=== PATIENT | female | born 1955 | race Caucasian/White ===

== ENCOUNTER 2021-01-20 15:56 | Inpatient (IN) | payer MEDICARE, MEDICAID, SELFPAY ==
[2021-01-20] VITALS (10 sets, daily range): BP systolic 123–148; BP diastolic 49–77; PULSE 78–88; RESP 12–20; TEMP 36.6–37.2; O2SAT 95–100; BMI 54.6
--- NOTE | ~2021-01-20 | US_ITS ---
EXAMINATION: US venous doppler [facility] DATE: 01/21/2021 14:15 INDICATION: Lower limb pain TECHNIQUE: Aguero scale images without and with compression and Doppler images of the bilateral lower e xtremity veins were obtained. COMPARISON: None FINDINGS: There is limited evaluation of the bilateral calf veins. The right common femoral vein, profunda femoral vein, femoral vein, popliteal vein, peroneal trunk, p osterior tibial veins, and greater saphenous vein are patent. The left common femoral vein, profunda femoral vein, femoral vein, popliteal vein, peroneal trunk, po sterior tibial veins, and greater saphenous vein are patent. IMPRESSION: 1. Patent bilateral lower extremity veins. No evidence of deep venous thrombosis. Reviewed, dictated and finalized at location A. 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 Patent bilateral lower extremity veins. No evidence of deep venous thrombosi s.
--- NOTE | ~2021-01-20 | XR_ITS ---
XR chest 1V portable 01/20/2021 16:13 Indication: Substernal chest pain. History of COPD. Procedure: AP portable chest Comparison: No prior studies for comparison. Findings: Borderline heart size. Mild pulmonary vascular congestion. No focal air space disease, pulm onary edema, pleural effusion or suspected pneumothorax. Impression: 1: No acute cardiopulmonary disease. Reviewed, dictated and finalized at location A. UTER ARCHITECT Impression: 1: No acute cardiopulmonary disease.
--- NOTE | 2021-01-20 16:02 | ECG_ITS ---
Measurements Intervals [place] Rate: 84 P: 51 DC: 185 QRS: -43 QRSD: 110 T: 71 QT: 374 QTc: 443 Interpretive Statements SINUS RHYTHM LEFT AXIS DEVIATION INCOMPLETE LEFT BUNDLE BRANCH BLOCK POOR R WAVE PROGRESSION, ANTERIOR LEADS BASELINE ARTIFACT- I, II, AVR, AVL, V6 ABNORMAL ECG Electronically Signed On 01-21-2021 7:17:54 [employer]MENT WORK[employer] by Abhay Lew D.O.
--- NOTE | 2021-01-20 16:05 | ED.CHESTPAIN ---
HPI - Chest Pain General Chief Complaint: Chest Pain Stated Complaint: CP Source: RN notes reviewed History of Present Illness HPI narrative: Patient presents emergency department from [facility] via EMS for chest pain. Patient states pain began shortly after eating the pain is located in the midsternal chest in the epigastric region described as a pressure. States is associate with shortness of breath. Patient states the pain is still present she is given 3 nitros by ECF staff with minimal relief she denies any fevers or chills nausea vomiting diarrhea or any other symptoms Related Data Allergies Allergy/AdvReac Type Severity Reaction Status Date / Time amoxicillin Allergy Unknown Verified 01/20/21 16:15 aspirin Allergy Unknown Verified 01/20/21 16:15 bee venom protein (honey bee) Allergy Unknown Verified 01/20/21 16:15 [bees] chlorpheniramine Allergy Unknown Verified 01/20/21 16:15 erythromycin base Allergy Unknown Verified 01/20/21 16:15 fenofibrate Allergy Unknown Verified 01/20/21 16:15 fluoxetine Allergy Unknown Verified 01/20/21 16:15 hydrocodone Allergy Unknown Verified 01/20/21 16:15 hydroxyzine Allergy Unknown Verified 01/20/21 16:15 iodine Allergy Unknown Verified 01/20/21 16:15 metaproterenol Allergy Unknown Verified 01/20/21 16:15 methocarbamol Allergy Unknown Verified 01/20/21 16:15 oxytetracycline Allergy Unknown Verified 01/20/21 16:15 Penicillins Allergy Unknown Verified 01/20/21 16:15 pentazocine Allergy Unknown Verified 01/20/21 16:15 procaine Allergy Unknown Verified 01/20/21 16:15 propoxyphene Allergy Unknown Verified 01/20/21 16:15 sertraline Allergy Unknown Verified 01/20/21 16:15 Sulfa (Sulfonamide Allergy Unknown Verified 01/20/21 16:15 Antibiotics) terbutaline Allergy Unknown Verified 01/20/21 16:15 yellow dye Allergy Unknown Verified 01/20/21 16:15 hmg-coa-R Inhibitors Allergy Unknown Uncoded 01/20/21 16:15 Review of Systems Review of Systems: Gen.: Denies fevers or chills ENT: Denies congestion Respiratory: Reports shortness of breath CV: See HPI GI: Denies abdominal pain nausea, emesis or diarrhea Musculoskeletal: Denies back pain or muscle pain Neuro: Denies numbness, tingling, weakness or focal weakness Skin: Denies rash Except as documented, all other systems reviewed and negative [facility] Past Medical History Medical History (Updated 01/20/21 @ 18:21 by Hernan Viramontes DO) COPD (chronic obstructive pulmonary disease) Social History Social History (Updated 01/20/21 @ 16:09 by Hernan Viramontes DO) Smoking status: Never smoker Exam Narrative: APPEARANCE: No acute distress, nontoxic, resting in bed EYES: EOMI HEENT: Normocephalic, atraumatic, OMM RESPIRATORY: No respiratory distress Clear to auscultation bilaterally with no rhonchi wheezing or rales. CARDIOVASCULAR: Regular rate and rhythm without murmurs rubs or gallops. ABDOMINAL: Obese soft tender palpation epigastric left upper quadrant no tenderness right upper quadrant, right lower quadrant left lower quadrant no rebound or guarding MUSCULOSKELETAl: Moves all extremities. No clubbing, cyanosis or edema. NEURO: Awake and alert. Following commands, speech normal, no focal deficits SKIN:: Warm, dry. No rashes lesions or abrasions PSYCHIATRIC: Normal affect/mood, Course Course Emergency Course: Patient states pain is improved with Maalox states she is unable to take aspirin as she is allergic to aspirin Patient given morphine with resolution of pain Discussed with Dr. Brasher presentation work-up agrees with consult at this time Discussed with GENE Krishnan for Dr. Santos presentation work-up agrees with admission Discussed with patient and family results of workup and diagnosis. Discussed need for admission. Patient and family understand and agree to current treatment plan Vital Signs Vital signs: Vital Signs Temperature 99.0 F 01/20/21 15:53 Pulse Rate 88 01/20/21 15:53 Respiratory Rate 14 1
[2021-01-20 16:48] LABS: Basophils Absolute Auto 0.1 K/mm3 (0.0-0.1); Basophils Percent Auto 1.1 % (0.2-1.2); Eosinophils Absolute Auto 0.2 K/mm3 (0-0.3); Eosinophils Percent Auto 2.7 % (0-4.4); Hematocrit 36.9 % (37.0-47.0); Hemoglobin 12.4 g/dL (12.0-15.0); Immature Granulocyte Absolute 0.07 K/mm3 (0.00-0.031); Immature Granulocyte Percent A 1.1 % (0-0.5); Lymphocytes Absolute Auto 2.01 K/mm3 (0.9-3.2); Lymphocytes Percent Auto 30.5 % (18.3-44.2); Mean Corpuscular HGB Conc 33.6 g/dl (32-36); Mean Corpuscular Hemoglobin 32.7 pg (26-34); Mean Corpuscular Volume 97.4 fl (80-100); Monocytes Absolute Auto 0.7 K/mm3 (0.1-0.6); Monocytes Percent Auto 10.3 % (2.6-8.5); Neutrophils Absolute Auto 3.6 K/mm3 (1.3-6.7); Neutrophils Percent Auto 54.3 % (45.5-73.1); Platelet Count Result 194 k/mm3 (150-375); Red Blood Count 3.79 M/mm3 (4.2-5.4); Red Cell Distribution Width 14.8 % (11.5-14.5); White Blood Count 6.6 K/mm3 (4.5-10.0)
[2021-01-20 16:57] LABS: INR 0.9
[2021-01-20 16:58] LABS: Alanine Aminotransferase 23 U/L (4-35); Albumin Level 3.8 g/dL (3.5-5.1); Alkaline Phosphatase 90 U/L (38-126); Anion Gap 6 mmol/L (8-16); Aspartate Amino Transferase 32 U/L (14-36); Bilirubin,Total 0.2 mg/dL (0.2-1.3); Blood Urea Nitrogen 22 mg/dL (7-17); Calcium 9.3 mg/dL (8.4-10.2); Carbon Dioxide 32 mmol/L (22-30); Chloride 94 mmol/L (98-107); Estimated CRCL calculation 64 ml/min; Estimated Glomerular Filt Rate 56; Glucose 180 mg/dL (65-110); Lipase 80 U/L (23-300); Partial Thromboplastin Time 28.1 SECONDS (22.3-36.8); Potassium 3.9 mmol/L (3.4-5.0); Sodium 132 mmol/L (137-145)
[2021-01-20] MEDS: MORPHINE SULFATE (*CRX) 2 MG/ML INJ IV PUSH (17:50)
--- NOTE | 2021-01-20 19:30 | PC.NURSE ---
Assumed care of pt at this time, report received from Katt HAJI. Pt alert, resting on stretcher. Pt updated on POC.
--- NOTE | 2021-01-20 20:00 | PM.IMHP ---
H&P: HPI History of Present Illness Date/Time: 01/20/21 20:00 Chief Complaint: Chest pain. Narrative: This is a very pleasant 65-year-old female with diabetes, hypertension, dyslipidemia, paroxysmal atrial fibrillation, congestive heart failure, untreated sleep apnea, and history of DVT and pulmonary embolism who presented to the emergency department earlier today via EMS from [facility] for evaluation of chest pain. She was in her usual state of health when she awoke this morning. Not long after eating lunch she developed pretty sudden onset of midsternal chest pain which she describes as a pressure or tight like discomfort. She felt a bit short of breath at that time with some nausea. She was given nitroglycerin x3, aspirin, and an antacid without benefit and thus she was brought in for evaluation. Her baseline troponin was mildly elevated at 0.040 and she is being admitted in this setting to rule out acute coronary syndrome. With further questioning she does mention intermittent issues with swallowing in the past though she has not really had any issues recently up until yesterday when eating turkey, she felt like she had to swallow several times in drink water in order to get the turkey down. She did not have any difficulties eating her meal today. She denies exertional chest pain, shortness of breath, cough, vomiting, sweats, orthopnea, and paroxysmal nocturnal dyspnea. No concerns for aspiration. She denies that her symptoms are similar to though she experiences with GERD. Review of Systems Review of Systems: Twelve systems were reviewed. No fever, chills, or sweats. No recent cold or flu symptoms though she has had mild rhinorrhea. She denies cough. Treated recently for urinary tract infection and she continues to have mild dysuria. She has frequent loose stools which is unchanged. She denies significant GERD symptoms. No belching or bloating. No melena or hematochezia. Except as documented, all other systems were reviewed and are negative. [facility] Past Medical History Medical History (Updated 01/20/21 @ 21:22 by Ariella Dos Santos PA-C) Anxiety Asthma Congestive heart failure Deep venous thrombosis Depression Diabetic peripheral neuropathy Frequent urinary tract infections Gastroesophageal reflux disease Hyperlipidemia Hypertension Mixed stress and urge incontinence Obstructive sleep apnea Intolerant to CPAP. Paroxysmal atrial fibrillation Pulmonary embolism Type 2 diabetes mellitus Surgical History Surgical History (Updated 01/20/21 @ 21:14 by Ariella Dos Santos PA-C) History of cardiac catheterization No coronary artery disease per patient report. History of cholecystectomy History of colonoscopy History of cystoscopy History of tonsillectomy and adenoidectomy Family History Family History (Updated 01/20/21 @ 21:15 by Ariella Dos Santos PA-C) Mother Colon cancer Father GI bleed Social History Social History (Updated 01/20/21 @ 21:15 by Ariella Dos Santos PA-C) Social History: Surrogate decision maker: Moi Medellin, brother. Code status: Full code. Smoking status: Never smoker Alcohol intake: never Substance use: never Additional living arrangements comments: Patient is a resident at [facility]. She has no children. 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 Meds Home Medications and Allergies Home Medications Medication Instructions Recorded Confirmed Type oxycodone 5 mg tablet 5 mg PO Q6H PRN #120 tablet 12/12/20 Rx Allergies Allergy/AdvReac Type Severity Reaction Status Date / Time amoxicillin Allergy Unknown Verified 01/20/21 16:15 aspirin Allergy Unknown Verified 01/20/21 16:15 bee venom protein (honey bee) Allergy Unknown Verified 01/20/21 16:15 [bees] chlorpheniramine Allergy Unknown Verified 01/20/21 16:15 erythromycin base Allergy Unknown Verified 01/20/21 16:15 fenofibrate
[2021-01-20 21:18] LABS: Troponin I 0.043 ng/mL (0.000-0.034)
--- NOTE | 2021-01-20 22:00 | PC.NURSE ---
This patient, Nazanin Medellin, was admitted to IMU Room 206-02 on 01/20/21 at 2130. Patient/family oriented to hospital policies and general routines including ID bracelet, bed and alarms, visiting hours, pain management, procedures, bathroom and other care routines, personal items, smoking policy, room service/diet, and visiting hours. Information on how to activate the Rapid Response Team has been discussed. Patient/Family are encouraged to report perceived risks to care and to ask questions if they do not understand what they are told or what they should do.
[2021-01-20 22:39] LABS: Hemoglobin A1C 6.8 % (<5.7)
[2021-01-20 22:52] LABS: Troponin I 0.045 ng/mL (0.000-0.034)
[2021-01-21] VITALS (16 sets, daily range): BP systolic 132–147; BP diastolic 62–74; PULSE 72–93; RESP 16–22; TEMP 36.1–36.9; O2SAT 96–100
[2021-01-21 04:40] LABS: Basophils Absolute Auto 0.1 K/mm3 (0.0-0.1); Basophils Percent Auto 1.1 % (0.2-1.2); Eosinophils Absolute Auto 0.2 K/mm3 (0-0.3); Eosinophils Percent Auto 3.1 % (0-4.4); Hematocrit 36.4 % (37.0-47.0); Hemoglobin 12.2 g/dL (12.0-15.0); Immature Granulocyte Absolute 0.05 K/mm3 (0.00-0.031); Immature Granulocyte Percent A 0.8 % (0-0.5); Lymphocytes Absolute Auto 2.35 K/mm3 (0.9-3.2); Lymphocytes Percent Auto 38.3 % (18.3-44.2); Mean Corpuscular HGB Conc 33.5 g/dl (32-36); Mean Corpuscular Hemoglobin 32.3 pg (26-34); Mean Corpuscular Volume 96.3 fl (80-100); Mean Platelet Volume 10.9 fl (7.4-10.4); Monocytes Absolute Auto 0.7 K/mm3 (0.1-0.6); Monocytes Percent Auto 11.9 % (2.6-8.5); Neutrophils Absolute Auto 2.7 K/mm3 (1.3-6.7); Neutrophils Percent Auto 44.8 % (45.5-73.1); Platelet Count Result 169 k/mm3 (150-375); Red Blood Count 3.78 M/mm3 (4.2-5.4); Red Cell Distribution Width 14.6 % (11.5-14.5); White Blood Count 6.1 K/mm3 (4.5-10.0)
[2021-01-21 05:02] LABS: Alanine Aminotransferase 21 U/L (4-35); Albumin Level 3.4 g/dL (3.5-5.1); Alkaline Phosphatase 86 U/L (38-126); Anion Gap 5 mmol/L (8-16); Aspartate Amino Transferase 26 U/L (14-36); Bilirubin,Total 0.3 mg/dL (0.2-1.3); Blood Urea Nitrogen 20 mg/dL (7-17); Calcium 9.1 mg/dL (8.4-10.2); Carbon Dioxide 36 mmol/L (22-30); Chloride 96 mmol/L (98-107); Estimated CRCL calculation 58 ml/min; Estimated Glomerular Filt Rate 50; Glucose 150 mg/dL (65-110); Magnesium 1.6 mg/dL (1.6-2.3); Potassium 3.6 mmol/L (3.4-5.0); Sodium 137 mmol/L (137-145)
--- NOTE | 2021-01-21 06:36 | PCNSR ---
Addendum entered by Damaris Baxter RD, LDN 01/21/21 06:43: Pt originally documented on was moved to a different room. Original Note: On 01/21/21, the student, Lucila Hull, provided care and completed [facility] documentation on this patient. I have reviewed the student's documentation and agree with the findings.
[2021-01-21 09:38] LABS: Glucose Point of Care 150 mg/dl (65-105)
[2021-01-21] MEDS: allopurinoL 300 MG TABLET PO (10:00)
[2021-01-21] MEDS: INSULIN ASPART (*BKC) 100 UNITS/ML 6 UNITS SUB-Q ×3 (10:00→18:12)
[2021-01-21] MEDS: ASCORBIC ACID 500 MG TABLET PO (10:01)
[2021-01-21] MEDS: CHOLECALCIFEROL 1,000 UNITS TABLET 1000 UNITS PO (10:01)
[2021-01-21] MEDS: VENLAFAXINE HCL XR 75 MG CAP.ER.24H 225 MG PO (10:01)
[2021-01-21] MEDS: CYANOCOBALAMIN 1,000 MCG TABLET 1000 MCG PO (10:02)
[2021-01-21] MEDS: CLOPIDOGREL BISULFATE 75 MG TABLET PO (10:02)
[2021-01-21] MEDS: FUROSEMIDE 80 MG TABLET PO (10:03)
[2021-01-21] MEDS: OLANZapine 5 MG TABLET PO (10:03)
[2021-01-21] MEDS: MULTIVITAMINS /C LUTEIN (CENTRUM SILVER) TABLET *BKC 1 TAB PO (10:03)
[2021-01-21] MEDS: FAMOTIDINE 20 MG TABLET PO ×2 (10:03→18:11)
[2021-01-21] MEDS: LORATADINE 10 MG TABLET PO (10:03)
[2021-01-21] MEDS: PANTOPRAZOLE SODIUM IV 40 MG VIAL IV PUSH ×2 (10:52→20:17)
[2021-01-21] MEDS: MAGNESIUM SULFATE 3GM/D5W100ML 3 GM/100 ML BAG IVPB (10:53)
[2021-01-21] MEDS: DIVALPROEX SODIUM ER 500 MG TAB.24H PO ×2 (11:24→18:12)
--- NOTE | 2021-01-21 13:14 | PM.CNCAR ---
Assessment and Plan Additional Plan NSTEMI, HTN, DM, morbid obesity, plan LHC on saturday, TTE, ASA and plavix, statin, heparin for 48 hours, get medical records of prior cath History of Present Illness History of Present Illness Consult date/time: 01/21/21 13:14 Consult reason: chest pain Reason For Visit: chest pain, elevated troponin Narrative: Patient presented with acute onset of retrosternal chest discomfort, 8/10, non radiating, happened at rest, lsted for hours, not relieved with NTG. [facility]. . Review of Systems Review of Systems: All systems reviewed & are unremarkable except as noted in HPI and below PMFSH Past Medical History Medical History (Updated 01/20/21 @ 21:22 by Ariella Dos Santos PA-C) Anxiety Asthma Congestive heart failure Deep venous thrombosis Depression Diabetic peripheral neuropathy Frequent urinary tract infections Gastroesophageal reflux disease Hyperlipidemia Hypertension Mixed stress and urge incontinence Obstructive sleep apnea Intolerant to CPAP. Paroxysmal atrial fibrillation Pulmonary embolism Type 2 diabetes mellitus Surgical History Surgical History (Updated 01/20/21 @ 21:14 by Ariella Dos Santos PA-C) History of cardiac catheterization No coronary artery disease per patient report. History of cholecystectomy History of colonoscopy History of cystoscopy History of tonsillectomy and adenoidectomy Family History Family History Mother No problems noted. Father No problems noted. Other Adopted Social History Social History (Updated 01/20/21 @ 21:15 by Ariella Dos Santos PA-C) Social History: Surrogate decision maker: Moi Medellin, brother. Code status: Full code. Smoking status: Never smoker Second hand tobacco smoke exposure: No Alcohol intake: never Substance use: never Substance use type: does not use Additional living arrangements comments: Patient is a resident at [facility]. She has no children. 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 Spiritual care concerns: No Meds Home Medications and Allergies Home Medications Medication Instructions Recorded Confirmed Type acetaminophen 650 mg PO Q6H PRN 01/20/21 01/20/21 History albuterol sulfate 2 puff INHALATION HS 01/20/21 01/20/21 History albuterol sulfate 2 puff INHALATION Q4H PRN 01/20/21 01/20/21 History allopurinol 300 mg PO DAILY 01/20/21 01/20/21 History ascorbic acid (vitamin C) 500 mg PO DAILY 01/20/21 01/20/21 History bisacodyl 10 mg RECTAL DAILY PRN 01/20/21 01/20/21 History calcium carbonate [Antacid Calcium] 200 mg PO BID PRN 01/20/21 01/20/21 History cholecalciferol (vitamin D3) 25 mcg PO DAILY 01/20/21 01/20/21 History [Vitamin D3] clopidogrel 75 mg PO DAILY 01/20/21 01/20/21 History cyanocobalamin (vitamin B-12) 1,000 mcg PO DAILY 01/20/21 01/20/21 History [Vitamin B-12] divalproex 500 mg PO BID 01/20/21 01/20/21 History famotidine 20 mg PO BID 01/20/21 01/20/21 History furosemide 80 mg PO DAILY 01/20/21 01/20/21 History insulin aspart U-100 [Novolog 6 unit SUBCUT TID 01/20/21 01/20/21 History Flexpen U-100 Insulin] insulin aspart U-100 [Novolog See Rx Instructions .ROUTE .COMPLEX 01/20/21 01/20/21 History Flexpen U-100 Insulin] insulin glargine [Lantus Solostar 50 unit SUBCUT HS 01/20/21 01/20/21 History U-100 Insulin] loperamide 2 mg PO Q6H PRN 01/20/21 01/20/21 History loratadine 10 mg PO DAILY 01/20/21 01/20/21 History magnesium citrate 300 ml PO DAILY PRN 01/20/21 01/20/21 History magnesium hydroxide [Milk of 30 ml PO HS PRN 01/20/21 01/20/21 History Magnesia] melatonin 5 mg PO HS 01/20/21 01/20/21 History metformin 500 mg PO BID 01/20/21 01/20/21 History ixrwhvzkpocq-wuv-csup-FA-vit K 1 tablet PO DAILY 01/20/21 01/20/21 History [Adults Multivitamin] ny
--- NOTE | 2021-01-21 13:28 | PM.IMPN ---
Progress Note: A&P Assessment and Plan (1) NSTEMI (non-ST elevated myocardial infarction): Code(s): I21.4 - Non-ST elevation (NSTEMI) myocardial infarction Status: Acute Assessment and Plan: The patient presented to the hospital for evaluation of chest pain that happened not long after eating lunch. She was admitted overnight to rule out acute coronary syndrome. Cannot rule out a GI component given reports of dysphagia yesterday while eating meat though she reports no issues with swallowing today and she denies overt GERD symptoms at this time. She has no known history of coronary artery disease and reports a cardiac catheterization years ago at [facility] which was normal Echocardiogram ordered and pending Cardiology evaluated the patient and due to elevated troponins and atypical chest pain he is going to order for a cardiac catheterization to be done on Saturday for further ACS rule out Recommends placing the patient on full-dose Lovenox at this time, holding dose prior to cardiac catheterization Saturday morning Patient understands and agrees the plan all questions answered. Continue monitoring. (2) Chest pain: Code(s): R07.9 - Chest pain, unspecified Status: Acute Assessment and Plan: See above. Resolved now (3) Elevated troponin: Code(s): R77.8 - Other specified abnormalities of plasma proteins Status: Acute Assessment and Plan: See above (4) Hyponatremia: Code(s): E87.1 - Hypo-osmolality and hyponatremia Status: Acute Assessment and Plan: Na normal at 137. Stable. (5) Type 2 diabetes mellitus: Code(s): E11.9 - Type 2 diabetes mellitus without complications Status: Acute Assessment and Plan: Will decrease Home Insulin because of hospitalization to prevent hypoglycemia Initiate sliding scale insulin, Accu-Cheks, and hypoglycemic protocol. (6) Hypertension: Code(s): I10 - Essential (primary) hypertension Status: Acute Assessment and Plan: Her blood pressures were reviewed and they have been stable. BP stable 140/68 Continue monitoring. (7) Gastroesophageal reflux disease: Code(s): K21.9 - Gastro-esophageal reflux disease without esophagitis Status: Acute Assessment and Plan: PPI IV Q12hrs Not having anymore dysphagia symptoms Time Spent With Patient Time with patient: 25 - 35 minutes Subjective Date/time seen: 01/21/21 13:28 Interval history: Date of Service 01/21/21: The patient is feeling well today. No more chest pain, denies worsening SOB from her baseline, denies cough, fever, chills, nausea, vomiting, abdominal pain, difficulty swallowing/choaking on food today, or any other symptoms at this time. Review of Systems Review of Systems: All systems reviewed & are unremarkable except as noted in HPI and below Exam Narrative: General: 65-year-old woman laying flat in bed watching TV. Resting comfortably on 1L via NC. Appears comfortable. In no acute distress. Skin: No jaundice or cyanosis. Good skin turgor. Neck: Full range of motion. Supple. Respiratory: Lungs are clear to auscultation bilaterally. No wheezing, rales or rhonchi. No bony chest wall tenderness. Cardiovascular: The heart has a regular rate and rhythm without murmur. Lower extremities: No lower extremity edema. Distal pulses are easily palpated. No calf tenderness to palpation. Gastrointestinal: The abdomen is soft, nontender and nondistended with active bowel sounds. Psychiatric: Lucid and oriented. Memory intact. Neurologic: No focal deficits. Speech is clear. No facial drooping. Objective Data Vital Signs Vital Signs: Vital Signs - 24 hr 01/20/21 15:53 01/20/21 16:02 01/20/21 17:51 Temperature 99.0 F Pulse Rate 88 87 87 Respiratory Rate 14 20 Blood Pressure 131/77 128/68 Pulse Oximetry 97 97 01/20/21 19:30 01/20/21 20:39 01/20/21 21:1
--- NOTE | 2021-01-21 14:25 | PCPTNOTE ---
in testing-try in am.
[2021-01-21] MEDS: ENOXAPARIN 30 MG/0.3 ML SYRINGE SUB-Q (15:55)
[2021-01-21] MEDS: ENOXAPARIN 100 MG/ML SYRINGE SUB-Q (15:55)
[2021-01-21 18:59] LABS: Glucose Point of Care 189 mg/dl (65-105)
[2021-01-21] MEDS: MELATONIN 5 MG TABLET PO (20:17)
[2021-01-21 20:34] LABS: Glucose Point of Care 199 mg/dl (65-105)
--- NOTE | 2021-01-21 21:23 | ECHO_ITS ---
Patient Info Name: Nazanin Medellin Age: 65 years : 1955 Gender: Female Ht: 61 in Wt: 285 lbs BSA: 2.45 m2 HR: 88 bpm BP: 133 / 74 mmHg Technical Quality: Poor Exam Date: 01/21/2021 11:59 AM Exam Location: [facility] Patient Status: Inpatient Admit Date: 01/20/2021 Staff Ordering Physician: Ariella Dos Santos PA-C Assembler Clip On Sunglasses: Nadiya Montero RDCS Attending Provider: Torrie Mauro PA-C Referring Physician: Raya CHRIS; Exam Type: CA echo dop color flow w con Study Info Indications - chest pain Complete two-dimensional, color flow and Doppler transthoracic echocardiogram is performed with contrast to opacify the left ventricle and to improve the deliniation of the left ventricle endocardial borders. Contrast/Agitated Saline Contrast/Ag. Saline: Definity Amount: 4.00 ml Reason for Poor Study: patient body habitus Summary 1. Left ventricular systolic function is normal, estimated at 60-65%. 2. There is mildly increased left ventricular wall thickness. 3. The left ventricular diastolic function is grade I diastolic dysfunction. 4. Right ventricular chamber dimension is normal. 5. Right ventricular systolic function is normal. 6. There is no mitral valve stenosis. 7. There is no mitral valve regurgitation. 8. Mild generalized mitral annular calcification. 9. Aortic valve is not well visualized. 10. There is no aortic valve stenosis. 11. There is no aortic valve regurgitation. Left Ventricle Left ventricular chamber dimension is normal. Left ventricular systolic function is normal, estimated at 60-65%. There is mildly increased left ventricular wall thickness. Left ventricular septal wall motion is normal. The left ventricular diastolic function is grade I diastolic dysfunction. Right Ventricle Right ventricular chamber dimension is normal. Right ventricular systolic function is normal. Left Atria Left atrial chamber dimension is normal. Right Atria Right atrial chamber dimension is normal. Aortic Valve Aortic valve is not well visualized. There is moderate aortic valve sclerosis. There is no aortic valve stenosis. There is no aortic valve regurgitation. Pulmonic Valve Pulmonary valve is not well visualized. Mitral Valve Mitral valve is not well visualized. There is no mitral valve stenosis. There is no mitral valve regurgitation. Mild generalized mitral annular calcification. Tricuspid Valve The tricuspid valve leaflets are normal. There is no significant tricuspid valve stenosis. There is no tricuspid valve regurgitation. Pericardium/Pleural The pericardium appears normal. There is no pericardial effusion. Inferior Vena Cava Normal inferior vena cava with >50% collapse upon inspiration consistent with Empty right atrial pressure, Empty. Aorta The aortic root size at the sinus of Valsalva is normal. The prox ascending aorta size is normal. Left Ventricular Outflow Tract Name Value Normal LVOT 2D LVOT Diameter 2.03 cm LVOT Doppler LVOT Peak Gradient 7 mmHg
[2021-01-21] MEDS: INSULIN GLARGINE (*BKC) 100 UNITS/ML 35 UNITS SUB-Q (22:17)
[2021-01-21] MEDS: oxyCODONE HCL (*CRX) 5 MG TAB IR PO (22:18)
[2021-01-22] VITALS (16 sets, daily range): BP systolic 120–149; BP diastolic 58–72; PULSE 67–98; RESP 12–24; TEMP 36.5–37.4; O2SAT 93–99
[2021-01-22] MEDS: ENOXAPARIN 30 MG/0.3 ML SYRINGE SUB-Q ×2 (02:14→13:42)
[2021-01-22] MEDS: ENOXAPARIN 100 MG/ML SYRINGE SUB-Q ×2 (02:14→13:42)
[2021-01-22] MEDS: ALBUTEROL SULFATE (*SP) AEROSOL 1 PUFF 2 PUFF INHALATION ×3 (02:41→20:45)
[2021-01-22 04:50] LABS: Hematocrit 35.9 % (37.0-47.0); Mean Corpuscular HGB Conc 33.4 g/dl (32-36); Mean Corpuscular Hemoglobin 32.9 pg (26-34); Mean Corpuscular Volume 98.4 fl (80-100); Mean Platelet Volume 11.4 fl (7.4-10.4); Platelet Count Result 180 k/mm3 (150-375); Red Blood Count 3.65 M/mm3 (4.2-5.4); Red Cell Distribution Width 14.9 % (11.5-14.5); White Blood Count 5.9 K/mm3 (4.5-10.0)
[2021-01-22 05:15] LABS: Anion Gap 8 mmol/L (8-16); Blood Urea Nitrogen 22 mg/dL (7-17); Calcium 8.8 mg/dL (8.4-10.2); Carbon Dioxide 33 mmol/L (22-30); Chloride 96 mmol/L (98-107); Estimated CRCL calculation 54 ml/min; Estimated Glomerular Filt Rate 45; Glucose 168 mg/dL (65-110); Magnesium 1.9 mg/dL (1.6-2.3); Potassium 3.2 mmol/L (3.4-5.0); Sodium 137 mmol/L (137-145)
[2021-01-22 08:27] LABS: Glucose Point of Care 172 mg/dl (65-105)
--- NOTE | 2021-01-22 08:37 | PM.IMPN ---
Progress Note: A&P Assessment and Plan (1) NSTEMI (non-ST elevated myocardial infarction): Code(s): I21.4 - Non-ST elevation (NSTEMI) myocardial infarction Status: Acute Assessment and Plan: The patient presented to the hospital for evaluation of chest pain that happened not long after eating lunch. She was admitted overnight to rule out acute coronary syndrome. Cannot rule out a GI component given reports of dysphagia yesterday while eating meat though she reports no issues with swallowing today and she denies overt GERD symptoms at this time. She has no known history of coronary artery disease and reports a cardiac catheterization years ago at [facility] which was normal Echocardiogram showed EF normal at 60 to 65%, diastolic grade 1 dysfunction, mild LVH Cardiology evaluated the patient and due to elevated troponins and atypical chest pain he is going to order for a cardiac catheterization to be done on Saturday for further ACS rule out Recommends placing the patient on full-dose Lovenox at this time, holding dose prior to cardiac catheterization Saturday morning Patient understands and agrees the plan all questions answered. Continue monitoring. (2) Chest pain: Code(s): R07.9 - Chest pain, unspecified Status: Acute Assessment and Plan: See above. Resolved now (3) Elevated troponin: Code(s): R77.8 - Other specified abnormalities of plasma proteins Status: Acute Assessment and Plan: See above (4) Hyponatremia: Code(s): E87.1 - Hypo-osmolality and hyponatremia Status: Acute Assessment and Plan: Na normal at 137. Stable. (5) Type 2 diabetes mellitus: Code(s): E11.9 - Type 2 diabetes mellitus without complications Status: Acute Assessment and Plan: Will decrease Home Insulin because of hospitalization to prevent hypoglycemia Initiate sliding scale insulin, Accu-Cheks, and hypoglycemic protocol. (6) Hypertension: Code(s): I10 - Essential (primary) hypertension Status: Acute Assessment and Plan: Her blood pressures were reviewed and they have been stable. BP stable 123/66 Continue monitoring. (7) Gastroesophageal reflux disease: Code(s): K21.9 - Gastro-esophageal reflux disease without esophagitis Status: Acute Assessment and Plan: PPI IV Q12hrs (8) Dysphagia: Code(s): R13.10 - Dysphagia, unspecified Status: Acute Assessment and Plan: Patient reports dysphagia with most of her meals. Denies any more choking episodes. Will order a bedside evaluation from the speech therapist and see what their recommendations would be for further testing (9) Hypokalemia: Code(s): E87.6 - Hypokalemia Status: Acute Assessment and Plan: Potassium slightly low at 3.2 today. Magnesium 1.9. Will replace potassium 40 mEq p.o. Recheck in the morning. Additional Plan Time Spent With Patient Time with patient: 25 - 35 minutes Subjective Date/time seen: 01/22/21 08:37 Interval history: Date of Service 01/22/21: The patient is feeling well today. She states she has issues with swallowing with most meals. No more episodes of choking. No more chest pain, denies worsening SOB from her baseline, denies cough, fever, chills, nausea, vomiting, abdominal pain, or any other symptoms at this time. Review of Systems Review of Systems: All systems reviewed & are unremarkable except as noted in HPI and below Exam Narrative: General: 65-year-old woman laying flat in bed watching TV. Resting comfortably on room air. Appears comfortable. In no acute distress. Skin: No jaundice or cyanosis. Good skin turgor. Neck: Full range of motion. Supple. Respiratory: Lungs are clear to auscultation bilaterally. No wheezing, rales or rhonchi. No bony chest wall tenderness. Cardiovascular: The heart has a regular rate and rhythm without mu
[2021-01-22] MEDS: POTASSIUM CHLORIDE 20 MEQ TABLET 40 MEQ PO (09:29)
[2021-01-22] MEDS: allopurinoL 300 MG TABLET PO (09:30)
[2021-01-22] MEDS: INSULIN ASPART (*BKC) 100 UNITS/ML 6 UNITS SUB-Q ×3 (09:30→17:17)
[2021-01-22] MEDS: VENLAFAXINE HCL XR 75 MG CAP.ER.24H 225 MG PO (09:31)
[2021-01-22] MEDS: CHOLECALCIFEROL 1,000 UNITS TABLET 1000 UNITS PO (09:34)
[2021-01-22] MEDS: CLOPIDOGREL BISULFATE 75 MG TABLET PO (09:34)
[2021-01-22] MEDS: ASCORBIC ACID 500 MG TABLET PO (09:34)
[2021-01-22] MEDS: DIVALPROEX SODIUM ER 500 MG TAB.24H PO ×2 (09:35→16:39)
[2021-01-22] MEDS: FAMOTIDINE 20 MG TABLET PO ×2 (09:36→16:39)
[2021-01-22] MEDS: MULTIVITAMINS /C LUTEIN (CENTRUM SILVER) TABLET *BKC 1 TAB PO (09:36)
[2021-01-22] MEDS: FUROSEMIDE 80 MG TABLET PO (09:36)
[2021-01-22] MEDS: MAGNESIUM OXIDE 400 MG TABLET PO (09:36)
[2021-01-22] MEDS: CYANOCOBALAMIN 1,000 MCG TABLET 1000 MCG PO (09:36)
[2021-01-22] MEDS: LORATADINE 10 MG TABLET PO (09:36)
[2021-01-22] MEDS: OLANZapine 5 MG TABLET PO (09:37)
[2021-01-22] MEDS: PANTOPRAZOLE SODIUM IV 40 MG VIAL IV PUSH ×2 (09:37→21:13)
--- NOTE | 2021-01-22 11:43 | PM.PNCARD ---
Progress Note: A&P Additional Plan NSTEMI, HTN, DM, morbid obesity, plan LHC on saturday, TTE, ASA and plavix, statin, heparin for 48 hours, get medical records of prior cath, NPO for possible LHC Subjective Date/time seen: 01/22/21 11:43 Interval history: no acuet events Tele: 70s Review of Systems Review of Systems: All systems reviewed & are unremarkable except as noted in HPI and below Exam Const: General: comfortable and no acute distress Other: Able to lie flat HENMT: General nose exam: Normal nares present and no epistaxis Mouth: Yes moist mucous membranes Eyes: Sclera: sclerae normal Pupils: Equal, round and reactive pupils present Neck: Neck: supple and no JVD Carotids: no bruits Resp: Auscultation: clear to auscultation bilaterally and lung sounds not diminished Other: No chest wall tenderness Cardio: Rate: regular rate Rhythm: regular rhythm Heart sounds: no gallops, no murmurs and no rubs GI: Auscultation: normal bowel sounds Skin: General skin exam: normal color, rashes and/or lesions noted and no erythema Other: Warm Neuro: Cranial nerves: Yes Equal, round and reactive pupils present Speech: normal speech Other: No obvious focal deficit or facial asymmetry Extrem: General: no edema Other: Normal capillary refills Intact distal pulses. Objective Data Vital Signs Vital Signs: Vital Signs - 24 hr 01/21/21 11:54 01/21/21 12:00 01/21/21 14:00 Temperature 36.9 C Pulse Rate 93 89 88 Respiratory Rate 16 Blood Pressure 140/68 Pulse Oximetry 97 97 01/21/21 15:51 01/21/21 16:00 01/21/21 18:00 Temperature 36.9 C Pulse Rate 84 84 87 Respiratory Rate 16 Blood Pressure 140/62 Pulse Oximetry 97 97 01/21/21 20:00 01/21/21 22:00 01/21/21 22:50 Temperature 36.6 C Pulse Rate 84 80 82 Respiratory Rate 20 22 H Blood Pressure 147/62 H Pulse Oximetry 96 97 01/22/21 00:00 01/22/21 02:00 01/22/21 02:44 Temperature 37.2 C Pulse Rate 67 69 77 Respiratory Rate 22 H 12 Blood Pressure 125/58 L Pulse Oximetry 97 97 01/22/21 04:00 01/22/21 05:55 01/22/21 08:00 Temperature 36.9 C 37.4 C Pulse Rate 73 80 80 Respiratory Rate 20 18 Blood Pressure 123/66 149/69 H Pulse Oximetry 93 96 01/22/21 10:00 Temperature Pulse Rate 75 Respiratory Rate Blood Pressure Pulse Oximetry Intake/Output Intake/Output: Intake & Output 01/19/21 01/20/21 01/21/21 01/22/21 23:59 23:59 23:59 23:59 Intake Total 702 500 Balance 702 500 Meds/Results Medications: Active Medications Generic Name Dose Route Start Last Admin Trade Name Freq PRN Reason Stop Dose Admin Acetaminophen 650 mg 01/21/21 00:23 Acetaminophen 325 Mg Tablet PO Q6H PRN Pain (Scale Score 1-3) Albuterol 2 puff 01/21/21 21:00 01/22/21 02:41 Albuterol Sulfate (*Sp) Aerosol 1 Puff INHALATION 2 puff HS ASAD Administration Albuterol 2 puff 01/21/21 00:23 Albuterol Sulfate (*Sp) Aerosol 1 Puff INHALATION Q4H PRN Shortness Of Breath Or Wheezing Allopurinol 300 mg 01/21/21 08:00 01/22/21 09:30 Allopurinol 300 Mg Tablet PO 300 mg DAILY@0800 ASAD Administration Ascorbic Acid 500 mg 01/21/21 09:00 01/22/21 09:34 Ascorbic Acid 500 Mg Tablet PO 500 mg DAILY ASAD Administration Bisacodyl 10 mg 01/21/21 00:23 Bisacodyl 10 Mg Suppository RECTAL DAILY PRN Constipation Calcium Carbonate 200 mg 01/21/21 00:23 Calcium Carbonate (Tums) 500 Mg (200 Mg Elemental) PO BID PRN Indigestion Clopidogrel Bisulfate 75 mg 01/21/21 09:00 01/22/21 09:34 Clopidogrel Bisulfate 75 Mg Tablet PO 75 mg DAILY ASAD Administration Cyanocobalamin 1,000 mcg 01/21/21 09:00 01/22/21 09:36 Cyanocobalamin 1,000 Mcg Tablet PO 1,000 mcg DAILY ASAD Administration Dextrose 12.5 gm 01/20/21 21:23 Dextrose 50% 25 Gm/50 Ml Syringe IV PUSH PRN PRN Hypoglycemia Protocol Divalproex Sodiu
[2021-01-22 12:39] LABS: Glucose Point of Care 228 mg/dl (65-105)
[2021-01-22] MEDS: INSULIN ASPART (*BKC) 100 UNITS/ML SUB-Q (12:57)
--- NOTE | 2021-01-22 15:41 | ECG_ITS ---
Measurements Intervals Arabi Rate: 92 P: 30 SC: 171 QRS: -31 QRSD: 111 T: 62 QT: 371 QTc: 461 Interpretive Statements SINUS RHYTHM INCOMPLETE LEFT BUNDLE BRANCH BLOCK POOR R WAVE PROGRESSION, ANTERIOR LEADS INFERIOR INFARCT, AGE INDETERMINATE BASELINE ARTIFACT- II, III, AVF ABNORMAL ECG Electronically Signed On 01-22-2021 17:40:28 TERMINAL CARMAN by Abhay Lew D.O.
[2021-01-22] MEDS: NITROGLYCERIN OINTMENT 1 INCH DOSE TRANSDERM (16:39)
[2021-01-22 17:06] LABS: Glucose Point of Care 155 mg/dl (65-105)
[2021-01-22] MEDS: MELATONIN 5 MG TABLET PO (21:13)
[2021-01-22] MEDS: INSULIN GLARGINE (*BKC) 100 UNITS/ML 35 UNITS SUB-Q (21:13)
[2021-01-22 21:36] LABS: Glucose Point of Care 206 mg/dl (65-105)
[2021-01-22 22:40] LABS: Add Urine Microscopic? YES; Appearance Urine Clear (Clear); Bacteria Urine Trace /hpf; Bilirubin Urine Negative (Negative); Blood Urine Negative (Negative); Color Urine Yellow (Yellow); Glucose Urine UA Negative (Negative); Ketones Urine Negative (Negative); Leukocyte Esterase Ur Negative LEU/UL (Negative); Nitrate Urine Negative (Negative); Protein Urine Negative (Negative); Specific Grav Ur 1.015 (1.001-1.035); Squamous Epithelial Cell Urine Few /hpf (Few); Urobilinogen Urine Negative mg/dL (<2.0); WBC Urine 0-3 /hpf
[2021-01-23] VITALS (17 sets, daily range): BP systolic 127–166; BP diastolic 59–81; PULSE 74–98; RESP 14–22; TEMP 36.3–36.6; O2SAT 95–99; BMI 51.7
[2021-01-23 05:06] LABS: Anion Gap 9 mmol/L (8-16); Blood Urea Nitrogen 22 mg/dL (7-17); Calcium 8.8 mg/dL (8.4-10.2); Carbon Dioxide 28 mmol/L (22-30); Chloride 96 mmol/L (98-107); Estimated CRCL calculation 56 ml/min; Estimated Glomerular Filt Rate 50; Glucose 156 mg/dL (65-110); Potassium 3.9 mmol/L (3.4-5.0); Sodium 133 mmol/L (137-145)
--- NOTE | 2021-01-23 06:52 | PM.IMPN ---
Progress Note: A&P Assessment and Plan (1) NSTEMI (non-ST elevated myocardial infarction): Code(s): I21.4 - Non-ST elevation (NSTEMI) myocardial infarction Status: Acute Assessment and Plan: The patient presented to the hospital for evaluation of chest pain that happened not long after eating lunch. She was admitted overnight to rule out acute coronary syndrome. Cannot rule out a GI component given reports of dysphagia yesterday while eating meat though she reports no issues with swallowing today and she denies overt GERD symptoms at this time. She has no known history of coronary artery disease and reports a cardiac catheterization years ago at [facility] which we are trying to obtain records Echocardiogram showed EF normal at 60 to 65%, diastolic grade 1 dysfunction, mild LVH Cardiology evaluated the patient and due to elevated troponins and atypical chest pain he is going to order for a cardiac catheterization to be done on Saturday for further ACS rule out Holding lovenox this morning due to cardiac catheterization today Patient understands and agrees the plan all questions answered. No more chest pain issues reported since admission Continue monitoring. (2) Chest pain: Code(s): R07.9 - Chest pain, unspecified Status: Acute Assessment and Plan: See above. Resolved now (3) Elevated troponin: Code(s): R77.8 - Other specified abnormalities of plasma proteins Status: Acute Assessment and Plan: See above (4) Hyponatremia: Code(s): E87.1 - Hypo-osmolality and hyponatremia Status: Acute Assessment and Plan: Na slightly low at 133. Stable. (5) Type 2 diabetes mellitus: Code(s): E11.9 - Type 2 diabetes mellitus without complications Status: Acute Assessment and Plan: Will decrease Home Insulin because of hospitalization to prevent hypoglycemia Initiate sliding scale insulin, Accu-Cheks, and hypoglycemic protocol. (6) Hypertension: Code(s): I10 - Essential (primary) hypertension Status: Acute Assessment and Plan: Her blood pressures were reviewed and they have been stable. BP slightly elevated at 152/68 Continue monitoring. (7) Gastroesophageal reflux disease: Code(s): K21.9 - Gastro-esophageal reflux disease without esophagitis Status: Acute Assessment and Plan: PPI IV Q12hrs (8) Dysphagia: Code(s): R13.10 - Dysphagia, unspecified Status: Acute Assessment and Plan: Patient reports dysphagia with most of her meals. Denies any more choking episodes today. Bedside evaluation from the speech therapist was normal and the patient did not have any complaints during the test. Will continue to monitor and if she has anymore issues while here will considered Modified Barium Swallow otherwise I would recommend following up with GI specialist for further evaluation and work up as to the cause. (9) Hypokalemia: Code(s): E87.6 - Hypokalemia Status: Acute Assessment and Plan: Potassium normal 3.9. Magnesium 2.0 Recheck in the morning. Replenish PRN Additional Plan Subjective Date/time seen: 01/23/21 06:52 Interval history: Date of Service 01/23/21: Patient states she had episode of chest pain yesterday afternoon which was substernal in nature, sharp, stabbing and radiated into her left jaw. Denies any associated nausea, shortness of breath at the time. She was given a nitro patch and she denies any improvement of her chest pain. Is slowly improved within about a 1/2 hour after the nitro patch was placed. Denies any more issues with swallowing and understands the recommendations given by the speech therapist. Denies worsening SOB from her baseline, cough, fever, chills, nausea, vomiting, abdominal pain, or any other symptoms at this time. Review of Systems Review of Systems: All systems reviewed & are un
[2021-01-23] MEDS: OLANZapine 5 MG TABLET PO (08:41)
[2021-01-23] MEDS: VENLAFAXINE HCL XR 75 MG CAP.ER.24H 225 MG PO (08:42)
[2021-01-23] MEDS: MAGNESIUM OXIDE 400 MG TABLET PO (08:44)
[2021-01-23] MEDS: LORATADINE 10 MG TABLET PO (08:44)
[2021-01-23] MEDS: MULTIVITAMINS /C LUTEIN (CENTRUM SILVER) TABLET *BKC 1 TAB PO (08:45)
[2021-01-23] MEDS: allopurinoL 300 MG TABLET PO (08:46)
[2021-01-23] MEDS: CYANOCOBALAMIN 1,000 MCG TABLET 1000 MCG PO (08:46)
[2021-01-23] MEDS: ASCORBIC ACID 500 MG TABLET PO (08:46)
[2021-01-23] MEDS: CHOLECALCIFEROL 1,000 UNITS TABLET 1000 UNITS PO (08:47)
[2021-01-23] MEDS: DIVALPROEX SODIUM ER 500 MG TAB.24H PO ×2 (08:47→18:17)
[2021-01-23] MEDS: FAMOTIDINE 20 MG TABLET PO ×2 (08:47→18:16)
[2021-01-23 08:48] LABS: Glucose Point of Care 194 mg/dl (65-105)
[2021-01-23] MEDS: PANTOPRAZOLE SODIUM IV 40 MG VIAL IV PUSH ×2 (08:48→21:14)
[2021-01-23 09:26] LABS: Glucose Point of Care 189 mg/dl (65-105)
--- NOTE | 2021-01-23 09:31 | PM.PNCARD ---
Progress Note: A&P Additional Plan This is a morbidly obese white female who had some mid chest pain symptoms on Saturday and again on Saturday. The quality of the pain as raise concern regarding myocardial ischemia. Troponin levels were minimally elevated on presentation as detailed in the notes over the weekend. Unfortunately she cannot safely undergo angiography today as she is describing a significant contrast allergy and she has not been pretreated with anything. I will order steroid pretreatment for this evening and tomorrow morning and anticipate angiography to happen tomorrow. I did present with her the option of discharging and having this done as an outpatient. It is understandably her preference to have this done prior to discharge since there was enough concern to recommended as an inpatient. Jonathan Nevarez MD [facility] Subjective Date/time seen: Date of service: 01/23/21 09:31 Interval history: No cardiovascular complaints today. Patient has not had any chest pain since Saturday. Physician covering for the weekend has recommended bringing the patient to the tree tapping laborer this morning for angiography. Came in to see the patient to discuss the procedure and the details. She understands this well as she stated she had a previous angiogram done at [facility] something like 5 or 6 years ago. She does not remember the findings. She also indicates that at the time of that procedure and a previous IV P she had a significant contrast reaction with urticaria and some respiratory difficulty. She did not mention this to anyone here at [facility] and contrast has not been listed as 1 of her allergies according to the chart. As such she has not been pretreated with anything prior to this morning. Exam Const: General: comfortable and no acute distress Other: Able to lie flat HENMT: General nose exam: Normal nares present and no epistaxis Mouth: Yes moist mucous membranes Eyes: Sclera: sclerae normal Pupils: Equal, round and reactive pupils present Neck: Neck: supple and no JVD Carotids: no bruits Resp: Auscultation: clear to auscultation bilaterally and lung sounds not diminished Other: No chest wall tenderness Cardio: Rate: regular rate Rhythm: regular rhythm Heart sounds: no gallops, no murmurs and no rubs GI: Auscultation: normal bowel sounds Skin: General skin exam: normal color, rashes and/or lesions noted and no erythema Other: Warm Neuro: Cranial nerves: Yes Equal, round and reactive pupils present Speech: normal speech Other: No obvious focal deficit or facial asymmetry Extrem: General: no edema Other: Normal capillary refills Intact distal pulses. Objective Data Vital Signs Vital Signs: Vital Signs - 24 hr 01/22/21 10:00 01/22/21 12:00 01/22/21 14:00 Temperature 36.7 C Pulse Rate 75 85 92 Respiratory Rate 16 Blood Pressure 145/65 H Pulse Oximetry 96 01/22/21 16:00 01/22/21 18:00 01/22/21 20:00 Temperature 37.2 C 36.7 C Pulse Rate 89 85 86 Respiratory Rate 16 24 H Blood Pressure 130/62 120/66 Pulse Oximetry 95 96 01/22/21 20:46 01/22/21 22:00 01/22/21 22:45 Temperature Pulse Rate 82 80 Respiratory Rate 20 Blood Pressure Pulse Oximetry 96 97 01/22/21 23:39 01/23/21 00:00 01/23/21 02:00 Temperature 36.5 C Pulse Rate 98 98 88 Respiratory Rate 20 20 Blood Pressure 133/72 Pulse Oximetry 98 98 01/23/21 02:38 01/23/21 03:50 01/23/21 04:00 Temperature 36.5 C Pulse Rate 82 77 74 Respiratory Rate 14 20 20 Blood Pressure 152/68 H Pulse Oximetry 97 95 95 01/23/21 06:00 Temperature Pulse Rate 74 Respiratory Rate Blood Pressure Pulse Oximetry Intake/Output Intake/Output: Intake & Output 01/20/21 01/21/21 01/22/21 01/23/21 23:59 23:59 23:59 23:59 Intake Total 702 1100 Output Total 350 Balance 702 1100 -350 Meds/Results Medications: Active Medications Generic Name Dose Route Start Last Admin Tr
[2021-01-23 12:21] LABS: Glucose Point of Care 193 mg/dl (65-105)
[2021-01-23] MEDS: INSULIN ASPART (*BKC) 100 UNITS/ML 6 UNITS SUB-Q ×2 (12:37→18:15)
[2021-01-23] MEDS: oxyCODONE HCL (*CRX) 5 MG TAB IR PO ×2 (12:38→18:17)
--- NOTE | 2021-01-23 15:33 | PC.NURSE ---
[facility] flyer was given to patient.
[2021-01-23 17:26] LABS: Glucose Point of Care 243 mg/dl (65-105)
[2021-01-23] MEDS: INSULIN ASPART (*BKC) 100 UNITS/ML SUB-Q (18:15)
[2021-01-23 20:06] LABS: Glucose Point of Care 254 mg/dl (65-105)
[2021-01-23] MEDS: INSULIN GLARGINE (*BKC) 100 UNITS/ML 35 UNITS SUB-Q (21:14)
[2021-01-23] MEDS: methylPREDNISolone SOD SUCC 125 MG VIAL IV PUSH (21:14)
[2021-01-23] MEDS: MELATONIN 5 MG TABLET PO (21:14)
[2021-01-23] MEDS: ALBUTEROL SULFATE (*SP) AEROSOL 1 PUFF 2 PUFF INHALATION (21:57)
[2021-01-24] VITALS (22 sets, daily range): BP systolic 127–151; BP diastolic 55–89; PULSE 63–99; RESP 16–22; TEMP 36.4–36.8; O2SAT 93–100
[2021-01-24 04:53] LABS: Hematocrit 41.1 % (37.0-47.0); Hemoglobin 13.6 g/dL (12.0-15.0); Mean Corpuscular HGB Conc 33.1 g/dl (32-36); Mean Corpuscular Hemoglobin 31.7 pg (26-34); Mean Corpuscular Volume 95.8 fl (80-100); Mean Platelet Volume 11.3 fl (7.4-10.4); Platelet Count Result 188 k/mm3 (150-375); Red Blood Count 4.29 M/mm3 (4.2-5.4); Red Cell Distribution Width 14.6 % (11.5-14.5); White Blood Count 4.5 K/mm3 (4.5-10.0)
[2021-01-24 05:05] LABS: Anion Gap 16 mmol/L (8-16); Blood Urea Nitrogen 21 mg/dL (7-17); Calcium 9.7 mg/dL (8.4-10.2); Carbon Dioxide 20 mmol/L (22-30); Chloride 99 mmol/L (98-107); Estimated CRCL calculation 56 ml/min; Estimated Glomerular Filt Rate 50; Glucose 364 mg/dL (65-110); Sodium 135 mmol/L (137-145)
[2021-01-24] MEDS: methylPREDNISolone SOD SUCC 125 MG VIAL IV PUSH (05:28)
[2021-01-24 08:35] LABS: Glucose Point of Care 319 mg/dl (65-105)
[2021-01-24] MEDS: VENLAFAXINE HCL XR 75 MG CAP.ER.24H 225 MG PO (08:47)
[2021-01-24] MEDS: DIVALPROEX SODIUM ER 500 MG TAB.24H PO ×2 (08:47→16:59)
[2021-01-24] MEDS: OLANZapine 5 MG TABLET PO (08:47)
[2021-01-24] MEDS: MAGNESIUM OXIDE 400 MG TABLET PO (08:47)
[2021-01-24] MEDS: PANTOPRAZOLE SODIUM IV 40 MG VIAL IV PUSH (08:47)
[2021-01-24] MEDS: MULTIVITAMINS /C LUTEIN (CENTRUM SILVER) TABLET *BKC 1 TAB PO (08:47)
[2021-01-24] MEDS: allopurinoL 300 MG TABLET PO (08:47)
[2021-01-24] MEDS: CHOLECALCIFEROL 1,000 UNITS TABLET 1000 UNITS PO (08:47)
--- NOTE | 2021-01-24 08:47 | WPDMODSED ---
Moderate Sedation Note-Pt Data Patient Data Allergies Allergy/AdvReac Type Severity Reaction Status Date / Time amoxicillin Allergy Severe Anaphylaxis Verified 01/20/21 22:21 bee venom protein (honey bee) Allergy Severe Anaphylaxis Verified 01/20/21 22:26 [bees] Penicillins Allergy Severe Anaphylaxis Verified 01/20/21 22:21 Sulfa (Sulfonamide Allergy Severe Anaphylaxis Verified 01/20/21 22:21 Antibiotics) iodine Allergy Rash Verified 01/20/21 22:26 metaproterenol Allergy Unknown Verified 01/20/21 22:26 methocarbamol Allergy Unknown Verified 01/20/21 22:26 oxytetracycline Allergy Unknown Verified 01/20/21 22:26 pentazocine Allergy Unknown Verified 01/20/21 22:26 procaine Allergy Unknown Verified 01/20/21 22:26 aspirin AdvReac Mild Nausea and Verified 01/20/21 22:26 Vomiting fluoxetine AdvReac Mild Nausea and Verified 01/20/21 22:26 Vomiting chlorpheniramine AdvReac Nausea and Verified 01/20/21 22:26 Vomiting erythromycin base AdvReac Nausea and Verified 01/20/21 22:26 Vomiting fenofibrate AdvReac Nausea and Verified 01/20/21 22:26 Vomiting hydrocodone AdvReac Nausea and Verified 01/20/21 22:26 Vomiting hydroxyzine AdvReac Nausea and Verified 01/20/21 22:26 Vomiting propoxyphene AdvReac Nausea and Verified 01/20/21 22:26 Vomiting sertraline AdvReac Nausea and Verified 01/20/21 22:26 Vomiting terbutaline AdvReac Nausea and Verified 01/20/21 22:26 Vomiting yellow dye AdvReac Nausea and Verified 01/20/21 22:26 Vomiting hmg-coa-R Inhibitors Allergy Unknown Uncoded 01/20/21 22:26 Home Medications Medication Instructions Recorded Confirmed Type acetaminophen 650 mg PO Q6H PRN 01/20/21 01/20/21 History albuterol sulfate 2 puff INHALATION HS 01/20/21 01/20/21 History albuterol sulfate 2 puff INHALATION Q4H PRN 01/20/21 01/20/21 History allopurinol 300 mg PO DAILY 01/20/21 01/20/21 History ascorbic acid (vitamin C) 500 mg PO DAILY 01/20/21 01/20/21 History bisacodyl 10 mg RECTAL DAILY PRN 01/20/21 01/20/21 History calcium carbonate [Antacid Calcium] 200 mg PO BID PRN 01/20/21 01/20/21 History cholecalciferol (vitamin D3) 25 mcg PO DAILY 01/20/21 01/20/21 History [Vitamin D3] clopidogrel 75 mg PO DAILY 01/20/21 01/20/21 History cyanocobalamin (vitamin B-12) 1,000 mcg PO DAILY 01/20/21 01/20/21 History [Vitamin B-12] divalproex 500 mg PO BID 01/20/21 01/20/21 History famotidine 20 mg PO BID 01/20/21 01/20/21 History furosemide 80 mg PO DAILY 01/20/21 01/20/21 History insulin aspart U-100 [Novolog 6 unit SUBCUT TID 01/20/21 01/20/21 History Flexpen U-100 Insulin] insulin aspart U-100 [Novolog See Rx Instructions .ROUTE .COMPLEX 01/20/21 01/20/21 History Flexpen U-100 Insulin] insulin glargine [Lantus Solostar 50 unit SUBCUT HS 01/20/21 01/20/21 History U-100 Insulin] loperamide 2 mg PO Q6H PRN 01/20/21 01/20/21 History loratadine 10 mg PO DAILY 01/20/21 01/20/21 History magnesium citrate 300 ml PO DAILY PRN 01/20/21 01/20/21 History magnesium hydroxide [Milk of 30 ml PO HS PRN 01/20/21 01/20/21 History Magnesia] melatonin 5 mg PO HS 01/20/21 01/20/21 History metformin 500 mg PO BID 01/20/21 01/20/21 History ynrngnbqtlfu-zzi-gdja-FA-vit K 1 tablet PO DAILY 01/20/21 01/20/21 History [Adults Multivitamin] nystatin [Nyamyc] 1 applic TOPICAL Q6H PRN 01/20/21 01/20/21 History olanzapine 5 mg PO DAILY 01/20/21 01/20/21 History oxycodone 5 mg PO Q6H PRN 01/20/21 01/20/21 History sodium phosphates [Fleet Enema] 118 ml RECTAL ONCE PRN 01/20/21 01/20/21 History triamcinolone acetonide 1 applic TOPICAL BID PRN 01/20/21 01/20/21 History venlafaxine 225 mg PO DAILY 01/20/21 01/20/21 History Current Medications: Active Medications Acetaminophen (Acetaminophen 325 Mg Tablet) 650 mg PO Q6H PRN PRN Reason: Pain (Scale Score 1-3) Albuterol (Albuterol Sulfate (*Sp) Aerosol 1 Puff) 2 puff INHALATION [facility] Last Admin: 01/23/21 21:57 Dose: 2 puff Do
[2021-01-24] MEDS: FAMOTIDINE 20 MG TABLET PO ×2 (08:48→16:58)
[2021-01-24] MEDS: ASCORBIC ACID 500 MG TABLET PO (08:48)
[2021-01-24] MEDS: LORATADINE 10 MG TABLET PO (08:48)
[2021-01-24] MEDS: CLOPIDOGREL BISULFATE 75 MG TABLET PO (08:48)
[2021-01-24] MEDS: CYANOCOBALAMIN 1,000 MCG TABLET 1000 MCG PO (08:48)
--- NOTE | 2021-01-24 10:59 | WPDHPUPDATE1 ---
History and Physical Update Update Date/Time: 01/24/21 10:59 History and Physical has been reviewed, including an updated exam of the patient. There are NO changes in the patient's condition. Risks, benefits, and alternatives have been discussed and questions answered. Patient agrees to proceed with procedure.
--- NOTE | 2021-01-24 10:59 | WPDCARDPROC ---
Cardiac Cath Procedure Note Date of procedure:: 01/24/21 Performing physician:: Antwan Mills MD Procedure Procedure note:: CARDIAC CATHETERIZATION AND PERCUTANEOUS CORONARY INTERVENTION REPORT DATE OF PROCEDURE: 01/24/2021 INDICATION FOR PROCEDURE: Non ST-elevation myocardial infarction BRIEF CLINICAL HISTORY: 65-year-old female with diabetes mellitus on insulin and oral hypoglycemics, anxiety, morbid obesity. Patient is a [facility] resident. She was admitted to [facility] on 01/20/2021 with complaints of chest pain. Her EKG showed sinus rhythm, incomplete right bundle block block, poor R-wave progression. Troponins were minimally elevated with peak troponin level of 0.045. Patient gives history of allergy to IV contrast. She was pretreated with steroids and diphenhydramine. Patient was referred for cardiac catheterization in the setting of non ST-elevation LA. Benefits and risks of the procedure were discussed with the patient in depth, and informed consent was obtained prior to the procedure. Risks of the procedure include but are not limited to vascular complications including groin hematoma, retroperitoneal bleed, vessel perforation; periprocedural LA, cardiac arrhythmias, stroke, contrast induced nephropathy, and . After discussing all the benefits, risks and alternatives, patient was willing to proceed with the procedure. PROCEDURES PERFORMED: 1. Left heart catheterization- Selective left and right coronary angiogram; left ventriculogram and hemodynamic assessment 2. Percutaneous coronary intervention- balloon angioplasty and stenting of proximal left circumflex artery using a 3.0 x 12 mm Medtronic resolute becca zotarolimus eluting stent. 3. Selective Left common femoral angiogram and deployment of Angio-Seal hemostatic device 4. Moderate sedation-CPT code 43490 MODERATE SEDATION: Midazolam 2 mg; fentanyl 50 mcg. Start time 1009 , Stop time 1048 ; Total ebuf-ar-ietu time 32 minutes; Sabrina Sen RN was trained observer for moderate sedation. ACCESS SITE: Left common femoral artery PROCEDURE NOTE: After obtaining informed consent, patient was brought to catheterization lab and prepped and draped in a usual sterile manner. The right groin was not chosen due to some skin breakdown. After local anesthesia with lidocaine, left common femoral artery access was taken with micropuncture needle followed by insertion of a 6 Namibian sheath. Selective left and right coronary angiogram was performed using 5 [place]ibian JL4 and JR4 catheters respectively. Orthogonal views were taken. Next, a 5 [place]ibian pigtail catheter was advanced in the LV cavity and was flushed with normal saline. LV pressure measurement was performed. After this, left ventriculogram was performed. The catheter was flushed again, and gradient across the aortic valve was measured on the pullback of the catheter. The coronary angiographic findings and PCI procedure summary are described below. FINDINGS: LEFT MAIN CORONARY: the left main coronary artery is a medium caliber vessel with mild narrowing in the proximal segment. The vessel trifurcates into LAD, ramus intermedius and left circumflex branch. LEFT ANTERIOR DESCENDING ARTERY: The LAD is a medium to large caliber vessel in the proximal most segment with sudden taper in the upper mid segment. The vessel tapers distally and because of smaller caliber vessel. There is mild 30-40% plaque in the mid segment. The 1st diagonal branch is a small caliber vessel, 2nd diagonal branch is a medium caliber vessel with diffuse 50-60% stenosis in the proximal segment. D3 is a small to medium caliber vessel with diffuse 50-60% stenosis in the proximal segment. There is significant overlap of vessels. RAMUS INTERMEDIUS: medium caliber vessel, no significant focal stenosis. LEFT CIRCUMFLEX ARTERY: Medium caliber vessel, eccentric about 70% stenosis seen in the proximal segment. The vessel gives rise to medium
--- NOTE | 2021-01-24 12:08 | SUR.PHASEII ---
Report called to floor RN at 1150. Questions answered, new orders reviewed.
[2021-01-24 12:52] LABS: Glucose Point of Care 281 mg/dl (65-105)
[2021-01-24] MEDS: INSULIN ASPART (*BKC) 100 UNITS/ML 6 UNITS SUB-Q ×2 (13:17→17:09)
[2021-01-24] MEDS: METOPROLOL TARTRATE 25 MG TABLET PO (13:17)
[2021-01-24] MEDS: INSULIN ASPART (*BKC) 100 UNITS/ML SUB-Q ×2 (13:17→17:08)
[2021-01-24] MEDS: ASPIRIN 81 MG ENTERIC TABLET PO (13:17)
[2021-01-24 16:35] LABS: Glucose Point of Care 228 mg/dl (65-105)
--- NOTE | 2021-01-24 17:15 | PM.IMPN ---
Progress Note: A&P Assessment and Plan (1) NSTEMI (non-ST elevated myocardial infarction): Code(s): I21.4 - Non-ST elevation (NSTEMI) myocardial infarction Status: Acute Assessment and Plan: The patient presented to the hospital for evaluation of chest pain that happened not long after eating lunch. She was admitted overnight to rule out acute coronary syndrome. Cannot rule out a GI component given reports of dysphagia yesterday while eating meat though she reports no issues with swallowing today and she denies overt GERD symptoms at this time. She has no known history of coronary artery disease and reports a cardiac catheterization years ago at [facility] which we are trying to obtain records Echocardiogram showed EF normal at 60 to 65%, diastolic grade 1 dysfunction, mild LVH Cardiology evaluated the patient and due to elevated troponins and atypical chest pain she was taken to cath lab technologist today and had 1 stent placed Chest pain has resolved at this time (2) Chest pain: Code(s): R07.9 - Chest pain, unspecified Status: Acute Assessment and Plan: See above. Resolved now (3) Elevated troponin: Code(s): R77.8 - Other specified abnormalities of plasma proteins Status: Acute Assessment and Plan: See above (4) Hyponatremia: Code(s): E87.1 - Hypo-osmolality and hyponatremia Status: Acute Assessment and Plan: Na slightly low at 135. Stable. (5) Type 2 diabetes mellitus: Code(s): E11.9 - Type 2 diabetes mellitus without complications Status: Acute Assessment and Plan: Will decrease Home Insulin because of hospitalization to prevent hypoglycemia Initiate sliding scale insulin, Accu-Cheks, and hypoglycemic protocol. (6) Hypertension: Code(s): I10 - Essential (primary) hypertension Status: Acute Assessment and Plan: Her blood pressures were reviewed and they have been stable. Continue monitoring. (7) Gastroesophageal reflux disease: Code(s): K21.9 - Gastro-esophageal reflux disease without esophagitis Status: Acute Assessment and Plan: PPI IV Q12hrs (8) Dysphagia: Code(s): R13.10 - Dysphagia, unspecified Status: Acute Assessment and Plan: Patient reports dysphagia with most of her meals. Denies any more choking episodes today. Bedside evaluation from the speech therapist was normal and the patient did not have any complaints during the test. Will continue to monitor and if she has anymore issues while here will considered Modified Barium Swallow otherwise I would recommend following up with GI specialist for further evaluation and work up as to the cause. (9) Hypokalemia: Code(s): E87.6 - Hypokalemia Status: Acute Assessment and Plan: Resolved. Continue to monitor and replace as necessary. Additional Plan Subjective Date/time seen: 01/24/21 17:15 Interval history: Patient underwent cardiac cath w/ 1 stent today. Currently she has no chest pain or sob. She reports being hungry as she has not eaten today. She has no other complaints. Review of Systems Review of Systems: General: Denies fevers, chills Eyes: Denies vision changes or eye pain ENT: Denies nasal congestion or sore throat Respiratory: Denies cough or shortness of breath Cardiovascular: Denies chest pain, palpitations, or lower extremity edema Gastrointestinal: Denies abdominal pain, vomiting, or diarrhea Genitourinary: Denies dysuria or urinary frequency Musculoskeletal: Denies back pain or muscle aches Neurological: Denies headache, paraesthesias, or motor weakness Integumentary: Denies rash or other skin lesions Exam Narrative: General: NAD, non toxic, appears comfortable, morbidly obese Skin: No jaundice or cyanosis. Good skin turgor. Neck: Full range of motion. Supple. Respiratory: Lungs are clear to auscultation bilat
[2021-01-24] MEDS: SODIUM CHLORIDE 0.9% IV 1,000 ML 125 ML IV CONT (17:31)
[2021-01-24] MEDS: INSULIN GLARGINE (*BKC) 100 UNITS/ML 35 UNITS SUB-Q (20:08)
[2021-01-24] MEDS: MELATONIN 5 MG TABLET PO (20:08)
[2021-01-24] MEDS: TICAGRELOR 90 MG TABLET PO (20:08)
[2021-01-24 20:15] LABS: Glucose Point of Care 239 mg/dl (65-105)
[2021-01-24] MEDS: ALBUTEROL SULFATE (*SP) AEROSOL 1 PUFF 2 PUFF INHALATION (22:19)
[2021-01-24] MEDS: oxyCODONE HCL (*CRX) 5 MG TAB IR PO (23:40)
[2021-01-25] VITALS (14 sets, daily range): BP systolic 129–148; BP diastolic 56–76; PULSE 68–95; RESP 17–22; TEMP 36.3–36.6; O2SAT 96–99
[2021-01-25 05:16] LABS: Hematocrit 36.6 % (37.0-47.0); Hemoglobin 12.3 g/dL (12.0-15.0); Mean Corpuscular HGB Conc 33.6 g/dl (32-36); Mean Corpuscular Hemoglobin 32.6 pg (26-34); Mean Corpuscular Volume 97.1 fl (80-100); Mean Platelet Volume 11.4 fl (7.4-10.4); Platelet Count Result 209 k/mm3 (150-375); Red Blood Count 3.77 M/mm3 (4.2-5.4); Red Cell Distribution Width 15.3 % (11.5-14.5)
[2021-01-25 05:21] LABS: Anion Gap 8 mmol/L (8-16); Blood Urea Nitrogen 25 mg/dL (7-17); Calcium 9.1 mg/dL (8.4-10.2); Carbon Dioxide 23 mmol/L (22-30); Chloride 103 mmol/L (98-107); Estimated CRCL calculation 56 ml/min; Estimated Glomerular Filt Rate 50; Glucose 223 mg/dL (65-110); Potassium 3.9 mmol/L (3.4-5.0); Sodium 134 mmol/L (137-145)
[2021-01-25 08:12] LABS: Glucose Point of Care 198 mg/dl (65-105)
[2021-01-25] MEDS: PANTOPRAZOLE 40 MG TABLET PO (09:40)
[2021-01-25] MEDS: OLANZapine 5 MG TABLET PO (09:40)
[2021-01-25] MEDS: MULTIVITAMINS /C LUTEIN (CENTRUM SILVER) TABLET *BKC 1 TAB PO (09:40)
[2021-01-25] MEDS: TICAGRELOR 90 MG TABLET PO ×2 (09:40→20:38)
[2021-01-25] MEDS: LORATADINE 10 MG TABLET PO (09:41)
[2021-01-25] MEDS: FAMOTIDINE 20 MG TABLET PO ×2 (09:41→16:16)
[2021-01-25] MEDS: MAGNESIUM OXIDE 400 MG TABLET PO (09:41)
[2021-01-25] MEDS: DIVALPROEX SODIUM ER 500 MG TAB.24H PO ×2 (09:41→16:16)
[2021-01-25] MEDS: ATORVASTATIN 40 MG TABLET 80 MG PO (09:41)
[2021-01-25] MEDS: FUROSEMIDE 80 MG TABLET PO (09:41)
[2021-01-25] MEDS: CHOLECALCIFEROL 1,000 UNITS TABLET 1000 UNITS PO (09:41)
[2021-01-25] MEDS: allopurinoL 300 MG TABLET PO (09:42)
[2021-01-25] MEDS: CYANOCOBALAMIN 1,000 MCG TABLET 1000 MCG PO (09:42)
[2021-01-25] MEDS: VENLAFAXINE HCL XR 75 MG CAP.ER.24H 225 MG PO (09:42)
[2021-01-25] MEDS: ASPIRIN 81 MG ENTERIC TABLET PO (09:42)
[2021-01-25] MEDS: ASCORBIC ACID 500 MG TABLET PO (09:42)
--- NOTE | 2021-01-25 11:55 | PM.PNCARD ---
Progress Note: A&P Assessment and Plan (1) NSTEMI (non-ST elevated myocardial infarction): Code(s): I21.4 - Non-ST elevation (NSTEMI) myocardial infarction Status: Acute Assessment and Plan: Admitted with non-STEMI. Status post circumflex stent yesterday. Some of chest pain appears noncardiac; Tylenol prn for this. History of contrast allergy; prophylaxed, no sequelae. Has nausea and vomiting with aspirin but is tolerating 81 mg daily. Continue guideline directed therapy with aspirin, Brilinta, atorvastatin. Add low-dose beta-hermila and SL TNG. Reviewed CAD, stent, anti-platelet agents, compliance, activity, etc. Okay for discharge, follow-up as scheduled. . Subjective Date/time seen: 01/25/21 11:55 Interval history: 65-year-old [facility] resident admitted with non-STEMI. Cardiac catheterization on 01/24/[address] Mills showed 70% stenosis of the proximal circumflex, moderate disease of the Left anterior descending and RCA, EF greater than 70%. She had a drug-eluting stent placed to the circumflex.. Date of service 01/25/2021: Feeling better, mild chest discomfort last p.m. relieved with a pain pill, had some more that today but nothing like the ?elephant sitting on my chest? that she had prior to stent. Chronic mild SOB. Constipated. Would like to have an order for a dietitian when she [facility] her [facility]. Review of Systems Constitutional: Constitutional: Reports weakness ENT: Denies epistaxis Cardiovascular: Cardiovascular: Reports chest pain, Denies pedal edema, Denies leg edema and Denies lightheadedness Respiratory: Respiratory: Denies cough and Reports dyspnea Gastrointestinal: Gastrointestinal: Reports constipation Genitourinary: Genitourinary: Denies hematuria Musculoskeletal: Musculoskeletal: Reports no additional musculoskeletal complaints Neurologic: Reports system reviewed and no additional complaints, except as documented Psychiatric: Psychiatric: Reports no additional psychiatric complaints Exam Narrative: Morbidly obese female lying nearly supine in no distress, alert Const: General: comfortable and no acute distress HENMT: General nose exam: no epistaxis Neck: Neck: supple Resp: Effort & Inspection: normal respiratory effort Auscultation: clear to auscultation bilaterally Cardio: Rate: regular rate Rhythm: regular rhythm Heart sounds: no murmurs GI: GI Palp: Yes Soft to palpation and No Tenderness to palpation present (GI) Skin: General skin exam: normal color and no rashes or lesions noted Neuro: Cognition (Neuro): normal cognition Speech: normal speech Extrem: General: no edema and no pedal edema Psych: Mental Status: mental status grossly normal Affect: normal affect Objective Data Vital Signs Vital Signs: Vital Signs - 24 hr 01/24/21 12:00 01/24/21 12:20 01/24/21 12:50 Temperature Pulse Rate 96 96 97 Respiratory Rate Blood Pressure 140/89 140/89 Pulse Oximetry 98 100 97 01/24/21 13:50 01/24/21 14:00 01/24/21 14:50 Temperature Pulse Rate 94 93 83 Respiratory Rate Blood Pressure 143/87 H 148/80 H Pulse Oximetry 95 95 01/24/21 15:50 01/24/21 16:00 01/24/21 16:50 Temperature 98.0 F Pulse Rate 83 84 86 Respiratory Rate 20 Blood Pressure 129/72 127/60 Pulse Oximetry 93 98 96 01/24/21 18:00 01/24/21 20:00 01/24/21 22:00 Temperature 97.5 F L Pulse Rate 88 92 89 Respiratory Rate 22 H Blood Pressure 138/63 Pulse Oximetry 99 01/24/21 23:07 01/25/21 00:00 01/25/21 02:00 Temperature 97.5 F L Pulse Rate 76 81 89 Respiratory Rate 20 Blood Pressure 147/55 H Pulse Oximetry 97 01/25/21 04:00 01/25/21 06:00 01/25/21 08:00 Temperature 97.9 F 97.4 F L Pulse Rate 77 74 72 Respiratory Rate 22 H 20 Blood Pressure 129/56 L 145/76 H Pulse Oximetry 99 99 01/25/21 10:00 Temperature Pulse Rate 72 Respiratory Rate Blood Pressure Pulse Oximetry Intake/Output
[2021-01-25 11:57] LABS: Glucose Point of Care 269 mg/dl (65-105)
[2021-01-25] MEDS: INSULIN ASPART (*BKC) 100 UNITS/ML SUB-Q ×2 (12:35→17:13)
[2021-01-25] MEDS: INSULIN ASPART (*BKC) 100 UNITS/ML 8 UNITS SUB-Q ×2 (12:35→17:13)
--- NOTE | 2021-01-25 13:21 | PM.DS ---
DS: Admitting Diagnosis Discharge Date 01/26/21 Admitting Diagnosis NSTEMI DS: Discharge Diagnosis Discharge Diagnosis (1) NSTEMI (non-ST elevated myocardial infarction): Code(s): I21.4 - Non-ST elevation (NSTEMI) myocardial infarction Status: Acute Assessment and Plan: The patient presented to the hospital for evaluation of chest pain. She was admitted overnight to rule out acute coronary syndrome. Cannot rule out a GI component given reports of dysphagia yesterday while eating meat though she reports no issues with swallowing today and she denies overt GERD symptoms at this time. She has no known history of coronary artery disease and reports a cardiac catheterization years ago at [facility], attempted to get records Echocardiogram showed EF normal at 60 to 65%, diastolic grade 1 dysfunction, mild LVH Cardiology evaluated the patient and due to elevated troponins and atypical chest pain she was taken to rn labor and delivery today and had 1 stent placed Chest pain has resolved at this time Per cardiology, pt stable for discharge and outpatient follow up. Will be started on low dose aspirin, Brillinta, atorvastatin, low dose beta hermila, and SL TNG. (2) Chest pain: Code(s): R07.9 - Chest pain, unspecified Status: Acute Assessment and Plan: See above. Resolved now (3) Elevated troponin: Code(s): R77.8 - Other specified abnormalities of plasma proteins Status: Acute Assessment and Plan: See above (4) Hyponatremia: Code(s): E87.1 - Hypo-osmolality and hyponatremia Status: Acute Assessment and Plan: Na slightly low at 134. Stable. (5) Type 2 diabetes mellitus: Code(s): E11.9 - Type 2 diabetes mellitus without complications Status: Acute Assessment and Plan: Will decrease Home Insulin because of hospitalization to prevent hypoglycemia Initiated sliding scale insulin, Accu-Cheks, and hypoglycemic protocol. (6) Hypertension: Code(s): I10 - Essential (primary) hypertension Status: Acute Assessment and Plan: Her blood pressures were reviewed and they have been stable. Continue monitoring. (7) Gastroesophageal reflux disease: Code(s): K21.9 - Gastro-esophageal reflux disease without esophagitis Status: Acute Assessment and Plan: PPI IV Q12hrs (8) Dysphagia: Code(s): R13.10 - Dysphagia, unspecified Status: Acute Assessment and Plan: Patient reports dysphagia with most of her meals. Denies any more choking episodes. Bedside evaluation from the speech therapist was normal and the patient did not have any complaints during the test. Recommend following up with GI specialist for further evaluation and work up if symptoms persist. (9) Hypokalemia: Code(s): E87.6 - Hypokalemia Status: Acute Assessment and Plan: Resolved. Continue to monitor and replace as necessary. (10) Urinary incontinence: Code(s): R32 - Unspecified urinary incontinence Status: Acute Assessment and Plan: Pt had gonsales placed during admission. It has since been removed. She is having urinary incontinence at this time which she states is new. UA normal. Will provide urology follow up if incontinence persists. DS: Summary Hospital Course Reason for hospitalization: 65-year-old female with diabetes, hypertension, dyslipidemia, paroxysmal atrial fibrillation, congestive heart failure, untreated sleep apnea, and history of DVT and pulmonary embolism, admitted to the hospital for NSTEMI. Please see HPI for further details. Hospital Course: Please see above for details of hospital course. Status at Discharge Cognitive/behavioral status at discharge: stable Functional status at discharge: wheelchair bound Overall status at discharge: patient is progressing back to baseline Time Spent with Patient Time attestation
[2021-01-25 14:53] LABS: EDCOVIDSCREEN Negative (Negative)
[2021-01-25] MEDS: MAGNESIUM HYDROXIDE SUSP 30 ML UDC PO (15:20)
--- NOTE | 2021-01-25 15:30 | PM.IMPN ---
Progress Note: A&P Assessment and Plan (1) NSTEMI (non-ST elevated myocardial infarction): Code(s): I21.4 - Non-ST elevation (NSTEMI) myocardial infarction Status: Acute Assessment and Plan: The patient presented to the hospital for evaluation of chest pain. She was admitted overnight to rule out acute coronary syndrome. Cannot rule out a GI component given reports of dysphagia yesterday while eating meat though she reports no issues with swallowing today and she denies overt GERD symptoms at this time. She has no known history of coronary artery disease and reports a cardiac catheterization years ago at [facility], attempted to get records Echocardiogram showed EF normal at 60 to 65%, diastolic grade 1 dysfunction, mild LVH Cardiology evaluated the patient and due to elevated troponins and atypical chest pain she was taken to orthodontic lab technician today and had 1 stent placed Chest pain has resolved at this time Per cardiology, pt stable for discharge and outpatient follow up. Will be started on low dose aspirin, Brillinta, atorvastatin, low dose beta hermila, and SL TNG. (2) Chest pain: Code(s): R07.9 - Chest pain, unspecified Status: Acute Assessment and Plan: See above. Resolved now (3) Elevated troponin: Code(s): R77.8 - Other specified abnormalities of plasma proteins Status: Acute Assessment and Plan: See above (4) Hyponatremia: Code(s): E87.1 - Hypo-osmolality and hyponatremia Status: Acute Assessment and Plan: Na slightly low at 134. Stable. (5) Type 2 diabetes mellitus: Code(s): E11.9 - Type 2 diabetes mellitus without complications Status: Acute Assessment and Plan: Will decrease Home Insulin because of hospitalization to prevent hypoglycemia Initiated sliding scale insulin, Accu-Cheks, and hypoglycemic protocol. (6) Hypertension: Code(s): I10 - Essential (primary) hypertension Status: Acute Assessment and Plan: Her blood pressures were reviewed and they have been stable. Continue monitoring. (7) Gastroesophageal reflux disease: Code(s): K21.9 - Gastro-esophageal reflux disease without esophagitis Status: Acute Assessment and Plan: PPI IV Q12hrs (8) Dysphagia: Code(s): R13.10 - Dysphagia, unspecified Status: Acute Assessment and Plan: Patient reports dysphagia with most of her meals. Denies any more choking episodes. Bedside evaluation from the speech therapist was normal and the patient did not have any complaints during the test. Recommend following up with GI specialist for further evaluation and work up if symptoms persist. (9) Hypokalemia: Code(s): E87.6 - Hypokalemia Status: Acute Assessment and Plan: Resolved. Continue to monitor and replace as necessary. (10) Gonsales catheter in place on admission: Code(s): Z97.8 - Presence of other specified devices Status: Acute Assessment and Plan: -It is unclear exactly why gonsales was placed, she is mostly bedbound so potentially due to increased urinary incontinence as she was being diuresed? -Will remove gonsales now and perform voiding trial. Plan to dc to correction tomorrow. Additional Plan Subjective Date/time seen: 01/25/21 15:30 Interval history: 65-year-old [facility] resident admitted with non-STEMI. Cardiac catheterization on 01/24/[address] Mills showed 70% stenosis of the proximal circumflex, moderate disease of the Left anterior descending and RCA, EF greater than 70%. She had a drug-eluting stent placed to the circumflex.. Date of service 01/25/2021: Feeling better, mild chest discomfort last p.m. relieved with a pain pill, had some more that when she woke up this morning but it has since dissipated. Denies sob. Constipated. Review of Systems Review of Systems: General: Denies fevers, chills Eye
[2021-01-25 17:54] LABS: Glucose Point of Care 222 mg/dl (65-105)
--- NOTE | 2021-01-25 19:39 | PC.NURSE ---
This patient, Nazanin Medellin, was transferred to [facility] on 01/25/21 at 1840. Personal belongings sent with patient. Report given to Shante HAJI. Appropriate documentation sent with patient.
[2021-01-25] MEDS: METOPROLOL TARTRATE 25 MG TABLET PO (20:38)
[2021-01-25] MEDS: MELATONIN 5 MG TABLET PO (20:38)
[2021-01-25] MEDS: INSULIN GLARGINE (*BKC) 100 UNITS/ML 35 UNITS SUB-Q (20:40)
[2021-01-25 20:52] LABS: Glucose Point of Care 207 mg/dl (65-105)
[2021-01-25] MEDS: ALBUTEROL SULFATE (*SP) AEROSOL 1 PUFF 2 PUFF INHALATION (20:52)
[2021-01-25] MEDS: oxyCODONE HCL (*CRX) 5 MG TAB IR PO (22:00)
[2021-01-26 05:11] VITALS: BP 126/65; PULSE 66; RESP 16; TEMP 36.7; O2SAT 97
[2021-01-26 07:37] LABS: Glucose Point of Care 157 mg/dl (65-105)
[2021-01-26] MEDS: DIVALPROEX SODIUM ER 500 MG TAB.24H PO (07:42)
[2021-01-26] MEDS: MULTIVITAMINS /C LUTEIN (CENTRUM SILVER) TABLET *BKC 1 TAB PO (07:42)
[2021-01-26] MEDS: MAGNESIUM OXIDE 400 MG TABLET PO (07:42)
[2021-01-26] MEDS: ASCORBIC ACID 500 MG TABLET PO (07:42)
[2021-01-26] MEDS: CHOLECALCIFEROL 1,000 UNITS TABLET 1000 UNITS PO (07:42)
[2021-01-26] MEDS: VENLAFAXINE HCL XR 75 MG CAP.ER.24H 225 MG PO (07:42)
[2021-01-26] MEDS: OLANZapine 5 MG TABLET PO (07:43)
[2021-01-26] MEDS: ATORVASTATIN 40 MG TABLET 80 MG PO (07:43)
[2021-01-26] MEDS: CYANOCOBALAMIN 1,000 MCG TABLET 1000 MCG PO (07:43)
[2021-01-26] MEDS: TICAGRELOR 90 MG TABLET PO (07:43)
[2021-01-26] MEDS: PANTOPRAZOLE 40 MG TABLET PO (07:43)
[2021-01-26 07:44] VITALS: PULSE 94
[2021-01-26] MEDS: FAMOTIDINE 20 MG TABLET PO (07:44)
[2021-01-26] MEDS: METOPROLOL TARTRATE 25 MG TABLET PO (07:44)
[2021-01-26] MEDS: LORATADINE 10 MG TABLET PO (07:46)
[2021-01-26] MEDS: FUROSEMIDE 80 MG TABLET PO (07:46)
[2021-01-26] MEDS: allopurinoL 300 MG TABLET PO (07:47)
[2021-01-26] MEDS: ASPIRIN 81 MG ENTERIC TABLET PO (07:47)
[2021-01-26] MEDS: INSULIN ASPART (*BKC) 100 UNITS/ML 8 UNITS SUB-Q ×2 (08:02→12:04)
[2021-01-26 11:41] LABS: Glucose Point of Care 290 mg/dl (65-105)
[2021-01-26] MEDS: INSULIN ASPART (*BKC) 100 UNITS/ML SUB-Q (12:03)
[2021-01-26 14:15] VITALS: BP 135/62; PULSE 84; RESP 16; TEMP 36.4; O2SAT 95
== END 2021-01-26 15:48 | DRG 247 ==
LOC: ANHED 18:21 → ANHIMU 19:59 → ANH3MED 01-26 12:09 → ANHIMU 01-30 13:42
PROVIDERS: Physician Assistant; Admitting Provider Family Medicine; Emergency Provider Emergency Medicine; PCP Family Medicine; Visit Provider Internal Medicine Cardiovascular Disease
PROC: 4A023N7 Measurement of Cardiac Sampling and Pressure, Left Heart, Percutaneous Approach (ICD-10-PCS; CPT 93452; principal; 2021-01-24 09:00)
PROC: 027034Z Dilation of Coronary Artery, One Artery with Drug-eluting Intraluminal Device, Percutaneous Approach (ICD-10-PCS; CPT 92928; 2021-01-24 09:00)
PROC: 027034Z Dilation of Coronary Artery, One Artery with Drug-eluting Intraluminal Device, Percutaneous Approach (ICD-10-PCS; 2021-01-24 09:00)
DX: I21.4 Non-ST elevation (NSTEMI) myocardial infarction (principal); E87.1 Hypo-osmolality and hyponatremia; Z68.43 Body mass index [BMI] 50.0-59.9, adult; E66.01 Morbid (severe) obesity due to excess calories; I25.10 Atherosclerotic heart disease of native coronary artery without angina pectoris; R77.8 Other specified abnormalities of plasma proteins; Z20.822 Contact with and (suspected) exposure to COVID-19; K21.9 Gastro-esophageal reflux disease without esophagitis; R13.10 Dysphagia, unspecified; F41.9 Anxiety disorder, unspecified; E11.42 Type 2 diabetes mellitus with diabetic polyneuropathy; G47.33 Obstructive sleep apnea (adult) (pediatric); I48.0 Paroxysmal atrial fibrillation; I11.0 Hypertensive heart disease with heart failure; I50.9 Heart failure, unspecified; N39.46 Mixed incontinence; E78.5 Hyperlipidemia, unspecified; E87.6 Hypokalemia; Z79.4 Long term (current) use of insulin; Z79.84 Long term (current) use of oral hypoglycemic drugs; Z79.899 Other long term (current) drug therapy; Z86.711 Personal history of pulmonary embolism; Z86.718 Personal history of other venous thrombosis and embolism; Z87.440 Personal history of urinary (tract) infections; Z91.041 Radiographic dye allergy status; Z97.8 Presence of other specified devices
CPT/HCPCS: 36415; 71045; 80048; 80053; 81001; 82948; 83036; 83690; 83735; 84443; 84484; 85025; 85027; 85610; 85730; 87426; 92610; 93005; 93458; 93970; 94640; 96374; 96375; 97161; 97165; 99285; A9270; C1725; C1760; C1769; C1874; C1887; C1894; C8929; C9113; C9600; C9803; G0269; G0378; J0583; J1200; J1644; J1650; J1815; J2250; J2270; J2930; J3010; J3475; J7030; J7040; Q9957

== ENCOUNTER 2021-05-06 20:35 | Emergency (ER) | payer MEDICARE, MEDICAID, SELFPAY ==
--- NOTE | ~2021-05-06 | XR_ITS ---
EXAMINATION: XR chest 1V portable DATE: 05/06/2021 21:30 INDICATION: Fall. Asthma, hypertension. TECHNIQUE: frontal view of the chest was obtained. COMPARISON: Chest radiograph dated 03/22/2020 FINDINGS: The lungs remain clear with no focal airspace opacities, pulmonary edema, pleural effusion or pneumot horax. The cardiomediastinal silhouette is normal. Visualized bones and soft tissues are unremarkable . IMPRESSION: 1. No acute cardiopulmonary disease. Reviewed, dictated and finalized at location A. E SPECIALIST
--- NOTE | ~2021-05-06 | CT_ITS ---
EXAMINATION: CT brain wo con DATE: 05/06/2021 22:19 INDICATION: Headache. Neck pain. Fall. TECHNIQUE: Computed tomography (CT) of the head was performed without intravenous contrast. The mA wa s adjusted according to patient size. Iterative reconstruction technique was employed. The dose-lengt h product was 605.33 mGy-cm. COMPARISON: None FINDINGS: There is an old lacunar infarct in right caudate nucleus. There are scattered areas of low attenuation in the cerebral white matter and caro, which is within normal limits for the patient's ag e. There is no intracranial hemorrhage, acute infarction, or abnormal intracranial mass lesion. The v entricles are normal in size. The paranasal sinuses are clear. The orbits are normal. The mastoid air cells are normal. IMPRESSION: 1. Old lacunar infarct in right caudate nucleus. Reviewed, dictated and finalized at location A.
--- NOTE | ~2021-05-06 | CT_ITS ---
EXAMINATION: CT cervical spine wo con DATE: 05/06/2021 22:19 INDICATION: Neck injury. TECHNIQUE: Computed tomography (CT) of the cervical spine was performed without intravenous contrast. Automated exposure control and iterative reconstruction technique were employed. The dose-length pro duct was 588.72 mGy-cm. COMPARISON: None FINDINGS: There is 5 degrees levocurvature of cervical spine. There is 2 mm anterolisthesis of C4 on C5 and C5 on C6. Vertebral body heights are normal. There is mildly decreased disc height at C2-C3 an d C3-C4, moderately decreased disc height at C4-C5, mildly decreased disc height at C5-C6, and modera tely decreased disc height at C6-C7 and C7-T1. The following disc levels are specifically discussed: C2-C3: There is no uncovertebral joint osteoarthritis. There is mild left facet joint osteoarthritis. There is ankylosis of right facet joint with mild hypertrophy. There is no neural foraminal stenosis . There is no central canal stenosis. C3-C4: There is moderate bilateral uncovertebral joint osteoarthritis. There is severe bilateral face t joint osteoarthritis. There is mild bilateral neural foraminal stenosis. There is mild central cassie l stenosis. C4-C5: There is severe right and moderate left uncovertebral joint osteoarthritis. There is severe bi lateral facet joint osteoarthritis. There is mild bilateral neural foraminal stenosis. There is mild central canal stenosis. C5-C6: There is mild bilateral uncovertebral joint osteoarthritis. There is severe bilateral facet magen int osteoarthritis. There is mild bilateral neural foraminal stenosis. There is mild central canal st enosis. C6-C7: There is moderate bilateral uncovertebral joint osteoarthritis. There is mild bilateral facet joint osteoarthritis. There is mild bilateral neural foraminal stenosis. There is mild central canal stenosis. C7-T1: There is mild bilateral uncovertebral joint osteoarthritis. There is severe bilateral facet magen int osteoarthritis. There is mild bilateral neural foraminal stenosis. There is mild central canal st enosis. IMPRESSION: 1. No fracture. 2. Moderate cervical spondylosis. Reviewed, dictated and finalized at location A.
[2021-05-06 20:37] VITALS: BP 123/75; PULSE 99; RESP 18; O2SAT 100
--- NOTE | 2021-05-06 22:42 | ED.GENADULT ---
HPI - General Adult General Chief complaint: Fall Stated complaint: fall from lift Time Seen by Provider: 05/06/21 21:18 Source: RN notes reviewed History of Present Illness HPI narrative: Patient presents emergency department from [facility] via EMS for fall. The patient was being transferred in a Maria D lift when she fell out of the Maria D lift striking her head patient with a laceration to her right ear.. Patient did have an episode of emesis following the fall but at this time she denies any nausea and denies any abdominal pain patient denies losing consciousness she denies any chest pain shortness of breath abdominal pain or any other symptom Related Data Home Medications Medication Instructions Recorded Confirmed Adults Multivitamin 1 tablet PO DAILY 01/20/21 03/09/21 Fleet Enema 118 ml RECTAL ONCE PRN 01/20/21 03/09/21 Lantus Solostar U-100 Insulin 50 unit SUBCUT HS 01/20/21 03/09/21 acetaminophen 650 mg PO Q6H PRN 01/20/21 03/09/21 albuterol sulfate 2 puff INHALATION HS 01/20/21 03/09/21 albuterol sulfate 2 puff INHALATION Q4H PRN 01/20/21 03/09/21 allopurinol 300 mg PO DAILY 01/20/21 03/09/21 ascorbic acid (vitamin C) 500 mg PO DAILY 01/20/21 03/09/21 bisacodyl 10 mg RECTAL DAILY PRN 01/20/21 03/09/21 calcium carbonate 200 mg PO BID PRN 01/20/21 03/09/21 cholecalciferol (vitamin D3) 25 mcg PO DAILY 01/20/21 03/09/21 [Vitamin D3] cyanocobalamin (vitamin B-12) 1,000 mcg PO DAILY 01/20/21 03/09/21 [Vitamin B-12] divalproex 500 mg PO BID 01/20/21 03/09/21 famotidine 20 mg PO BID 01/20/21 03/09/21 furosemide 80 mg PO DAILY 01/20/21 03/09/21 insulin aspart U-100 [Novolog 6 unit SUBCUT TID 01/20/21 03/09/21 Flexpen U-100 Insulin] insulin aspart U-100 [Novolog See Rx Instructions .ROUTE .COMPLEX 01/20/21 03/09/21 Flexpen U-100 Insulin] loperamide 2 mg PO Q6H PRN 01/20/21 03/09/21 loratadine 10 mg PO DAILY 01/20/21 03/09/21 magnesium citrate 300 ml PO DAILY PRN 01/20/21 03/09/21 magnesium hydroxide [Milk of 30 ml PO HS PRN 01/20/21 03/09/21 Magnesia] melatonin 5 mg PO HS 01/20/21 03/09/21 metformin 500 mg PO BID 01/20/21 03/09/21 nystatin [Nyamyc] 1 applic TOPICAL Q6H PRN 01/20/21 03/09/21 olanzapine 5 mg PO DAILY 01/20/21 03/09/21 triamcinolone acetonide 1 applic TOPICAL BID PRN 01/20/21 03/09/21 venlafaxine 225 mg PO DAILY 01/20/21 03/09/21 Allergies Allergy/AdvReac Type Severity Reaction Status Date / Time amoxicillin Allergy Severe Anaphylaxis Verified 03/06/21 14:38 bee venom protein (honey bee) Allergy Severe Anaphylaxis Verified 03/06/21 14:38 [bees] Penicillins Allergy Severe Anaphylaxis Verified 03/06/21 14:38 Sulfa (Sulfonamide Allergy Severe Anaphylaxis Verified 03/06/21 14:38 Antibiotics) iodine Allergy Rash Verified 03/06/21 14:38 metaproterenol Allergy Unknown Verified 03/06/21 14:38 methocarbamol Allergy Unknown Verified 03/06/21 14:38 oxytetracycline Allergy Unknown Verified 03/06/21 14:38 pentazocine Allergy Unknown Verified 03/06/21 14:38 procaine Allergy Unknown Verified 03/06/21 14:38 aspirin AdvReac Mild Nausea and Verified 03/06/21 14:38 Vomiting fluoxetine AdvReac Mild Nausea and Verified 03/06/21 14:38 Vomiting chlorpheniramine AdvReac Nausea and Verified 03/06/21 14:38 Vomiting erythromycin base AdvReac Nausea and Verified 03/06/21 14:38 Vomiting fenofibrate AdvReac Nausea and Verified 03/06/21 14:38 Vomiting hydrocodone AdvReac Nausea and Verified 03/06/21 14:38 Vomiting hydroxyzine AdvReac Nausea and Verified 03/06/21 14:38 Vomiting propoxyphene AdvReac Nausea and Verified 03/06/21 14:38 Vomiting sertraline AdvReac Nausea and Verified 03/06/21 14:38 Vomiting terbutaline AdvReac Nausea and Verified 03/06/21 14:38 Vomiting yellow dye AdvReac Nausea and Verified 03/06/21 14:38 Vomiting hmg-coa-R Inhibitors Allergy Unknown Uncoded 01/20/21 22:26 Review of Systems Review of Systems: Gen.: Denies fevers or chills Ey
--- NOTE | 2021-05-06 23:00 | PC.NURSE ---
At bedside with INK MAKER assisting with bedside ear suture. Procedure was well tolerated by pt.
--- NOTE | 2021-05-06 23:26 | PC.NURSE ---
called [facility] to request transport. ETA [id number]
--- NOTE | 2021-05-06 23:28 | PC.NURSE ---
Called nursing facility [facility]. Report given to pts nurse RAISSA Garcia. Transportation is being set up.
[2021-05-07] MEDS: TETANUS,DIPHTHERIA,AC PERTUSSIS ADULT (0.5 ML) BOOSTRIX IM (00:08)
[2021-05-07] MEDS: LIDOCAINE HCL 1% LOCAL INJ 20 ML VIAL 10 ML INFILTRATE (00:19)
--- NOTE | 2021-05-07 01:39 | PC.NURSE ---
called [facility] for ETA update. ETA [id number] called [facility] to request transport. [facility] declined. [facility] not available tonight. Called [facility] to request transport. Advised by [facility] that they do not do transfers from [facility] anymore.
[2021-05-07 03:40] VITALS: BP 123/78; PULSE 92; RESP 16; TEMP 36.7; O2SAT 98
== END 2021-05-07 03:42 ==
PROVIDERS: Emergency Provider Emergency Medicine; PCP Family Medicine
DX: S01.311A Laceration without foreign body of right ear, initial encounter (principal); S16.1XXA Strain of muscle, fascia and tendon at neck level, initial encounter; Z23 Encounter for immunization; I48.0 Paroxysmal atrial fibrillation; I50.9 Heart failure, unspecified; I11.0 Hypertensive heart disease with heart failure; E11.42 Type 2 diabetes mellitus with diabetic polyneuropathy; E78.5 Hyperlipidemia, unspecified; N39.46 Mixed incontinence; G47.33 Obstructive sleep apnea (adult) (pediatric); F41.9 Anxiety disorder, unspecified; F32.A Depression, unspecified; Z87.442 Personal history of urinary calculi; Z86.718 Personal history of other venous thrombosis and embolism; Z86.711 Personal history of pulmonary embolism; Z79.4 Long term (current) use of insulin; Z79.84 Long term (current) use of oral hypoglycemic drugs; W17.89XA Other fall from one level to another, initial encounter
CPT/HCPCS: 70450; 71045; 72125; 90471; 90715; 99284; L0140

== ENCOUNTER 2021-05-12 18:00 | Inpatient (IN) | payer MEDICARE, MEDICAID, SELFPAY ==
[2021-05-12] VITALS (12 sets, daily range): BP systolic 96–105; BP diastolic 51–72; PULSE 69–74; RESP 8–20; TEMP 36.1–36.8; O2SAT 86–100; BMI 49.9; BMI 50.5
--- NOTE | ~2021-05-12 | XR_ITS ---
XR chest 1V portable DATE: 05/12/2021 19:37 INDICATION: Generalized chest pain TECHNIQUE: Portable supine AP chest on 05/12/2021 at 1933 hours COMPARISON: 05/06/2021 portable supine AP chest FINDINGS: Heart size appears within normal range. No pulmonary infiltrate or consolidation, pleural e ffusion or pulmonary vascular congestion or pneumothorax is detected. Diffuse osteopenia. IMPRESSION: Reviewed, dictated and finalized at location A. IMPRESSION:
--- NOTE | ~2021-05-12 | US_ITS ---
US renal BI 05/13/2021 10:25 Procedure: Realtime transabdominal ultrasound of the kidneys and bladder. Indication: Acute renal insufficiency Comparison: No prior studies for comparison. Findings: Renal echotexture is normal bilaterally without hydronephrosis, contour deforming mass or r enal calculus. The right kidney measures 9.7 cm and left kidney measures 11.8 cm. There is a [place] ca theter in the bladder. There is fatty infiltration of the liver. Impression: 1: Unremarkable renal ultrasound. No stones, masses or hydronephrosis. Reviewed, dictated and finalized at location A. Impression: 1: Unremarkable renal ultrasound. No stones, masses or hydronephrosis.
--- NOTE | 2021-05-12 18:07 | ECG_ITS ---
Measurements Intervals [place] Rate: 74 P: 100 UT: 197 QRS: -36 QRSD: 116 T: 86 QT: 406 QTc: 453 Interpretive Statements SINUS RHYTHM LOW QRS VOLTAGE IN PRECORDIAL LEADS [QRS DEFLECTION < 1.0 mV IN CHEST LEADS] PATTERN CONSISTENT WITH PULMONARY DISEASE MODERATE INTRAVENTRICULAR CONDUCTION DELAY [110+ ms QRS DURATION] ABNORMAL ECG Electronically Signed On 05-13-2021 9:23:59 CDT by Roger Caballero M.D.
--- NOTE | 2021-05-12 19:23 | ED.CHESTPAIN ---
HPI - Chest Pain General Chief Complaint: Chest Pain Stated Complaint: CP Time Seen by Provider: 05/12/21 19:00 Source: patient, EMS and RN notes reviewed Limitations: dementia History of Present Illness HPI narrative: 65-year-old female presenting to the emergency department from a local group home after having a ground-level fall on Saturday. Patient reported to the group home she had a ground-level fall. Patient is unable to describe the nature of the fall. Patient is complaining of some chest wall pain that she reports is secondary to the fall. Patient was treated with oxycodone at the group home but pain is still present. Patient is a poor historian. Related Data Home Medications Medication Instructions Recorded Confirmed Adults Multivitamin 1 tablet PO DAILY 01/20/21 03/09/21 Fleet Enema 118 ml RECTAL ONCE PRN 01/20/21 03/09/21 Lantus Solostar U-100 Insulin 50 unit SUBCUT HS 01/20/21 03/09/21 acetaminophen 650 mg PO Q6H PRN 01/20/21 03/09/21 albuterol sulfate 2 puff INHALATION HS 01/20/21 03/09/21 albuterol sulfate 2 puff INHALATION Q4H PRN 01/20/21 03/09/21 allopurinol 300 mg PO DAILY 01/20/21 03/09/21 ascorbic acid (vitamin C) 500 mg PO DAILY 01/20/21 03/09/21 bisacodyl 10 mg RECTAL DAILY PRN 01/20/21 03/09/21 calcium carbonate 200 mg PO BID PRN 01/20/21 03/09/21 cholecalciferol (vitamin D3) 25 mcg PO DAILY 01/20/21 03/09/21 [Vitamin D3] cyanocobalamin (vitamin B-12) 1,000 mcg PO DAILY 01/20/21 03/09/21 [Vitamin B-12] divalproex 500 mg PO BID 01/20/21 03/09/21 famotidine 20 mg PO BID 01/20/21 03/09/21 furosemide 80 mg PO DAILY 01/20/21 03/09/21 insulin aspart U-100 [Novolog 6 unit SUBCUT TID 01/20/21 03/09/21 Flexpen U-100 Insulin] insulin aspart U-100 [Novolog See Rx Instructions .ROUTE .COMPLEX 01/20/21 03/09/21 Flexpen U-100 Insulin] loperamide 2 mg PO Q6H PRN 01/20/21 03/09/21 loratadine 10 mg PO DAILY 01/20/21 03/09/21 magnesium citrate 300 ml PO DAILY PRN 01/20/21 03/09/21 magnesium hydroxide [Milk of 30 ml PO HS PRN 01/20/21 03/09/21 Magnesia] melatonin 5 mg PO HS 01/20/21 03/09/21 metformin 500 mg PO BID 01/20/21 03/09/21 nystatin [Nyamyc] 1 applic TOPICAL Q6H PRN 01/20/21 03/09/21 olanzapine 5 mg PO DAILY 01/20/21 03/09/21 triamcinolone acetonide 1 applic TOPICAL BID PRN 01/20/21 03/09/21 venlafaxine 225 mg PO DAILY 01/20/21 03/09/21 Allergies Allergy/AdvReac Type Severity Reaction Status Date / Time amoxicillin Allergy Severe Anaphylaxis Verified 03/06/21 14:38 bee venom protein (honey bee) Allergy Severe Anaphylaxis Verified 03/06/21 14:38 [bees] Penicillins Allergy Severe Anaphylaxis Verified 03/06/21 14:38 Sulfa (Sulfonamide Allergy Severe Anaphylaxis Verified 03/06/21 14:38 Antibiotics) iodine Allergy Rash Verified 03/06/21 14:38 metaproterenol Allergy Unknown Verified 03/06/21 14:38 methocarbamol Allergy Unknown Verified 03/06/21 14:38 oxytetracycline Allergy Unknown Verified 03/06/21 14:38 pentazocine Allergy Unknown Verified 03/06/21 14:38 procaine Allergy Unknown Verified 03/06/21 14:38 aspirin AdvReac Mild Nausea and Verified 03/06/21 14:38 Vomiting fluoxetine AdvReac Mild Nausea and Verified 03/06/21 14:38 Vomiting chlorpheniramine AdvReac Nausea and Verified 03/06/21 14:38 Vomiting erythromycin base AdvReac Nausea and Verified 03/06/21 14:38 Vomiting fenofibrate AdvReac Nausea and Verified 03/06/21 14:38 Vomiting hydrocodone AdvReac Nausea and Verified 03/06/21 14:38 Vomiting hydroxyzine AdvReac Nausea and Verified 03/06/21 14:38 Vomiting propoxyphene AdvReac Nausea and Verified 03/06/21 14:38 Vomiting sertraline AdvReac Nausea and Verified 03/06/21 14:38 Vomiting terbutaline AdvReac Nausea and Verified 03/06/21 14:38 Vomiting yellow dye AdvReac Nausea and Verified 03/06/21 14:38 Vomiting hmg-coa-R Inhibitors Allergy Unknown Uncoded 01/20/21 22:26 Review of Systems Review of Systems: feliciano
[2021-05-12 19:53] LABS: Basophils Absolute Auto 0.1 K/mm3 (0.0-0.1); Basophils Percent Auto 0.5 % (0.2-1.2); Eosinophils Absolute Auto 0.3 K/mm3 (0-0.3); Eosinophils Percent Auto 2.7 % (0-4.4); Hematocrit 35.2 % (37.0-47.0); Immature Granulocyte Absolute 0.15 K/mm3 (0.00-0.031); Immature Granulocyte Percent A 1.6 % (0-0.5); Lymphocytes Absolute Auto 1.44 K/mm3 (0.9-3.2); Lymphocytes Percent Auto 15.5 % (18.3-44.2); Mean Corpuscular HGB Conc 31.3 g/dl (32-36); Mean Corpuscular Hemoglobin 34.3 pg (26-34); Mean Corpuscular Volume 109.7 fl (80-100); Mean Platelet Volume 11.1 fl (7.4-10.4); Monocytes Absolute Auto 1.3 K/mm3 (0.1-0.6); Neutrophils Absolute Auto 6.1 K/mm3 (1.3-6.7); Neutrophils Percent Auto 65.7 % (45.5-73.1); Platelet Count Result 222 k/mm3 (150-375); Red Blood Count 3.21 M/mm3 (4.2-5.4); Red Cell Distribution Width 16.1 % (11.5-14.5); White Blood Count 9.3 K/mm3 (4.5-10.0)
[2021-05-12 20:03] LABS: Alanine Aminotransferase 18 U/L (4-35); Albumin Level 3.4 g/dL (3.5-5.1); Alkaline Phosphatase 96 U/L (38-126); Anion Gap 8 mmol/L (8-16); Aspartate Amino Transferase 32 U/L (14-36); Bilirubin,Total 0.2 mg/dL (0.2-1.3); Blood Urea Nitrogen 62 mg/dL (7-17); Calcium 7.4 mg/dL (8.4-10.2); Carbon Dioxide 27 mmol/L (22-30); Chloride 91 mmol/L (98-107); Estimated CRCL calculation 11 ml/min; Estimated Glomerular Filt Rate 8; Glucose 180 mg/dL (65-110); Potassium 4.9 mmol/L (3.4-5.0); Sodium 126 mmol/L (137-145)
[2021-05-12 20:31] LABS: Add Urine Microscopic? YES; Appearance Urine Cloudy (Clear); Bilirubin Urine Negative (Negative); Blood Urine Negative (Negative); Color Urine Yellow (Yellow); Glucose Urine UA 3+ mg/dL (Negative); Ketones Urine Trace mg/dL (Negative); Leukocyte Esterase Ur Negative LEU/UL (Negative); Mucus Urine Rare /lpf; Nitrate Urine Negative (Negative); Protein Urine Negative (Negative); RBC Urine 0-2 /hpf (0-2); Specific Grav Ur 1.016 (1.001-1.035); Squamous Epithelial Cell Urine Moderate /hpf (Few); Urobilinogen Urine Negative mg/dL (<2.0)
--- NOTE | 2021-05-12 20:54 | PM.IMHP ---
H&P: HPI History of Present Illness Date/Time: 05/12/21 20:54 Chief Complaint: Chest pain Narrative: This is a 65-year-old female with past medical history significant for dementia, morbid obesity, patient resides at a fdc, chronic kidney disease. Patient was brought to the emergency room for evaluation after she complained of chest pain at the time of my visit patient stated that she has been falling quite frequently but cannot give me much detail about her disease process. Preliminary workup was significant for a creatinine of 5.6 and BUN of 60 sodium 126. A chest x-ray did not show any infiltrates or acute processes. Patient is been admitted for further evaluation management and treatment. Review of Systems Review of Systems: ROS unobtainable: Yes unobtainable due to medical condition (Dementia) [facility] Past Medical History Medical History Anxiety Asthma Congestive heart failure Deep venous thrombosis Depression Diabetic peripheral neuropathy Frequent urinary tract infections Gastroesophageal reflux disease Hyperlipidemia Hypertension Mixed stress and urge incontinence Obstructive sleep apnea Intolerant to CPAP. Paroxysmal atrial fibrillation Pulmonary embolism Type 2 diabetes mellitus Surgical History Surgical History History of cardiac catheterization No coronary artery disease per patient report. History of cholecystectomy History of colonoscopy History of cystoscopy History of tonsillectomy and adenoidectomy Family History Family History Mother No problems noted. Father No problems noted. Other Adopted Social History Social History Social History: Surrogate decision maker: Moi Medellin, brother. Code status: Full code. Smoking status: Never smoker Second hand tobacco smoke exposure: No Alcohol intake: never Substance use: never Substance use type: does not use Additional living arrangements comments: Patient is a resident at [facility]. She has no children. 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 Spiritual care concerns: No Meds Home Medications and Allergies Home Medications Medication Instructions Recorded Confirmed Type Fleet Enema 118 ml RECTAL DAILY PRN 01/20/21 05/13/21 History Lantus Solostar U-100 Insulin 55 unit SUBCUT HS 01/20/21 05/13/21 History acetaminophen 650 mg PO Q6H PRN 01/20/21 05/12/21 History albuterol sulfate 2 puff INHALATION HS 01/20/21 05/12/21 History albuterol sulfate 2 puff INHALATION Q4H PRN 01/20/21 05/12/21 History allopurinol 300 mg PO DAILY 01/20/21 05/12/21 History ascorbic acid (vitamin C) 500 mg PO DAILY 01/20/21 05/12/21 History bisacodyl 10 mg RECTAL DAILY PRN 01/20/21 05/13/21 History calcium carbonate 200 mg PO BID PRN 01/20/21 05/13/21 History cholecalciferol (vitamin D3) 25 mcg PO DAILY 01/20/21 05/13/21 History [Vitamin D3] cyanocobalamin (vitamin B-12) 1,000 mcg PO DAILY 01/20/21 05/13/21 History [Vitamin B-12] divalproex 500 mg PO BID 01/20/21 05/13/21 History famotidine 20 mg PO BID 01/20/21 05/13/21 History furosemide 80 mg PO DAILY 01/20/21 05/13/21 History insulin aspart U-100 [Novolog 6 unit SUBCUT TID 01/20/21 05/13/21 History Flexpen U-100 Insulin] insulin aspart U-100 [Novolog See Rx Instructions .ROUTE .COMPLEX 01/20/21 05/13/21 History Flexpen U-100 Insulin] loperamide 2 mg PO Q6H PRN 01/20/21 05/13/21 History loratadine 10 mg PO DAILY 01/20/21 05/13/21 History magnesium citrate 296 ml PO DAILY PRN 01/20/21 05/13/21 History magnesium hydroxide [Milk of 30 ml PO HS PRN 01/20/21 05/13/21 History Magnesia] melatonin 5 mg PO HS 01/20/21 05/13/21 History metformin 500 mg PO BID
[2021-05-12] MEDS: SODIUM CHLORIDE 0.9% IV 1,000 ML 999 ML IV CONT (21:19)
[2021-05-12] MEDS: SODIUM CHLORIDE 0.9% IV 1,000 ML 125 ML IV CONT (22:26)
[2021-05-12 22:30] LABS: SARS-CoV-2 RNA PCR Negative
[2021-05-13] VITALS (11 sets, daily range): BP systolic 95–123; BP diastolic 41–58; PULSE 68–88; RESP 18–22; TEMP 36.1–36.6; O2SAT 95–100
--- NOTE | 2021-05-13 | ECHO_ITS ---
Patient Info Name: Nazanin Medellin Age: 65 years : 1955 Gender: Female Ht: 61 in Wt: 272 lbs BSA: 2.39 m2 HR: 67 bpm BP: 123 / 53 mmHg Heart Rhythm: Sinus Rhythm Technical Quality: Poor Exam Date: 05/13/2021 12:47 PM Exam Location: [facility] Pulmonary Exam Room: [facility] Patient Status: Inpatient Admit Date: 05/12/2021 Staff Ordering Physician: Jeramy Yang DO Telephone Engineer: Brittni Wilson RDCS Attending Provider: Diana Bonilla MD Referring Physician: Celia RUFFIN; Exam Type: CA echo dop color flow w con Study Info Indications - edema chest pain Complete two-dimensional, color flow and Doppler transthoracic echocardiogram is performed with contrast to opacify the left ventricle and to improve the deliniation of the left ventricle endocardial borders. Contrast/Agitated Saline Contrast/Ag. Saline: Definity Amount: 2.00 ml Administered By: Brittni Wilson [facility] Existing IV Access: Yes IV Access Condition: patent with no signs of infiltration Reason for Poor Study: patient body habitus Summary 1. Left ventricular chamber dimension is normal. 2. Left ventricular systolic function is normal, estimated at 65-70%. 3. There is mildly increased left ventricular wall thickness. 4. The left ventricular diastolic function is abnormal. 5. Left atrial chamber dimension is moderately enlarged. 6. The aortic valve is probable trileaflet. 7. There is mild aortic valve stenosis with a peak velocity of 205.43 cm/s, mean gradient of 11 mmHg, and aortic valve area of 2.39 cm2. 8. There is mild aortic valve regurgitation. 9. There is mild aortic valve calcification. 10. There is mild mitral valve stenosis. 11. There is mild mitral valve regurgitation. 12. The mitral valve annulus is severely calcified. 13. There is mild tricuspid valve regurgitation. 14. Moderate pulmonary hypertension, estimated pulmonary arterial systolic pressure is 59 mmHg. Left Ventricle Left ventricular chamber dimension is normal. Left ventricular systolic function is normal, estimated at 65-70%. There is mildly increased left ventricular wall thickness. The left ventricular diastolic function is abnormal. Right Ventricle Right ventricular chamber dimension is normal. Right ventricular systolic function is normal. Left Atria Left atrial chamber dimension is moderately enlarged. Right Atria Right atrial chamber dimension is mildly enlarged. Atrial Septum Intact interatrial septum visualized by color flow imaging. Aortic Valve The aortic valve is probable trileaflet. There is moderate aortic valve sclerosis. There is mild aortic valve stenosis with a peak velocity of 205.43 cm/s, mean gradient of 11 mmHg, and aortic valve area of 2.39 cm2. There is mild aortic valve regurgitation. There is mild aortic valve calcification. Pulmonic Valve The pulmonic valve is normal. There is no pulmonic valve stenosis. There is trace pulmonic regurgitation. Mitral Valve There is mild mitral valve stenosis. There is mild mitral valve regurgitation. The mitral valve annulus is severely calcified. Tricuspid Valve The tricuspid valve leaflets are normal. There is no significant tricuspid valve stenosis. There is mild tricuspid valve regurgitation. Moderate pulmonary hypertension, estimated pulmonary arterial systolic pressure is 59 mmHg. Pericardium/Pleural The pericardium appears normal. There is no
--- NOTE | 2021-05-13 00:09 | ADMGEN ---
This patient, Nazainn Medellin, was admitted to IMU Room 205-02. Patient/family oriented to hospital policies and general routines including ID bracelet, bed and alarms, visiting hours, pain management, procedures, bathroom and other care routines, personal items, smoking policy, room service/diet, and visiting hours. Information on how to activate the Rapid Response Team has been discussed. Patient/Family are encouraged to report perceived risks to care and to ask questions if they do not understand what they are told or what they should do.
[2021-05-13 08:14] LABS: Glucose Point of Care 159 mg/dl (65-105)
[2021-05-13] MEDS: ASPIRIN 81 MG ENTERIC TABLET PO (08:48)
[2021-05-13] MEDS: ATORVASTATIN 40 MG TABLET 80 MG PO (08:48)
[2021-05-13] MEDS: METOPROLOL TARTRATE 25 MG TABLET PO ×2 (08:48→20:43)
[2021-05-13] MEDS: allopurinoL 300 MG TABLET PO (08:48)
[2021-05-13] MEDS: ASCORBIC ACID 500 MG TABLET PO (08:48)
[2021-05-13] MEDS: TICAGRELOR 90 MG TABLET PO ×2 (08:48→20:43)
[2021-05-13] MEDS: VENLAFAXINE HCL XR 75 MG CAP.ER.24H 225 MG PO (08:49)
[2021-05-13] MEDS: CHOLECALCIFEROL 1,000 UNITS TABLET 1000 UNITS PO (08:49)
[2021-05-13] MEDS: LORATADINE 10 MG TABLET PO (08:49)
[2021-05-13] MEDS: FAMOTIDINE 20 MG TABLET PO ×2 (08:49→20:43)
[2021-05-13] MEDS: CYANOCOBALAMIN 1,000 MCG TABLET 1000 MCG PO (08:49)
[2021-05-13] MEDS: PANTOPRAZOLE 40 MG TABLET PO (08:49)
[2021-05-13] MEDS: INSULIN ASPART (*BKC) 100 UNITS/ML 6 UNITS SUB-Q ×3 (08:50→17:37)
[2021-05-13] MEDS: INSULIN ASPART (*BKC) 100 UNITS/ML SUB-Q ×3 (08:50→17:37)
--- NOTE | 2021-05-13 10:10 | PM.CNNEP ---
Assessment and Plan Additional Plan 1. the patient has chronic kidney disease. She is seen by human resources communications manager at [facility] she says. It is fairly mild CKD. Most likely this is due to hypertension diabetes and vascular disease. Her baseline creatinine is around 1.1. 2. She has superimposed acute kidney injury. Her creatinine is up to 5.6 now. She says that she has not had any nausea vomiting or diarrhea. However she was started on diuretics recently she says, so she could be dehydrated from the furosemide. Her swelling does not look too bad right now and her lungs are clear and the chest x-ray is clear so I think we can continue IV fluids. There other causes of kidney disease as well such as rhabdomyolysis, obstruction, glomerulonephritis, and interstitial nephritis. Will check a CPK, urine lytes, and also a renal ultrasound. 3. The patient has hypertension. The blood pressure was actually a little bit on the low side in the emergency room. She is on lisinopril 5 mg a day for this. This is being held. The IV fluid should help with this as well. 4. The patient has diabetes. She was on metformin. This has been held as well. Her bicarbonate level is 27 and her anion gap is 8 so I do not think she has lactic acidosis. She is on long acting insulin plus sliding scale per hospitalists. 5. Her sodium is a little bit low. This is most likely due to the renal failure plus some mildly high glucose. 6. The patient has congestive heart failure, paroxysmal atrial fibrillation. She is on multiple cardiac medications. 7. She has mild anemia. Will follow this. She has multiple issues including chronic disease, chronic kidney disease etc that could contribute to the anemia. History of Present Illness Reason for Consult Consult date: 05/13/21 Chief Complaint Chief complaint: IRIS, CP, Elevated Trop History of Present Illness Narrative: Hakan is a very pleasant 65-year-old lady who has multiple medical problems including dementia, chronic kidney disease with a baseline creatinine of 1.1, anxiety, asthma, congestive heart failure, hypertension, hyperlipidemia, paroxysmal atrial fibrillation, history of pulmonary embolism, sleep apnea but does not use a CPAP, GERD, diabetes with neuropathy and probable nephropathy. The patient came in because she fell at the long term. It was a ground level fall. She had some chest pain after the fall and so came to the emergency room. The patient has chronic kidney disease. Her creatinine generally runs around 1.1. She sees a human resources communications manager at [facility] she says. the patient denies any recent antibiotics or nonsteroidal anti-inflammatory agents. There are no reports of bloody urine, foamy urine, kidney stones, or bladder infections. She says that she was newly placed on Lasix by the doctor in the facility. She said this is because of my lab values . She says she has not had swelling or shortness of breath. The patient denies any shortness of breath or swelling. She has no nausea or vomiting diarrhea or constipation. After I asked these questions she stopped answering questions. she was evaluated in the emergency room and found to have a creatinine of 5.6. She was admitted to the hospital and given some IV fluids. She is not on IV fluids now. Review of Systems Review of Systems: ROS unobtainable: Yes unobtainable due to medical condition Endocrine: Endocrine: Reports no additional endocrine complaints PMFSH Past Medical History Medical History Anxiety Asthma Congestive heart failure Deep venous thrombosis Depression Diabetic peripheral neuropathy Frequent urinary tract infections Gastroesophageal reflux disease Hyperlipidemia Hypertension Mixed stress and urge incontinence Obstructive sleep apnea Intolerant to CPAP. Paroxysmal atrial fibrillation Pulmonary embolism Type 2 diabete
[2021-05-13 10:29] LABS: Creatinine Urine 118.9 mg/dL
[2021-05-13 10:56] LABS: Sodium Urine Random 26 meq/L
[2021-05-13 10:59] LABS: Urea Random Urine 395 MG/DL
[2021-05-13] MEDS: MULTIVITAMINS /C LUTEIN (CENTRUM SILVER) TABLET *BKC 1 TAB PO (11:19)
[2021-05-13 11:42] LABS: Sodium Urine Random 18 meq/L
[2021-05-13 11:54] LABS: Creatine Kinase 249 U/L (30-135)
--- NOTE | 2021-05-13 11:55 | PM.CNCAR ---
Assessment and Plan Assessment and plan (1) Elevated troponin: Code(s): R77.8 - Other specified abnormalities of plasma proteins Status: Acute Assessment and Plan: These are flat and not related to acute coronary syndrome. Likely secondary to some renal insufficiency (2) Hypertension: Qualifiers: Hypertension type: primary hypertension Qualified Code(s): I10 - Essential (primary) hypertension Code(s): I10 - Essential (primary) hypertension Status: Acute Assessment and Plan: Controlled (3) CAD (coronary artery disease): Code(s): I25.10 - Atherosclerotic heart disease of [place] coronary artery without angina pectoris Status: Acute Assessment and Plan: Continue dual anti-platelet therapy. Telemetry can be discontinued. No further cardiac workup needed (4) Dementia: Qualifiers: Dementia type: unspecified type Dementia behavioral disturbance: without behavioral disturbance Qualified Code(s): F03.90 - Unspecified dementia without behavioral disturbance Code(s): F03.90 - Unspecified dementia without behavioral disturbance Status: Acute (5) Chest pain: Code(s): R07.9 - Chest pain, unspecified Status: Acute Assessment and Plan: She currently denies any chest pain. EKG is unremarkable. Troponins are not related to acute coronary syndrome. Chest pain was reproducible per other documentation. No further cardiac workup needed. (6) Acute renal failure: Code(s): N17.9 - Acute kidney failure, unspecified Status: Acute Assessment and Plan: Workup per Nephrology History of Present Illness History of Present Illness Consult date/time: 05/13/21 11:55 Requesting physician: Diana Bonilla MD Consult reason: chest pain and Other (Elevated troponin) Reason For Visit: IRIS, CP, Elevated Trop Narrative: Date of service 05/13/2021 Reason consultation, chest pain, elevated troponin Requesting provider: Dr. Bonilla Patient is a 65-year-old female with history of coronary disease. She came to hospital after being found on the floor at the nursing facility. Patient cannot give any details to her history. She does not know or remember falling. She also does not have any chest pain that she is aware of. She denies any chest pain at present. Troponins were drawn which were minimally elevated. There is no significant rise or fall. She is found to be in acute renal failure and Nephrology is involved her care. She currently denies any chest pain, syncope, presyncope, paroxysmal nocturnal dyspnea, orthopnea, edema palpitations. Reported though yesterday patient did describe some chest pain that was reproducible by pushing on her chest Review of Systems Review of Systems: All systems reviewed & are unremarkable except as noted in HPI and below Constitutional: Constitutional: Reports weakness Eyes: Eyes: Denies blurry vision ENT: Reports Normal hearing present Cardiovascular: Cardiovascular: Reports chest pain Respiratory: Respiratory: Denies hemoptysis Gastrointestinal: Gastrointestinal: Denies hematochezia Genitourinary: Genitourinary: Denies hematuria Musculoskeletal: Musculoskeletal: Denies neck pain Integumentary/Breasts: Skin/Breast: Denies dry skin Neurologic: Reports confusion and Denies headache(s) Psychiatric: Psychiatric: Denies anxiety Endocrine: Endocrine: Denies excessive sweating Hematologic/Lymphatic: Hematologic/Lymphatic: Denies easy bleeding Allergic/Immunologic: Allergic/Immunologic: Denies GI upset with certain foods PMFSH Past Medical History Medical History Anxiety Asthma Congestive heart failure Deep venous thrombosis Depression Diabetic peripheral neuropathy Frequent urinary tract infections Gastroesophageal reflux disease Hyperlipidemia Hypertension Mixed stress and urge incontinence Obstructive sl
[2021-05-13 12:00] LABS: Creatinine Urine 199.9 mg/dL; Total Protein Urine Random 30 mg/dL; Ur Ttl Prot Creatinine Ratio 0.15 mg/mg (0-0.20)
--- NOTE | 2021-05-13 12:32 | PM.IMPN ---
Progress Note: A&P Assessment and Plan (1) Acute renal failure: Code(s): N17.9 - Acute kidney failure, unspecified Status: Acute (2) CAD (coronary artery disease): Code(s): I25.10 - Atherosclerotic heart disease of [place] coronary artery without angina pectoris Status: Acute (3) Morbid obesity with BMI of 50.0-59.9, adult: Code(s): E66.01 - Morbid (severe) obesity due to excess calories; Z68.43 - Body mass index [BMI] 50.0-59.9, adult Status: Acute (4) Acute hyponatremia: Code(s): E87.1 - Hypo-osmolality and hyponatremia Status: Acute (5) Elevated troponin: Code(s): R77.8 - Other specified abnormalities of plasma proteins Status: Acute (6) IRIS (acute kidney injury): Code(s): N17.9 - Acute kidney failure, unspecified Status: Acute (7) Dementia: Qualifiers: Dementia behavioral disturbance: without behavioral disturbance Dementia type: unspecified type Qualified Code(s): F03.90 - Unspecified dementia without behavioral disturbance Code(s): F03.90 - Unspecified dementia without behavioral disturbance Status: Acute (8) Altered mental status: Code(s): R41.82 - Altered mental status, unspecified Status: Acute Additional Plan # acute kidney injury -checking urine electrolytes, calculate FeNA and FeUrea -checking renal ultrasound -consulted Nephrology -patient given IV fluids 1 L in the ER, will stop, continue monitoring -will trend renal function -[place] catheter to keep track of urine output # hyponatremia -appears to be hypervolemic hyponatremia -checking serum osmolarity and urine osmolarity # elevated troponin -no chest pain, may be elevated is due to kidney disease -consulted Cardiology, no signs of ACS, will discontinue telemetry -history of congestive heart failure will check echocardiogram -EKG shows normal sinus rhythm low QRS voltage and moderate intraventricular conduction delay # other chronic conditions -dementia, anxiety/depression: Continue venlafaxine, Zyprexa, Depakote -insulin-dependent diabetes type 2: Continue home Lantus 55 units q.h.s., 6 units NovoLog a.c. t.i.d., Accu-Cheks a.c. HS, sliding scale insulin. Home uses metformin, Jardiance -intertrigo: Continue Kenalog cream, nystatin powder -CAD: Continue home Brilinta, p.r.n. nitroglycerin, beta-hermila, held home Lasix 80 mg daily, Lipitor 80 mg, aspirin, lisinopril -constipation, opioid induced: P.r.n. enema, milk of magnesia, Mag citrate, Dulcolax -GERD: Protonix, Pepcid -chronic pain: Continue home oxycodone -essential hypertension: Beta-hermila, lisinopril -insomnia: Continue home melatonin -seasonal allergies: Claritin -gout: Allopurinol -history of asthma: Albuterol rescue inhaler -obstructive sleep apnea: Intolerant of CPAP -history of paroxysmal atrial fibrillation? No anticoagulation? Currently normal sinus rhythm Diet: Heart healthy DVT prophylaxis: Heparin GI prophylaxis: Protonix, Pepcid Code status: Full code Disposition: Downgrade out of IMU medical floor, eventually back to detention Time Spent With Patient Time with patient: 25 - 35 minutes Subjective Date/time seen: 05/13/21 12:32 Patient seen examined. She has dementia and lives in detention. Not very good historian. She clinically looks edematous. At home she is on Lasix 80 mg daily. She presented with an IRIS, chest x-ray was normal, and patient's volume status is unclear. Cardiology and Nephrology was consulted. Cardiology evaluated patient and she has no chest pain and elevated troponin likely secondary to renal disease. Cardiology had no more further recommendations. I have ordered an echocardiogram C3 is a cardiac component to her condition. With a clear chest x-ray it is unclear if she is actually intravascularly volume depleted or overloaded. This could be a cardiorenal syndrome picture with volume overload in IRIS in which she should improve with
[2021-05-13] MEDS: PERFLUTREN LIPID MICROSPHERES 1.5 ML VIAL DILUTED TO 10 ML TOTAL VOLUME IV PUSH (13:11)
[2021-05-13 13:16] LABS: Glucose Point of Care 180 mg/dl (65-105)
[2021-05-13] MEDS: HEPARIN SODIUM 5,000 UNITS/ML VIAL 5000 UNITS SUB-Q ×2 (15:20→20:41)
[2021-05-13] MEDS: DIVALPROEX SODIUM DR 250 MG TABEC 500 MG PO ×2 (15:20→20:43)
--- NOTE | 2021-05-13 17:30 | PC.NURSE ---
Report given to RAISSA Fischer at 1722. All questions answered and plan of care reviewed. Patient to go to room 304.
[2021-05-13 17:31] LABS: Glucose Point of Care 184 mg/dl (65-105)
--- NOTE | 2021-05-13 18:23 | PC.NURSE ---
This patient, Nazanin Medellin, was received from [imu] on 05/13/21 at 1820. Patient/family oriented to unit policies and routines
[2021-05-13] MEDS: ALBUTEROL SULFATE (*SP) AEROSOL 1 PUFF 2 PUFF INHALATION (20:25)
[2021-05-13 20:37] LABS: Glucose Point of Care 169 mg/dl (65-105)
[2021-05-13] MEDS: INSULIN GLARGINE (*BKC) 100 UNITS/ML 55 UNITS SUB-Q (20:41)
[2021-05-13] MEDS: MELATONIN 5 MG TABLET PO (20:43)
[2021-05-13] MEDS: OLANZapine 5 MG TABLET PO (20:43)
[2021-05-13] MEDS: ACETAMINOPHEN 325 MG TABLET 650 MG PO (22:58)
[2021-05-14] VITALS (7 sets, daily range): BP systolic 104–122; BP diastolic 42–46; PULSE 69–79; RESP 18–20; TEMP 35.9–36.3; O2SAT 93–99
[2021-05-14] MEDS: HEPARIN SODIUM 5,000 UNITS/ML VIAL 5000 UNITS SUB-Q ×3 (05:29→20:35)
[2021-05-14 06:07] LABS: Hematocrit 32.2 % (37.0-47.0); Hemoglobin 10.4 g/dL (12.0-15.0); Mean Corpuscular HGB Conc 32.3 g/dl (32-36); Mean Corpuscular Hemoglobin 34.7 pg (26-34); Mean Corpuscular Volume 107.3 fl (80-100); Mean Platelet Volume 11.2 fl (7.4-10.4); Platelet Count Result 202 k/mm3 (150-375); White Blood Count 5.2 K/mm3 (4.5-10.0)
[2021-05-14 06:26] LABS: Albumin Level 3.2 g/dL (3.5-5.1); Anion Gap 8 mmol/L (8-16); Blood Urea Nitrogen 55 mg/dL (7-17); Calcium 7.8 mg/dL (8.4-10.2); Carbon Dioxide 27 mmol/L (22-30); Chloride 98 mmol/L (98-107); Estimated CRCL calculation 20 ml/min; Estimated Glomerular Filt Rate 15; Glucose 103 mg/dL (65-110); Potassium 4.3 mmol/L (3.4-5.0); Sodium 133 mmol/L (137-145)
[2021-05-14] MEDS: PANTOPRAZOLE 40 MG TABLET PO (08:15)
[2021-05-14] MEDS: ASCORBIC ACID 500 MG TABLET PO (08:15)
[2021-05-14] MEDS: MULTIVITAMINS /C LUTEIN (CENTRUM SILVER) TABLET *BKC 1 TAB PO (08:15)
[2021-05-14] MEDS: INSULIN ASPART (*BKC) 100 UNITS/ML 6 UNITS SUB-Q ×3 (08:15→16:43)
[2021-05-14] MEDS: ASPIRIN 81 MG ENTERIC TABLET PO (08:16)
[2021-05-14] MEDS: allopurinoL 300 MG TABLET PO (08:16)
[2021-05-14] MEDS: CYANOCOBALAMIN 1,000 MCG TABLET 1000 MCG PO (08:16)
[2021-05-14] MEDS: ATORVASTATIN 40 MG TABLET 80 MG PO (08:16)
[2021-05-14] MEDS: CHOLECALCIFEROL 1,000 UNITS TABLET 1000 UNITS PO (08:16)
[2021-05-14] MEDS: LORATADINE 10 MG TABLET PO (08:16)
[2021-05-14] MEDS: TICAGRELOR 90 MG TABLET PO ×2 (08:16→20:36)
[2021-05-14] MEDS: DIVALPROEX SODIUM DR 250 MG TABEC 500 MG PO ×2 (08:16→20:36)
[2021-05-14] MEDS: METOPROLOL TARTRATE 25 MG TABLET PO ×2 (08:16→20:35)
[2021-05-14] MEDS: FAMOTIDINE 20 MG TABLET PO (08:18)
[2021-05-14] MEDS: VENLAFAXINE HCL XR 75 MG CAP.ER.24H 225 MG PO (08:18)
[2021-05-14 08:35] LABS: Glucose Point of Care 122 mg/dl (65-105)
--- NOTE | 2021-05-14 10:20 | PM.PNNEP ---
Progress Note: A&P Additional Plan 1. the patient has chronic kidney disease. She is seen by education analyst at [facility] she says. It is fairly mild CKD. Most likely this is due to hypertension diabetes and vascular disease. Her baseline creatinine is around 1.1. 2. She has superimposed acute kidney injury. Her creatinine was up to 5.6 on admission. Urine electrolytes are pre renal. Renal ultrasound is negative. CPK is slightly high. Clinically insignificant. Discussed with Dr Yang. She received some IV fluids and her diuretics were held. Her creatinine has come down to 3.2. Continue to hold diuretics. She is eating well. 3. The patient has hypertension. Under good control. 4. The patient has diabetes. On management per hospitalist. 5. Her sodium is a little bit low. This is most likely due to the renal failure plus some mildly high glucose. 6. The patient has congestive heart failure, paroxysmal atrial fibrillation. She is on multiple cardiac medications. 7. She has mild anemia. Will follow this. She has multiple issues including chronic disease, chronic kidney disease etc that could contribute to the anemia. Check hemoglobin again tomorrow Subjective Date/time seen: 05/14/21 10:20 Interval history: patient is worried. they are going to send me to the [facility] . I reassured her she is in the hospital in will be sending her to any [facility]. She has no chest pain or shortness of breath. She is a tiny bit swollen. Review of Systems Cardiovascular: Cardiovascular: Reports no additional cardiovascular complaints Respiratory: Respiratory: Reports no additional respiratory complaints Gastrointestinal: Gastrointestinal: Reports no additional gastrointestinal complaints Genitourinary: Genitourinary: Reports no additional female genitourinary complaints Exam Narrative: WDWN in NAD skin no rash head ncat lungs clear cor reg no rub abd BS+ nontender and soft ext 1+ edema Objective Data Vital Signs Vital Signs: Vital Signs - 24 hr 05/13/21 12:00 05/13/21 16:00 05/13/21 20:29 Temperature 36.6 C 36.1 C L Pulse Rate 68 70 Respiratory Rate 18 20 Blood Pressure 104/58 L 95/53 L Pulse Oximetry 100 100 95 05/13/21 20:43 05/13/21 22:00 05/14/21 06:11 Temperature 36.2 C L 35.9 C L Pulse Rate 88 88 69 Respiratory Rate 18 20 Blood Pressure 110/49 L 110/44 L Pulse Oximetry 99 99 05/14/21 08:16 05/14/21 09:07 Temperature Pulse Rate 76 Respiratory Rate Blood Pressure Pulse Oximetry 95 Intake/Output Intake/Output: Intake & Output 05/11/21 05/12/21 05/13/21 05/14/21 23:59 23:59 23:59 23:59 Intake Total 1000 375 270 Output Total 1275 700 Balance 1000 900 -430 Meds/Results Medications: Active Medications Generic Name Dose Route Start Last Admin Trade Name Freq PRN Reason Stop Dose Admin Acetaminophen 650 mg 05/13/21 04:13 05/13/21 22:58 Acetaminophen 325 Mg Tablet PO 650 mg Q6H PRN Administration Pain (Scale Score 1-3) Albuterol 2 puff 05/13/21 21:00 05/13/21 20:25 Albuterol Sulfate (*Sp) Aerosol 1 Puff INHALATION 2 puff HS ASAD Administration Albuterol 2 puff 05/13/21 05:00 Albuterol Sulfate (*Sp) Aerosol 1 Puff INHALATION Q4HRT PRN Shortness Of Breath Or Wheezing Allopurinol 300 mg 05/13/21 09:00 05/14/21 08:16 Allopurinol 300 Mg Tablet PO 300 mg DAILY ASAD Administration Ascorbic Acid 500 mg 05/13/21 09:00 05/14/21 08:15 Ascorbic Acid 500 Mg Tablet PO 500 mg DAILY ASAD Administration Aspirin 81 mg 05/13/21 09:00 05/14/21 08:16 Aspirin 81 Mg Enteric Tablet PO 81 mg QAM ASAD Administration Atorvastatin Calcium 80 mg 05/13/21 09:00 05/14/21 08:16 Atorvastatin 40 Mg Tablet PO 80 mg DAILY ASAD Administration Bisacodyl 10 mg 05/13/21 04:13 Bisacodyl 10 Mg Suppository RECTAL DAILY PRN Constipation Luis
[2021-05-14 11:59] LABS: Glucose Point of Care 350 mg/dl (65-105)
[2021-05-14] MEDS: INSULIN ASPART (*BKC) 100 UNITS/ML SUB-Q (11:59)
--- NOTE | 2021-05-14 12:10 | PM.PNCARD ---
Progress Note: A&P Assessment and Plan (1) Elevated troponin: Code(s): R77.8 - Other specified abnormalities of plasma proteins Status: Acute Assessment and Plan: These are flat and not related to acute coronary syndrome. Likely secondary to some renal insufficiency (2) Hypertension: Qualifiers: Hypertension type: primary hypertension Qualified Code(s): I10 - Essential (primary) hypertension Code(s): I10 - Essential (primary) hypertension Status: Acute Assessment and Plan: Controlled (3) CAD (coronary artery disease): Code(s): I25.10 - Atherosclerotic heart disease of [place] coronary artery without angina pectoris Status: Acute Assessment and Plan: Continue dual anti-platelet therapy. Telemetry can be discontinued. No further cardiac workup needed (4) Dementia: Qualifiers: Dementia type: unspecified type Dementia behavioral disturbance: without behavioral disturbance Qualified Code(s): F03.90 - Unspecified dementia without behavioral disturbance Code(s): F03.90 - Unspecified dementia without behavioral disturbance Status: Acute (5) Chest pain: Code(s): R07.9 - Chest pain, unspecified Status: Acute Assessment and Plan: She currently denies any chest pain. EKG is unremarkable. Troponins are not related to acute coronary syndrome. Chest pain was reproducible per other documentation. No further cardiac workup needed. (6) Acute renal failure: Code(s): N17.9 - Acute kidney failure, unspecified Status: Acute Assessment and Plan: Workup per Nephrology but renal function is improved Subjective Date/time seen: 05/14/21 12:10 Interval history: 65-year-old admitted following a fall. Date of service 05/14/2021: No chest pain, shortness of breath. Has edema. Review of Systems Review of Systems: All systems reviewed & are unremarkable except as noted in HPI and below Constitutional: Constitutional: Denies excessive sweating, Denies headache(s) and Reports weakness Eyes: Eyes: Denies blurry vision ENT: Reports Normal hearing present, Denies headache(s) and Denies neck pain Cardiovascular: Cardiovascular: Reports chest pain Respiratory: Respiratory: Denies hemoptysis Gastrointestinal: Gastrointestinal: Denies hematochezia Genitourinary: Genitourinary: Denies hematuria Musculoskeletal: Musculoskeletal: Denies neck pain Integumentary/Breasts: Skin/Breast: Denies dry skin Neurologic: Reports Normal hearing present, Reports confusion, Denies headache(s) and Reports weakness Psychiatric: Psychiatric: Denies anxiety and Reports confusion Endocrine: Endocrine: Denies excessive sweating Hematologic/Lymphatic: Hematologic/Lymphatic: Denies easy bleeding Allergic/Immunologic: Allergic/Immunologic: Denies GI upset with certain foods Exam Narrative: The patient is awake and alert. Appears stated age Const: General: comfortable, no acute distress and confusion Orientation/consciousness: confusion HENMT: General nose exam: Normal nares present Eyes: Sclera: sclerae normal Neck: Neck: supple and no JVD Chest: Other: No chest deformity Resp: Auscultation: diminished lung sounds Cardio: Rate: regular rate Rhythm: regular rhythm GI: Inspection: non-distended Skin: General skin exam: normal color and no erythema Neuro: General: confusion Cranial nerves: Yes Normal hearing present Cognition (Neuro): normal cognition Speech: normal speech Motor exam (neuro): Normal motor muscle tone present throughout Extrem: General: no pedal edema and edema Psych: Mental Status: mental status grossly normal Objective Data Vital Signs Vital Signs: Vital Signs - 24 hr 05/13/21 16:00 05/13/21 20:29 05/13/21 20:43 Temperature 36.1 C L Pulse Rate 70 88 Respiratory Rate 20 Blood Pressure 95/53 L Pulse Oximetry 100 95 05/13/21 22:00 05/14/21 06:11 05/14/21
--- NOTE | 2021-05-14 13:12 | PM.IMPN ---
Progress Note: A&P Assessment and Plan (1) Acute renal failure: Code(s): N17.9 - Acute kidney failure, unspecified Status: Acute (2) Chest pain: Code(s): R07.9 - Chest pain, unspecified Status: Acute (3) CAD (coronary artery disease): Code(s): I25.10 - Atherosclerotic heart disease of [place] coronary artery without angina pectoris Status: Acute (4) Morbid obesity with BMI of 50.0-59.9, adult: Code(s): E66.01 - Morbid (severe) obesity due to excess calories; Z68.43 - Body mass index [BMI] 50.0-59.9, adult Status: Acute Additional Plan # acute kidney injury likely prerenal from diuretics - FENA 0.2, FEUrea 19.5 as patient is on lasix at home, suggesting pre-renal etiology - creatinine improving, patient may have been intravascularly depleted on home Lasix 80 mg p.o. daily. I discussed case with Nephrology with recommendation to may be on discharge give her half dose to 40 mg daily. -Renal ultrasound shows no acute abnormality - patient is tolerating p.o. intake, avoid IV fluids, just hold diuretics - continue trending creatinine, improved from 5.6 to 3.2 # hyponatremia - patient was intravascularly volume depleted despite peripheral edema, sodium improved with stopping diuretics - sodium improving up to 133, will continue holding diuretics. 133 is near her baseline # elevated troponin -no chest pain, may be elevated is due to kidney disease -consulted Cardiology, no signs of ACS, will discontinue telemetry - echocardiogram shows EF 65-70%, abnormal diastolic dysfunction, 3 months ago was grade 1 diastolic dysfunction. patient does not appear to have heart failure -EKG shows normal sinus rhythm low QRS voltage and moderate intraventricular conduction delay # other chronic conditions -dementia, anxiety/depression: Continue venlafaxine, Zyprexa, Depakote -insulin-dependent diabetes type 2: Continue home Lantus 55 units q.h.s., 6 units NovoLog a.c. t.i.d., Accu-Cheks a.c. HS, sliding scale insulin. Home uses metformin, Jardiance -intertrigo: Continue Kenalog cream, nystatin powder -CAD: Continue home Brilinta, p.r.n. nitroglycerin, beta-hermila, held home Lasix 80 mg daily, Lipitor 80 mg, aspirin, lisinopril -constipation, opioid induced: P.r.n. enema, milk of magnesia, Mag citrate, Dulcolax -GERD: Protonix, Pepcid -chronic pain: Continue home oxycodone -essential hypertension: Beta-hermila, lisinopril -insomnia: Continue home melatonin -seasonal allergies: Claritin -gout: Allopurinol -history of asthma: Albuterol rescue inhaler -obstructive sleep apnea: Intolerant of CPAP -history of paroxysmal atrial fibrillation? No anticoagulation? Currently normal sinus rhythm Diet: Heart healthy DVT prophylaxis: Heparin GI prophylaxis: Protonix Code status: Full code Disposition: back to senior care in a 2-3 days Time Spent With Patient Time with patient: 15 - 25 minutes Subjective Date/time seen: 05/14/21 13:12 Patient seen examined. She is well no new complaints. Creatinine improving from 5.6-3.2 just by holding diuretics. Will continue to hold diuretics. Discussed case with Nephrology, we will continue to monitor. Renal ultrasound was negative, echocardiogram showed EF 65-70% and abnormal diastolic dysfunction (grade 1 diastolic dysfunction few months ago). Patient likely was over diuresed at home with Lasix 80 mg daily, when we discharge will discharge on lower dose.Denies fever, chills, nausea, vomiting, diarrhea. She is breathing comfortably on room air. Review of Systems Review of Systems: All systems reviewed & are unremarkable except as noted in HPI and below Exam Narrative: - GENERAL: Pleasant morbidly obese woman in no acute distress - EYES: EOMI. Anicteric. - HENT: Moist mucous membranes. - LUNGS: Clear to auscultation no wheezing rhonchi or rales. nonlabored respirations on room air - CARDIOVASCULAR: Regular rate and rhythm. No murmur. No JVD. - ABDOMEN: Soft, non-
[2021-05-14 16:55] LABS: Glucose Point of Care 148 mg/dl (65-105)
[2021-05-14 19:34] LABS: Glucose Point of Care 134 mg/dl (65-105)
[2021-05-14] MEDS: ALBUTEROL SULFATE (*SP) AEROSOL 1 PUFF 2 PUFF INHALATION (20:10)
[2021-05-14] MEDS: MELATONIN 5 MG TABLET PO (20:35)
[2021-05-14] MEDS: INSULIN GLARGINE (*BKC) 100 UNITS/ML 55 UNITS SUB-Q (20:36)
[2021-05-14] MEDS: OLANZapine 5 MG TABLET PO (20:36)
[2021-05-15] MEDS: HEPARIN SODIUM 5,000 UNITS/ML VIAL 5000 UNITS SUB-Q ×3 (05:27→20:28)
[2021-05-15 06:00] VITALS: BP 130/65; PULSE 76; RESP 18; TEMP 36.1; O2SAT 99
[2021-05-15 06:14] LABS: Hematocrit 31.5 % (37.0-47.0); Hemoglobin 10.2 g/dL (12.0-15.0); Mean Corpuscular HGB Conc 32.4 g/dl (32-36); Mean Corpuscular Hemoglobin 34.2 pg (26-34); Mean Corpuscular Volume 105.7 fl (80-100); Mean Platelet Volume 11.2 fl (7.4-10.4); Platelet Count Result 191 k/mm3 (150-375); Red Blood Count 2.98 M/mm3 (4.2-5.4); White Blood Count 4.7 K/mm3 (4.5-10.0)
[2021-05-15 06:34] LABS: Anion Gap 3 mmol/L (8-16); Blood Urea Nitrogen 37 mg/dL (7-17); Calcium 8.1 mg/dL (8.4-10.2); Carbon Dioxide 29 mmol/L (22-30); Chloride 104 mmol/L (98-107); Estimated CRCL calculation 34 ml/min; Estimated Glomerular Filt Rate 27; Glucose 99 mg/dL (65-110); Potassium 4.5 mmol/L (3.4-5.0); Sodium 136 mmol/L (137-145)
[2021-05-15 07:43] LABS: Glucose Point of Care 114 mg/dl (65-105)
--- NOTE | 2021-05-15 08:38 | PM.PNCARD ---
Progress Note: A&P Assessment and Plan (1) Elevated troponin: Code(s): R77.8 - Other specified abnormalities of plasma proteins Status: Acute Assessment and Plan: These are flat and not related to acute coronary syndrome. Likely secondary to some renal insufficiency (2) Hypertension: Qualifiers: Hypertension type: primary hypertension Qualified Code(s): I10 - Essential (primary) hypertension Code(s): I10 - Essential (primary) hypertension Status: Acute Assessment and Plan: Controlled (3) CAD (coronary artery disease): Code(s): I25.10 - Atherosclerotic heart disease of [place] coronary artery without angina pectoris Status: Acute Assessment and Plan: Continue dual anti-platelet therapy. Telemetry can be discontinued. No further cardiac workup needed (4) Dementia: Qualifiers: Dementia behavioral disturbance: without behavioral disturbance Dementia type: unspecified type Qualified Code(s): F03.90 - Unspecified dementia without behavioral disturbance Code(s): F03.90 - Unspecified dementia without behavioral disturbance Status: Acute (5) Chest pain: Code(s): R07.9 - Chest pain, unspecified Status: Acute Assessment and Plan: She currently denies any chest pain. EKG is unremarkable. Troponins are not related to acute coronary syndrome. Chest pain was reproducible per other documentation. No further cardiac workup needed. (6) Acute renal failure: Code(s): N17.9 - Acute kidney failure, unspecified Status: Acute Assessment and Plan: Workup per Nephrology but renal function is improved Additional Plan Does not have any acute cardiac issues at this time. Thank you for this consultation. Cardiology will sign off. Please do not hesitate to contact us if we can be of assistance in the care of this patient in any way. Subjective Date/time seen: 05/15/21 08:38 Interval history: 65-year-old admitted following a fall. Date of service 05/14/2021: No chest pain, shortness of breath. Has edema. Date of service 05/15/2021: Does not have any complaints today. She denies any chest pain, shortness of breath. Does still have some mild edema. Review of Systems Review of Systems: All systems reviewed & are unremarkable except as noted in HPI and below Constitutional: Constitutional: Denies excessive sweating, Denies headache(s) and Reports weakness Eyes: Eyes: Denies blurry vision ENT: Reports Normal hearing present, Denies headache(s) and Denies neck pain Cardiovascular: Cardiovascular: Reports chest pain Respiratory: Respiratory: Denies hemoptysis Gastrointestinal: Gastrointestinal: Denies hematochezia Genitourinary: Genitourinary: Denies hematuria Musculoskeletal: Musculoskeletal: Denies neck pain Integumentary/Breasts: Skin/Breast: Denies dry skin Neurologic: Reports Normal hearing present, Reports confusion, Denies headache(s) and Reports weakness Psychiatric: Psychiatric: Denies anxiety and Reports confusion Endocrine: Endocrine: Denies excessive sweating Hematologic/Lymphatic: Hematologic/Lymphatic: Denies easy bleeding Allergic/Immunologic: Allergic/Immunologic: Denies GI upset with certain foods Exam Narrative: The patient is awake and alert. Appears stated age Const: General: comfortable, no acute distress and confusion Orientation/consciousness: confusion HENMT: General nose exam: Normal nares present Eyes: Sclera: sclerae normal Neck: Neck: supple and no JVD Chest: Other: No chest deformity Resp: Auscultation: diminished lung sounds Cardio: Rate: regular rate Rhythm: regular rhythm GI: Inspection: non-distended Skin: General skin exam: normal color and no erythema Neuro: General: confusion Cranial nerves: Yes Normal hearing present Cognition (Neuro): normal cognition Speech: normal speech Motor exam (neuro): Normal motor muscle tone present
[2021-05-15] MEDS: ATORVASTATIN 40 MG TABLET 80 MG PO (09:10)
[2021-05-15] MEDS: ASPIRIN 81 MG ENTERIC TABLET PO (09:11)
[2021-05-15] MEDS: CHOLECALCIFEROL 1,000 UNITS TABLET 1000 UNITS PO (09:11)
[2021-05-15] MEDS: DIVALPROEX SODIUM DR 250 MG TABEC 500 MG PO ×2 (09:11→20:29)
[2021-05-15] MEDS: LORATADINE 10 MG TABLET PO (09:11)
[2021-05-15] MEDS: CYANOCOBALAMIN 1,000 MCG TABLET 1000 MCG PO (09:11)
[2021-05-15] MEDS: allopurinoL 300 MG TABLET PO (09:11)
[2021-05-15] MEDS: ASCORBIC ACID 500 MG TABLET PO (09:11)
[2021-05-15 09:12] VITALS: PULSE 90
[2021-05-15] MEDS: METOPROLOL TARTRATE 25 MG TABLET PO ×2 (09:12→20:28)
[2021-05-15] MEDS: PANTOPRAZOLE 40 MG TABLET PO (09:14)
[2021-05-15] MEDS: TICAGRELOR 90 MG TABLET PO ×2 (09:14→20:29)
[2021-05-15] MEDS: VENLAFAXINE HCL XR 75 MG CAP.ER.24H 225 MG PO (09:14)
[2021-05-15] MEDS: MULTIVITAMINS /C LUTEIN (CENTRUM SILVER) TABLET *BKC 1 TAB PO (09:14)
[2021-05-15] MEDS: INSULIN ASPART (*BKC) 100 UNITS/ML 6 UNITS SUB-Q ×3 (09:17→17:16)
[2021-05-15 11:25] LABS: Glucose Point of Care 186 mg/dl (65-105)
--- NOTE | 2021-05-15 12:12 | PM.IMPN ---
Progress Note: A&P Additional Plan 65-year-old female with past medical history significant for dementia, morbid obesity, patient resides at a [facility], chronic kidney disease presented with chest pain, recurrent falls recently. Preliminary workup was significant for a creatinine of 5.6 and BUN of 60 sodium 126. A chest x-ray did not show any infiltrates or acute processes. 1) Acute kidney injury likely prerenal from diuretics FENA 0.2, FEUrea 19.5 as patient is on lasix at home, suggesting pre-renal etiology creatinine improving, Renal ultrasound shows no acute abnormality patient is tolerating p.o. intake, avoid IV fluids, just hold diuretics creatinine 1.9 today Avoid nephrotoxins Recheck BMP in AM 2)Hyponatremia improved 3)elevated troponin -no chest pain, may be elevated is due to kidney disease -Appreciate cardiology input - echocardiogram shows EF 65-70%, abnormal diastolic dysfunction, 3 months ago was grade 1 diastolic dysfunction. 4)Diabetes Mellitus: BG check TID AC c/w lantus +meal time insulin Adjust dose as needed 5)DVT ppx: Hep SQ 6)Code:Full 7)Dispo:anticipate discharge in next 1-2 days if ok with nephrology Time Spent With Patient Time with patient: 25 - 35 minutes Subjective Date/time seen: 05/15/21 12:12 No acute events overnight, feeling better, resting comfortably, no complaints Review of Systems Constitutional: Constitutional: Reports no additional constitutional complaints Eyes: Eyes: Reports no additional eye complaints ENT: Reports system reviewed and no additional complaints, except as documented Cardiovascular: Cardiovascular: Reports no additional cardiovascular complaints Respiratory: Respiratory: Reports no additional respiratory complaints Gastrointestinal: Gastrointestinal: Reports no additional gastrointestinal complaints Neurologic: Reports system reviewed and no additional complaints, except as documented Psychiatric: Psychiatric: Reports no additional psychiatric complaints Exam Const: General: comfortable and no acute distress HENMT: Mouth: Yes moist mucous membranes Eyes: Sclera: sclerae normal Pupils: Equal, round and reactive pupils present Neck: Neck: supple Resp: Effort & Inspection: normal respiratory effort Auscultation: clear to auscultation bilaterally Cardio: Rate: regular rate Rhythm: regular rhythm GI: GI Palp: Yes Soft to palpation Auscultation: normal bowel sounds Urinary Catheter: Urinary Catheter: patent and draining Skin: General skin exam: normal color Neuro: Cognition (Neuro): normal cognition Speech: normal speech Psych: Mental Status: mental status grossly normal Objective Data Vital Signs Vital Signs: Vital Signs - 24 hr 05/14/21 14:00 05/14/21 20:11 05/14/21 20:35 Temperature 97.4 F L Pulse Rate 70 75 Respiratory Rate 20 Blood Pressure 104/42 L Pulse Oximetry 97 93 05/14/21 22:00 05/15/21 06:00 05/15/21 09:12 Temperature 96.8 F L 97 F L Pulse Rate 79 76 90 Respiratory Rate 18 18 Blood Pressure 122/46 L 130/65 Pulse Oximetry 97 99 Intake/Output Intake/Output: Intake & Output 05/12/21 05/13/21 05/14/21 05/15/21 23:59 23:59 23:59 23:59 Intake Total 1000 375 810 300 Output Total 1275 2550 1200 Balance 2842 -219 -0371 -900 Meds/Results Medications: Active Medications Generic Name Dose Route Start Last Admin Trade Name Freq PRN Reason Stop Dose Admin Acetaminophen 650 mg 05/13/21 04:13 05/13/21 22:58 Acetaminophen 325 Mg Tablet PO 650 mg Q6H PRN Administration Pain (Scale Score 1-3) Albuterol 2 puff 05/13/21 21:00 05/14/21 20:10 Albuterol Sulfate (*Sp) Aerosol 1 Puff INHALATION 2 puff HS ASAD Administration Albuterol 2 puff 05/13/21 05:00 Albuterol Sulfate (*Sp) Aerosol 1 Puff INHALATION Q4HRT PRN Shortness Of Breath Or Wheezing Allopurinol 300 mg 05/13/21 09:00 05/15/21 09:11 Allopurinol 300 Mg Tablet PO
[2021-05-15] MEDS: INSULIN ASPART (*BKC) 100 UNITS/ML SUB-Q (12:34)
[2021-05-15 14:00] VITALS: BP 106/63; PULSE 66; RESP 18; TEMP 35.7; O2SAT 100
--- NOTE | 2021-05-15 15:50 | P.PNNP_ITS ---
Progress Note: A&P Assessment and Plan (1) IRIS (acute kidney injury): Code(s): N17.9 - Acute kidney failure, unspecified Status: Acute Assessment and Plan: * possibly due to overdiuresis(?) in the context of volume depletion * evaluation to date: * urine electrolytes prerenal * renal ultrasound without obstruction * CPK slightly elevated but not likely to affect kidney function * improvement in renal function with holding diuretics and IVF trial * follow trend of repeat labs and UOP (2) Stage 3a chronic kidney disease: Code(s): N18.31 - Chronic kidney disease, stage 3a Status: Chronic Assessment and Plan: * baseline creatinine around 1.1 - 1.2mg/dl * presumably due to HTN, DM, vascular disease and age-related change (3) Hypertension: Qualifiers: Hypertension type: primary hypertension Qualified Code(s): I10 - Essential (primary) hypertension Code(s): I10 - Essential (primary) hypertension Status: Chronic Assessment and Plan: * reasonable control at this time * OLIVER-I on hold * follow trend of hemodynamics (4) Anemia: Code(s): D64.9 - Anemia, unspecified Status: Acute Assessment and Plan: * due to CKD, chronic disease, and acute illness * follow trend of H/H * no need for ESAs (5) Type 2 diabetes mellitus: Qualifiers: Diabetes mellitus complication status: with other specified complication 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 Will continue to follow Subjective Date/time seen: 05/15/21 15:50 Chart reviewed - assuming care from Dr. Pierson; no new issues/problems to report at this time; seems to be feeling better in general; no issues/events overnight or earlier this AM. Exam Narrative: General: WD/WN female in NAD Heart: normal S1 and S2; no rub Lungs: clear to auscultation Abdomen: soft, nontender, nondistended, positive bowel sounds Extremities: no cyanosis or clubbing; 1+ edema Skin: warm and dry Objective Data Vital Signs Vital Signs: Vital Signs Temp Pulse Resp BP Pulse Ox 05/15/21 14:00 35.7 C L 66 18 106/63 100 05/15/21 09:12 90 05/15/21 06:00 36.1 C L 76 18 130/65 99 05/14/21 22:00 36.0 C L 79 18 122/46 L 97 05/14/21 20:35 75 05/14/21 20:11 93 Intake/Output Intake/Output: Intake & Output 05/12/21 05/13/21 05/14/21 05/15/21 23:59 23:59 23:59 23:59 Intake Total 1000 375 810 640 Output Total 1275 2550 2500 Balance 4263 -234 -9274 -0361 Meds/Results Medications: Active Medications Generic Name Dose Route Start Last Admin Trade Name Freq PRN Reason Stop Dose Admin Acetaminophen 650 mg 05/13/21 04:13 05/13/21 22:58 Acetaminophen 325 Mg Tablet PO 650 mg Q6H PRN Administration Pain (Scale Score 1-3) Albuterol 2 puff 05/13/21 2
--- NOTE | 2021-05-15 15:50 | PM.PNNEP ---
Progress Note: A&P Assessment and Plan (1) IRIS (acute kidney injury): Code(s): N17.9 - Acute kidney failure, unspecified Status: Acute Assessment and Plan: possibly due to overdiuresis(?) in the context of volume depletion evaluation to date: urine electrolytes prerenal renal ultrasound without obstruction CPK slightly elevated but not likely to affect kidney function improvement in renal function with holding diuretics and IVF trial follow trend of repeat labs and UOP (2) Stage 3a chronic kidney disease: Code(s): N18.31 - Chronic kidney disease, stage 3a Status: Chronic Assessment and Plan: baseline creatinine around 1.1 - 1.2mg/dl presumably due to HTN, DM, vascular disease and age-related change (3) Hypertension: Qualifiers: Hypertension type: primary hypertension Qualified Code(s): I10 - Essential (primary) hypertension Code(s): I10 - Essential (primary) hypertension Status: Chronic Assessment and Plan: reasonable control at this time OLIVER-I on hold follow trend of hemodynamics (4) Anemia: Code(s): D64.9 - Anemia, unspecified Status: Acute Assessment and Plan: due to CKD, chronic disease, and acute illness follow trend of H/H no need for ESAs (5) Type 2 diabetes mellitus: Qualifiers: Diabetes mellitus complication status: with other specified complication Diabetes mellitus jail insulin use: with intermediate teacher use Qualified Code(s): E11.69 - Type 2 diabetes mellitus with other specified complication; Z79.4 - custodial (current) use of insulin Code(s): E11.9 - Type 2 diabetes mellitus without complications Status: Chronic Assessment and Plan: follow accuchecks on Lantus and SSI Not opposed to discharge from renal perspective if otherwise medically stable. Will continue to follow Subjective Date/time seen: 05/15/21 15:50 Chart reviewed - assuming care from Dr. Pierson; no new issues/problems to report at this time; seems to be feeling better in general; no issues/events overnight or earlier this AM. Exam Narrative: General: WD/WN female in NAD Heart: normal S1 and S2; no rub Lungs: clear to auscultation Abdomen: soft, nontender, nondistended, positive bowel sounds Extremities: no cyanosis or clubbing; 1+ edema Skin: warm and dry Objective Data Vital Signs Vital Signs: Vital Signs Temp Pulse Resp BP Pulse Ox 05/15/21 14:00 35.7 C L 66 18 106/63 100 05/15/21 09:12 90 05/15/21 06:00 36.1 C L 76 18 130/65 99 05/14/21 22:00 36.0 C L 79 18 122/46 L 97 05/14/21 20:35 75 05/14/21 20:11 93 Intake/Output Intake/Output: Intake & Output 05/12/21 05/13/21 05/14/21 05/15/21 23:59 23:59 23:59 23:59 Intake Total 1000 375 810 640 Output Total 1275 2550 2500 Balance 3063 -735 -0141 -5455 Meds/Results Medications: Active Medications Generic Name Dose Route Start Last Admin Trade Name Freq PRN Reason Stop Dose Admin Acetaminophen 650 mg 05/13/21 04:13 05/13/21 22:58 Acetaminophen 325 Mg Tablet PO 650 mg Q6H PRN Administration Pain (Scale Score 1-3) Albuterol 2 puff 05/13/21 21:00 05/14/21 20:10 Albuterol Sulfate (*Sp) Aerosol 1 Puff INHALATION 2 puff HS ASAD Administration Albuterol 2 puff 05/13/21 05:00 Albuterol Sulfate (*Sp) Aerosol 1 Puff INHALATION Q4HRT PRN Shortness Of Breath Or Wheezing Allopurinol 300 mg 05/13/21 09:00 05/15/21 09:11 Allopurinol 300 Mg Tablet PO 300 mg DAILY ASAD Administration Ascorbic Acid 500 mg 05/13/21 09:00 05/15/21 09:11 Ascorbic Acid 500 Mg Tablet PO 500 mg DAILY ASAD Administration Aspirin 81 mg 05/13/21 09:00 05/15/21 09:11 Aspirin 81 Mg Enteric Tablet PO 81 mg QAM ASAD Administration Atorvastatin Calcium 80 mg 05/13/21 09:00 05/15/21 09:10 Atorvastatin 40 Mg Tablet PO 80 mg DAILY
[2021-05-15 16:54] LABS: Glucose Point of Care 133 mg/dl (65-105)
[2021-05-15 20:02] LABS: Glucose Point of Care 172 mg/dl (65-105)
[2021-05-15 20:28] VITALS: PULSE 72
[2021-05-15] MEDS: MELATONIN 5 MG TABLET PO (20:28)
[2021-05-15] MEDS: OLANZapine 5 MG TABLET PO (20:29)
[2021-05-15] MEDS: INSULIN GLARGINE (*BKC) 100 UNITS/ML 55 UNITS SUB-Q (20:29)
[2021-05-15 22:00] VITALS: BP 105/48; PULSE 69; RESP 20; TEMP 36.4; O2SAT 96
[2021-05-15] MEDS: ALBUTEROL SULFATE (*SP) AEROSOL 1 PUFF 2 PUFF INHALATION (22:24)
[2021-05-16 06:00] VITALS: BP 135/89; PULSE 63; RESP 18; TEMP 36; O2SAT 99
[2021-05-16 06:50] LABS: Anion Gap 6 mmol/L (8-16); Blood Urea Nitrogen 27 mg/dL (7-17); Calcium 8.8 mg/dL (8.4-10.2); Carbon Dioxide 27 mmol/L (22-30); Chloride 104 mmol/L (98-107); Estimated CRCL calculation 42 ml/min; Estimated Glomerular Filt Rate 35; Glucose 118 mg/dL (65-110); Magnesium 2.4 mg/dL (1.6-2.3); Potassium 4.2 mmol/L (3.4-5.0); Sodium 137 mmol/L (137-145)
[2021-05-16 08:07] LABS: Glucose Point of Care 135 mg/dl (65-105)
[2021-05-16] MEDS: INSULIN ASPART (*BKC) 100 UNITS/ML 6 UNITS SUB-Q ×3 (10:03→17:02)
[2021-05-16] MEDS: HEPARIN SODIUM 5,000 UNITS/ML VIAL 5000 UNITS SUB-Q ×3 (10:04→23:03)
[2021-05-16] MEDS: DIVALPROEX SODIUM DR 250 MG TABEC 500 MG PO ×2 (10:06→21:04)
[2021-05-16] MEDS: MULTIVITAMINS /C LUTEIN (CENTRUM SILVER) TABLET *BKC 1 TAB PO (10:07)
[2021-05-16] MEDS: VENLAFAXINE HCL XR 75 MG CAP.ER.24H 225 MG PO (10:07)
[2021-05-16] MEDS: PANTOPRAZOLE 40 MG TABLET PO (10:07)
[2021-05-16 10:08] VITALS: PULSE 63
[2021-05-16] MEDS: CYANOCOBALAMIN 1,000 MCG TABLET 1000 MCG PO (10:08)
[2021-05-16] MEDS: ATORVASTATIN 40 MG TABLET 80 MG PO (10:08)
[2021-05-16] MEDS: CHOLECALCIFEROL 1,000 UNITS TABLET 1000 UNITS PO (10:08)
[2021-05-16] MEDS: METOPROLOL TARTRATE 25 MG TABLET PO ×2 (10:08→21:05)
[2021-05-16] MEDS: TICAGRELOR 90 MG TABLET PO ×2 (10:08→21:04)
[2021-05-16] MEDS: LORATADINE 10 MG TABLET PO (10:08)
[2021-05-16] MEDS: ASPIRIN 81 MG ENTERIC TABLET PO (10:09)
[2021-05-16] MEDS: allopurinoL 300 MG TABLET PO (10:09)
[2021-05-16] MEDS: ASCORBIC ACID 500 MG TABLET PO (10:09)
[2021-05-16 12:01] LABS: Glucose Point of Care 255 mg/dl (65-105)
--- NOTE | 2021-05-16 12:08 | P.PNNP_ITS ---
Progress Note: A&P Assessment and Plan (1) IRIS (acute kidney injury): Code(s): N17.9 - Acute kidney failure, unspecified Status: Acute Assessment and Plan: * possibly due to overdiuresis(?) in the context of volume depletion * evaluation to date: * urine electrolytes prerenal * renal ultrasound without obstruction * CPK slightly elevated but not likely to affect kidney function * improvement in renal function with holding diuretics and IVF trial * follow trend of repeat labs and UOP (2) Stage 3a chronic kidney disease: Code(s): N18.31 - Chronic kidney disease, stage 3a Status: Chronic Assessment and Plan: * baseline creatinine around 1.1 - 1.2mg/dl * presumably due to HTN, DM, vascular disease and age-related change (3) Hypertension: Qualifiers: Hypertension type: primary hypertension Qualified Code(s): I10 - Essential (primary) hypertension Code(s): I10 - Essential (primary) hypertension Status: Chronic Assessment and Plan: * reasonable control at this time * OLIVER-I on hold * follow trend of hemodynamics (4) Anemia: Code(s): D64.9 - Anemia, unspecified Status: Acute Assessment and Plan: * due to CKD, chronic disease, and acute illness * follow trend of H/H * no need for ESAs (5) Type 2 diabetes mellitus: Qualifiers: Diabetes mellitus complication status: with other specified complication Diabetes mellitus terminal gauger insulin use: with longterm use Qualified Code(s): E11.69 - Type 2 diabetes mellitus with other specified complication; Z79.4 - terminal gauger (current) use of insulin Code(s): E11.9 - Type 2 diabetes mellitus without complications Status: Chronic Assessment and Plan: * follow accuchecks * on Lantus and SSI Not opposed to discharge from renal perspective if otherwise medically stable. Will continue to follow Subjective Date/time seen: 05/16/21 12:08 Overall, seems to be making slow and steady improvement with regard to her renal function; no apparent distress voiced at the time of my visit. Exam Narrative: General: WD/WN female in NAD Heart: normal S1 and S2; no rub Lungs: clear to auscultation Abdomen: soft, nontender, nondistended, positive bowel sounds Extremities: no cyanosis or clubbing; 1+ edema Skin: warm and dry Objective Data Vital Signs Vital Signs: Vital Signs Temp Pulse Resp BP Pulse Ox 05/16/21 10:08 63 05/16/21 06:00 36.0 C L 63 18 135/89 99 05/15/21 22:00 36.4 C 69 20 105/48 L 96 05/15/21 20:28 72 05/15/21 14:00 35.7 C L 66 18 106/63 100 Intake/Output Intake/Output: Intake & Output 05/13/21 05/14/21 05/15/21 05/16/21 23:59 23:59 23:59 23:59 Intake Total 375 810 640 200 Output Total 1275 2550 2500 1000 Balance -900 -1740 -1860 -800 Meds/Results Medications: Active Medications Generic Name Dose Route Start Last Admin Trade Name Freq PRN Reason Stop Dose Admin Acetaminophen 650 mg 05/13/21 04:13 05/13/21 22:58 Acetaminophen 325 Mg Tablet PO 650 mg Q6H PRN Administration Pain (Scale Score 1-3) Albuterol 2 puff 05/13/21 21:00 05/15/21 22:24 Albuterol Sulfate (*Sp) Aerosol 1 Puff INHALATION
--- NOTE | 2021-05-16 12:08 | PM.PNNEP ---
Progress Note: A&P Assessment and Plan (1) IRIS (acute kidney injury): Code(s): N17.9 - Acute kidney failure, unspecified Status: Acute Assessment and Plan: possibly due to overdiuresis(?) in the context of volume depletion evaluation to date: urine electrolytes prerenal renal ultrasound without obstruction CPK slightly elevated but not likely to affect kidney function improvement in renal function with holding diuretics and IVF trial follow trend of repeat labs and UOP (2) Stage 3a chronic kidney disease: Code(s): N18.31 - Chronic kidney disease, stage 3a Status: Chronic Assessment and Plan: baseline creatinine around 1.1 - 1.2mg/dl presumably due to HTN, DM, vascular disease and age-related change (3) Hypertension: Qualifiers: Hypertension type: primary hypertension Qualified Code(s): I10 - Essential (primary) hypertension Code(s): I10 - Essential (primary) hypertension Status: Chronic Assessment and Plan: reasonable control at this time OLIVER-I on hold follow trend of hemodynamics (4) Anemia: Code(s): D64.9 - Anemia, unspecified Status: Acute Assessment and Plan: due to CKD, chronic disease, and acute illness follow trend of H/H no need for ESAs (5) Type 2 diabetes mellitus: Qualifiers: Diabetes mellitus complication status: with other specified complication Diabetes mellitus long chain quiller tender insulin use: with long chain quiller tender use Qualified Code(s): E11.69 - Type 2 diabetes mellitus with other specified complication; Z79.4 - shelter (current) use of insulin Code(s): E11.9 - Type 2 diabetes mellitus without complications Status: Chronic Assessment and Plan: follow accuchecks on Lantus and SSI Not opposed to discharge from renal perspective if otherwise medically stable. Will continue to follow Subjective Date/time seen: 05/16/21 12:08 Overall, seems to be making slow and steady improvement with regard to her renal function; no apparent distress voiced at the time of my visit. Exam Narrative: General: WD/WN female in NAD Heart: normal S1 and S2; no rub Lungs: clear to auscultation Abdomen: soft, nontender, nondistended, positive bowel sounds Extremities: no cyanosis or clubbing; 1+ edema Skin: warm and dry Objective Data Vital Signs Vital Signs: Vital Signs Temp Pulse Resp BP Pulse Ox 05/16/21 10:08 63 05/16/21 06:00 36.0 C L 63 18 135/89 99 05/15/21 22:00 36.4 C 69 20 105/48 L 96 05/15/21 20:28 72 05/15/21 14:00 35.7 C L 66 18 106/63 100 Intake/Output Intake/Output: Intake & Output 05/13/21 05/14/21 05/15/21 05/16/21 23:59 23:59 23:59 23:59 Intake Total 375 810 640 200 Output Total 1275 2550 2500 1000 Balance -900 -1740 -1860 -800 Meds/Results Medications: Active Medications Generic Name Dose Route Start Last Admin Trade Name Freq PRN Reason Stop Dose Admin Acetaminophen 650 mg 05/13/21 04:13 05/13/21 22:58 Acetaminophen 325 Mg Tablet PO 650 mg Q6H PRN Administration Pain (Scale Score 1-3) Albuterol 2 puff 05/13/21 21:00 05/15/21 22:24 Albuterol Sulfate (*Sp) Aerosol 1 Puff INHALATION 2 puff HS ASAD Administration Albuterol 2 puff 05/13/21 05:00 Albuterol Sulfate (*Sp) Aerosol 1 Puff INHALATION Q4HRT PRN Shortness Of Breath Or Wheezing Allopurinol 300 mg 05/13/21 09:00 05/16/21 10:09 Allopurinol 300 Mg Tablet PO 300 mg DAILY ASAD Administration Ascorbic Acid 500 mg 05/13/21 09:00 05/16/21 10:09 Ascorbic Acid 500 Mg Tablet PO 500 mg DAILY ASAD Administration Aspirin 81 mg 05/13/21 09:00 05/16/21 10:09 Aspirin 81 Mg Enteric Tablet PO 81 mg QAM ASAD Administration Atorvastatin Calcium 80 mg 05/13/21 09:00 05/16/21 10:08 Atorvastatin 40 Mg Tablet PO 80 mg DAILY ASAD Administration Bisacodyl 10 mg 05/13/21 04:13 Bisa
[2021-05-16] MEDS: INSULIN ASPART (*BKC) 100 UNITS/ML SUB-Q (12:44)
--- NOTE | 2021-05-16 12:46 | PM.IMPN ---
Progress Note: A&P Assessment and Plan (1) Acute renal failure: Code(s): N17.9 - Acute kidney failure, unspecified Status: Acute Assessment and Plan: creatinine much improved dc catheter Renal ultrasound shows no acute abnormality hopeful dc back to tx in am (2) Chest pain: Code(s): R07.9 - Chest pain, unspecified Status: Acute Assessment and Plan: resolved no chest pain, may be elevated is due to kidney disease -Appreciate cardiology input - echocardiogram shows EF 65-70%, abnormal diastolic dysfunction, 3 months ago was grade 1 diastolic dysfunction. (3) CAD (coronary artery disease): Code(s): I25.10 - Atherosclerotic heart disease of [place] coronary artery without angina pectoris Status: Chronic Assessment and Plan: chronic and stable (4) Morbid obesity with BMI of 50.0-59.9, adult: Code(s): E66.01 - Morbid (severe) obesity due to excess calories; Z68.43 - Body mass index [BMI] 50.0-59.9, adult Status: Acute Assessment and Plan: 1800 calorie restricted diet diet and exercise adviced Subjective Date/time seen: 05/16/21 12:46 Interval history: 65-year-old female with past medical history significant for dementia, morbid obesity, patient [facility], chronic kidney disease. Patient was brought to the emergency room for evaluation after she complained of chest pain at the time of my visit patient stated that she has been falling quite frequently but cannot give me much detail about her disease process. creat has improved from 5 to 1 today, pt has catheter in situ, usually is able to mobilize on her own. hopefully back to tx in am Review of Systems Review of Systems: All systems reviewed & are unremarkable except as noted in HPI and below Exam Narrative: - GENERAL: morbidly obese, chronically ill appearing - LUNGS: Clear to auscultation no wheezing rhonchi or rales. nonlabored respirations on room air - CARDIOVASCULAR: Regular rate and rhythm. No murmur. No JVD. - ABDOMEN: Soft, non-tender and non-distended. No palpable masses. with catheter in situ - EXTREMITIES: 2+ pitting edema bilateral lower extremities, Peripheral pulses 2+. Non-tender. - NEUROLOGIC: No focal neurological deficits. CN II-XII grossly intact. - PSYCHIATRIC: Awake, Alert and oriented to self only, flat affect. Confused at baseline. - SKIN: No rashes or lesions. Warm. Objective Data Vital Signs Vital Signs: Vital Signs - 24 hr 05/15/21 14:00 05/15/21 20:28 05/15/21 22:00 Temperature 35.7 C L 36.4 C Pulse Rate 66 72 69 Respiratory Rate 18 20 Blood Pressure 106/63 105/48 L Pulse Oximetry 100 96 05/16/21 06:00 05/16/21 10:08 Temperature 36.0 C L Pulse Rate 63 63 Respiratory Rate 18 Blood Pressure 135/89 Pulse Oximetry 99 Intake/Output Intake/Output: Intake & Output 05/13/21 05/14/21 05/15/21 05/16/21 23:59 23:59 23:59 23:59 Intake Total 375 810 640 200 Output Total 1275 2550 2500 1000 Balance -900 -1740 -1860 -800 Meds/Results Medications: Active Medications Generic Name Dose Route Start Last Admin Trade Name Freq PRN Reason Stop Dose Admin Acetaminophen 650 mg 05/13/21 04:13 05/13/21 22:58 Acetaminophen 325 Mg Tablet PO 650 mg Q6H PRN Administration Pain (Scale Score 1-3) Albuterol 2 puff 05/13/21 21:00 05/15/21 22:24 Albuterol Sulfate (*Sp) Aerosol 1 Puff INHALATION 2 puff HS [facility] Administration Albuterol 2 puff 05/13/21 05:00 Albuterol Sulfate (*Sp) Aerosol 1 Puff INHALATION Q4HRT PRN Shortness Of Breath Or Wheezing Allopurinol 300 mg 05/13/21 09:00 05/16/21 10:09 Allopurinol 300 Mg Tablet PO 300 mg DAILY [facility] Administration Ascorbic Acid 500 mg 05/13/21 09:00 05/16/21 10:09 Ascorbic Acid 500 Mg Tablet PO 500 mg DAILY [facility] Administration Aspirin 81 mg 05/13/21 09:00 05/16/21 10:09 Aspirin 81 Mg Enteric Tablet PO 81 mg QAM [facility]
[2021-05-16 14:00] VITALS: BP 120/74; PULSE 63; RESP 18; TEMP 36.3; O2SAT 97
[2021-05-16 17:06] LABS: Glucose Point of Care 99 mg/dl (65-105)
[2021-05-16] MEDS: ALBUTEROL SULFATE (*SP) AEROSOL 1 PUFF 2 PUFF INHALATION (20:55)
[2021-05-16] MEDS: MELATONIN 5 MG TABLET PO (21:04)
[2021-05-16] MEDS: OLANZapine 5 MG TABLET PO (21:04)
[2021-05-16 21:05] VITALS: PULSE 64
[2021-05-16] MEDS: INSULIN GLARGINE (*BKC) 100 UNITS/ML 55 UNITS SUB-Q (21:13)
[2021-05-16 21:49] VITALS: BP 103/81; PULSE 71; RESP 16; TEMP 36.1; O2SAT 100
[2021-05-16 22:33] LABS: Glucose Point of Care 112 mg/dl (65-105)
[2021-05-17] MEDS: ALBUTEROL SULFATE (*SP) AEROSOL 1 PUFF 2 PUFF INHALATION (01:07)
[2021-05-17 02:29] LABS: Glucose Point of Care 148 mg/dl (65-105)
[2021-05-17 02:33] VITALS: BP 109/55; PULSE 62; RESP 16; TEMP 36; O2SAT 97
[2021-05-17] MEDS: HEPARIN SODIUM 5,000 UNITS/ML VIAL 5000 UNITS SUB-Q ×2 (05:30→13:29)
[2021-05-17 06:00] VITALS: BP 131/33; PULSE 63; RESP 18; TEMP 36.3; O2SAT 100
[2021-05-17 06:09] LABS: Osmolality, Urine 343 mOsm/kg (50-1200)
[2021-05-17 06:47] LABS: Anion Gap 7 mmol/L (8-16); Blood Urea Nitrogen 21 mg/dL (7-17); Calcium 8.7 mg/dL (8.4-10.2); Carbon Dioxide 27 mmol/L (22-30); Chloride 102 mmol/L (98-107); Estimated CRCL calculation 44 ml/min; Estimated Glomerular Filt Rate 38; Glucose 104 mg/dL (65-110); Potassium 4.1 mmol/L (3.4-5.0); Sodium 136 mmol/L (137-145)
[2021-05-17 07:40] LABS: Glucose Point of Care 108 mg/dl (65-105)
[2021-05-17] MEDS: INSULIN ASPART (*BKC) 100 UNITS/ML 6 UNITS SUB-Q ×2 (08:49→13:29)
[2021-05-17] MEDS: DIVALPROEX SODIUM DR 250 MG TABEC 500 MG PO (08:50)
[2021-05-17] MEDS: VENLAFAXINE HCL XR 75 MG CAP.ER.24H 225 MG PO (08:50)
[2021-05-17 08:51] VITALS: PULSE 70
[2021-05-17] MEDS: CHOLECALCIFEROL 1,000 UNITS TABLET 1000 UNITS PO (08:51)
[2021-05-17] MEDS: ATORVASTATIN 40 MG TABLET 80 MG PO (08:51)
[2021-05-17] MEDS: CYANOCOBALAMIN 1,000 MCG TABLET 1000 MCG PO (08:51)
[2021-05-17] MEDS: ASPIRIN 81 MG ENTERIC TABLET PO (08:51)
[2021-05-17] MEDS: METOPROLOL TARTRATE 25 MG TABLET PO (08:51)
[2021-05-17] MEDS: ASCORBIC ACID 500 MG TABLET PO (08:54)
[2021-05-17] MEDS: LORATADINE 10 MG TABLET PO (08:54)
[2021-05-17] MEDS: MULTIVITAMINS /C LUTEIN (CENTRUM SILVER) TABLET *BKC 1 TAB PO (08:54)
[2021-05-17] MEDS: TICAGRELOR 90 MG TABLET PO (08:54)
[2021-05-17] MEDS: allopurinoL 300 MG TABLET PO (08:54)
[2021-05-17] MEDS: PANTOPRAZOLE 40 MG TABLET PO (08:54)
--- NOTE | 2021-05-17 10:40 | PM.DS ---
DS: Admitting Diagnosis Discharge Date 05/17/2021 Admitting Diagnosis Chest pain DS: Discharge Diagnosis Discharge Diagnosis (1) Acute renal failure: Code(s): N17.9 - Acute kidney failure, unspecified Status: Acute Assessment and Plan: creatinine much improved from 5 to 1 dc catheter pt has voided stable for dc back to [place] Renal ultrasound shows no acute abnormality hopeful dc back to dc today (2) Chest pain: Code(s): R07.9 - Chest pain, unspecified Status: Acute Assessment and Plan: resolved no chest pain, may be elevated is due to kidney disease -Appreciate cardiology input - echocardiogram shows EF 65-70%, abnormal diastolic dysfunction, 3 months ago was grade 1 diastolic dysfunction. (3) CAD (coronary artery disease): Code(s): I25.10 - Atherosclerotic heart disease of [place] coronary artery without angina pectoris Status: Chronic Assessment and Plan: chronic and stable (4) Morbid obesity with BMI of 50.0-59.9, adult: Code(s): E66.01 - Morbid (severe) obesity due to excess calories; Z68.43 - Body mass index [BMI] 50.0-59.9, adult Status: Acute Assessment and Plan: 1800 calorie restricted diet diet and exercise adviced I believe pt is wheel chair bound encourage some movements for arms and legs DS: Summary Hospital Course Hospital Course: 65-year-old female with past medical history significant for dementia, morbid obesity, patient resides at a intermediate, chronic kidney disease. Patient was brought to the emergency room for evaluation after she complained of chest pain at the time of my visit patient stated that she has been falling quite frequently but cannot give me much detail about her disease process. creat has improved from 5 to 1 today. Pt had catheter removed prior to DC back to [place]. Time Spent with Patient Time attestation: Total time spent providing and/or coordinating discharge services:45 minutes on day of discharge Exam Narrative: - GENERAL: morbidly obese, chronically ill appearing - LUNGS: Clear to auscultation no wheezing rhonchi or rales. nonlabored respirations on room air - CARDIOVASCULAR: Regular rate and rhythm. No murmur. No JVD. - ABDOMEN: Soft, non-tender and non-distended. No palpable masses. with catheter in situ - EXTREMITIES: 2+ pitting edema bilateral lower extremities, Peripheral pulses 2+. Non-tender. - NEUROLOGIC: No focal neurological deficits. CN II-XII grossly intact. - PSYCHIATRIC: Awake, Alert and oriented to self only, flat affect. - SKIN: No rashes or lesions. Warm. DS: Data Data Completed and Pending Labs on day of discharge: Labs from last 24 hours 05/17/21 05/17/21 05/17/21 07:25 06:09 02:25 Sodium 136 L Potassium 4.1 Chloride 102 Carbon Dioxide 27 Anion Gap 7 L BUN 21 H Creatinine 1.40 H Estim Creat Clear Calc 44 Estimated GFR 38 L Glucose 104 POC Capillary Glucose 108 H 148 H Serum Osmolality Calcium 8.7 Urine Osmolality 05/16/21 05/16/21 05/16/21 21:02 16:48 11:59 Sodium Potassium Chloride Carbon Dioxide Anion Gap BUN Creatinine Estim Creat Clear Calc Estimated GFR Glucose POC Capillary Glucose 112 H 99 255 H Serum Osmolality Calcium Urine Osmolality 05/13/21 05/13/21 13:33 11:30 Sodium Potassium Chloride Carbon Dioxide Anion Gap BUN Creatinine Estim Creat Clear Calc Estimated GFR Glucose POC Capillary Glucose Serum Osmolality 295 Calcium Urine Osmolality 343 Discharge Plan Discharge Attending physician on discharge: EMILY Consulting providers: Roger Caballero ; Romaine Pierson Discharging Clinician: Veena Wellington Anticipated Discharge Date/Time: 05/17/21 10:37 Patient Disposition: NH Assisted/Asst Living Activity: as tolerated Diet: diabetic Discharge Instructions: Order bmp in 1 we
[2021-05-17 11:46] LABS: Glucose Point of Care 196 mg/dl (65-105)
[2021-05-17 12:56] LABS: EDCOVIDSCREEN Negative (Negative)
[2021-05-17 14:00] VITALS: BP 111/50; PULSE 68; RESP 18; TEMP 35.6; O2SAT 95
== END 2021-05-17 16:40 | DRG 313 ==
LOC: ANHED 21:00 → ANHIMU 23:27 → ANH3MEDSUR 05-15 11:56 → ANHIMU 05-18 14:02
PROVIDERS: Internal Medicine; Internal Medicine Nephrology; Student in an Organized Health Care Education/Training Program; Admitting Provider Internal Medicine; Emergency Provider Emergency Medicine; PCP Family Medicine; Visit Provider Family Medicine
DX: R07.9 Chest pain, unspecified (principal); N17.9 Acute kidney failure, unspecified; E87.1 Hypo-osmolality and hyponatremia; Z68.43 Body mass index [BMI] 50.0-59.9, adult; I13.0 Hypertensive heart and chronic kidney disease with heart failure and stage 1 through stage 4 chronic kidney disease, or unspecified chronic kidney disease; Z20.822 Contact with and (suspected) exposure to COVID-19; F41.9 Anxiety disorder, unspecified; F32.9 Major depressive disorder, single episode, unspecified; Z87.440 Personal history of urinary (tract) infections; E78.5 Hyperlipidemia, unspecified; I50.9 Heart failure, unspecified; Z86.718 Personal history of other venous thrombosis and embolism; E11.42 Type 2 diabetes mellitus with diabetic polyneuropathy; G47.33 Obstructive sleep apnea (adult) (pediatric); Z86.711 Personal history of pulmonary embolism; I48.0 Paroxysmal atrial fibrillation; K21.9 Gastro-esophageal reflux disease without esophagitis; Z88.0 Allergy status to penicillin; F03.90 Unspecified dementia, unspecified severity, without behavioral disturbance, psychotic disturbance, mood disturbance, and anxiety; Z88.2 Allergy status to sulfonamides; Z88.1 Allergy status to other antibiotic agents; Z91.030 Bee allergy status; R77.8 Other specified abnormalities of plasma proteins; J44.9 Chronic obstructive pulmonary disease, unspecified; W19.XXXA Unspecified fall, initial encounter; E66.01 Morbid (severe) obesity due to excess calories; E11.22 Type 2 diabetes mellitus with diabetic chronic kidney disease; D64.9 Anemia, unspecified; I25.10 Atherosclerotic heart disease of native coronary artery without angina pectoris; R41.82 Altered mental status, unspecified; N18.31 Chronic kidney disease, stage 3a; Z79.899 Other long term (current) drug therapy; Z79.4 Long term (current) use of insulin; Z79.82 Long term (current) use of aspirin; Z79.84 Long term (current) use of oral hypoglycemic drugs
CPT/HCPCS: 36415; 71045; 76775; 80048; 80053; 80069; 81001; 82550; 82570; 82948; 83735; 83930; 83935; 84156; 84300; 84484; 84540; 85025; 85027; 87426; 93005; 93306; 94640; 97165; 99285; A9270; C8929; C9803; J1644; J1815; J7030; Q9957; U0003; U0005

== ENCOUNTER 2021-09-19 20:02 | Observation (INO) | payer MEDICARE, MEDICAID, SELFPAY ==
--- NOTE | ~2021-09-19 | XR_ITS ---
EXAMINATION: XR chest 1V Exam Date/Time: 09/19/2021 20:37 CDT HISTORY: weakness Comparison: 05/12/2021. RESULT: Lines, tubes, and devices: None. Lungs and pleura: Clear. Cardiomediastinal silhouette: Stable. Other: No acute osseous or upper abdominal finding. IMPRESSION: No acute cardiopulmonary process. Reviewed, dictated and finalized at location K.
--- NOTE | ~2021-09-19 | CT_ITS ---
EXAMINATION: CT brain wo con DATE: 09/19/2021 20:42 INDICATION: head injury . TECHNIQUE: Computed tomography (CT) of the head was performed without intravenous contrast. The mA wa s adjusted according to patient size. Iterative reconstruction technique was employed. The dose-lengt h product was 605.33 mGy-cm. COMPARISON: 05/06/2021. FINDINGS: No acute intracranial hemorrhage or extra-axial fluid collection. No hydrocephalus, mass, or herniation. No acute ischemic infarct. Unremarkable dural venous sinus attenuation. No acute osseous abnormality. The aerated spaces are clear. Mild atrophy and chronic white matter change. 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 Left lateral posterior fossa arachnoid cyst versus cerebellar encephalomalacia. Atherosclerotic intracranial calc ification. IMPRESSION: No acute intracranial process. Reviewed, dictated and finalized at location K.
--- NOTE | ~2021-09-19 | CT_ITS ---
EXAMINATION: CT abdomen pelvis wo con DATE: 09/19/2021 21:55 INDICATION: abdominal pain, vomiting TECHNIQUE: Computed tomography (CT) of the abdomen and pelvis was performed without intravenous contr ast. Automated exposure control and iterative reconstruction technique were employed. The dose-length product was 1501.61 mGy-cm. COMPARISON: None. FINDINGS: Lower thorax: Coronary and mitral calcifications. Liver: Enlarged liver. Biliary/Gallbladder: Gallbladder is absent. No bile duct dilation. Pancreas: No mass or duct dilation. Spleen: Normal. Adrenals:No mass. Kidneys: No mass, stone, or hydronephrosis. GI tract: No small or large bowel dilation. Normal appendix. Mesentery/Peritoneum: No ascites, mass, or free air. Retroperitoneum: No mass. Atherosclerotic abdominal aortic and/or arterial calcifications. Pelvis: Pelvic organs are within normal limits. Soft Tissues: Anterior abdominal diastases. Small fat-containing left lower abdominal ventral hernia. Bones: No acute osseous finding. Multilevel degenerative lumbar disc disease. IMPRESSION: No acute abdominopelvic process detected. Hepatomegaly. Uncomplicated appearing fat-containing left l ower abdominal ventral hernia. Reviewed, dictated and finalized at location K. IMPRESSION: No acute abdominopelvic process detected. Hepatomegaly. Uncomplicated appearing fat-containing left lower abdominal ventral hernia.
[2021-09-19 20:01] VITALS: BP 151/118; PULSE 95; RESP 18; O2SAT 97
[2021-09-19 20:06] VITALS: BP 151/118; PULSE 93; RESP 18; O2SAT 96
--- NOTE | 2021-09-19 20:20 | ED.RECABL ---
HPI - Recheck/Abnormal Lab/Rx General Chief Complaint: Recheck/Abnormal Lab/Rx Stated Complaint: ABN LABS Source: patient, EMS and RN notes reviewed Mode of arrival: EMS Limitations: dementia History of Present Illness HPI narrative: This is a 66 year old female with multiple medical problems who presents for evaluation of abnormal labs from snf. EMS states patient had vomiting today so labs were order. Her labs shows possible kidney failure according to EMS. Patient states she is here because she fell 2 weeks ago and hit back of her head on black top . She states she did not go get evaluated at that fall . She is complaining of posterior headache. She denies blurred vision. In regards to her nausea and vomiting, she states nausea is still present. She also had mid abdominal pain earlier but she denies having pain now. She also denies diarrhea or fever. Patient is oriented to person . She thinks she is 34 years old and that she is at [facility]. Related Data Home Medications Medication Instructions Recorded Confirmed acetaminophen 650 mg tablet 650 mg PO Q6H PRN Pain (Scale 01/20/21 09/20/21 Score 1-3) albuterol sulfate 90 mcg/actuation 2 puff inhalation HS 01/20/21 09/20/21 aerosol inhaler albuterol sulfate 90 mcg/actuation 2 puff inhalation Q4H PRN 01/20/21 09/20/21 aerosol inhaler Shortness Of Breath Or Wheezing allopurinol 300 mg tablet 300 mg PO DAILY 01/20/21 09/20/21 ascorbic acid (vitamin C) 500 mg 500 mg PO DAILY 01/20/21 09/20/21 tablet bisacodyl 10 mg rectal suppository 10 mg RECTAL DAILY PRN Constipation 01/20/21 09/20/21 calcium carbonate 200 mg calcium 200 mg PO BID 01/20/21 09/20/21 (500 mg) chewable tablet cholecalciferol (vitamin D3) 25 25 mcg PO DAILY 01/20/21 09/20/21 mcg (1,000 unit) tablet (Vitamin D3) cyanocobalamin (vitamin B-12) 1,000 mcg PO DAILY 01/20/21 09/20/21 1,000 mcg tablet (Vitamin B-12) divalproex 500 mg tablet,extended 500 mg PO BID 01/20/21 09/20/21 release 24 hr famotidine 20 mg tablet 20 mg PO BID 01/20/21 09/20/21 furosemide 20 mg tablet 80 mg PO DAILY 01/20/21 09/20/21 insulin aspart U-100 100 unit/mL 6 unit subcut TID 01/20/21 09/20/21 (3 mL) subcutaneous pen (Novolog Flexpen U-100 Insulin aspart) insulin aspart U-100 100 unit/mL See Rx Instructions .Route .COMPLEX 01/20/21 09/20/21 (3 mL) subcutaneous pen (Novolog Flexpen U-100 Insulin aspart) insulin glargine 100 unit/mL (3 55 unit subcut HS 01/20/21 09/20/21 mL) subcutaneous pen (Lantus Solostar U-100 Insulin) loperamide 2 mg capsule 2 mg PO Q6H PRN Diarrhea 01/20/21 09/20/21 loratadine 10 mg tablet 10 mg PO DAILY 01/20/21 09/20/21 magnesium citrate 296 ml PO DAILY PRN Constipation 01/20/21 09/20/21 magnesium hydroxide 400 mg/5 mL 30 ml PO HS PRN Constipation 01/20/21 09/20/21 oral suspension (Milk of Magnesia) melatonin 5 mg tablet 5 mg PO HS 01/20/21 09/20/21 metformin 500 mg tablet 1,000 mg PO BID 01/20/21 09/20/21 olanzapine 5 mg tablet 2.5 mg PO HS 01/20/21 09/20/21 sodium phosphates 19 gram-7 118 ml RECTAL DAILY PRN 01/20/21 09/20/21 gram/118 mL enema (Fleet Enema) Constipation venlafaxine 75 mg capsule,extended 225 mg PO DAILY 01/20/21 09/20/21 release 24 hr lisinopril 5 mg tablet 5 mg PO DAILY 05/13/21 09/20/21 multivitamin-ferrous 1 tablet PO DAILY 05/13/21 09/20/21 fumarate-folic acid 18 mg-400 mcg tablet nystatin-triamcinolone 100,000 1 applic topical Q24H 05/13/21 09/20/21 unit/g-0.1 % topical cream ondansetron HCl 4 mg tablet 4 mg PO Q8H PRN Nausea 05/13/21 09/20/21 empagliflozin 25 mg tablet 25 mg PO DAILY 09/20/21 09/20/21 (Jardiance) metolazone 2.5 mg tablet 2.5 mg PO DAILY 09/20/21 09/20/21 Allergies Allergy/AdvReac Type Severity Reaction Status Date / Time amoxicillin Allergy Severe Anaphylaxis Verified 09/20/21 03:03 bee venom protein (honey bee) Allergy Severe Anaphylaxis Verified 09/20/21 03:03 [bees] Penicillins Allergy
--- NOTE | 2021-09-19 20:42 | PC.NURSE ---
Pt in CT at this time.
[2021-09-19] MEDS: ONDANSETRON INJ 4 MG/2 ML VIAL IV PUSH (20:53)
[2021-09-19] MEDS: SODIUM CHLORIDE 0.9% IV 1,000 ML 999 ML IV CONT (20:53)
[2021-09-19 20:57] LABS: Basophils Absolute Auto 0.1 K/mm3 (0.0-0.1); Basophils Percent Auto 0.7 % (0.2-1.2); Eosinophils Absolute Auto 0.3 K/mm3 (0-0.3); Eosinophils Percent Auto 2.1 % (0-4.4); Hematocrit 41.6 % (37.0-47.0); Hemoglobin 13.2 g/dL (12.0-15.0); Immature Granulocyte Absolute 0.11 K/mm3 (0.00-0.031); Immature Granulocyte Percent A 0.9 % (0-0.5); Lymphocytes Absolute Auto 2.61 K/mm3 (0.9-3.2); Lymphocytes Percent Auto 20.5 % (18.3-44.2); Mean Corpuscular HGB Conc 31.7 g/dl (32-36); Mean Corpuscular Hemoglobin 33.2 pg (26-34); Mean Corpuscular Volume 104.5 fl (80-100); Mean Platelet Volume 11.3 fl (7.4-10.4); Monocytes Absolute Auto 1.5 K/mm3 (0.1-0.6); Monocytes Percent Auto 11.5 % (2.6-8.5); Neutrophils Absolute Auto 8.2 K/mm3 (1.3-6.7); Neutrophils Percent Auto 64.3 % (45.5-73.1); Platelet Count Result 347 k/mm3 (150-375); Red Blood Count 3.98 M/mm3 (4.2-5.4); Red Cell Distribution Width 16.6 % (11.5-14.5); White Blood Count 12.7 K/mm3 (4.5-10.0)
[2021-09-19 21:20] LABS: Alanine Aminotransferase 16 U/L (6-35); Albumin Level 4.1 g/dL (3.5-5.1); Alkaline Phosphatase 84 U/L (38-126); Anion Gap 16 mmol/L (8-16); Aspartate Amino Transferase 29 U/L (14-36); Bilirubin,Total 0.4 mg/dL (0.2-1.3); Blood Urea Nitrogen 52 mg/dL (7-17); Calcium 9.2 mg/dL (8.4-10.2); Carbon Dioxide 28 mmol/L (22-30); Chloride 89 mmol/L (98-107); Estimated CRCL calculation 26 ml/min; Estimated Glomerular Filt Rate 20; Glucose 203 mg/dL (65-110); Lipase 137 U/L (23-300); Sodium 133 mmol/L (137-145)
[2021-09-19 22:16] LABS: SARS-CoV-2 RNA PCR Negative
[2021-09-19 22:43] VITALS: BP 159/86; PULSE 93; RESP 18; O2SAT 98
--- NOTE | 2021-09-19 23:34 | PM.IMHP ---
H&P: HPI History of Present Illness Date/Time: 09/19/21 23:34 Chief Complaint: nausea and vomiting Narrative: this is a 66-year-old female she is a [place] [facility] resident past medical history significant for morbid obesity, patient uses walker to get by, gout, type diabetes mellitus, hypertension, congestive heart failure, diabetic peripheral neuropathy, gastroesophageal reflux disease, paroxysmal atrial fibrillation. patient was brought to the emergency room from [facility] after she had several episodes of vomiting and lab work showed abnormal kidney function patient denies any fevers, rigors, chills, cough, sputum production, PND, orthopnea, swelling, chest pain, palpitations. preliminary workup was significant for BUN phos [address] of abdomen and pelvis was significant for hepatic steatosis no acute intra-abdominal or pelvic abnormalities and fat containing hernia, A urinalysis was clean. Patient has been admitted for further evaluation management and treatment. Review of Systems Review of Systems: Nausea and vomiting Constitutional: Constitutional: Denies chills, Denies fever(s), Denies night sweats and Reports poor appetite Eyes: Eyes: Denies change in vision Cardiovascular: Cardiovascular: Denies chest pain, Denies syncope, Denies irregular heart rhythm, Denies lightheadedness, Denies palpitations and Denies dyspnea on exertion Respiratory: Respiratory: Denies chest congestion, Denies excessive phlegm production and Denies dyspnea Gastrointestinal: Gastrointestinal: Denies abdominal pain, Denies dyspepsia, Denies heartburn, Denies diarrhea, Reports nausea and Reports vomiting Musculoskeletal: Musculoskeletal: Reports no additional musculoskeletal complaints and Reports as per HPI Integumentary/Breasts: Skin/Breast: Denies rash Neurologic: Denies vertigo, Denies dizziness, Denies focal weakness and Denies Sensory deficit (Neuro) Psychiatric: Psychiatric: Reports no additional psychiatric complaints and Reports as per HPI Endocrine: Endocrine: Denies cold intolerance, Denies fatigue, Denies flushing, Denies heat intolerance, Denies polyphagia, Denies polydipsia and Denies palpitations Hematologic/Lymphatic: Hematologic/Lymphatic: Reports no additional hematologic/lymphatic complaints and Reports as per HPI Allergic/Immunologic: Allergic/Immunologic: Reports no additional allergic/immunologic complaints and Reports as per HPI [facility] Past Medical History Medical History (Updated 09/20/21 @ 12:47 by Fernando Mays MD) Anxiety Asthma Congestive heart failure Deep venous thrombosis Depression Diabetic peripheral neuropathy Frequent urinary tract infections Gastroesophageal reflux disease Hyperlipidemia Hypertension Mixed stress and urge incontinence Obstructive sleep apnea Intolerant to CPAP. Paroxysmal atrial fibrillation Pulmonary embolism Type 2 diabetes mellitus Surgical History Surgical History History of cardiac catheterization No coronary artery disease per patient report. History of cholecystectomy History of colonoscopy History of cystoscopy History of tonsillectomy and adenoidectomy Family History Family History Mother No problems noted. Father No problems noted. Other Adopted Social History Social History Social History: Surrogate decision maker: Moi Medellin, brother. Code status: Full code. Smoking status: Never smoker Second hand tobacco smoke exposure: No Alcohol intake: never Substance use: never Substance use type: does not use Additional living arrangements comments: Patient is a resident at [facility]. She has no children. 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 Spiritual care concerns: No Meds
[2021-09-20] VITALS (7 sets, daily range): BP systolic 98–146; BP diastolic 51–90; PULSE 79–95; RESP 16–18; TEMP 36.1–36.6; O2SAT 94–98; BMI 51.8
[2021-09-20] MEDS: LIDOCAINE HCL 2% GEL UROJET 10 ML PKG (00:11)
[2021-09-20 00:28] LABS: Appearance Urine Clear (Clear); Bilirubin Urine Negative (Negative); Color Urine Yellow (Yellow); Glucose Urine UA 2+ mg/dL (Negative); Ketones Urine Negative (Negative); Leukocyte Esterase Ur Trace LEU/UL (Negative); Nitrate Urine Negative (Negative); Protein Urine Negative (Negative); Specific Grav Ur 1.015 (1.001-1.035); Urobilinogen Urine 0.2 mg/dL (<2.0); pH Urine 5.5 (5.0-9.0)
[2021-09-20 00:32] LABS: Add Urine Microscopic? YES; Blood Urine Trace-Intact (Negative)
[2021-09-20 00:38] LABS: Bacteria Urine Trace /hpf; Mucus Urine Rare /lpf; RBC Urine 0-2 /hpf (0-2); Squamous Epithelial Cell Urine Rare /hpf (Few)
[2021-09-20] MEDS: SODIUM CHLORIDE 0.9% IV 1,000 ML 125 ML IV CONT ×3 (00:41→19:44)
--- NOTE | 2021-09-20 01:46 | ADMGEN ---
This patient, Nazanin Medellin, was admitted to [facility] S[facility] Room 306-01. Patient/family oriented to hospital policies and general routines including ID bracelet, bed and alarms, visiting hours, pain management, procedures, bathroom and other care routines, personal items, smoking policy, room service/diet, and visiting hours. Information on how to activate the Rapid Response Team has been discussed. Patient/Family are encouraged to report perceived risks to care and to ask questions if they do not understand what they are told or what they should do.
[2021-09-20 06:02] LABS: Basophils Absolute Auto 0.1 K/mm3 (0.0-0.1); Basophils Percent Auto 0.7 % (0.2-1.2); Eosinophils Absolute Auto 0.2 K/mm3 (0-0.3); Eosinophils Percent Auto 2.6 % (0-4.4); Hematocrit 37.2 % (37.0-47.0); Immature Granulocyte Percent A 1.2 % (0-0.5); Lymphocytes Percent Auto 30.8 % (18.3-44.2); Mean Corpuscular HGB Conc 32.3 g/dl (32-36); Mean Corpuscular Hemoglobin 33.7 pg (26-34); Mean Corpuscular Volume 104.5 fl (80-100); Mean Platelet Volume 11.6 fl (7.4-10.4); Monocytes Percent Auto 11.8 % (2.6-8.5); Neutrophils Absolute Auto 4.5 K/mm3 (1.3-6.7); Neutrophils Percent Auto 52.9 % (45.5-73.1); Platelet Count Result 258 k/mm3 (150-375); Red Blood Count 3.56 M/mm3 (4.2-5.4); Red Cell Distribution Width 16.2 % (11.5-14.5); White Blood Count 8.5 K/mm3 (4.5-10.0)
[2021-09-20 06:25] LABS: Alanine Aminotransferase 12 U/L (6-35); Albumin Level 3.5 g/dL (3.5-5.1); Alkaline Phosphatase 88 U/L (38-126); Anion Gap 11 mmol/L (8-16); Aspartate Amino Transferase 18 U/L (14-36); Bilirubin,Total 0.3 mg/dL (0.2-1.3); Blood Urea Nitrogen 47 mg/dL (7-17); Calcium 8.2 mg/dL (8.4-10.2); Carbon Dioxide 30 mmol/L (22-30); Chloride 94 mmol/L (98-107); Estimated CRCL calculation 30 ml/min; Estimated Glomerular Filt Rate 24; Glucose 225 mg/dL (65-110); Potassium 3.4 mmol/L (3.4-5.0); Sodium 135 mmol/L (137-145)
[2021-09-20 07:41] LABS: Glucose Point of Care 197 mg/dl (65-105)
--- NOTE | 2021-09-20 08:20 | PM.IMPN ---
Progress Note: A&P Assessment and Plan (1) Altered mental status: Code(s): R41.82 - Altered mental status, unspecified Status: Acute Assessment and Plan: Consult neurology Patient confused to time place and person (2) Acute renal failure: Code(s): N17.9 - Acute kidney failure, unspecified Status: Acute Assessment and Plan: continue IV fluids, patient's baseline creatinine 1.2 to 1.5 (3) Stage 3a chronic kidney disease: Code(s): N18.31 - Chronic kidney disease, stage 3a Status: Chronic Assessment and Plan: Continue to monitor (4) CAD (coronary artery disease): Code(s): I25.10 - Atherosclerotic heart disease of [place] coronary artery without angina pectoris Status: Chronic Assessment and Plan: -Stable (5) Morbid obesity with BMI of 50.0-59.9, adult: Code(s): E66.01 - Morbid (severe) obesity due to excess calories; Z68.43 - Body mass index [BMI] 50.0-59.9, adult Status: Acute Assessment and Plan: Unable to provide education to the patient's mental status (6) Dementia: Qualifiers: Dementia behavioral disturbance: without behavioral disturbance Dementia type: unspecified type Qualified Code(s): F03.90 - Unspecified dementia without behavioral disturbance Code(s): F03.90 - Unspecified dementia without behavioral disturbance Status: Acute Assessment and Plan: Stable (7) Gastroesophageal reflux disease: Code(s): K21.9 - Gastro-esophageal reflux disease without esophagitis Status: Acute Assessment and Plan: Stable (8) Type 2 diabetes mellitus: Qualifiers: Diabetes mellitus complication status: with other specified complication Diabetes mellitus camp counselor insulin use: with fpc use Qualified Code(s): E11.69 - Type 2 diabetes mellitus with other specified complication; Z79.4 - rn gynecology (current) use of insulin Code(s): E11.9 - Type 2 diabetes mellitus without complications Status: Chronic Assessment and Plan: Insulin Lispro sliding scale, Accu-checks qAc and HS and Hold oral hypoglycemics Obtain a HgbA1c (9) Paroxysmal atrial fibrillation: Code(s): I48.0 - Paroxysmal atrial fibrillation Status: Acute Assessment and Plan: Monitor vital signs, I&Os, neuro status, patient is a fall risk and patient is a bleeding risk Monitor PTT, Serum electrolytes, and cbc Keep serum potassium >4 and keep magnesium >2 Monitor anticoagulation therapy (10) Obstructive sleep apnea: Code(s): G47.33 - Obstructive sleep apnea (adult) (pediatric) Status: Acute Assessment and Plan: Continue, stable Subjective Date/time seen: 09/20/21 08:20 Patient intermittently confused and is a poor historian. Dr. Barry with neurology has been consulted. Patient remains on IV fluids due to IRIS. Monitor lab values. Patient is from a skilled facility and is a matthew to the chair. Spoke with RN at bedside no acute complaints. No significant events overnight. Patient is very tearful at times. Review of Systems Review of Systems: ROS unobtainable: Yes unobtainable due to mental status Exam Narrative: General: No acute distress. Morbidly obese Mental Status: Awake, alert and disoriented to person, place, and time with clear speech. Skin: Skin in warm, dry and intact without rashes or lesions. Scattered bruising on abdomen Head: Normocephalic and atraumatic. Eyes: Conjunctivae are clear without exudates or hemorrhage. Sclera is non-icteric. EOM are intact, PERRLA. Ears: The external ear and canal are non-tender and without swelling or discharge. Nose: Nasal mucosa is pink and moist. Septum midline. Nares patent bilaterally. Throat: Oral mucosa pink and moist with good dentition. Tongue midline. Neck: The neck supple without adenopathy. Trachea midline. No JVD. Cardiac: S1 and S2 regular rate and rhythm. + murmurs, no gallops, or rubs a
[2021-09-20 08:58] LABS: Ammonia < 9 umol/L (9-30)
[2021-09-20] MEDS: VENLAFAXINE HCL XR 75 MG CAP.ER.24H 225 MG PO (09:50)
[2021-09-20] MEDS: ASCORBIC ACID 500 MG TABLET PO (09:50)
[2021-09-20] MEDS: CYANOCOBALAMIN 1,000 MCG TABLET 1000 MCG PO (09:50)
[2021-09-20] MEDS: TICAGRELOR 90 MG TABLET PO ×2 (09:50→21:05)
[2021-09-20] MEDS: ASPIRIN 81 MG ENTERIC TABLET PO (09:50)
[2021-09-20] MEDS: allopurinoL 300 MG TABLET PO (09:51)
[2021-09-20] MEDS: LORATADINE 10 MG TABLET PO (09:51)
[2021-09-20] MEDS: FUROSEMIDE 80 MG TABLET PO (09:51)
[2021-09-20] MEDS: CHOLECALCIFEROL 1,000 UNITS TABLET 1000 UNITS PO (09:51)
[2021-09-20] MEDS: MULTIVITAMINS /C LUTEIN (CENTRUM SILVER) TABLET *BKC 1 TAB PO (09:51)
[2021-09-20] MEDS: ATORVASTATIN 40 MG TABLET 80 MG PO (09:51)
[2021-09-20] MEDS: FAMOTIDINE 20 MG TABLET PO ×2 (09:51→21:05)
[2021-09-20] MEDS: PANTOPRAZOLE 40 MG TABLET PO (09:51)
[2021-09-20] MEDS: lisinopriL 5 MG TABLET PO (09:52)
[2021-09-20] MEDS: METOPROLOL TARTRATE 25 MG TABLET PO ×2 (09:52→21:04)
[2021-09-20] MEDS: metOLazone 2.5 MG TABLET PO (09:53)
[2021-09-20] MEDS: INSULIN ASPART (*BKC) 100 UNITS/ML 6 UNITS SUB-Q ×3 (09:56→18:01)
[2021-09-20] MEDS: CALCIUM CARBONATE (TUMS) 500 MG (200 MG ELEMENTAL) PO ×2 (09:57→18:01)
--- NOTE | 2021-09-20 10:43 | PCPTNOTE ---
Per chart review, pt is dependent which has been her baseline since at least her last admission in 04/2021. Per Patient, she has been lifted in/out of bed into her wheelchair for the last 5-6 months. She does not meet the requirements for skilled therapy services at this time. Consulted with Clara Rosas APRN, and she agreed to d/c the therapy orders.
[2021-09-20 12:05] LABS: Glucose Point of Care 180 mg/dl (65-105)
--- NOTE | 2021-09-20 12:35 | WPDNEURCNPN ---
Assessment and Plan Assessment and plan (1) Acute headache: Code(s): R51.9 - Headache, unspecified Status: Acute (2) Altered mental status: Code(s): R41.82 - Altered mental status, unspecified Status: Acute (3) Encephalopathy: Code(s): G93.40 - Encephalopathy, unspecified Status: Acute Plan 1 diabetes mellitus with neuropathy [address] scan of the head 3 COVID negative 4 encephalopathy will obtain the EEG and if possible MRI of the brain Consult date: 09/20/21 Time Seen: 11:30 HPI: Nazanin Medellin is a 66 year old female admitted to the hospital through the emergency room where she presented on transfer from the long term in addition to the ongoing diagnosis of possible renal failure, history of fall 2 weeks ago resulting in the occipital trauma to the head and persistent nausea with mild abdominal pain, she has been taking multiple medications as outlined which included the divalproex 500 p.o. b.i.d., the semi 80 mg daily, insulin Ruth loperamide 2 mg capsule p.r.n. every 6 hours metformin 500 each 2 tablets twice a day venlafaxine 225 mg daily and Dawdy hands 85 mg daily she has documented sleep multiple allergies, also she has ongoing history of congestive heart failure, DVT, diabetic neuropathy, GERD, hypertension bladder dysfunction, and paroxysmal atrial fibrillation, she is a never smoker never alcohol intake a an initial vital signs were stable so as the routine lab chest x-ray was negative CT scan of the head was negative Review of Systems Review of Systems: All systems reviewed & are unremarkable except as noted in HPI and below PMFSH Past Medical History Medical History (Updated 09/20/21 @ 12:47 by Fernando Mays MD) Anxiety Asthma Congestive heart failure Deep venous thrombosis Depression Diabetic peripheral neuropathy Frequent urinary tract infections Gastroesophageal reflux disease Hyperlipidemia Hypertension Mixed stress and urge incontinence Obstructive sleep apnea Intolerant to CPAP. Paroxysmal atrial fibrillation Pulmonary embolism Type 2 diabetes mellitus Surgical History Surgical History History of cardiac catheterization No coronary artery disease per patient report. History of cholecystectomy History of colonoscopy History of cystoscopy History of tonsillectomy and adenoidectomy Family History Family History Mother No problems noted. Father No problems noted. Other Adopted Social History Social History Social History: Surrogate decision maker: Moi Medellin, brother. Code status: Full code. Smoking status: Never smoker Second hand tobacco smoke exposure: No Alcohol intake: never Substance use: never Substance use type: does not use Additional living arrangements comments: Patient is a resident at [facility]. She has no children. 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. Spiritual care concerns: No Meds Home Medications and Allergies Home Medications Medication Instructions Recorded Confirmed Type acetaminophen 650 mg tablet 650 mg PO Q6H PRN Pain (Scale 01/20/21 09/20/21 History Score 1-3) albuterol sulfate 90 mcg/actuation 2 puff inhalation HS 01/20/21 09/20/21 History aerosol inhaler albuterol sulfate 90 mcg/actuation 2 puff inhalation Q4H PRN 01/20/21 09/20/21 History aerosol inhaler Shortness Of Breath Or Wheezing allopurinol 300 mg tablet 300 mg PO DAILY 01/20/21 09/20/21 History ascorbic acid (vitamin C) 500 mg 500 mg PO DAILY 01/20/21 09/20/21 History tablet bisacodyl 10 mg rectal suppository 10 mg RECTAL DAILY PRN Constipation 01/20/21 09/20/21 History calcium carbonate 200 mg calcium 200 mg PO BID 01/20/21 09/20/21 History (500 mg) chewable ta
[2021-09-20 17:06] LABS: Glucose Point of Care 241 mg/dl (65-105)
[2021-09-20] MEDS: OLANZapine 2.5 MG TABLET PO (21:05)
[2021-09-20] MEDS: DIVALPROEX SODIUM DR 250 MG TABEC 500 MG PO (21:05)
[2021-09-20] MEDS: INSULIN GLARGINE (*BKC) 100 UNITS/ML 55 UNITS SUB-Q (21:05)
[2021-09-20] MEDS: MELATONIN 5 MG TABLET PO (21:05)
[2021-09-20] MEDS: ALBUTEROL SULFATE (*SP) AEROSOL 1 PUFF 2 PUFF INHALATION (21:27)
[2021-09-20 21:39] LABS: Glucose Point of Care 207 mg/dl (65-105)
[2021-09-21] MEDS: SODIUM CHLORIDE 0.9% IV 1,000 ML 125 ML IV CONT (02:57)
[2021-09-21 06:00] VITALS: BP 93/53; PULSE 60; RESP 16; TEMP 36.1; O2SAT 97
[2021-09-21 06:39] LABS: Alanine Aminotransferase 11 U/L (6-35); Albumin Level 3.3 g/dL (3.5-5.1); Alkaline Phosphatase 62 U/L (38-126); Anion Gap 8 mmol/L (8-16); Aspartate Amino Transferase 28 U/L (14-36); Bilirubin,Total 0.4 mg/dL (0.2-1.3); Blood Urea Nitrogen 43 mg/dL (7-17); Carbon Dioxide 30 mmol/L (22-30); Chloride 96 mmol/L (98-107); Estimated CRCL calculation 35 ml/min; Estimated Glomerular Filt Rate 28; Glucose 107 mg/dL (65-110); Potassium 3.7 mmol/L (3.4-5.0); Sodium 134 mmol/L (137-145)
--- NOTE | 2021-09-21 07:00 | PM.DS ---
DS: Admitting Diagnosis Discharge Date 09/21/2021 Admitting Diagnosis altered mental status Acute renal failure DS: Discharge Diagnosis Discharge Diagnosis (1) Altered mental status: Code(s): R41.82 - Altered mental status, unspecified Status: Acute Assessment and Plan: likely secondary to acute illness supportive care (2) Acute renal failure: Code(s): N17.9 - Acute kidney failure, unspecified Status: Acute Assessment and Plan: likely secondary to nausea and vomiting pre renal azotemia most likely IV fluids repeat BMP in the morning nephrology consult (3) Stage 3a chronic kidney disease: Code(s): N18.31 - Chronic kidney disease, stage 3a Status: Chronic Assessment and Plan: continue to monitor daily intake and output (4) CAD (coronary artery disease): Code(s): I25.10 - Atherosclerotic heart disease of [place] coronary artery without angina pectoris Status: Chronic Assessment and Plan: chest pain-free continue home meds (5) Morbid obesity with BMI of 50.0-59.9, adult: Code(s): E66.01 - Morbid (severe) obesity due to excess calories; Z68.43 - Body mass index [BMI] 50.0-59.9, adult Status: Acute Assessment and Plan: 1800 calorie restricted diet (6) Dementia: Qualifiers: Dementia behavioral disturbance: without behavioral disturbance Dementia type: unspecified type Qualified Code(s): F03.90 - Unspecified dementia without behavioral disturbance Code(s): F03.90 - Unspecified dementia without behavioral disturbance Status: Acute Assessment and Plan: continue home meds continue to monitor (7) Gastroesophageal reflux disease: Code(s): K21.9 - Gastro-esophageal reflux disease without esophagitis Status: Acute Assessment and Plan: PPI as knee (8) Type 2 diabetes mellitus: Qualifiers: Diabetes mellitus complication status: with other specified complication Diabetes mellitus mcfp insulin use: with mcfp use Qualified Code(s): E11.69 - Type 2 diabetes mellitus with other specified complication; Z79.4 - continuous churn buttermaker (current) use of insulin Code(s): E11.9 - Type 2 diabetes mellitus without complications Status: Chronic Assessment and Plan: restart home meds Accu-Cheks AC and HS (9) Paroxysmal atrial fibrillation: Code(s): I48.0 - Paroxysmal atrial fibrillation Status: Acute Assessment and Plan: not on anticoagulation or rate controlled continue to monitor (10) Obstructive sleep apnea: Code(s): G47.33 - Obstructive sleep apnea (adult) (pediatric) Status: Acute Assessment and Plan: patient had poor tolerance to CPAP machine DS: Summary Hospital Course Reason for hospitalization: Altered mental status Acute renal failure Hospital Course: Patient is 66-year-old female past medical history of morbid obesity, gout, diabetes mellitus, hypertension, congestive heart failure, diabetic peripheral neuropathy and GERD as well as paroxysmal AFib. Patient is a [place] resident. She was brought to the [facility] hospital after several episodes of vomiting and lab work showed abnormal kidney function. However, in the emergency department the patient had mild episodes of altered mental status and was admitted for IRIS and AMS. While in the emergency department labs and imaging were obtained. Patient's WBC was 12.7, hemoglobin 13.2, hematocrit 41.6 and platelet of 347, sodium 133, potassium 4.0, chloride 89, BUN 52 and creatinine 2.4 with a glucose of 203 and normal LFTs. Patient likely had altered mental status like to acute illness although neurology was consulted during her hospitalization. Patient's IRIS likely related to nausea and vomiting. Patient was repleted with IV fluids with good response. The patient's baseline creatinine 1.4-1.9. While admitted to hos
[2021-09-21 07:53] LABS: Glucose Point of Care 127 mg/dl (65-105)
[2021-09-21 08:00] VITALS: PULSE 70; RESP 16; O2SAT 97
[2021-09-21 08:04] LABS: Basophils Absolute Auto 0.1 K/mm3 (0.0-0.1); Basophils Percent Auto 0.8 % (0.2-1.2); Eosinophils Absolute Auto 0.3 K/mm3 (0-0.3); Eosinophils Percent Auto 5.1 % (0-4.4); Hematocrit 34.3 % (37.0-47.0); Hemoglobin 11.4 g/dL (12.0-15.0); Immature Granulocyte Absolute 0.05 K/mm3 (0.00-0.031); Immature Granulocyte Percent A 0.8 % (0-0.5); Lymphocytes Absolute Auto 1.88 K/mm3 (0.9-3.2); Lymphocytes Percent Auto 30.7 % (18.3-44.2); Mean Corpuscular HGB Conc 33.2 g/dl (32-36); Mean Corpuscular Volume 102.4 fl (80-100); Mean Platelet Volume 10.9 fl (7.4-10.4); Monocytes Absolute Auto 0.7 K/mm3 (0.1-0.6); Monocytes Percent Auto 11.6 % (2.6-8.5); Neutrophils Absolute Auto 3.1 K/mm3 (1.3-6.7); Platelet Count Result 193 k/mm3 (150-375); Red Blood Count 3.35 M/mm3 (4.2-5.4); Red Cell Distribution Width 16.1 % (11.5-14.5); White Blood Count 6.1 K/mm3 (4.5-10.0)
[2021-09-21] MEDS: INSULIN ASPART (*BKC) 100 UNITS/ML 6 UNITS SUB-Q ×2 (09:00→12:47)
[2021-09-21 09:01] VITALS: PULSE 70
[2021-09-21] MEDS: ATORVASTATIN 40 MG TABLET 80 MG PO (09:01)
[2021-09-21] MEDS: allopurinoL 300 MG TABLET PO (09:01)
[2021-09-21] MEDS: METOPROLOL TARTRATE 25 MG TABLET PO (09:01)
[2021-09-21] MEDS: FUROSEMIDE 80 MG TABLET PO (09:01)
[2021-09-21] MEDS: PANTOPRAZOLE 40 MG TABLET PO (09:01)
[2021-09-21] MEDS: lisinopriL 5 MG TABLET PO (09:01)
[2021-09-21] MEDS: TICAGRELOR 90 MG TABLET PO (09:01)
[2021-09-21] MEDS: CYANOCOBALAMIN 1,000 MCG TABLET 1000 MCG PO (09:03)
[2021-09-21] MEDS: FAMOTIDINE 20 MG TABLET PO (09:03)
[2021-09-21] MEDS: CHOLECALCIFEROL 1,000 UNITS TABLET 1000 UNITS PO (09:03)
[2021-09-21] MEDS: VENLAFAXINE HCL XR 75 MG CAP.ER.24H 225 MG PO (09:04)
[2021-09-21] MEDS: LORATADINE 10 MG TABLET PO (09:04)
[2021-09-21] MEDS: DIVALPROEX SODIUM DR 250 MG TABEC 500 MG PO (09:04)
[2021-09-21] MEDS: metOLazone 2.5 MG TABLET PO (09:04)
[2021-09-21] MEDS: ASCORBIC ACID 500 MG TABLET PO (09:04)
[2021-09-21] MEDS: MULTIVITAMINS /C LUTEIN (CENTRUM SILVER) TABLET *BKC 1 TAB PO (09:04)
[2021-09-21] MEDS: CALCIUM CARBONATE (TUMS) 500 MG (200 MG ELEMENTAL) PO (09:05)
[2021-09-21 11:32] LABS: Glucose Point of Care 159 mg/dl (65-105)
[2021-09-21 12:15] LABS: EDCOVIDSCREEN Negative (Negative)
== END 2021-09-21 14:35 ==
LOC: ANHED 20:30 → ANH3MEDSUR 09-20 03:15
PROVIDERS: Admitting Provider Internal Medicine; Emergency Provider General Practice; PCP Family Medicine; Visit Provider Nurse Practitioner Family
DX: N17.9 Acute kidney failure, unspecified (principal); R41.82 Altered mental status, unspecified; I13.0 Hypertensive heart and chronic kidney disease with heart failure and stage 1 through stage 4 chronic kidney disease, or unspecified chronic kidney disease; N18.31 Chronic kidney disease, stage 3a; E11.22 Type 2 diabetes mellitus with diabetic chronic kidney disease; I50.9 Heart failure, unspecified; I25.10 Atherosclerotic heart disease of native coronary artery without angina pectoris; E66.01 Morbid (severe) obesity due to excess calories; Z68.43 Body mass index [BMI] 50.0-59.9, adult; F03.90 Unspecified dementia, unspecified severity, without behavioral disturbance, psychotic disturbance, mood disturbance, and anxiety; K21.9 Gastro-esophageal reflux disease without esophagitis; I48.0 Paroxysmal atrial fibrillation; G47.33 Obstructive sleep apnea (adult) (pediatric); E11.42 Type 2 diabetes mellitus with diabetic polyneuropathy; R51.9 Headache, unspecified; G93.40 Encephalopathy, unspecified; F41.9 Anxiety disorder, unspecified; F32.A Depression, unspecified; M10.9 Gout, unspecified; R11.2 Nausea with vomiting, unspecified; J45.909 Unspecified asthma, uncomplicated; Z90.49 Acquired absence of other specified parts of digestive tract; Z20.822 Contact with and (suspected) exposure to COVID-19; Z86.718 Personal history of other venous thrombosis and embolism; Z87.891 Personal history of nicotine dependence; Z86.711 Personal history of pulmonary embolism; Z79.84 Long term (current) use of oral hypoglycemic drugs; Z79.51 Long term (current) use of inhaled steroids; Z79.4 Long term (current) use of insulin; Z79.82 Long term (current) use of aspirin; Z79.01 Long term (current) use of anticoagulants; Z79.899 Other long term (current) drug therapy
CPT/HCPCS: 36415; 70450; 71045; 74176; 80053; 81001; 82140; 82948; 83690; 83735; 85025; 86140; 87077; 87086; 87186; 87426; 94640; 96361; 96374; 99285; A9270; C9803; G0378; J1815; J2405; J7030; U0003; U0005

== ENCOUNTER 2021-10-02 19:02 | Inpatient (IN) | payer MEDICARE, MEDICAID, SELFPAY ==
[2021-10-02] VITALS (32 sets, daily range): BP systolic 79–104; BP diastolic 40–71; PULSE 89–97; RESP 12–21; TEMP 36.8; O2SAT 93–100
--- NOTE | ~2021-10-02 | CT_ITS ---
EXAMINATION: CT abdomen pelvis wo con DATE: 10/02/2021 20:10 INDICATION: abdominal pain TECHNIQUE: Computed tomography (CT) of the abdomen and pelvis was performed without intravenous contr ast. Automated exposure control and iterative reconstruction technique were employed. The dose-length product was 1516.35 mGy-cm. COMPARISON: 09/19/2021. FINDINGS: Lower thorax: Aortic valve, mitral, and coronary artery calcifications. Dependent atelectasis. Liver: Hepatomegaly. Biliary/Gallbladder: Gallbladder is absent. No bile duct dilation. Pancreas: Fatty infiltrated. Spleen: Normal. Adrenals:No mass. Kidneys: No mass, stone, or hydronephrosis. Ectopic right kidney. GI tract: Focal outpouching along the anterior wall of the stomach closely applied to the anterior ab dominal wall, likely persistent partial tract from old gastrostomy tube. No small or large bowel dila tion. Normal appendix. Mesentery/Peritoneum: No ascites, mass, or free air. Retroperitoneum: No mass. Atherosclerotic abdominal aortic and/or arterial calcifications. Pelvis: The bladder is decompressed by Spaulding. Soft Tissues: Abdominal wall diastases. Fat-containing lower abdominal ventral wall hernia without co mplication. Bones: No acute osseous finding. IMPRESSION: No acute abdominopelvic process detected. Reviewed, dictated and finalized at location K.
--- NOTE | ~2021-10-02 | XR_ITS ---
EXAMINATION: XR chest 1V portable DATE: 10/03/2021 09:18 INDICATION: Central line placement. TECHNIQUE: A single frontal view of the chest was obtained. COMPARISON: Chest single view 09/19/2021, CT abdomen and pelvis 10/02/2021 FINDINGS: Left lateral costophrenic angle is excluded. There is no pneumonia, pleural effusion, or pn eumothorax. The heart size is normal. A left internal jugular central venous catheter is seen with ti p in the superior vena cava. IMPRESSION: 1. Central line tip in superior vena cava. Reviewed, dictated and finalized at location A.
--- NOTE | ~2021-10-02 | US_ITS ---
EXAMINATION: US venous doppler [facility] DATE: 10/03/2021 10:48 INDICATION: Lower limb swelling. TECHNIQUE: Grayscale ultrasound images without and with compression and Doppler ultrasound images of the bilateral lower extremity veins were obtained. COMPARISON: None. FINDINGS: The visualized portions of right common femoral vein, profunda (deep) femoral vein, femoral vein, pop liteal vein, peroneal veins, posterior tibial veins, and greater saphenous vein outflow are patent. The visualized portions of left common femoral vein, profunda femoral vein, femoral vein, popliteal v ein, peroneal veins, posterior tibial veins, and greater saphenous vein outflow are patent. IMPRESSION: 1. No deep venous thrombosis. Reviewed, dictated and finalized at location A.
--- NOTE | ~2021-10-02 | US_ITS ---
EXAMINATION: US renal BI DATE: 10/03/2021 10:47 INDICATION: Acute kidney injury. TECHNIQUE: Multiple ultrasound grayscale images of the kidneys were obtained. COMPARISON: CT abdomen pelvis 10/02/2021 FINDINGS: The right kidney measures 11.3 x 5.5 x 6.7 cm. The left kidney measures 10.9 x 4.9 x 6.8 cm. The kidn eys demonstrate normal parenchymal echogenicity. There is no hydronephrosis. The bladder is not well visualized and likely decompressed. IMPRESSION: 1. Normal kidneys. No hydronephrosis. Reviewed, dictated and finalized at location A.
[2021-10-02] MEDS: SODIUM CHLORIDE 0.9% IV 1,000 ML 999 ML (19:29)
[2021-10-02 19:31] LABS: Basophils Absolute Auto 0.1 K/mm3 (0.0-0.1); Basophils Percent Auto 0.5 % (0.2-1.2); Eosinophils Absolute Auto 0.1 K/mm3 (0-0.3); Eosinophils Percent Auto 0.6 % (0-4.4); Hematocrit 37.6 % (37.0-47.0); Hemoglobin 11.9 g/dL (12.0-15.0); Immature Granulocyte Absolute 0.27 K/mm3 (0.00-0.031); Immature Granulocyte Percent A 2.1 % (0-0.5); Lymphocytes Absolute Auto 1.02 K/mm3 (0.9-3.2); Mean Corpuscular HGB Conc 31.6 g/dl (32-36); Mean Corpuscular Hemoglobin 33.4 pg (26-34); Mean Corpuscular Volume 105.6 fl (80-100); Mean Platelet Volume 11.7 fl (7.4-10.4); Monocytes Absolute Auto 1.3 K/mm3 (0.1-0.6); Neutrophils Percent Auto 78.8 % (45.5-73.1); Platelet Count Result 263 k/mm3 (150-375); Red Blood Count 3.56 M/mm3 (4.2-5.4); White Blood Count 12.7 K/mm3 (4.5-10.0)
[2021-10-02 19:38] LABS: Anisocytosis 1+ (NORMAL); Macrocytosis 1+ (NORMAL); Platelet Estimate Adequate (Adequate)
[2021-10-02 19:39] LABS: Ovalocytes 1+ (NORMAL)
--- NOTE | 2021-10-02 19:39 | ED.GENADULT ---
HPI - General Adult General Chief complaint: Nausea/Vomiting/Diarrhea Stated complaint: AMS, N/V, CASILLAS Time Seen by Provider: 10/02/21 19:19 History of Present Illness HPI narrative: 66-year-old female presenting to the emergency department for evaluation of nausea vomiting diarrhea and abdominal pain. [facility] is at a local [facility] and was recently treated for urinary tract infection. Patient does have an indwelling Spaulding catheter. Patient does have history of dementia and is at her normal baseline. Patient denies any complaints at this time. Related Data Home Medications Medication Instructions Recorded Confirmed acetaminophen 650 mg tablet 650 mg PO Q6H PRN Pain (Scale 01/20/21 10/03/21 Score 1-3) albuterol sulfate 90 mcg/actuation 2 puff inhalation HS 01/20/21 10/03/21 aerosol inhaler albuterol sulfate 90 mcg/actuation 2 puff inhalation Q4H PRN 01/20/21 10/03/21 aerosol inhaler Shortness Of Breath Or Wheezing allopurinol 300 mg tablet 300 mg PO DAILY 01/20/21 10/03/21 ascorbic acid (vitamin C) 500 mg 500 mg PO DAILY 01/20/21 10/03/21 tablet bisacodyl 10 mg rectal suppository 10 mg RECTAL DAILY PRN Constipation 01/20/21 10/03/21 calcium carbonate 200 mg calcium 200 mg PO BID 01/20/21 10/03/21 (500 mg) chewable tablet cholecalciferol (vitamin D3) 25 25 mcg PO DAILY 01/20/21 10/03/21 mcg (1,000 unit) tablet (Vitamin D3) cyanocobalamin (vitamin B-12) 1,000 mcg PO DAILY 01/20/21 10/03/21 1,000 mcg tablet (Vitamin B-12) famotidine 20 mg tablet 20 mg PO BID 01/20/21 10/03/21 furosemide 20 mg tablet 80 mg PO DAILY 01/20/21 10/03/21 insulin aspart U-100 100 unit/mL 6 unit subcut TIDWM 01/20/21 10/03/21 (3 mL) subcutaneous pen (Novolog Flexpen U-100 Insulin aspart) insulin aspart U-100 100 unit/mL See Rx Instructions .Route .COMPLEX 01/20/21 10/03/21 (3 mL) subcutaneous pen (Novolog Flexpen U-100 Insulin aspart) insulin glargine 100 unit/mL (3 55 unit subcut HS 01/20/21 10/03/21 mL) subcutaneous pen (Lantus Solostar U-100 Insulin) loperamide 2 mg capsule 2 mg PO Q6H PRN Diarrhea 01/20/21 10/03/21 loratadine 10 mg tablet 10 mg PO DAILY 01/20/21 10/03/21 magnesium citrate 296 ml PO DAILY PRN Constipation 01/20/21 10/03/21 magnesium hydroxide 400 mg/5 mL 30 ml PO HS PRN Constipation 01/20/21 10/03/21 oral suspension (Milk of Magnesia) melatonin 5 mg tablet 5 mg PO HS 01/20/21 10/03/21 metformin 500 mg tablet 1,000 mg PO BID 01/20/21 10/03/21 olanzapine 5 mg tablet 2.5 mg PO HS 01/20/21 10/03/21 sodium phosphates 19 gram-7 118 ml RECTAL DAILY PRN 01/20/21 10/03/21 gram/118 mL enema (Fleet Enema) Constipation venlafaxine 75 mg capsule,extended 225 mg PO DAILY 01/20/21 10/03/21 release 24 hr lisinopril 5 mg tablet 5 mg PO DAILY 05/13/21 10/03/21 multivitamin-ferrous 1 tablet PO DAILY 05/13/21 10/03/21 fumarate-folic acid 18 mg-400 mcg tablet nystatin-triamcinolone 100,000 1 applic topical Q24H 05/13/21 10/03/21 unit/g-0.1 % topical cream ondansetron HCl 4 mg tablet 4 mg PO Q8H PRN Nausea 05/13/21 10/03/21 divalproex 500 mg tablet,delayed 500 mg PO BID 09/20/21 10/03/21 release empagliflozin 25 mg tablet 25 mg PO DAILY 09/20/21 10/03/21 (Jardiance) metolazone 2.5 mg tablet 2.5 mg PO DAILY 09/20/21 10/03/21 Allergies Allergy/AdvReac Type Severity Reaction Status Date / Time amoxicillin Allergy Severe Anaphylaxis Verified 10/02/21 19:51 bee venom protein (honey bee) Allergy Severe Anaphylaxis Verified 10/02/21 19:51 [bees] Penicillins Allergy Severe Anaphylaxis Verified 10/02/21 19:51 Sulfa (Sulfonamide Allergy Severe Anaphylaxis Verified 10/02/21 19:51 Antibiotics) iodine Allergy Rash Verified 10/02/21 19:51 metaproterenol Allergy Unknown Verified 10/02/21 19:51 methocarbamol Allergy Unknown Verified 10/02/21 19:51 oxytetracycline Allergy Unknown Verified 09/20/21 03:03 pentazocine Allergy Unknown Verified 09/20/21 03:03 procaine Allergy Unknown Verified 10/02/21 19
[2021-10-02 19:41] LABS: Appearance Urine Turbid (Clear); Bilirubin Urine 1+ (Negative); Blood Urine 3+ (Negative); Color Urine Yellow (Yellow); Glucose Urine UA Negative (Negative); Ketones Urine 1+ mg/dL (Negative); Leukocyte Esterase Ur 3+ LEU/UL (Negative); Nitrate Urine Negative (Negative); Protein Urine 3+ mg/dL (Negative); Specific Grav Ur >= 1.030 (1.001-1.035); Urobilinogen Urine 0.2 mg/dL (<2.0)
[2021-10-02 19:42] LABS: Alanine Aminotransferase 15 U/L (6-35); Albumin Level 3.6 g/dL (3.5-5.1); Alkaline Phosphatase 82 U/L (38-126); Anion Gap 18 mmol/L (8-16); Aspartate Amino Transferase 22 U/L (14-36); Bilirubin,Total 0.3 mg/dL (0.2-1.3); Blood Urea Nitrogen 76 mg/dL (7-17); Calcium 8.3 mg/dL (8.4-10.2); Carbon Dioxide 22 mmol/L (22-30); Chloride 93 mmol/L (98-107); Estimated CRCL calculation 15 ml/min; Estimated Glomerular Filt Rate 10; Glucose 190 mg/dL (65-110); Lipase 124 U/L (23-300); Sodium 133 mmol/L (137-145)
[2021-10-02] MEDS: SODIUM CHLORIDE 0.9% IV 1,000 ML 500 ML IV CONT (19:48)
[2021-10-02 19:50] LABS: Add Urine Microscopic? YES; Bacteria Urine 1+ /hpf; Budding Yeast Urine Present /hpf; Mucus Urine Rare /lpf; RBC Urine >75 /hpf (0-2); Squamous Epithelial Cell Urine Moderate /hpf (Few); WBC Clumps Urine Present /HPF; WBC Urine >75 /hpf
--- NOTE | 2021-10-02 19:50 | ECG_ITS ---
Measurements Intervals Premier Rate: 89 P: 60 CT: 194 QRS: -48 QRSD: 119 T: 86 QT: 392 QTc: 479 Interpretive Statements SINUS RHYTHM LEFT AXIS DEVIATION [QRS AXIS < -30] POOR R-WAVE PROGRESSION, CANNOT RULE OUT AN OLD ANTERIOR MYOCARDIAL INFARCTION COMPARED TO ECG 05/12/2021 18:11:21 NO SIGNIFICANT CHANGE Electronically Signed On 10-03-2021 16:26:06 CDT by Marylin Beach M.D.
[2021-10-02 20:07] LABS: Lactic Acid Reflex 4.3 mmol/L (0.7-2.0)
[2021-10-02 20:29] LABS: SARS-CoV-2 RNA PCR Negative
[2021-10-02] MEDS: SODIUM CHLORIDE 0.9% IV 1,000 ML 999 ML IV CONT ×2 (21:38→22:29)
[2021-10-02] MEDS: levoFLOXacin 500 MG/D5W 100 ML 500 MG/100 ML BAG 100 MG IVPB (21:38)
--- NOTE | 2021-10-02 22:00 | PM.IMHP ---
H&P: HPI History of Present Illness Date/Time: 10/02/21 22:00 Chief Complaint: Nausea vomiting and diarrhea. Narrative: 66-year-old female with a past medical history of dementia, morbid obesity, untreated obstructive sleep apnea CHF, DVT/PE, chronic indwelling Spaulding catheter who presented to the ER from [facility] via EMS due to nausea vomiting and abdominal pain. At the time of my evaluation the patient actually denies having any abdominal pain nausea or vomiting. She is only oriented to self and realizes that she is in the hospital. I evaluated the patient while she was still in the ER and she thought that she was at [facility] and that she was in the ICU ?again.? She denies any shortness of breath or cough. She was afebrile on presentation. Her Spaulding catheter was noted to be foul appearing. Nursing staff change the catheter noted significant milky material. Her UA was consistent with UTI. Patient has so she did leukocytosis, tachycardia hypotension and severe lactic acidosis. She received 2 L of fluid bolus prior to my evaluation and her blood pressures remained low at 88/53. Nursing staff noted that the patient has skin tears on her buttocks. I was unable to reposition the patient due to her body habitus and physical limitations to visualize this myself. The patient evidently arrived to the ER covered in stool. Review of Systems Review of Systems: Unable to obtain due to patient's history of dementia [facility] Past Medical History Medical History (Updated 10/02/21 @ 23:53 by Temitope Richradson, DO) Anxiety Asthma CAD (coronary artery disease) Non STEMI 12/2020 Congestive heart failure Echocardiogram 04/2021: EF 65-70%, mildly increased left ventricular wall thickness, abnormal diastolic function, moderate left atrial enlargement, mild aortic valve stenosis peak velocity of 205 mean gradient 11 and valve area 2.39 cm, mild aortic valve regurgitation, mild mitral valve stenosis, mild mitral valve regurgitation, severely calcified mitral valve annulus, mild tricuspid valve regurgitation, moderate pulmonary hypertension RVSP of 59 Deep venous thrombosis Depression Diabetic peripheral neuropathy Frequent urinary tract infections Gastroesophageal reflux disease Hyperlipidemia Hypertension Mixed stress and urge incontinence Moderate pulmonary hypertension Morbid obesity with BMI of 50.0-59.9, adult Obstructive sleep apnea Intolerant to CPAP. Paroxysmal atrial fibrillation Pulmonary embolism Type 2 diabetes mellitus A1c 6.8% December 2020 Surgical History Surgical History (Updated 10/02/21 @ 23:32 by Temitope Richardson DO) History of cardiac catheterization Most recent cardiac catheterization 12/2020: 70% eccentric stenosis proximal left circumflex status post angioplasty and stent placement 3 x 12 mm Medtronic resolute becca zotarolimus stent, 30 40% stenosis mid LAD, 50 60% diffuse stenosis proximal segment of D2 and D3, 30-40% stenosis proximal segment of RCA preserved EF 70% left ventricular end-diastolic pressure 12 History of cholecystectomy History of colonoscopy History of cystoscopy History of tonsillectomy and adenoidectomy Family History Family History Mother No problems noted. Father No problems noted. Other Adopted Social History Social History Social History: Surrogate decision maker: Moi Medellin, brother. Code status: Full code. Smoking status: Never smoker Second hand tobacco smoke exposure: No Alcohol intake: never Substance use: never Substance use type: does not use Additional living arrangements comments: Patient is a resident at [facility]. She has no children. 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 Spiritual care concerns: No Meds Home Medications a
[2021-10-02 22:47] LABS: Reflex Lactic Acid Yes or No Add Lactic
[2021-10-02 23:08] LABS: Lactic Acid Reflex 1.1 mmol/L (0.7-2.0)
[2021-10-02] MEDS: SODIUM CHLORIDE 0.9% IV 1,000 ML 125 ML IV CONT (23:47)
[2021-10-03] VITALS (25 sets, daily range): BP systolic 50–131; BP diastolic 22–89; PULSE 72–92; RESP 12–22; TEMP 36.5–37.2; O2SAT 94–100; BMI 53.5
[2021-10-03] MEDS: SODIUM CHLORIDE 0.9% IV 1,000 ML 125 ML IV CONT ×4 (01:44→20:15)
--- NOTE | 2021-10-03 02:13 | ADMGEN ---
This patient, Nazanin Medellin, was admitted to IMU Room 206-01. Patient/family oriented to hospital policies and general routines including ID bracelet, bed and alarms, visiting hours, pain management, procedures, bathroom and other care routines, personal items, smoking policy, room service/diet, and visiting hours. Information on how to activate the Rapid Response Team has been discussed. Patient/Family are encouraged to report perceived risks to care and to ask questions if they do not understand what they are told or what they should do.
[2021-10-03] MEDS: SODIUM CHLORIDE 0.9% IV 1,000 ML 500 ML IV CONT (05:00)
--- NOTE | 2021-10-03 05:26 | PC.NURSE ---
This patient, Nazanin Medellin, was transferred to [ICU 2 ] on 10/03/21 at 0526. Personal belongings sent with patient. Report given to [Juan alvarez ]. Appropriate documentation sent with patient.
[2021-10-03 05:44] LABS: Basophils Percent Auto 0.5 % (0.2-1.2); Eosinophils Absolute Auto 0.1 K/mm3 (0-0.3); Eosinophils Percent Auto 1.3 % (0-4.4); Hematocrit 34.1 % (37.0-47.0); Hemoglobin 10.6 g/dL (12.0-15.0); Immature Granulocyte Absolute 0.12 K/mm3 (0.00-0.031); Immature Granulocyte Percent A 1.6 % (0-0.5); Lymphocytes Absolute Auto 1.84 K/mm3 (0.9-3.2); Lymphocytes Percent Auto 24.2 % (18.3-44.2); Mean Corpuscular HGB Conc 31.1 g/dl (32-36); Mean Corpuscular Volume 106.2 fl (80-100); Monocytes Absolute Auto 0.9 K/mm3 (0.1-0.6); Monocytes Percent Auto 11.6 % (2.6-8.5); Neutrophils Absolute Auto 4.6 K/mm3 (1.3-6.7); Neutrophils Percent Auto 60.8 % (45.5-73.1); Platelet Count Result 207 k/mm3 (150-375); Red Blood Count 3.21 M/mm3 (4.2-5.4); White Blood Count 7.6 K/mm3 (4.5-10.0)
[2021-10-03 05:59] LABS: Alanine Aminotransferase 13 U/L (6-35); Albumin Level 3.1 g/dL (3.5-5.1); Alkaline Phosphatase 69 U/L (38-126); Anion Gap 12 mmol/L (8-16); Aspartate Amino Transferase 32 U/L (14-36); Bilirubin,Total 0.2 mg/dL (0.2-1.3); Blood Urea Nitrogen 66 mg/dL (7-17); Calcium 7.3 mg/dL (8.4-10.2); Carbon Dioxide 25 mmol/L (22-30); Chloride 100 mmol/L (98-107); Estimated CRCL calculation 17 ml/min; Estimated Glomerular Filt Rate 12; Glucose 136 mg/dL (65-110); Potassium 3.5 mmol/L (3.4-5.0); Sodium 137 mmol/L (137-145)
[2021-10-03 06:16] LABS: Burr Cells 1+ (NORMAL); Macrocytosis 1+ (NORMAL); Platelet Estimate Adequate (Adequate)
[2021-10-03 06:17] LABS: Anisocytosis 1+ (NORMAL)
[2021-10-03 07:19] LABS: Glucose Point of Care 130 mg/dl (65-105)
--- NOTE | 2021-10-03 07:51 | PM.CCN ---
Critical Care Event Note Summary Code activated: No Narrative: Nursing staff called me to tell me that several hours after the patient arrived to the IMU the patient's blood pressure suddenly decompensated to the 50 systolic. They checked ablation blood pressures and multiple limbs in did manual live pressures with confirmation of blood pressures between 70 in 50 systolic. Patient did not have any increase in tachycardia. She had actually had 800 mL of urine output since arrival to the IMU. Cheetah score was performed and demonstrated patient was not fluid responsive. I did still given order for another L bolus to run over 2 hours. Subsequently gave the order to move the patient to the ICU and to obtain consent for central line. I was preparing to do a central line but by the time I was ready patient's blood pressures were in the 120s. In patient's heart rate was in the 70s. The patient was on room air. Her I left the patient in the ICU but as IMU status. However before I left for the day the patient's blood pressures again dropped to the 90s. Will transition further care to daytime hospitalist and intensive care staff. Thirty additional minutes was spent in critical care activities. This case had a high probability of a clinically significant, sudden, or life threatening deterioration of this patient's condition which required my full and direct attention, intervention and personal management. Critical care time: 30 - 74 mins
[2021-10-03] MEDS: hetaSTARCH 6%/NACL 500 ML 250 ML IV CONT (08:06)
--- NOTE | 2021-10-03 08:20 | PM.IMPN ---
Progress Note: A&P Assessment and Plan (1) Severe sepsis: Code(s): A41.9 - Sepsis, unspecified organism; R65.20 - Severe sepsis without septic shock Status: Acute Assessment and Plan: Patient met Severe Sepsis criteria on presentation with hypotension, tachycardia, leukocytosis and severe lactic acidosis likely from complicated UTI with chronic indwelling Spaulding catheter. UA noted. BCx and UCx pending. CT A/P showing no acute process. No CXR here so will add. Currently on Levaquin. Add Vanco? Change to another agent since last UTI was resistent to Levaquin. (2) Septic shock: Code(s): A41.9 - Sepsis, unspecified organism; R65.21 - Severe sepsis with septic shock Status: Acute Assessment and Plan: BP was soft in the ED. The patient received a total of 3 L of IV fluid bolus in the ER with stabilization of her blood pressures and improvement in her heart rate. Patient's home antihypertensives and diuretics were held. After the patient arrived to the IMU, the patient's blood pressure suddenly decompensated to the 50 systolic with manual pressures confirming blood pressures between 70 in 50 systolic.?Fluid bolus ordered with improvement. Lactic acid was 4.3 but now normal. She was moved to the ICU. BP still dropping with plans for PICC line and possible vasopressors. Hetastarch added. Appreciate heat treat supervisor input. Check TSH and cortisol level (3) UTI (urinary tract infection) due to urinary indwelling Spaulding catheter: Code(s): T83.511A - Infection and inflammatory reaction due to indwelling urethral catheter, initial encounter; N39.0 - Urinary tract infection, site not specified Status: Acute Assessment and Plan: Complicated UTI with chronic indwelling Spaulding. The patient's Spaulding catheter has been exchanged. Patient has numerous antibiotic allergies with anaphylaxis noted as the side effect. Patient was placed on Levaquin. Last UCx was positive for EColi that was resistent to Levaquin. Blood cultures and urine cultures are pending. Discussed with heat treat supervisor about adjusting abx. (4) Acute renal failure superimposed on stage 3b chronic kidney disease: Qualifiers: Acute renal failure type: with acute tubular necrosis Qualified Code(s): N17.0 - Acute kidney failure with tubular necrosis; N18.32 - Chronic kidney disease, stage 3b Code(s): N17.9 - Acute kidney failure, unspecified; N18.32 - Chronic kidney disease, stage 3b Status: Acute Assessment and Plan: Baseline Cr 1.1-1.4 but hx of episodes of IRIS. Cr here was 4.5. Likely due to ATN from severe sepsis with hypotension and a component of dehydration. Patient's home Lasix, metolazone, metformin, Jardiance, lisinopril, and allopurinol on hold. UOP 850mL noted. Cr trending down. Will monitor urine output closely. Check urine studies and Renal US. Continue to trend. (5) Obstructive sleep apnea: Code(s): G47.33 - Obstructive sleep apnea (adult) (pediatric) Status: Acute Assessment and Plan: Patient has mild hypoxia when she falls asleep. Patient has known MARITA and is intolerant to CPAP. She may need nocturnal supplemental oxygen while hospitalized. Check Apnea link when she is better. (6) Type 2 diabetes mellitus with hyperglycemia, with long-term current use of insulin: Code(s): E11.65 - Type 2 diabetes mellitus with hyperglycemia; Z79.4 - assisted (current) use of insulin Status: Acute Assessment and Plan: The patient's blood glucose was reviewed on 10/03 Glucose remains well controlled. Continue AccuCheks covering with sliding scale. Hypoglycemia protocol available as needed. Continue to monitor. The patient's home metformin and Jardiance will be held. (7) Diastolic heart failure: Qualifiers: Heart failure chronicity: chronic Qualified Code(s): I50.32 - Chronic diastolic (congestive) heart failure Code(s): I50.30 - Unspecified diastolic (conge
[2021-10-03] MEDS: LIDOCAINE HCL 1% LOCAL INJ 2 ML AMPUL 5 ML INFILTRATE (09:00)
--- NOTE | 2021-10-03 09:21 | WPDCNINT ---
Assessment and Plan Assessment and plan (1) Severe sepsis: Code(s): A41.9 - Sepsis, unspecified organism; R65.20 - Severe sepsis without septic shock Status: Acute Assessment and Plan: Patient presented with altered mental status, nausea, vomiting. Was found to be hypotensive, in acute kidney injury, elevated lactic acid -likely source of infection is urine -initial lactic acid was 4.1, repeat lactic has normalized -patient started on Levaquin, recent urine culture on 09/20/2021 grew E coli which was resistant to Levaquin. Patient is allergic to penicillin -will start aztreonam (10/03), renally dosed and discontinue Levaquin -patient has been adequately fluid-resuscitated, also gave her Hespan this morning -blood pressures have stabilized not requiring vasopressor -left IJ Tom catheter inserted on 10/03/2021 -continue to monitor urine output, renal function and blood pressures closely (2) Acute renal failure superimposed on stage 3b chronic kidney disease: Qualifiers: Acute renal failure type: with acute tubular necrosis Qualified Code(s): N17.0 - Acute kidney failure with tubular necrosis; N18.32 - Chronic kidney disease, stage 3b Code(s): N17.9 - Acute kidney failure, unspecified; N18.32 - Chronic kidney disease, stage 3b Status: Acute Assessment and Plan: Acute kidney injury likely related to hypotension, UTI, patient should severe sepsis, medications (patient is on furosemide, lisinopril, metolazone[facility] -adequately fluid-resuscitated -adequate urine output -renal ultrasound has been ordered: Check urine lytes creatinine trending down -continue to monitor renal function electrolytes and urine output (3) UTI (urinary tract infection) due to urinary indwelling Spaulding catheter: Code(s): T83.511A - Infection and inflammatory reaction due to indwelling urethral catheter, initial encounter; N39.0 - Urinary tract infection, site not specified Status: Acute Assessment and Plan: Cultures have been obtained and pending, antibiotics switched to aztreonam (4) Type 2 diabetes mellitus with hyperglycemia, with long-term current use of insulin: Code(s): E11.65 - Type 2 diabetes mellitus with hyperglycemia; Z79.4 - intermediate card tender (current) use of insulin Status: Acute Assessment and Plan: Continue sliding scale insulin Accu-Cheks (5) Obstructive sleep apnea: Code(s): G47.33 - Obstructive sleep apnea (adult) (pediatric) Status: Acute Assessment and Plan: Patient may require supplemental oxygen at night (6) Diastolic heart failure: Qualifiers: Heart failure chronicity: chronic Qualified Code(s): I50.32 - Chronic diastolic (congestive) heart failure Code(s): I50.30 - Unspecified diastolic (congestive) heart failure Status: Acute Assessment and Plan: Patient is on metolazone and furosemide, beta-hermila lisinopril which currently on hold due to hypotension and severe sepsis. -will resume home meds once patient is more hemodynamically stable and blood pressures can tolerate 05/13/2021 echocardiogram showed EF of 65-70%, LV diastolic function is abnormal, LV chamber is moderately enlarged mild aortic valve stenosis, mild aortic valve regurg, mild mitral valve stenosis, mild mitral valve regurg, moderate pulmonary hypertension with RVSP of 59 mmHg (7) Dementia: Qualifiers: Dementia type: unspecified type Dementia behavioral disturbance: without behavioral disturbance Qualified Code(s): F03.90 - Unspecified dementia without behavioral disturbance Code(s): F03.90 - Unspecified dementia without behavioral disturbance Status: Acute Assessment and Plan: Chronic Plan Check renal ultrasound Urine lytes Switch antibiotics to aztreonam Check venous Dopplers of lower extremities Additional Plan DVT prophylaxis: Enoxaparin renally dosed Stress ulcer prophylaxis: Protoni
[2021-10-03] MEDS: AZTREONAM 1 GM in DEXTROSE 5% IN WATER 50 ML 100 ML IVPB (10:12)
[2021-10-03] MEDS: ENOXAPARIN 30 MG/0.3 ML SYRINGE SUB-Q ×2 (10:12→20:37)
[2021-10-03 10:55] LABS: Creatine Kinase 808 U/L (30-135)
[2021-10-03 11:59] LABS: Folic Acid 11.9 ng/mL (2.76->20)
[2021-10-03] MEDS: NOREPINEPHRINE 8 MG/D5W 250 ML 8 MG/250 ML BAG 13.13 MG IV CONT (12:05)
[2021-10-03] MEDS: ATORVASTATIN 40 MG TABLET 80 MG PO (13:11)
[2021-10-03] MEDS: ASPIRIN 81 MG ENTERIC TABLET PO (13:11)
[2021-10-03] MEDS: VENLAFAXINE HCL XR 75 MG CAP.ER.24H 225 MG PO (13:12)
[2021-10-03] MEDS: LORATADINE 10 MG TABLET PO (13:12)
[2021-10-03 13:16] LABS: Glucose Point of Care 242 mg/dl (65-105)
[2021-10-03] MEDS: INSULIN ASPART (*BKC) 100 UNITS/ML SUB-Q ×2 (13:17→17:43)
[2021-10-03] MEDS: CENTRAL LINE FLUSH 10 ML IV PUSH ×3 (13:53→20:05)
[2021-10-03 14:42] LABS: Creatinine Urine 48.4 mg/dL
[2021-10-03 14:54] LABS: Potassium Urine Random 8.6 meq/L; Sodium Urine Random 83 meq/L
[2021-10-03 15:12] LABS: Eosinophil Urine None Seen % (None Seen)
[2021-10-03 17:48] LABS: Glucose Point of Care 225 mg/dl (65-105)
[2021-10-03] MEDS: OLANZapine 2.5 MG TABLET PO (20:05)
[2021-10-03] MEDS: TICAGRELOR 90 MG TABLET PO (20:05)
[2021-10-04] VITALS (20 sets, daily range): BP systolic 95–132; BP diastolic 44–69; PULSE 74–102; RESP 11–26; TEMP 36.4–36.9; O2SAT 95–100
[2021-10-04] MEDS: SODIUM CHLORIDE 0.9% IV 1,000 ML 125 ML IV CONT (04:54)
[2021-10-04] MEDS: CENTRAL LINE FLUSH 10 ML IV PUSH ×4 (04:55→21:18)
[2021-10-04 05:02] LABS: Basophils Percent Auto 0.4 % (0.2-1.2); Eosinophils Absolute Auto 0.2 K/mm3 (0-0.3); Eosinophils Percent Auto 3.6 % (0-4.4); Hematocrit 29.4 % (37.0-47.0); Hemoglobin 9.1 g/dL (12.0-15.0); Immature Granulocyte Absolute 0.06 K/mm3 (0.00-0.031); Immature Granulocyte Percent A 1.1 % (0-0.5); Lymphocytes Absolute Auto 1.59 K/mm3 (0.9-3.2); Lymphocytes Percent Auto 28.6 % (18.3-44.2); Mean Corpuscular Hemoglobin 33.5 pg (26-34); Mean Corpuscular Volume 108.1 fl (80-100); Mean Platelet Volume 10.8 fl (7.4-10.4); Monocytes Absolute Auto 0.6 K/mm3 (0.1-0.6); Monocytes Percent Auto 11.5 % (2.6-8.5); Neutrophils Percent Auto 54.8 % (45.5-73.1); Platelet Count Result 159 k/mm3 (150-375); Red Blood Count 2.72 M/mm3 (4.2-5.4); Red Cell Distribution Width 15.9 % (11.5-14.5); White Blood Count 5.6 K/mm3 (4.5-10.0)
[2021-10-04 05:14] LABS: Lactic Acid Reflex 0.9 mmol/L (0.7-2.0)
[2021-10-04 05:19] LABS: Alanine Aminotransferase 12 U/L (6-35); Albumin Level 2.5 g/dL (3.5-5.1); Alkaline Phosphatase 66 U/L (38-126); Anion Gap 5 mmol/L (8-16); Aspartate Amino Transferase 26 U/L (14-36); Bilirubin,Total 0.1 mg/dL (0.2-1.3); Blood Urea Nitrogen 36 mg/dL (7-17); Calcium 7.8 mg/dL (8.4-10.2); Carbon Dioxide 29 mmol/L (22-30); Chloride 103 mmol/L (98-107); Estimated CRCL calculation 35 ml/min; Estimated Glomerular Filt Rate 28; Glucose 152 mg/dL (65-110); Magnesium 1.8 mg/dL (1.6-2.3); Potassium 3.5 mmol/L (3.4-5.0); Sodium 137 mmol/L (137-145)
[2021-10-04 05:21] LABS: Poikilocytosis 1+ (NORMAL)
[2021-10-04 05:22] LABS: Anisocytosis 1+ (NORMAL); Macrocytosis 1+ (NORMAL)
[2021-10-04 07:37] LABS: Glucose Point of Care 138 mg/dl (65-105)
[2021-10-04] MEDS: ASPIRIN 81 MG ENTERIC TABLET PO (08:10)
[2021-10-04] MEDS: ATORVASTATIN 40 MG TABLET 80 MG PO (08:10)
[2021-10-04] MEDS: ENOXAPARIN 30 MG/0.3 ML SYRINGE SUB-Q ×2 (08:11→21:17)
[2021-10-04] MEDS: VENLAFAXINE HCL XR 75 MG CAP.ER.24H 225 MG PO (08:11)
[2021-10-04] MEDS: LORATADINE 10 MG TABLET PO (08:11)
[2021-10-04] MEDS: TICAGRELOR 90 MG TABLET PO ×2 (08:11→21:18)
--- NOTE | 2021-10-04 09:23 | WPDINTPN ---
Progress Note: A&P Assessment and Plan (1) Severe sepsis: Code(s): A41.9 - Sepsis, unspecified organism; R65.20 - Severe sepsis without septic shock Status: Acute Assessment and Plan: Secondary to UTI -initial lactic acid was 4.1, repeat lactic has normalized -patient started on Levaquin, recent urine culture on 09/20/2021 grew E coli which was resistant to Levaquin. Patient is allergic to penicillin -patient was started on aztreonam (10/03), renally dosed and Levaquin was discontinued. Continue -patient has been adequately fluid-resuscitated. Will decrease further IV fluid rate at this time also gave her Hespan this morning -Levophed has been weaned off -left IJ central venous catheter inserted on 10/03/2021 -continue to monitor urine output, renal function and blood pressures closely (2) Acute renal failure superimposed on stage 3b chronic kidney disease: Qualifiers: Acute renal failure type: with acute tubular necrosis Qualified Code(s): N17.0 - Acute kidney failure with tubular necrosis; N18.32 - Chronic kidney disease, stage 3b Code(s): N17.9 - Acute kidney failure, unspecified; N18.32 - Chronic kidney disease, stage 3b Status: Acute Assessment and Plan: Acute kidney injury likely related to hypotension, UTI, patient should severe sepsis, medications (patient is on furosemide, lisinopril, metolazone, metoprolol at the longterm) -continue IV fluids but decrease further rate -improved urine output and will monitor -renal ultrasound un remark -creatinine improving at 1.8 today -CK level was elevated. I will recheck today -continue to monitor renal function electrolytes and urine output (3) UTI (urinary tract infection) due to urinary indwelling Spaulding catheter: Code(s): T83.511A - Infection and inflammatory reaction due to indwelling urethral catheter, initial encounter; N39.0 - Urinary tract infection, site not specified Status: Acute Assessment and Plan: Cultures have been obtained and pending, antibiotics switched to aztreonam (4) Type 2 diabetes mellitus with hyperglycemia, with long-term current use of insulin: Code(s): E11.65 - Type 2 diabetes mellitus with hyperglycemia; Z79.4 - intermediate designer (current) use of insulin Status: Acute Assessment and Plan: Continue sliding scale insulin Accu-Cheks (5) Obstructive sleep apnea: Code(s): G47.33 - Obstructive sleep apnea (adult) (pediatric) Status: Acute Assessment and Plan: Patient is obese and has MARITA and does not wear CPAP. She is on oxygen at this time with oxygen saturation monitoring (6) Diastolic heart failure: Qualifiers: Heart failure chronicity: chronic Qualified Code(s): I50.32 - Chronic diastolic (congestive) heart failure Code(s): I50.30 - Unspecified diastolic (congestive) heart failure Status: Acute Assessment and Plan: Patient is on metolazone and furosemide, beta-hermila lisinopril which currently on hold due to hypotension and severe sepsis. -will resume home meds once patient is more hemodynamically stable and blood pressures can tolerate 05/13/2021 echocardiogram showed EF of 65-70%, LV diastolic function is abnormal, LV chamber is moderately enlarged mild aortic valve stenosis, mild aortic valve regurg, mild mitral valve stenosis, mild mitral valve regurg, moderate pulmonary hypertension with RVSP of 59 mmHg (7) Dementia: Qualifiers: Dementia type: unspecified type Dementia behavioral disturbance: without behavioral disturbance Qualified Code(s): F03.90 - Unspecified dementia without behavioral disturbance Code(s): F03.90 - Unspecified dementia without behavioral disturbance Status: Acute Assessment and Plan: Details unknown this is a chronic issue and I suspect patient may have some cognitive abnormality. (8) Electrolyte abnormality: Code(s): E87.8 - Other disorders of electrolyte and fluid
[2021-10-04] MEDS: KCL 20MEQ/0.9% SOD CHL 1,000 ML 75 ML IV CONT ×2 (09:33→22:24)
[2021-10-04 09:52] LABS: Creatine Kinase 439 U/L (30-135)
[2021-10-04 12:00] LABS: Glucose Point of Care 227 mg/dl (65-105)
[2021-10-04] MEDS: INSULIN ASPART (*BKC) 100 UNITS/ML SUB-Q ×2 (12:43→17:16)
--- NOTE | 2021-10-04 13:14 | PC.NURSE ---
Received pt from ICU to room 206-2- report received from Pina Perez RN-pt alert - oriented to self- pleasant/cooperative- reoriented to place and time- needs reminded- IVF infusing as ordered- no c/o pain- bed exit alarm. monitor SR 90's
--- NOTE | 2021-10-04 14:12 | PC.NURSE ---
This patient, Nazanin Medellin, was transferred to [[facility] [place] [facility] [place] ] on 10/04/21 at 1300. Personal belongings sent with patient. Report given to [ Gauri HAJI]. Appropriate documentation sent with patient.
--- NOTE | 2021-10-04 15:48 | PM.IMPN ---
Progress Note: A&P Assessment and Plan (1) Severe sepsis: Code(s): A41.9 - Sepsis, unspecified organism; R65.20 - Severe sepsis without septic shock Status: Acute Assessment and Plan: Secondary to UTI -initial lactic acid was 4.1, repeat lactic has normalized -patient started on Levaquin, recent urine culture on 09/20/2021 grew E coli which was resistant to Levaquin. Patient is allergic to penicillin -patient was started on aztreonam (10/03), renally dosed -patient has been adequately fluid-resuscitated. Will decrease further IV fluid rate at this time also gave her Hespan this morning -Levophed has been weaned off -left IJ central venous catheter inserted on 10/03/2021 -continue to monitor urine output, renal function and blood pressures closely (2) Acute renal failure superimposed on stage 3b chronic kidney disease: Qualifiers: Acute renal failure type: with acute tubular necrosis Qualified Code(s): N17.0 - Acute kidney failure with tubular necrosis; N18.32 - Chronic kidney disease, stage 3b Code(s): N17.9 - Acute kidney failure, unspecified; N18.32 - Chronic kidney disease, stage 3b Status: Acute Assessment and Plan: Acute kidney injury likely related to hypotension, UTI, severe sepsis, medications (patient is on furosemide, lisinopril, metolazone, [facility]) -continue IV fluids but decrease further rate -improved urine output and will monitor -renal ultrasound un remark -creatinine improving at 1.8 today -CK level was elevated, improving -continue to monitor renal function electrolytes and urine output (3) UTI (urinary tract infection) due to urinary indwelling Spaulding catheter: Code(s): T83.511A - Infection and inflammatory reaction due to indwelling urethral catheter, initial encounter; N39.0 - Urinary tract infection, site not specified Status: Acute Assessment and Plan: Cultures have been obtained and pending, antibiotics switched to aztreonam (4) Type 2 diabetes mellitus with hyperglycemia, with long-term current use of insulin: Code(s): E11.65 - Type 2 diabetes mellitus with hyperglycemia; 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 She is on oxygen at this time with oxygen saturation monitoring (6) Diastolic heart failure: Qualifiers: Heart failure chronicity: chronic Qualified Code(s): I50.32 - Chronic diastolic (congestive) heart failure Code(s): I50.30 - Unspecified diastolic (congestive) heart failure Status: Acute Assessment and Plan: Patient is on metolazone and furosemide, beta-hermila lisinopril which currently on hold due to hypotension and severe sepsis. -will resume home meds once patient is more hemodynamically stable and blood pressures can tolerate 05/13/2021 echocardiogram showed EF of 65-70%, LV diastolic function is abnormal, LV chamber is moderately enlarged mild aortic valve stenosis, mild aortic valve regurg, mild mitral valve stenosis, mild mitral valve regurg, moderate pulmonary hypertension with RVSP of 59 mmHg (7) Dementia: Qualifiers: Dementia type: unspecified type Dementia behavioral disturbance: without behavioral disturbance Qualified Code(s): F03.90 - Unspecified dementia without behavioral disturbance Code(s): F03.90 - Unspecified dementia without behavioral disturbance Status: Acute Assessment and Plan: Details unknown this is a chronic issue and I suspect patient may have some cognitive abnormality. Additional Plan Incentive spirometry, PT OT DVT prophylaxis: Enoxaparin renally dosed Stress ulcer prophylaxis: Protonix ( home med
[2021-10-04 16:20] LABS: Glucose Point of Care 227 mg/dl (65-105)
[2021-10-04] MEDS: AZTREONAM 1 GM in DEXTROSE 5% IN WATER 50 ML 100 ML IVPB (17:17)
[2021-10-04 21:13] LABS: Glucose Point of Care 221 mg/dl (65-105)
[2021-10-04] MEDS: INSULIN GLARGINE (*BKC) 100 UNITS/ML 10 UNITS SUB-Q (21:18)
[2021-10-04] MEDS: OLANZapine 2.5 MG TABLET PO (21:18)
[2021-10-05] VITALS (14 sets, daily range): BP systolic 104–133; BP diastolic 50–70; PULSE 90–107; RESP 12–22; TEMP 36.5–36.9; O2SAT 95–100
[2021-10-05] MEDS: AZTREONAM 1 GM in DEXTROSE 5% IN WATER 50 ML 100 ML IVPB ×3 (01:58→17:23)
[2021-10-05] MEDS: CENTRAL LINE FLUSH 10 ML IV PUSH ×4 (05:36→21:04)
[2021-10-05 05:49] LABS: Basophils Percent Auto 0.7 % (0.2-1.2); Eosinophils Absolute Auto 0.2 K/mm3 (0-0.3); Eosinophils Percent Auto 3.9 % (0-4.4); Hematocrit 29.3 % (37.0-47.0); Immature Granulocyte Absolute 0.06 K/mm3 (0.00-0.031); Lymphocytes Percent Auto 20.5 % (18.3-44.2); Mean Corpuscular HGB Conc 30.7 g/dl (32-36); Mean Corpuscular Hemoglobin 33.1 pg (26-34); Mean Corpuscular Volume 107.7 fl (80-100); Mean Platelet Volume 11.2 fl (7.4-10.4); Monocytes Absolute Auto 0.7 K/mm3 (0.1-0.6); Monocytes Percent Auto 11.8 % (2.6-8.5); Neutrophils Absolute Auto 3.6 K/mm3 (1.3-6.7); Neutrophils Percent Auto 62.1 % (45.5-73.1); Platelet Count Result 160 k/mm3 (150-375); Red Blood Count 2.72 M/mm3 (4.2-5.4); Red Cell Distribution Width 16.1 % (11.5-14.5); White Blood Count 5.8 K/mm3 (4.5-10.0)
[2021-10-05 06:16] LABS: Alanine Aminotransferase 12 U/L (6-35); Albumin Level 2.7 g/dL (3.5-5.1); Alkaline Phosphatase 69 U/L (38-126); Anion Gap 5 mmol/L (8-16); Aspartate Amino Transferase 32 U/L (14-36); Bilirubin,Total 0.2 mg/dL (0.2-1.3); Blood Urea Nitrogen 23 mg/dL (7-17); Calcium 8.3 mg/dL (8.4-10.2); Carbon Dioxide 29 mmol/L (22-30); Chloride 104 mmol/L (98-107); Estimated CRCL calculation 48 ml/min; Estimated Glomerular Filt Rate 41; Glucose 146 mg/dL (65-110); Potassium 3.7 mmol/L (3.4-5.0); Sodium 138 mmol/L (137-145)
[2021-10-05 06:38] LABS: Platelet Estimate Adequate (Adequate); Poikilocytosis 1+ (NORMAL)
[2021-10-05 08:24] LABS: Glucose Point of Care 151 mg/dl (65-105)
[2021-10-05] MEDS: ASPIRIN 81 MG ENTERIC TABLET PO (09:36)
[2021-10-05] MEDS: VENLAFAXINE HCL XR 75 MG CAP.ER.24H 225 MG PO (09:36)
[2021-10-05] MEDS: ATORVASTATIN 40 MG TABLET 80 MG PO (09:37)
[2021-10-05] MEDS: LORATADINE 10 MG TABLET PO (09:37)
[2021-10-05] MEDS: TICAGRELOR 90 MG TABLET PO ×2 (09:38→21:03)
[2021-10-05] MEDS: ENOXAPARIN 30 MG/0.3 ML SYRINGE SUB-Q ×2 (09:38→21:04)
[2021-10-05 12:36] LABS: Glucose Point of Care 218 mg/dl (65-105)
[2021-10-05] MEDS: INSULIN ASPART (*BKC) 100 UNITS/ML SUB-Q (12:59)
[2021-10-05 17:10] LABS: Glucose Point of Care 172 mg/dl (65-105)
[2021-10-05 20:31] LABS: Glucose Point of Care 235 mg/dl (65-105)
[2021-10-05] MEDS: OLANZapine 2.5 MG TABLET PO (21:03)
[2021-10-05] MEDS: INSULIN GLARGINE (*BKC) 100 UNITS/ML 10 UNITS SUB-Q (21:04)
[2021-10-06] VITALS (12 sets, daily range): BP systolic 100–135; BP diastolic 54–75; PULSE 80–110; RESP 16–24; TEMP 36.2–37.1; O2SAT 90–100
[2021-10-06] MEDS: AZTREONAM 1 GM in DEXTROSE 5% IN WATER 50 ML 100 ML IVPB ×3 (02:16→18:43)
[2021-10-06] MEDS: CENTRAL LINE FLUSH 10 ML IV PUSH ×3 (05:26→20:29)
[2021-10-06 05:48] LABS: Basophils Absolute Auto 0.1 K/mm3 (0.0-0.1); Basophils Percent Auto 0.8 % (0.2-1.2); Eosinophils Absolute Auto 0.3 K/mm3 (0-0.3); Eosinophils Percent Auto 4.3 % (0-4.4); Hematocrit 30.1 % (37.0-47.0); Hemoglobin 9.5 g/dL (12.0-15.0); Immature Granulocyte Absolute 0.06 K/mm3 (0.00-0.031); Immature Granulocyte Percent A 0.9 % (0-0.5); Lymphocytes Absolute Auto 1.21 K/mm3 (0.9-3.2); Lymphocytes Percent Auto 18.5 % (18.3-44.2); Mean Corpuscular HGB Conc 31.6 g/dl (32-36); Mean Corpuscular Hemoglobin 33.8 pg (26-34); Mean Corpuscular Volume 107.1 fl (80-100); Mean Platelet Volume 11.2 fl (7.4-10.4); Monocytes Absolute Auto 0.7 K/mm3 (0.1-0.6); Monocytes Percent Auto 9.9 % (2.6-8.5); Neutrophils Absolute Auto 4.3 K/mm3 (1.3-6.7); Neutrophils Percent Auto 65.6 % (45.5-73.1); Platelet Count Result 165 k/mm3 (150-375); Red Blood Count 2.81 M/mm3 (4.2-5.4); Red Cell Distribution Width 15.9 % (11.5-14.5); White Blood Count 6.5 K/mm3 (4.5-10.0)
[2021-10-06 05:58] LABS: Alanine Aminotransferase 13 U/L (6-35); Albumin Level 2.8 g/dL (3.5-5.1); Alkaline Phosphatase 74 U/L (38-126); Anion Gap 4 mmol/L (8-16); Aspartate Amino Transferase 27 U/L (14-36); Bilirubin,Total 0.2 mg/dL (0.2-1.3); Blood Urea Nitrogen 16 mg/dL (7-17); Calcium 7.9 mg/dL (8.4-10.2); Carbon Dioxide 29 mmol/L (22-30); Chloride 106 mmol/L (98-107); Estimated CRCL calculation 56 ml/min; Estimated Glomerular Filt Rate 50; Glucose 157 mg/dL (65-110); Potassium 3.7 mmol/L (3.4-5.0); Sodium 139 mmol/L (137-145)
--- NOTE | 2021-10-06 08:15 | P.PNIM_ITS ---
Progress Note: A&P Assessment and Plan (1) Severe sepsis: Code(s): A41.9 - Sepsis, unspecified organism; R65.20 - Severe sepsis without septic shock Status: Acute (2) Acute renal failure superimposed on stage 3b chronic kidney disease: Qualifiers: Acute renal failure type: with acute tubular necrosis Qualified Code(s): N17.0 - Acute kidney failure with tubular necrosis; N18.32 - Chronic kidney disease, stage 3b Code(s): N17.9 - Acute kidney failure, unspecified; N18.32 - Chronic kidney disease, stage 3b Status: Acute (3) UTI (urinary tract infection) due to urinary indwelling Spaulding catheter: Code(s): T83.511A - Infection and inflammatory reaction due to indwelling urethral catheter, initial encounter; N39.0 - Urinary tract infection, site not specified Status: Acute (4) Type 2 diabetes mellitus with hyperglycemia, with long-term current use of insulin: Code(s): E11.65 - Type 2 diabetes mellitus with hyperglycemia; 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 Status: Acute (5) Obstructive sleep apnea: Code(s): G47.33 - Obstructive sleep apnea (adult) (pediatric) Status: Acute (6) Diastolic heart failure: Qualifiers: Heart failure chronicity: chronic Qualified Code(s): I50.32 - Chronic diastolic (congestive) heart failure Code(s): I50.30 - Unspecified diastolic (congestive) heart failure Status: Acute (7) Dementia: Qualifiers: Dementia behavioral disturbance: without behavioral disturbance Dementia type: unspecified type Qualified Code(s): F03.90 - Unspecified dementia without behavioral disturbance Code(s): F03.90 - Unspecified dementia without behavioral disturbance Status: Acute Additional Plan 10/04/21 -initial lactic acid was 4.1, repeat lactic has normalized -patient started on Levaquin, recent urine culture on 09/20/2021 grew E coli which was resistant to Levaquin.? Patient is allergic to penicillin -patient was started on aztreonam (10/03), renally dosed -patient has been adequately fluid-resuscitated.? Will decrease further IV fluid rate at this time also gave her Hespan this morning -Levophed has been weaned off -left IJ central venous catheter inserted on 10/03/2021 -continue to monitor urine output, renal function and blood pressures closely Acute kidney injury likely related to hypotension, UTI, severe sepsis, medications (patient is on furosemide, lisinopril, metolazone, metoprolol at the long-term) -continue IV fluids but decrease further rate -improved urine output and will monitor -renal ultrasound un remark -creatinine improving at 1.8 today -CK level was elevated, improving -continue to monitor renal function electrolytes and urine output Cultures have been obtained and pending, antibiotics switched to aztreonam Continue sliding scale insulin Accu-Cheks, started on lantus 10 U HS Patient is obese and has MARITA and does not wear CPAP.? She is on oxygen at this time with oxygen saturation monitoring Patient is on metolazone and furosemide, beta-hermila lisinopril which currently on hold due to hypotension and severe sepsis. -will resume home meds once patient is more hemodynamically stable and blood pressures can tolerate 05/13/2021 echocardiogram showed EF of 65-70%, LV diastolic function is abnormal, LV chamber is moderately enlarged mild aortic valve stenosis, mild aortic valve regurg, mild mitral valve stenosis, mild mitral valve regurg, moderate pulmonary hypertension with RVSP of 59 mmHg Details unknown this is a chronic issue and I suspect patient may have some cognitive abnormality. Incentive spirometr
[2021-10-06 08:28] LABS: Glucose Point of Care 167 mg/dl (65-105)
[2021-10-06] MEDS: ATORVASTATIN 40 MG TABLET 80 MG PO (09:14)
[2021-10-06] MEDS: ENOXAPARIN 30 MG/0.3 ML SYRINGE SUB-Q ×2 (09:14→20:19)
[2021-10-06] MEDS: ASPIRIN 81 MG ENTERIC TABLET PO (09:15)
[2021-10-06] MEDS: TICAGRELOR 90 MG TABLET PO ×2 (09:15→20:20)
[2021-10-06] MEDS: VENLAFAXINE HCL XR 75 MG CAP.ER.24H 225 MG PO (09:15)
[2021-10-06] MEDS: LORATADINE 10 MG TABLET PO (09:15)
[2021-10-06 11:29] LABS: Glucose Point of Care 191 mg/dl (65-105)
--- NOTE | 2021-10-06 11:35 | PC.NURSE ---
This patient, Nazanin Medellin, was received from - on 10/06/21 at 1135. Patient/family oriented to unit policies and routines. Report received from Tyrone HAJI.
--- NOTE | 2021-10-06 11:42 | PC.NURSE ---
This patient, Nazanin Medellin, was transferred to [facility] on 10/06/21 at 1142. Personal belongings sent with patient. Report given to Alyson HAJI. Appropriate documentation sent with patient.
[2021-10-06 14:25] LABS: Chloride Rand Ur 55 mmol/L (32-290); Chloride/Creatinine Rand Ur 167 (38-318); Creatinine Random Urine 33 mg/dL (20-275)
[2021-10-06 16:15] LABS: Glucose Point of Care 149 mg/dl (65-105)
[2021-10-06] MEDS: OLANZapine 2.5 MG TABLET PO (20:20)
[2021-10-06] MEDS: INSULIN GLARGINE (*BKC) 100 UNITS/ML 10 UNITS SUB-Q (20:20)
[2021-10-06 21:19] LABS: Glucose Point of Care 222 mg/dl (65-105)
[2021-10-07] VITALS (9 sets, daily range): BP systolic 121–142; BP diastolic 60–89; PULSE 81–102; RESP 18–20; TEMP 36.1–36.8; O2SAT 95–98
[2021-10-07] MEDS: AZTREONAM 1 GM in DEXTROSE 5% IN WATER 50 ML 100 ML IVPB ×3 (02:52→17:25)
[2021-10-07 03:55] LABS: Basophils Absolute Auto 0.1 K/mm3 (0.0-0.1); Basophils Percent Auto 0.8 % (0.2-1.2); Eosinophils Absolute Auto 0.3 K/mm3 (0-0.3); Eosinophils Percent Auto 5.2 % (0-4.4); Hematocrit 29.5 % (37.0-47.0); Hemoglobin 9.2 g/dL (12.0-15.0); Immature Granulocyte Absolute 0.05 K/mm3 (0.00-0.031); Immature Granulocyte Percent A 0.8 % (0-0.5); Lymphocytes Absolute Auto 1.86 K/mm3 (0.9-3.2); Lymphocytes Percent Auto 29.1 % (18.3-44.2); Mean Corpuscular HGB Conc 31.2 g/dl (32-36); Mean Corpuscular Hemoglobin 32.9 pg (26-34); Mean Corpuscular Volume 105.4 fl (80-100); Mean Platelet Volume 10.9 fl (7.4-10.4); Monocytes Absolute Auto 0.6 K/mm3 (0.1-0.6); Monocytes Percent Auto 9.5 % (2.6-8.5); Neutrophils Absolute Auto 3.5 K/mm3 (1.3-6.7); Neutrophils Percent Auto 54.6 % (45.5-73.1); Platelet Count Result 183 k/mm3 (150-375); White Blood Count 6.4 K/mm3 (4.5-10.0)
[2021-10-07 04:04] LABS: Alanine Aminotransferase 15 U/L (6-35); Albumin Level 2.9 g/dL (3.5-5.1); Alkaline Phosphatase 81 U/L (38-126); Anion Gap 5 mmol/L (8-16); Aspartate Amino Transferase 34 U/L (14-36); Bilirubin,Total 0.3 mg/dL (0.2-1.3); Blood Urea Nitrogen 18 mg/dL (7-17); Calcium 8.6 mg/dL (8.4-10.2); Carbon Dioxide 30 mmol/L (22-30); Chloride 102 mmol/L (98-107); Estimated CRCL calculation 52 ml/min; Estimated Glomerular Filt Rate 45; Glucose 158 mg/dL (65-110); Potassium 3.4 mmol/L (3.4-5.0); Sodium 137 mmol/L (137-145)
[2021-10-07] MEDS: CENTRAL LINE FLUSH 10 ML IV PUSH ×3 (05:48→20:15)
--- NOTE | 2021-10-07 07:45 | PM.IMPN ---
Progress Note: A&P Assessment and Plan (1) Severe sepsis: Code(s): A41.9 - Sepsis, unspecified organism; R65.20 - Severe sepsis without septic shock Status: Acute (2) Acute renal failure superimposed on stage 3b chronic kidney disease: Qualifiers: Acute renal failure type: with acute tubular necrosis Qualified Code(s): N17.0 - Acute kidney failure with tubular necrosis; N18.32 - Chronic kidney disease, stage 3b Code(s): N17.9 - Acute kidney failure, unspecified; N18.32 - Chronic kidney disease, stage 3b Status: Acute (3) UTI (urinary tract infection) due to urinary indwelling Spaulding catheter: Code(s): T83.511A - Infection and inflammatory reaction due to indwelling urethral catheter, initial encounter; N39.0 - Urinary tract infection, site not specified Status: Acute (4) Type 2 diabetes mellitus with hyperglycemia, with long-term current use of insulin: Code(s): E11.65 - Type 2 diabetes mellitus with hyperglycemia; 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 Status: Acute (5) Obstructive sleep apnea: Code(s): G47.33 - Obstructive sleep apnea (adult) (pediatric) Status: Acute (6) Diastolic heart failure: Qualifiers: Heart failure chronicity: chronic Qualified Code(s): I50.32 - Chronic diastolic (congestive) heart failure Code(s): I50.30 - Unspecified diastolic (congestive) heart failure Status: Acute (7) Dementia: Qualifiers: Dementia behavioral disturbance: without behavioral disturbance Dementia type: unspecified type Qualified Code(s): F03.90 - Unspecified dementia without behavioral disturbance Code(s): F03.90 - Unspecified dementia without behavioral disturbance Status: Acute Additional Plan 10/04/21 -initial lactic acid was 4.1, repeat lactic has normalized -patient started on Levaquin, recent urine culture on 09/20/2021 grew E coli which was resistant to Levaquin.? Patient is allergic to penicillin -patient was started on aztreonam (10/03), renally dosed -patient has been adequately fluid-resuscitated.? Will decrease further IV fluid rate at this time also gave her Hespan this morning -Levophed has been weaned off -left IJ central venous catheter inserted on 10/03/2021 -continue to monitor urine output, renal function and blood pressures closely Acute kidney injury likely related to hypotension, UTI, severe sepsis, medications (patient is on furosemide, lisinopril, metolazone, metoprolol at the long-term) -continue IV fluids but decrease further rate -improved urine output and will monitor -renal ultrasound un remark -creatinine improving at 1.8 today -CK level was elevated, improving -continue to monitor renal function electrolytes and urine output Cultures have been obtained and pending, antibiotics switched to aztreonam Continue sliding scale insulin Accu-Cheks, started on lantus 10 U HS Patient is obese and has MARITA and does not wear CPAP.? She is on oxygen at this time with oxygen saturation monitoring Patient is on metolazone and furosemide, beta-hermila lisinopril which currently on hold due to hypotension and severe sepsis. -will resume home meds once patient is more hemodynamically stable and blood pressures can tolerate 05/13/2021 echocardiogram showed EF of 65-70%, LV diastolic function is abnormal, LV chamber is moderately enlarged mild aortic valve stenosis, mild aortic valve regurg, mild mitral valve stenosis, mild mitral valve regurg, moderate pulmonary hypertension with RVSP of 59 mmHg Details unknown this is a chronic issue and I suspect patient may have some cognitive abnormality. Incentive spirometry, PT OT DVT prophylaxis: Enoxaparin renally dosed Stress ulcer prophylaxis: Protonix ( home med) Nutrition carb consistent diet Code status: Full code 10/05/21 UCx mixed dawit on Aztreonam improving clinically IRIS resolving POC reviewed w PT/OT this am, unclear what skillable need pt has if any. W
[2021-10-07 08:28] LABS: Glucose Point of Care 173 mg/dl (65-105)
[2021-10-07] MEDS: SODIUM CHLORIDE 0.9% IV 1,000 ML 70 ML IV CONT (09:19)
[2021-10-07] MEDS: VENLAFAXINE HCL XR 75 MG CAP.ER.24H 225 MG PO (09:42)
[2021-10-07] MEDS: ASPIRIN 81 MG ENTERIC TABLET PO (09:43)
[2021-10-07] MEDS: ENOXAPARIN 30 MG/0.3 ML SYRINGE SUB-Q ×2 (09:43→20:15)
[2021-10-07] MEDS: LORATADINE 10 MG TABLET PO (09:43)
[2021-10-07] MEDS: TICAGRELOR 90 MG TABLET PO ×2 (09:43→20:14)
[2021-10-07] MEDS: ATORVASTATIN 40 MG TABLET 80 MG PO (09:43)
[2021-10-07 11:32] LABS: Glucose Point of Care 240 mg/dl (65-105)
[2021-10-07] MEDS: INSULIN ASPART (*BKC) 100 UNITS/ML SUB-Q (13:21)
[2021-10-07 16:42] LABS: Glucose Point of Care 152 mg/dl (65-105)
[2021-10-07 20:09] LABS: Glucose Point of Care 229 mg/dl (65-105)
[2021-10-07] MEDS: BISACODYL 10 MG SUPPOSITORY RECTAL (20:12)
[2021-10-07] MEDS: MAGNESIUM HYDROXIDE SUSP 30 ML UDC PO (20:13)
[2021-10-07] MEDS: OLANZapine 2.5 MG TABLET PO (20:14)
[2021-10-07] MEDS: INSULIN GLARGINE (*BKC) 100 UNITS/ML 10 UNITS SUB-Q (20:14)
[2021-10-08] VITALS (11 sets, daily range): BP systolic 115–141; BP diastolic 58–67; PULSE 75–102; RESP 16–18; TEMP 36–37.4; O2SAT 95–100
[2021-10-08] MEDS: SODIUM CHLORIDE 0.9% IV 1,000 ML 70 ML IV CONT ×2 (00:18→15:43)
[2021-10-08] MEDS: AZTREONAM 1 GM in DEXTROSE 5% IN WATER 50 ML 100 ML IVPB ×3 (02:22→17:17)
[2021-10-08] MEDS: CENTRAL LINE FLUSH 10 ML IV PUSH ×2 (05:47→16:03)
[2021-10-08 06:26] LABS: Basophils Percent Auto 0.7 % (0.2-1.2); Eosinophils Absolute Auto 0.2 K/mm3 (0-0.3); Eosinophils Percent Auto 3.9 % (0-4.4); Hematocrit 32.1 % (37.0-47.0); Immature Granulocyte Absolute 0.06 K/mm3 (0.00-0.031); Lymphocytes Absolute Auto 1.35 K/mm3 (0.9-3.2); Lymphocytes Percent Auto 22.9 % (18.3-44.2); Mean Corpuscular HGB Conc 31.2 g/dl (32-36); Mean Corpuscular Hemoglobin 32.9 pg (26-34); Mean Corpuscular Volume 105.6 fl (80-100); Mean Platelet Volume 11.6 fl (7.4-10.4); Monocytes Absolute Auto 0.6 K/mm3 (0.1-0.6); Monocytes Percent Auto 9.7 % (2.6-8.5); Neutrophils Absolute Auto 3.6 K/mm3 (1.3-6.7); Neutrophils Percent Auto 61.8 % (45.5-73.1); Platelet Count Result 202 k/mm3 (150-375); Red Blood Count 3.04 M/mm3 (4.2-5.4); Red Cell Distribution Width 16.1 % (11.5-14.5); White Blood Count 5.9 K/mm3 (4.5-10.0)
[2021-10-08 06:41] LABS: Alanine Aminotransferase 20 U/L (6-35); Albumin Level 3.1 g/dL (3.5-5.1); Alkaline Phosphatase 98 U/L (38-126); Anion Gap 6 mmol/L (8-16); Aspartate Amino Transferase 24 U/L (14-36); Bilirubin,Total 0.2 mg/dL (0.2-1.3); Blood Urea Nitrogen 17 mg/dL (7-17); Calcium 8.4 mg/dL (8.4-10.2); Carbon Dioxide 28 mmol/L (22-30); Chloride 104 mmol/L (98-107); Estimated CRCL calculation 62 ml/min; Estimated Glomerular Filt Rate 56; Glucose 147 mg/dL (65-110); Potassium 3.5 mmol/L (3.4-5.0); Sodium 138 mmol/L (137-145)
[2021-10-08 08:09] LABS: Glucose Point of Care 154 mg/dl (65-105)
[2021-10-08] MEDS: ENOXAPARIN 30 MG/0.3 ML SYRINGE SUB-Q ×2 (08:22→19:56)
[2021-10-08] MEDS: ATORVASTATIN 40 MG TABLET 80 MG PO (08:23)
[2021-10-08] MEDS: TICAGRELOR 90 MG TABLET PO ×2 (08:23→19:56)
[2021-10-08] MEDS: ASPIRIN 81 MG ENTERIC TABLET PO (08:23)
[2021-10-08] MEDS: VENLAFAXINE HCL XR 75 MG CAP.ER.24H 225 MG PO (08:23)
[2021-10-08] MEDS: LORATADINE 10 MG TABLET PO (08:24)
--- NOTE | 2021-10-08 08:36 | PM.IMPN ---
Progress Note: A&P Assessment and Plan (1) Septic shock: Code(s): A41.9 - Sepsis, unspecified organism; R65.21 - Severe sepsis with septic shock Status: Acute (2) Severe sepsis: Code(s): A41.9 - Sepsis, unspecified organism; R65.20 - Severe sepsis without septic shock Status: Acute (3) UTI (urinary tract infection) due to urinary indwelling Spaulding catheter: Code(s): T83.511A - Infection and inflammatory reaction due to indwelling urethral catheter, initial encounter; N39.0 - Urinary tract infection, site not specified Status: Acute (4) Spaulding catheter in place on admission: Code(s): Z97.8 - Presence of other specified devices Status: Acute (5) Acute renal failure superimposed on stage 3b chronic kidney disease: Qualifiers: Acute renal failure type: with acute tubular necrosis Qualified Code(s): N17.0 - Acute kidney failure with tubular necrosis; N18.32 - Chronic kidney disease, stage 3b Code(s): N17.9 - Acute kidney failure, unspecified; N18.32 - Chronic kidney disease, stage 3b Status: Acute (6) Type 2 diabetes mellitus with hyperglycemia, with long-term current use of insulin: Code(s): E11.65 - Type 2 diabetes mellitus with hyperglycemia; 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 Status: Acute (7) Obstructive sleep apnea: Code(s): G47.33 - Obstructive sleep apnea (adult) (pediatric) Status: Acute (8) Diastolic heart failure: Qualifiers: Heart failure chronicity: chronic Qualified Code(s): I50.32 - Chronic diastolic (congestive) heart failure Code(s): I50.30 - Unspecified diastolic (congestive) heart failure Status: Acute (9) Dementia: Qualifiers: Dementia behavioral disturbance: without behavioral disturbance Dementia type: unspecified type Qualified Code(s): F03.90 - Unspecified dementia without behavioral disturbance Code(s): F03.90 - Unspecified dementia without behavioral disturbance Status: Acute (10) Electrolyte abnormality: Code(s): E87.8 - Other disorders of electrolyte and fluid balance, not elsewhere classified Status: Acute (11) Hyperlipidemia: Code(s): E78.5 - Hyperlipidemia, unspecified Status: Acute (12) Hypertension: Qualifiers: Hypertension type: primary hypertension Qualified Code(s): I10 - Essential (primary) hypertension Code(s): I10 - Essential (primary) hypertension Status: Chronic (13) Paroxysmal atrial fibrillation: Code(s): I48.0 - Paroxysmal atrial fibrillation Status: Acute (14) Depression: Code(s): F32.A - Depression, unspecified Status: Acute (15) Anxiety: Code(s): F41.9 - Anxiety disorder, unspecified Status: Acute (16) COPD (chronic obstructive pulmonary disease): Code(s): J44.9 - Chronic obstructive pulmonary disease, unspecified Status: Acute (17) BMI 40.0-44.9, adult: Code(s): Z68.41 - Body mass index [BMI] 40.0-44.9, adult Status: Acute (18) Metabolic encephalopathy: Code(s): G93.41 - Metabolic encephalopathy Status: Acute Additional Plan 10/04/21 -initial lactic acid was 4.1, repeat lactic has normalized -patient started on Levaquin, recent urine culture on 09/20/2021 grew E coli which was resistant to Levaquin.? Patient is allergic to penicillin -patient was started on aztreonam (10/03), renally dosed -patient has been adequately fluid-resuscitated.? Will decrease further IV fluid rate at this time also gave her Hespan this morning -Levophed has been weaned off -left IJ central venous catheter inserted on 10/03/2021 -continue to monitor urine output, renal function and blood pressures closely Acute kidney injury likely related to hypotension, UTI, severe sepsis, medications (patient is on furosemide, lisinopril, metolazone, metoprolol at the [facility]) -continue IV fluids but decrease further rate -improved
[2021-10-08] MEDS: METOPROLOL TARTRATE 12.5 MG TABLET PO ×2 (09:25→19:55)
[2021-10-08] MEDS: DIVALPROEX SODIUM DR 250 MG TABEC 500 MG PO ×2 (09:27→17:17)
[2021-10-08 11:44] LABS: Glucose Point of Care 199 mg/dl (65-105)
[2021-10-08 16:52] LABS: Glucose Point of Care 238 mg/dl (65-105)
[2021-10-08] MEDS: INSULIN ASPART (*BKC) 100 UNITS/ML SUB-Q (17:16)
[2021-10-08 19:35] LABS: Glucose Point of Care 269 mg/dl (65-105)
[2021-10-08] MEDS: OLANZapine 2.5 MG TABLET PO (19:56)
[2021-10-08] MEDS: INSULIN GLARGINE (*BKC) 100 UNITS/ML 10 UNITS SUB-Q (19:56)
[2021-10-09] VITALS (8 sets, daily range): BP systolic 106–130; BP diastolic 56–71; PULSE 64–93; RESP 18–20; TEMP 36.4–36.7; O2SAT 97–99
[2021-10-09] MEDS: AZTREONAM 1 GM in DEXTROSE 5% IN WATER 50 ML 100 ML IVPB (02:22)
[2021-10-09 07:28] LABS: Glucose Point of Care 171 mg/dl (65-105)
[2021-10-09] MEDS: SODIUM CHLORIDE 0.9% IV 1,000 ML 70 ML IV CONT (10:31)
[2021-10-09] MEDS: LORATADINE 10 MG TABLET PO (10:32)
[2021-10-09] MEDS: METOPROLOL TARTRATE 12.5 MG TABLET PO (10:32)
[2021-10-09] MEDS: VENLAFAXINE HCL XR 75 MG CAP.ER.24H 225 MG PO (10:32)
[2021-10-09] MEDS: ASPIRIN 81 MG ENTERIC TABLET PO (10:32)
[2021-10-09] MEDS: ATORVASTATIN 40 MG TABLET 80 MG PO (10:32)
[2021-10-09] MEDS: TICAGRELOR 90 MG TABLET PO (10:32)
[2021-10-09] MEDS: DIVALPROEX SODIUM DR 250 MG TABEC 500 MG PO (10:33)
[2021-10-09] MEDS: ENOXAPARIN 30 MG/0.3 ML SYRINGE SUB-Q (10:33)
--- NOTE | 2021-10-09 10:34 | PM.DS ---
DS: Admitting Diagnosis Discharge Date 10/09/21 Admitting Diagnosis 1) Severe sepsis: ? ? ? (2) UTI (urinary tract infection) due to urinary indwelling Spaulding catheter: ? ? ? (3) Acute renal failure superimposed on stage 3b chronic kidney disease: ? (4) Skin breakdown: ? (5) Obstructive sleep apnea: ? (6) Type 2 diabetes mellitus with hyperglycemia, with long-term current use of insulin: (7) Diastolic heart failure: ? ? DS: Discharge Diagnosis Discharge Diagnosis (1) Septic shock: Code(s): A41.9 - Sepsis, unspecified organism; R65.21 - Severe sepsis with septic shock Status: Acute (2) Severe sepsis: Code(s): A41.9 - Sepsis, unspecified organism; R65.20 - Severe sepsis without septic shock Status: Acute (3) UTI (urinary tract infection) due to urinary indwelling Spaulding catheter: Code(s): T83.511A - Infection and inflammatory reaction due to indwelling urethral catheter, initial encounter; N39.0 - Urinary tract infection, site not specified Status: Acute (4) Spaulding catheter in place on admission: Code(s): Z97.8 - Presence of other specified devices Status: Acute (5) Acute renal failure superimposed on stage 3b chronic kidney disease: Qualifiers: Acute renal failure type: with acute tubular necrosis Qualified Code(s): N17.0 - Acute kidney failure with tubular necrosis; N18.32 - Chronic kidney disease, stage 3b Code(s): N17.9 - Acute kidney failure, unspecified; N18.32 - Chronic kidney disease, stage 3b Status: Acute (6) Type 2 diabetes mellitus with hyperglycemia, with long-term current use of insulin: Code(s): E11.65 - Type 2 diabetes mellitus with hyperglycemia; Z79.4 - penitentiary (current) use of insulin Status: Acute (7) Obstructive sleep apnea: Code(s): G47.33 - Obstructive sleep apnea (adult) (pediatric) Status: Acute (8) Diastolic heart failure: Qualifiers: Heart failure chronicity: chronic Qualified Code(s): I50.32 - Chronic diastolic (congestive) heart failure Code(s): I50.30 - Unspecified diastolic (congestive) heart failure Status: Acute (9) Dementia: Qualifiers: Dementia type: unspecified type Dementia behavioral disturbance: without behavioral disturbance Qualified Code(s): F03.90 - Unspecified dementia without behavioral disturbance Code(s): F03.90 - Unspecified dementia without behavioral disturbance Status: Acute (10) Electrolyte abnormality: Code(s): E87.8 - Other disorders of electrolyte and fluid balance, not elsewhere classified Status: Acute (11) Hyperlipidemia: Code(s): E78.5 - Hyperlipidemia, unspecified Status: Acute (12) Hypertension: Qualifiers: Hypertension type: primary hypertension Qualified Code(s): I10 - Essential (primary) hypertension Code(s): I10 - Essential (primary) hypertension Status: Chronic (13) Paroxysmal atrial fibrillation: Code(s): I48.0 - Paroxysmal atrial fibrillation Status: Acute (14) Depression: Code(s): F32.A - Depression, unspecified Status: Acute (15) Anxiety: Code(s): F41.9 - Anxiety disorder, unspecified Status: Acute (16) COPD (chronic obstructive pulmonary disease): Code(s): J44.9 - Chronic obstructive pulmonary disease, unspecified Status: Acute (17) BMI 40.0-44.9, adult: Code(s): Z68.41 - Body mass index [BMI] 40.0-44.9, adult Status: Acute (18) Metabolic encephalopathy: Code(s): G93.41 - Metabolic encephalopathy Status: Acute DS: Summary Hospital Course Reason for hospitalization: nausea vomiting diarrhea Hospital Course: 66-year-old female resident [place] brought to the hospital with chief complaint of nausea, vomiting, diarrhea. Urine analysis was indicative of CAUTI and patient was admitted for further care. Shortly after admission a rapid resp
[2021-10-09 11:16] LABS: Glucose Point of Care 176 mg/dl (65-105)
--- NOTE | 2021-10-09 11:16 | PCNWS ---
Weekly nutritional screen. Patient is tolerating current diet with adequate intake. No weight loss reported. No nutritional needs at this time. Spoke with network technical analyst, no pressure injury present.
[2021-10-09] MEDS: lisinopriL 2.5 MG TABLET PO (12:25)
[2021-10-09] MEDS: TOLNAFTATE 1% POWDER 45 GM BTL 1 APPLIC TOPICAL (13:30)
[2021-10-09] MEDS: CENTRAL LINE FLUSH 10 ML IV PUSH (14:00)
[2021-10-09 14:45] LABS: EDCOVIDSCREEN Negative (Negative)
[2021-10-09 16:36] LABS: Glucose Point of Care 159 mg/dl (65-105)
== END 2021-10-09 19:25 | DRG 698 ==
LOC: ANHED 20:57 → ANHIMU 10-03 00:32 → ANHICU 10-03 05:04 → ANHIMU 10-04 13:05 → ANH3MEDSUR 10-06 11:33
PROVIDERS: Emergency Medicine; Internal Medicine; Admitting Provider Internal Medicine; Emergency Provider Emergency Medicine; PCP Family Medicine; Visit Provider Hospitalist
DX: T83.511A Infection and inflammatory reaction due to indwelling urethral catheter, initial encounter (principal); A41.9 Sepsis, unspecified organism; R65.21 Severe sepsis with septic shock; N17.0 Acute kidney failure with tubular necrosis; G93.41 Metabolic encephalopathy; I13.0 Hypertensive heart and chronic kidney disease with heart failure and stage 1 through stage 4 chronic kidney disease, or unspecified chronic kidney disease; I50.32 Chronic diastolic (congestive) heart failure; Z68.43 Body mass index [BMI] 50.0-59.9, adult; E87.2 Acidosis; N39.0 Urinary tract infection, site not specified; N18.32 Chronic kidney disease, stage 3b; Z20.822 Contact with and (suspected) exposure to COVID-19; E11.65 Type 2 diabetes mellitus with hyperglycemia; E11.22 Type 2 diabetes mellitus with diabetic chronic kidney disease; G47.33 Obstructive sleep apnea (adult) (pediatric); F03.90 Unspecified dementia, unspecified severity, without behavioral disturbance, psychotic disturbance, mood disturbance, and anxiety; E87.8 Other disorders of electrolyte and fluid balance, not elsewhere classified; E78.5 Hyperlipidemia, unspecified; R09.02 Hypoxemia; I48.0 Paroxysmal atrial fibrillation; E11.42 Type 2 diabetes mellitus with diabetic polyneuropathy; K21.9 Gastro-esophageal reflux disease without esophagitis; I25.10 Atherosclerotic heart disease of native coronary artery without angina pectoris; E86.0 Dehydration; N39.46 Mixed incontinence; E66.01 Morbid (severe) obesity due to excess calories; F32.A Depression, unspecified; F41.9 Anxiety disorder, unspecified; J44.9 Chronic obstructive pulmonary disease, unspecified; Z79.4 Long term (current) use of insulin; Z79.84 Long term (current) use of oral hypoglycemic drugs; I25.2 Old myocardial infarction; Z86.718 Personal history of other venous thrombosis and embolism; Z86.711 Personal history of pulmonary embolism; Z90.49 Acquired absence of other specified parts of digestive tract
CPT/HCPCS: 36415; 36556; 71045; 74176; 76775; 80053; 81001; 82436; 82533; 82550; 82570; 82607; 82746; 82948; 83605; 83690; 83735; 84100; 84133; 84300; 84443; 85025; 85999; 87040; 87086; 87088; 87426; 93005; 93970; 96361; 96365; 97110; 97162; 97166; 97535; 99285; A9270; C1751; C9803; J1650; J1815; J1956; J3480; J7030; U0003; U0005

== ENCOUNTER 2022-04-27 15:39 | Emergency (ER) | payer MEDICARE, MEDICAID, SELFPAY ==
[2022-04-27 15:43] VITALS: BP 117/69; PULSE 97; RESP 18; TEMP 37.1; O2SAT 96
[2022-04-27 15:48] VITALS: BP 117/69; PULSE 97; RESP 18; O2SAT 97
--- NOTE | 2022-04-27 16:37 | ED.GENADULT ---
HPI - General Adult General Chief complaint: Nausea/Vomiting/Diarrhea Stated complaint: N/V Time Seen by Provider: 04/27/22 15:46 History of Present Illness HPI narrative: 66 female presented emerged department for evaluation of nausea and vomiting. Patient reports she began having nausea and vomiting at 2 PM. Staff attempted to treat the patient with Zofran ODT but she continued to have emesis. Upon arrival emerged department patient states that she feels improved and has no emesis. Patient denies any associate abdominal pain. Patient denies any complaints at all at this time. Related Data Home Medications Medication Instructions Recorded Confirmed acetaminophen 650 mg tablet 650 mg PO Q6H PRN Pain (Scale 01/20/21 10/03/21 Score 1-3) albuterol sulfate 90 mcg/actuation 2 puff inhalation HS 01/20/21 10/03/21 aerosol inhaler albuterol sulfate 90 mcg/actuation 2 puff inhalation Q4H PRN 01/20/21 10/03/21 aerosol inhaler Shortness Of Breath Or Wheezing allopurinol 300 mg tablet 300 mg PO DAILY 01/20/21 10/03/21 ascorbic acid (vitamin C) 500 mg 500 mg PO DAILY 01/20/21 10/03/21 tablet bisacodyl 10 mg rectal suppository 10 mg RECTAL DAILY PRN Constipation 01/20/21 10/03/21 calcium carbonate 200 mg calcium 200 mg PO BID 01/20/21 10/03/21 (500 mg) chewable tablet cholecalciferol (vitamin D3) 25 25 mcg PO DAILY 01/20/21 10/03/21 mcg (1,000 unit) tablet (Vitamin D3) cyanocobalamin (vitamin B-12) 1,000 mcg PO DAILY 01/20/21 10/03/21 1,000 mcg tablet (Vitamin B-12) famotidine 20 mg tablet 20 mg PO BID 01/20/21 10/03/21 furosemide 20 mg tablet 80 mg PO DAILY 01/20/21 10/03/21 insulin aspart U-100 100 unit/mL See Rx Instructions .Route .COMPLEX 01/20/21 10/03/21 (3 mL) subcutaneous pen (Novolog FlexPen U-100 Insulin aspart) loperamide 2 mg capsule 2 mg PO Q6H PRN Diarrhea 01/20/21 10/03/21 loratadine 10 mg tablet 10 mg PO DAILY 01/20/21 10/03/21 magnesium citrate 296 ml PO DAILY PRN Constipation 01/20/21 10/03/21 magnesium hydroxide 400 mg/5 mL 30 ml PO HS PRN Constipation 01/20/21 10/03/21 oral suspension (Milk of Magnesia) melatonin 5 mg tablet 5 mg PO HS 01/20/21 10/03/21 metformin 500 mg tablet 1,000 mg PO BID 01/20/21 10/03/21 olanzapine 5 mg tablet 2.5 mg PO HS 01/20/21 10/03/21 sodium phosphates 19 gram-7 118 ml RECTAL DAILY PRN 01/20/21 10/03/21 gram/118 mL enema (Fleet Enema) Constipation venlafaxine 75 mg capsule,extended 225 mg PO DAILY 01/20/21 10/03/21 release 24 hr multivitamin-ferrous 1 tablet PO DAILY 05/13/21 10/03/21 fumarate-folic acid 18 mg-400 mcg tablet nystatin-triamcinolone 100,000 1 applic topical Q24H 05/13/21 10/03/21 unit/g-0.1 % topical cream ondansetron HCl 4 mg tablet 4 mg PO Q8H PRN Nausea 05/13/21 10/03/21 divalproex 500 mg tablet,delayed 500 mg PO BID 09/20/21 10/03/21 release empagliflozin 25 mg tablet 25 mg PO DAILY 09/20/21 10/03/21 (Jardiance) allopurinol 100 mg tablet 50 mg PO EVERY OTHER DAY 04/27/22 colestipol 1 gram tablet (Colestid) 1 g PO BID 04/27/22 potassium chloride 20 mEq 20 meq PO DAILY 04/27/22 tablet,extended release Allergies Allergy/AdvReac Type Severity Reaction Status Date / Time amoxicillin Allergy Severe Anaphylaxis Verified 04/27/22 15:55 bee venom protein (honey bee) Allergy Severe Anaphylaxis Verified 04/27/22 15:55 [bees] Penicillins Allergy Severe Anaphylaxis Verified 04/27/22 15:55 Sulfa (Sulfonamide Allergy Severe Anaphylaxis Verified 04/27/22 15:55 Antibiotics) iodine Allergy Rash Verified 04/27/22 15:55 metaproterenol Allergy Unknown Verified 04/27/22 15:55 methocarbamol Allergy Unknown Verified 04/27/22 15:55 oxytetracycline Allergy Unknown Verified 04/27/22 15:55 pentazocine Allergy Unknown Verified 04/27/22 15:55 procaine Allergy Unknown Verified 04/27/22 15:55 aspirin AdvReac Mild Nausea and Verified 04/27/22 15:55 Vomiting fluoxetine AdvReac Mild Nausea and Verified 04/27/22 15:55 Vomiting ch
[2022-04-27 17:58] LABS: Basophils Absolute Auto 0.1 K/mm3 (0.0-0.1); Basophils Percent Auto 0.4 % (0.2-1.2); Eosinophils Percent Auto 0.2 % (0-4.4); Hematocrit 40.3 % (37.0-47.0); Hemoglobin 13.2 g/dL (12.0-15.0); Immature Granulocyte Absolute 0.11 K/mm3 (0.00-0.031); Immature Granulocyte Percent A 0.9 % (0-0.5); Lymphocytes Absolute Auto 0.89 K/mm3 (0.9-3.2); Lymphocytes Percent Auto 7.1 % (18.3-44.2); Mean Corpuscular HGB Conc 32.8 g/dl (32-36); Mean Corpuscular Hemoglobin 32.7 pg (26-34); Mean Corpuscular Volume 99.8 fl (80-100); Mean Platelet Volume 11.4 fl (7.4-10.4); Monocytes Absolute Auto 1.7 K/mm3 (0.1-0.6); Monocytes Percent Auto 13.8 % (2.6-8.5); Neutrophils Absolute Auto 9.7 K/mm3 (1.3-6.7); Neutrophils Percent Auto 77.6 % (45.5-73.1); Platelet Count Result 288 k/mm3 (150-375); Red Blood Count 4.04 M/mm3 (4.2-5.4); Red Cell Distribution Width 16.2 % (11.5-14.5); White Blood Count 12.5 K/mm3 (4.5-10.0)
[2022-04-27 18:07] LABS: Alanine Aminotransferase 16 U/L (6-35); Albumin Level 3.4 g/dL (3.5-5.1); Alkaline Phosphatase 106 U/L (38-126); Anion Gap 7 mmol/L (8-16); Aspartate Amino Transferase 21 U/L (14-36); Bilirubin,Total 0.5 mg/dL (0.2-1.3); Blood Urea Nitrogen 15 mg/dL (7-17); Calcium 8.5 mg/dL (8.4-10.2); Carbon Dioxide 31 mmol/L (22-30); Chloride 94 mmol/L (98-107); Estimated Glomerular Filt Rate > 60; Glucose 200 mg/dL (65-110); Potassium 4.2 mmol/L (3.4-5.0); Sodium 132 mmol/L (137-145)
[2022-04-27] MEDS: ONDANSETRON INJ 4 MG/2 ML VIAL IV PUSH (18:52)
--- NOTE | 2022-04-27 19:25 | PC.NURSE ---
attempted to call report to [facility] x6 with no answer on any extension.
[2022-04-27 19:26] LABS: Appearance Urine Clear (Clear); Bacteria Urine 4+ /hpf; Bilirubin Urine Negative (Negative); Blood Urine Negative (Negative); Budding Yeast Urine Present /hpf; Color Urine Yellow (Yellow); Glucose Urine UA 3+ mg/dL (Negative); Ketones Urine Trace mg/dL (Negative); Leukocyte Esterase Ur 1+ LEU/UL (Negative); Need Manual Microscopic Reviewed; Nitrate Urine Negative (Negative); Non Pathogenic Casts 0-2; Protein Urine Negative (Negative); RBC Urine 0-2 /hpf (0-2); Specific Grav Ur 1.022 (1.001-1.035); Squamous Epithelial Cell Urine Occasional /hpf (Few); Urobilinogen Urine 0.2 mg/dL (<2.0); WBC Urine 21-50 /hpf
[2022-04-27 19:27] LABS: Add Urine Microscopic? YES
[2022-04-27 19:32] VITALS: BP 121/78; PULSE 102; O2SAT 93
[2022-04-27 19:47] VITALS: BP 121/78; PULSE 97; RESP 18; O2SAT 99
== END 2022-04-27 19:48 ==
PROVIDERS: Emergency Provider Emergency Medicine; PCP Family Medicine
DX: R11.2 Nausea with vomiting, unspecified (principal); I11.0 Hypertensive heart disease with heart failure; I50.9 Heart failure, unspecified; E78.5 Hyperlipidemia, unspecified; I25.2 Old myocardial infarction; I48.0 Paroxysmal atrial fibrillation; G47.33 Obstructive sleep apnea (adult) (pediatric); K21.9 Gastro-esophageal reflux disease without esophagitis; N39.46 Mixed incontinence; J45.909 Unspecified asthma, uncomplicated; F41.9 Anxiety disorder, unspecified; E66.01 Morbid (severe) obesity due to excess calories; Z86.718 Personal history of other venous thrombosis and embolism; Z86.711 Personal history of pulmonary embolism; Z79.51 Long term (current) use of inhaled steroids; Z79.4 Long term (current) use of insulin; Z79.84 Long term (current) use of oral hypoglycemic drugs; Z79.01 Long term (current) use of anticoagulants; Z79.891 Long term (current) use of opiate analgesic
CPT/HCPCS: 36415; 80053; 81001; 85025; 87077; 87086; 87186; 96374; 99284; J2405

== ENCOUNTER 2022-06-26 10:00 | Outpatient (CLI) | payer MEDICARE, MEDICAID, SELFPAY ==
--- NOTE | ~2022-06-26 | CT_ITS ---
Non-contrast CT scan of the Abdomen Clinical indication: Emesis Technique: 2.5 mm axial scans were obtained through the abdomen without intravenous or oral contrast . Dose reduction technique was used on this scan by utilizing automated exposure control and iterativ e reconstruction technique. The dose-length product (DLP) was 900.67 mGy-cm. COMPARISON: 10/02/2021 Findings: Images through the lung bases reveal no abnormalities. There is no evidence of renal or ureteral calculi. The kidneys and the ureters are nondilated. The liver, spleen, pancreas, and adrenals appear normal. Cholecystectomy clips are present. There is no aortic aneurysm. Visualized bowels are unremarkable. No ascites. Impression: No significant abnormality seen. Reviewed, dictated and finalized at [facility]. Impression: No significant abnormality seen.
== END 2022-06-26 10:01 | disposition home or self-care (01) ==
PROVIDERS: PCP Family Medicine; Visit Provider Family Medicine
DX: R11.10 Vomiting, unspecified (principal)
CPT/HCPCS: 74150

== ENCOUNTER 2023-04-12 19:55 | Inpatient (IN) | payer MEDICARE, MEDICAID, SELFPAY ==
[2023-04-12] VITALS (36 sets, daily range): BP systolic 81–137; BP diastolic 38–84; PULSE 85–131; RESP 11–20; TEMP 36.4; O2SAT 95–100
--- NOTE | ~2023-04-12 | XR_ITS ---
EXAMINATION: XR chest port-a-cath/central DATE: 04/13/2023 05:56 INDICATION: Central line placement TECHNIQUE: frontal view of the chest was obtained. COMPARISON: Chest radiograph dated 04/12/2023 FINDINGS: Interval placement of a right internal jugular central venous catheter with distal tip at the caudal superior vena cava. Lungs remain clear with no focal airspace opacities, pulmonary edema, pleural eff usion or pneumothorax. The cardiomediastinal silhouette is normal. IMPRESSION: 1. No pneumothorax or other acute cardiopulmonary disease post placement of a right internal jugular central venous catheter with distal tip at the midsuperior vena cava. Reviewed, dictated and finalized at location A. ACE CARETAKER IMPRESSION: 1. No pneumothorax or other acute cardiopulmonary disease post placement of a r ight internal jugular central venous catheter with distal tip at the midsuperio r vena cava.
--- NOTE | ~2023-04-12 | US_ITS ---
EXAMINATION: US renal BI DATE: 04/14/2023 17:08 INDICATION: IRIS TECHNIQUE: Multiple grayscale and Doppler ultrasound images of the kidneys were obtained. COMPARISON: CT abdomen 06/26/2022. FINDINGS: The right kidney measures 10.9 x 5.8 x 6.4 cm. The left kidney measures 11.5 x 6.8 x 5.5 cm. The kidn eys demonstrate normal parenchymal echogenicity. There is no hydronephrosis. The bladder is nearly em pty which limits evaluation. IMPRESSION: Unremarkable renal sonogram findings. Reviewed, dictated and finalized at location K. US ARTIST
--- NOTE | ~2023-04-12 | XR_ITS ---
EXAMINATION: XR chest 1V portable Exam Date/Time: 04/12/2023 22:05 CHIEF OF SERVICE HISTORY: sepsis HX CHF, CAD, PE Comparison: 10/03/2021. RESULT: Lines, tubes, and devices: Cholecystectomy clips. Lungs and pleura: Mild diffuse reticular pattern. Cardiomediastinal silhouette: Stable. Other: No acute osseous or upper abdominal finding. IMPRESSION: Mild interstitial edema. Reviewed, dictated and finalized at location [facility]. F OF SERVICE IMPRESSION: Mild interstitial edema.
--- NOTE | 2023-04-12 20:19 | ED.GENADULT ---
HPI - General Adult General Chief complaint: Extremity Problem,Nontraumatic Stated complaint: discoloration to lower legs Time Seen by Provider: 04/12/23 20:18 History of Present Illness HPI narrative: Patient is a 67-year-old female with history of diabetes, diastolic heart failure, CKD stage 3 here with concerns for discolored bilateral lower extremities from her facility. Per staff at her facility she was feeling normal, got up to go to dinner, was on her feet for about an hour and when she got back to her room her lower extremities were purple from the mid joseph down. They got her into bed and they started to improve however her blood pressure was a bit low so they called EMS to bring her into the hospital. Patient states her feet turn purple all the time . Patient is unsure of why they sent her to the hospital. She notes that she feels cold. Denies leg pain, abdominal pain, chest pain, cough, congestion. Related Data Home Medications Medication Instructions Recorded Confirmed acetaminophen 650 mg tablet 650 mg PO Q6H PRN Pain (Scale 01/20/21 10/03/21 Score 1-3) albuterol sulfate 90 mcg/actuation 2 puff inhalation HS 01/20/21 10/03/21 aerosol inhaler albuterol sulfate 90 mcg/actuation 2 puff inhalation Q4H PRN 01/20/21 10/03/21 aerosol inhaler Shortness Of Breath Or Wheezing allopurinol 300 mg tablet 300 mg PO DAILY 01/20/21 10/03/21 ascorbic acid (vitamin C) 500 mg 500 mg PO DAILY 01/20/21 10/03/21 tablet bisacodyl 10 mg rectal suppository 10 mg RECTAL DAILY PRN Constipation 01/20/21 10/03/21 calcium carbonate 200 mg calcium 200 mg PO BID 01/20/21 10/03/21 (500 mg) chewable tablet cholecalciferol (vitamin D3) 25 25 mcg PO DAILY 01/20/21 10/03/21 mcg (1,000 unit) tablet (Vitamin D3) cyanocobalamin (vitamin B-12) 1,000 mcg PO DAILY 01/20/21 10/03/21 1,000 mcg tablet (Vitamin B-12) famotidine 20 mg tablet 20 mg PO BID 01/20/21 10/03/21 furosemide 20 mg tablet 80 mg PO DAILY 01/20/21 10/03/21 insulin aspart U-100 100 unit/mL See Rx Instructions .Route .COMPLEX 01/20/21 10/03/21 (3 mL) subcutaneous pen (Novolog FlexPen U-100 Insulin aspart) loperamide 2 mg capsule 2 mg PO Q6H PRN Diarrhea 01/20/21 10/03/21 loratadine 10 mg tablet 10 mg PO DAILY 01/20/21 10/03/21 magnesium citrate 296 ml PO DAILY PRN Constipation 01/20/21 10/03/21 magnesium hydroxide 400 mg/5 mL 30 ml PO HS PRN Constipation 01/20/21 10/03/21 oral suspension (Milk of Magnesia) melatonin 5 mg tablet 5 mg PO HS 01/20/21 10/03/21 metformin 500 mg tablet 1,000 mg PO BID 01/20/21 10/03/21 olanzapine 5 mg tablet 2.5 mg PO HS 01/20/21 10/03/21 sodium phosphates 19 gram-7 118 ml RECTAL DAILY PRN 01/20/21 10/03/21 gram/118 mL enema (Fleet Enema) Constipation venlafaxine 75 mg capsule,extended 225 mg PO DAILY 01/20/21 10/03/21 release 24 hr multivitamin-ferrous 1 tablet PO DAILY 05/13/21 10/03/21 fumarate-folic acid 18 mg-400 mcg tablet nystatin-triamcinolone 100,000 1 applic topical Q24H 05/13/21 10/03/21 unit/g-0.1 % topical cream ondansetron HCl 4 mg tablet 4 mg PO Q8H PRN Nausea 05/13/21 10/03/21 divalproex 500 mg tablet,delayed 500 mg PO BID 09/20/21 10/03/21 release empagliflozin 25 mg tablet 25 mg PO DAILY 09/20/21 10/03/21 (Jardiance) allopurinol 100 mg tablet 50 mg PO EVERY OTHER DAY 04/27/22 colestipol 1 gram tablet (Colestid) 1 g PO BID 04/27/22 potassium chloride 20 mEq 20 meq PO DAILY 04/27/22 tablet,extended release Allergies Allergy/AdvReac Type Severity Reaction Status Date / Time amoxicillin Allergy Severe Anaphylaxis Verified 04/27/22 15:55 bee venom protein (honey bee) Allergy Severe Anaphylaxis Verified 03/03/23 15:55 [bees] Penicillins Allergy Severe Anaphylaxis Verified 04/27/22 15:55 Sulfa (Sulfonamide Allergy Severe Anaphylaxis Verified 04/27/22 15:55 Antibiotics) blue dye Allergy Unknown Verified 04/12/23 20:15 fish derived Allergy Unknown Verified 04/12/23 20:16 iodine Allergy Rash Verifi
--- NOTE | 2023-04-12 20:24 | ECG_ITS ---
Measurements Intervals [place] Rate: 103 P: MI: 0 QRS: -12 QRSD: 101 T: 96 QT: 359 QTc: 470 Interpretive Statements SUSPECT ATRIAL FLUTTER WITH CONTROLLED RESPONSE LOW QRS VOLTAGE IN EXTREMITY LEADS [QRS DEFLECTION < 0.5 mV IN LIMB LEADS] POOR R-WAVE PROGRESSION INCOMPLETE LEFT BUNDLE BRANCH BLOCK ABNORMAL ECG COMPARED TO ECG 10/02/2021 19:13:33 ATRIAL FLUTTER REPLACES SINUS RHYTHM Electronically Signed On 04-13-2023 8:23:00 [employer] by Jonathan Nevarez M.D.
[2023-04-12] MEDS: LACTATED RINGERS 1,000 ML 999 ML IV CONT (21:18)
[2023-04-12 21:52] LABS: Basophils Absolute Auto 0.1 K/mm3 (0.0-0.1); Basophils Percent Auto 0.8 % (0.2-1.2); Eosinophils Absolute Auto 0.2 K/mm3 (0-0.3); Eosinophils Percent Auto 2.4 % (0-4.4); Hematocrit 44.5 % (37.0-47.0); Hemoglobin 13.4 g/dL (12.0-15.0); Immature Granulocyte Absolute 0.07 K/mm3 (0.00-0.031); Immature Granulocyte Percent A 0.8 % (0-0.5); Lymphocytes Absolute Auto 1.94 K/mm3 (0.9-3.2); Lymphocytes Percent Auto 21.3 % (18.3-44.2); Mean Corpuscular HGB Conc 30.1 g/dl (32-36); Mean Corpuscular Hemoglobin 31.6 pg (26-34); Mean Platelet Volume 12.2 fl (7.4-10.4); Monocytes Percent Auto 11.1 % (2.6-8.5); Neutrophils Absolute Auto 5.8 K/mm3 (1.3-6.7); Neutrophils Percent Auto 63.6 % (45.5-73.1); Platelet Count Result 206 k/mm3 (150-375); Red Blood Count 4.24 M/mm3 (4.2-5.4); Red Cell Distribution Width 15.7 % (11.5-14.5); White Blood Count 9.1 K/mm3 (4.5-10.0)
[2023-04-12 21:58] LABS: Appearance Urine Clear (Clear); Bacteria Urine 4+ /hpf; Bilirubin Urine Negative (Negative); Blood Urine Negative (Negative); Color Urine Yellow (Yellow); Glucose Urine UA 3+ mg/dL (Negative); Ketones Urine Negative (Negative); Leukocyte Esterase Ur Trace LEU/UL (Negative); Nitrate Urine Negative (Negative); Non Pathogenic Casts 0-2; Protein Urine Negative (Negative); RBC Urine 0-2 /hpf (0-2); Specific Grav Ur 1.015 (1.001-1.035); Squamous Epithelial Cell Urine None seen /hpf (Few); Urobilinogen Urine 0.2 mg/dL (<2.0); pH Urine 5.5 (5.0-9.0)
[2023-04-12 22:04] LABS: Alanine Aminotransferase 12 U/L (6-35); Albumin Level 3.4 g/dL (3.5-5.1); Alkaline Phosphatase 81 U/L (38-126); Anion Gap 8 mmol/L (8-16); Aspartate Amino Transferase 16 U/L (14-36); Bilirubin,Total 0.3 mg/dL (0.2-1.3); Blood Urea Nitrogen 28 mg/dL (7-17); CRP 0.5 mg/dL (<1.0); Calcium 8.6 mg/dL (8.4-10.2); Carbon Dioxide 27 mmol/L (22-30); Chloride 103 mmol/L (98-107); Estimated CRCL calculation 49 ml/min; Estimated Glomerular Filt Rate 45; Glucose 151 mg/dL (65-110); Lipase 123 U/L (23-300); Potassium 4.2 mmol/L (3.4-5.0); Sodium 138 mmol/L (137-145)
[2023-04-12 22:10] LABS: Add Urine Microscopic? YES
[2023-04-12 22:16] LABS: Troponin I 0.072 ng/mL (0.000-0.034)
[2023-04-12 22:29] LABS: Influenza A QL RT-PCR Negative (Negative); Influenza B QL RT-PCR Negative (Negative); RSV RNA, RT-PCR Negative (Negative); SARS-CoV-2 RNA PCR Negative (Negative)
[2023-04-12] MEDS: levoFLOXacin 500 MG/D5W 100 ML 500 MG/100 ML BAG 100 MG IVPB (22:56)
[2023-04-12 22:57] LABS: Prothrombin Time 13.5 Seconds (11.1-14.7)
[2023-04-12 22:58] LABS: Partial Thromboplastin Time 30.4 SECONDS (22.3-36.8)
[2023-04-12 22:59] LABS: Lactic Acid Reflex 2.7 mmol/L (0.7-2.0)
[2023-04-12] MEDS: METOPROLOL TARTRATE INJ 5 MG/5 ML VIAL IV PUSH (23:35)
[2023-04-12] MEDS: METOPROLOL TARTRATE 25 MG TABLET 12.5 MG PO (23:35)
[2023-04-12] MEDS: SODIUM CHLORIDE 0.9% IV 500 ML 999 ML IV CONT (23:36)
[2023-04-12] MEDS: ACETAMINOPHEN 500 MG TABLET 1000 MG PO (23:52)
[2023-04-13] VITALS (60 sets, daily range): BP systolic 76–149; BP diastolic 46–98; PULSE 64–129; RESP 10–20; TEMP 36.2–37; O2SAT 95–100; BMI 39.8
--- NOTE | 2023-04-13 00:50 | PM.IMHP ---
H&P: [facility] History of Present Illness Date/Time: 04/13/23 00:50 Chief Complaint: lower extremity discoloration Narrative: Patient is a 67-year-old female with history of diabetes, diastolic heart failure, CKD stage 3 here with concerns for discolored bilateral lower extremities from her facility.? Per staff at her facility she was feeling normal, got up to go to dinner, was on her feet for about an hour and when she got back to her room her lower extremities were purple from the mid joseph down. They got her into bed and they started to improve however her blood pressure was a bit low so they called EMS to bring her into the hospital. Patient states her feet turn purple all the time . Patient is unsure of why they sent her to the hospital. She notes that she feels cold. Denies leg pain, abdominal pain, chest pain, cough, congestion. She was found to have acute kidney injury with creatinine today of 1.2 as against [place] 0.8 in the past and UA suggestive of UTI. Her blood pressure was also borderline low 107/47,with HR of 104. This subsequently incseaed to 130s and she was given IV dose of metoprolol 5 mg PUSH, then 12.5 mg oral. This improved her heart rate. Considering arteries findings, I was called to admit this patient for further evaluation Review of Systems Review of Systems: All systems reviewed & are unremarkable except as noted in HPI and below [facility] Past Medical History Medical History (Updated 04/12/23 @ 23:54 by Jenna Rodas MD) Anxiety Asthma CAD (coronary artery disease) Non STEMI 12/2020 Congestive heart failure Echocardiogram 04/2021: EF 65-70%, mildly increased left ventricular wall thickness, abnormal diastolic function, moderate left atrial enlargement, mild aortic valve stenosis peak velocity of 205 mean gradient 11 and valve area 2.39 cm, mild aortic valve regurgitation, mild mitral valve stenosis, mild mitral valve regurgitation, severely calcified mitral valve annulus, mild tricuspid valve regurgitation, moderate pulmonary hypertension RVSP of 59 Deep venous thrombosis Depression Diabetic peripheral neuropathy Frequent urinary tract infections Gastroesophageal reflux disease Hyperlipidemia Hypertension Mixed stress and urge incontinence Moderate pulmonary hypertension Morbid obesity with BMI of 50.0-59.9, adult NSTEMI (non-ST elevated myocardial infarction) Obstructive sleep apnea Intolerant to CPAP. Paroxysmal atrial fibrillation Pulmonary embolism Surgical History Surgical History (Updated 08/08/22 @ 23:32 by Temitope Richardson DO) History of cardiac catheterization Most recent cardiac catheterization 12/2020: 70% eccentric stenosis proximal left circumflex status post angioplasty and stent placement 3 x 12 mm Medtronic resolute becca zotarolimus stent, 30 40% stenosis mid LAD, 50 60% diffuse stenosis proximal segment of D2 and D3, 30-40% stenosis proximal segment of RCA preserved EF 70% left ventricular end-diastolic pressure 12 History of cholecystectomy History of colonoscopy History of cystoscopy History of tonsillectomy and adenoidectomy Family History Family History Mother No problems noted. Father No problems noted. Other Adopted Social History Social History Social History: Surrogate decision maker: Moi Medellin, brother. Code status: Full code. Smoking status: Never smoker Second hand tobacco smoke exposure: No Alcohol intake: never Substance use: never Substance use type: does not use Additional living arrangements comments: Patient is a resident at [facility]. She has no children. 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 Spiritual care concerns: No Meds Home Medications and Allergies Home Medications Medication Instructions Recorded Confirmed Type acetaminophen
[2023-04-13 01:40] LABS: Troponin I 0.082 ng/mL (0.000-0.034)
[2023-04-13 01:49] LABS: Reflex Lactic Acid Yes or No Add Lactic
[2023-04-13] MEDS: SODIUM CHLORIDE 0.9% IV 1,000 ML 100 ML IV CONT (03:32)
--- NOTE | 2023-04-13 03:59 | PC.NURSE ---
Hospitalist called after three consecutive low blood pressures. States he will be in the ED shortly to assess the patient.
--- NOTE | 2023-04-13 05:32 | ED.PROCEDURE ---
Procedures Central Line Placement Right IJ: Central Line Date: 04/13/23 Discussed w/ the patient/family/POA,the placement of a central venous catheter, including its clinical necessity/indication & associated potential risks, benifits and alternatives.: Yes The patient/family/POA understand(s) and acknowledge(s) the need to proceed with central venous catheter insertion as an important element of the patient's clinical management.: Yes Consent: I have discussed with the patient and/or surrogate, the non-emergent placement of a central venous catheter, including its clinical necessity/indication and associated potential risks and complications. The patient and/or surrogate understand(s) and acknowledge(s) the need to proceed with central venous catheter insertion as an important element of the patient's clinical management. Time Out Performed: Yes Patient Position: trendelenburg Patient placed on monitor/pulse ox: Yes Provider Prep: mask, sterile gown, sterile gloves, Max. sterile barrier precautions, cap and hand hygiene with conventional soap/water or alcohol based hand rub Central line prep: 2% Chlorhexidine scrub and sterile full body sheet applied Local anesthesia used: lidocaine 1% Sterile US Technique with sterile gel/sterile probe covers: Yes Central line lumen inserted: triple Post Procedure: sutured in place, good blood return, all ports aspirated, flushed, capped, transparent dressing, antimicrobial product, securement product and aseptic technique maintained throughout procedure Post procedure x-ray: tip of catheter in good position Patient tolerated procedure: well Complications: none Additional comments: Patient is a technically challenging central line insertion. Unsuccessful Left IJ attempt by hospitalist. Right IJ placed under ultrasound guidance by ED physician.
[2023-04-13 07:24] LABS: Basophils Absolute Auto 0.1 K/mm3 (0.0-0.1); Basophils Percent Auto 0.7 % (0.2-1.2); Eosinophils Absolute Auto 0.3 K/mm3 (0-0.3); Eosinophils Percent Auto 2.9 % (0-4.4); Hematocrit 39.7 % (37.0-47.0); Hemoglobin 12.2 g/dL (12.0-15.0); Immature Granulocyte Absolute 0.04 K/mm3 (0.00-0.031); Immature Granulocyte Percent A 0.5 % (0-0.5); Lymphocytes Absolute Auto 1.84 K/mm3 (0.9-3.2); Lymphocytes Percent Auto 21.1 % (18.3-44.2); Mean Corpuscular HGB Conc 30.7 g/dl (32-36); Mean Corpuscular Hemoglobin 31.8 pg (26-34); Mean Corpuscular Volume 103.4 fl (80-100); Mean Platelet Volume 11.7 fl (7.4-10.4); Monocytes Absolute Auto 0.9 K/mm3 (0.1-0.6); Monocytes Percent Auto 10.2 % (2.6-8.5); Neutrophils Absolute Auto 5.7 K/mm3 (1.3-6.7); Neutrophils Percent Auto 64.6 % (45.5-73.1); Platelet Count Result 208 k/mm3 (150-375); Red Blood Count 3.84 M/mm3 (4.2-5.4); Red Cell Distribution Width 15.7 % (11.5-14.5); White Blood Count 8.7 K/mm3 (4.5-10.0)
[2023-04-13 07:34] LABS: Anion Gap 9 mmol/L (8-16); Blood Urea Nitrogen 28 mg/dL (7-17); Calcium 8.4 mg/dL (8.4-10.2); Carbon Dioxide 25 mmol/L (22-30); Chloride 103 mmol/L (98-107); Estimated CRCL calculation 43 ml/min; Estimated Glomerular Filt Rate 45; Glucose 125 mg/dL (65-110); Sodium 137 mmol/L (137-145)
[2023-04-13 07:35] LABS: Lactic Acid 1.6 mmol/L (0.7-2.0)
[2023-04-13] MEDS: ENOXAPARIN 40 MG/0.4 ML SYRINGE SUB-Q (08:20)
[2023-04-13 08:54] LABS: Creatine Kinase 27 U/L (30-135)
[2023-04-13] MEDS: LACTATED RINGERS 1,000 ML 100 ML IV CONT ×2 (09:15→20:58)
--- NOTE | 2023-04-13 09:49 | WPDCNINT ---
Assessment and Plan Assessment and plan (1) Sepsis: Code(s): A41.9 - Sepsis, unspecified organism Status: Acute Assessment and Plan: Sepsis secondary to UTI. Patient is on IV Levaquin as patient has multiple allergic to penicillin Urine and blood cultures have been sent are pending Continue IV fluids after the bolus Lactic acid level has normalized (2) IRIS (acute kidney injury): Code(s): N17.9 - Acute kidney failure, unspecified Status: Acute Assessment and Plan: Likely secondary to sepsis and dehydration Check CK level, renal ultrasound IV fluids Monitor urine output electrolytes and creatinine (3) Acute UTI: Code(s): N39.0 - Urinary tract infection, site not specified Status: Acute Assessment and Plan: See above (4) Type 2 diabetes mellitus with hyperglycemia, with long-term current use of insulin: Code(s): E11.65 - Type 2 diabetes mellitus with hyperglycemia; Z79.4 - terminal system operator (current) use of insulin Status: Acute Assessment and Plan: Continue Lantus but decrease dose Continue sliding scale insulin Diabetic diet (5) Dementia: Qualifiers: Dementia type: unspecified type Dementia behavioral disturbance: without behavioral disturbance Qualified Code(s): F03.90 - Unspecified dementia without behavioral disturbance Code(s): F03.90 - Unspecified dementia, unspecified severity, without behavioral disturbance, psychotic disturbance, mood disturbance, and anxiety Status: Acute Assessment and Plan: Patient appears to have significant dementia as she has no insight into her medical problems and why she is in the hospital This appears to be her baseline (6) Paroxysmal atrial fibrillation: Code(s): I48.0 - Paroxysmal atrial fibrillation Status: Acute Assessment and Plan: Patient has history of proximal AFib currently in sinus rhythm Resume metoprolol Continue aspirin Patient not on anticoagulation as an outpatient likely secondary to high risk of falls (7) Elevated troponin: Code(s): R77.8 - Other specified abnormalities of plasma proteins Status: Acute Assessment and Plan: Mildly elevated troponin in light of sepsis and IRIS Patient has history of coronary disease EKG reviewed Continue aspirin statin and beta-hermila Plan DVT prophylaxis -Lovenox Stress ulcer prophylaxis -Pepcid Nutrition -diabetic diet Code Status - Full Code Total Critical Care Time - minutes Due to a high probability of clinically significant, life threatening deterioration, the patient required my highest level of preparedness to intervene emergently and I personally spent this critical care time directly and personally managing the patient. This critical care time included obtaining a history; examining the patient; pulse oximetry; ordering and review of studies; arranging urgent treatment with development of a management plan; evaluation of patient's response to treatment; frequent reassessment; and discussions with other providers. It was exclusive of separately billable procedures and treating other patients and teaching time. Please see Assessment and Plan section and the rest of the note for further information on patient assessment and treatment Sourcing Internship Consult Note Consult date: 04/13/23 Reason for consult: Sepsis HPI: Nazanin Medellin is a 67 year old female with past medical history of anemia bipolar mood disorder COPD hypertension GERD hyperlipidemia obesity CABG chronic kidney disease constipation neuropathy in content dementia who is a [place] resident was brought to the hospital last night because of discoloration of her lower legs. It was reported to the ED that the nursing staff noticed discoloration of her lower extremities up to mid joseph which were purple hence patient was sent to the hospital. Patient has dementia and is pleasantly confused and does not know why she is in the hospital or
[2023-04-13 10:36] LABS: Hemoglobin A1C 6.2 % (<5.7)
[2023-04-13] MEDS: METOPROLOL TARTRATE 25 MG TABLET PO ×2 (10:54→20:56)
[2023-04-13 11:42] LABS: Glucose Point of Care 163 mg/dl (65-105)
--- NOTE | 2023-04-13 14:29 | PM.IMPN ---
Progress Note: A&P Assessment and Plan (1) Sepsis: Code(s): A41.9 - Sepsis, unspecified organism Status: Acute Assessment and Plan: Patient presents with complaints of lower extremity discoloration. [place] to have sepsis with tachycardia, IRIS, lactic acidosis and HoTN; central line placed and but did not need pressors Admitted to the ICU. Source probably from UTI. Patient is on IV Levaquin as patient has multiple allergic to penicillin Urine and blood cultures are pending Treated with IV fluids. lactic acid level normal. BP normal. Not on pressors Continue IV fluids after the bolus Contineu IV abx. (2) IRIS (acute kidney injury): Code(s): N17.9 - Acute kidney failure, unspecified Status: Acute Assessment and Plan: Cr normal in April 2022. Cr 1.2 on admission felt o be mild IRIS secondary to sepsis and dehydration TCK level normal. Renal ultrasound pending Conitnue IV fluids Monitor urine, electrolytes and renal fxn (3) Acute UTI: Code(s): N39.0 - Urinary tract infection, site not specified Status: Acute Assessment and Plan: See above (4) Type 2 diabetes mellitus with hyperglycemia, with long-term current use of insulin: Code(s): E11.65 - Type 2 diabetes mellitus with hyperglycemia; Z79.4 - senior care (current) use of insulin Status: Acute Assessment and Plan: A1c 6.2. The patient's blood glucose was reviewed on 04/13 Glucose elevated at times. Continue AccuCheks covering with sliding scale. Hypoglycemia protocol available as needed. Hold empagliflozin since has UTI (5) Dementia: Qualifiers: Dementia behavioral disturbance: without behavioral disturbance Dementia type: unspecified type Qualified Code(s): F03.90 - Unspecified dementia without behavioral disturbance Code(s): F03.90 - Unspecified dementia, unspecified severity, without behavioral disturbance, psychotic disturbance, mood disturbance, and anxiety Status: Acute Assessment and Plan: Patient with dementia Probably worse related to above Not on treatment (6) Paroxysmal atrial fibrillation: Code(s): I48.0 - Paroxysmal atrial fibrillation Status: Acute Assessment and Plan: Patient has history of proximal AFib with EKG showing possible atrial flutter. On metoprolol for rate control. BP better and metoprolol resumed. Not on anticoagulation b/c high risk of falls. Continue aspirin (7) Elevated troponin: Code(s): R77.8 - Other specified abnormalities of plasma proteins Status: Acute Assessment and Plan: Mildly elevated but flat troponin in light of sepsis and IRIS Patient has history of CAD EKG reviewed Continue aspirin, statin and beta-hermila Plan DVT prophylaxis -Lovenox Stress ulcer prophylaxis -Pepcid Nutrition -diabetic diet Code Status - Full Code Subjective Date/time seen: 04/13/23 14:29 Interval history: 67yo female with dCHF, VTE, pulm HTN, CAD and HTN here for lower extremity discoloration. Patient mildly confused but no complaints of CP, SOB. No n/v. No abdominal or back pain. No cough. Exam Narrative: AF 98.1 116/98 116 17 98% ra Gen - NARD sitting up in bed Neck - Right IJ Chest - CTA bilaterally, nml RR CV - Regular, tachycardic. Tele showing sinus tach Abd - Soft, obese, NT Back - no CVA tenderness Ext - chronic venous stasis skin changes. Trace edema. Neuro - Alert but mildly confused Psych - pleasant and cooperative Skin - Warm and dry Objective Data Vital Signs Vital Signs: Vital Signs - 24 hr 04/12/23 20:03 04/12/23 21:21 04/12/23 21:21 Temperature 97.6 F Pulse Rate 104 H 118 H Respiratory Rate 15 Blood Pressure 107/47 L Pulse Oximetry 99 95 Oxygen Delivery Room Air Room Air 04/12/23 20:07 04/12/23 20:15 04/12/23 20:17 Temperature Pulse Rate 103 H 119 H 108 H Respiratory Rate 16 15 17 Blood Pressure 81/38 L
[2023-04-13 16:38] LABS: Glucose Point of Care 215 mg/dl (65-105)
[2023-04-13] MEDS: INSULIN ASPART (*BKC) 100 UNITS/ML SUB-Q ×2 (16:41→20:55)
[2023-04-13] MEDS: DIVALPROEX SODIUM DR 250 MG TABEC 500 MG PO (16:41)
[2023-04-13] MEDS: CENTRAL LINE FLUSH 10 ML IV PUSH ×3 (16:41→20:59)
[2023-04-13] MEDS: CALCIUM CARBONATE (TUMS) 500 MG (200 MG ELEMENTAL) PO (16:41)
[2023-04-13] MEDS: metFORMIN HCL 500 MG TABLET 1000 MG PO (16:41)
[2023-04-13] MEDS: COLESTIPOL HCL 1 GM TABLET PO (18:10)
[2023-04-13 19:50] LABS: Glucose Point of Care 233 mg/dl (65-105)
[2023-04-13 20:08] LABS: MRSA (PCR) DETECTED (NOT DETECTE)
[2023-04-13] MEDS: INSULIN GLARGINE (*BKC) 100 UNITS/ML 40 UNITS SUB-Q (20:55)
[2023-04-13] MEDS: FAMOTIDINE 20 MG TABLET PO (20:56)
[2023-04-13] MEDS: levoFLOXacin 250 MG/D5W 50 ML 250 MG/50 ML BAG 50 MG IVPB (22:57)
--- NOTE | 2023-04-13 23:26 | PC.NURSE ---
This patient, Nzaanin Medellin, was transferred to [facility] on 04/13/23 at 2310. Personal belongings sent with patient. Report given to Nahed HAJI. Appropriate documentation sent with patient.
[2023-04-14] VITALS (11 sets, daily range): BP systolic 97–136; BP diastolic 55–77; PULSE 80–134; RESP 14–20; TEMP 36.4–37.2; O2SAT 93–100
[2023-04-14] MEDS: CENTRAL LINE FLUSH 10 ML IV PUSH ×3 (05:47→21:16)
--- NOTE | 2023-04-14 06:21 | PC.NURSE ---
Pt's RIJ not drawing, this RN called the call center supervisor to collect this am labs.
[2023-04-14 06:49] LABS: Basophils Absolute Auto 0.1 K/mm3 (0.0-0.1); Basophils Percent Auto 0.8 % (0.2-1.2); Eosinophils Absolute Auto 0.3 K/mm3 (0-0.3); Eosinophils Percent Auto 4.2 % (0-4.4); Hemoglobin 12.3 g/dL (12.0-15.0); Immature Granulocyte Absolute 0.04 K/mm3 (0.00-0.031); Immature Granulocyte Percent A 0.6 % (0-0.5); Lymphocytes Absolute Auto 1.87 K/mm3 (0.9-3.2); Lymphocytes Percent Auto 29.2 % (18.3-44.2); Mean Corpuscular HGB Conc 30.8 g/dl (32-36); Mean Corpuscular Hemoglobin 31.9 pg (26-34); Mean Corpuscular Volume 103.9 fl (80-100); Monocytes Absolute Auto 0.8 K/mm3 (0.1-0.6); Monocytes Percent Auto 12.2 % (2.6-8.5); Neutrophils Absolute Auto 3.4 K/mm3 (1.3-6.7); Platelet Count Result 182 k/mm3 (150-375); Red Blood Count 3.85 M/mm3 (4.2-5.4); Red Cell Distribution Width 15.4 % (11.5-14.5); White Blood Count 6.4 K/mm3 (4.5-10.0)
[2023-04-14 07:01] LABS: Anion Gap 4 mmol/L (8-16); Blood Urea Nitrogen 22 mg/dL (7-17); Calcium 8.7 mg/dL (8.4-10.2); Carbon Dioxide 28 mmol/L (22-30); Chloride 107 mmol/L (98-107); Estimated CRCL calculation 58 ml/min; Estimated Glomerular Filt Rate > 60; Glucose 102 mg/dL (65-110); Magnesium 1.9 mg/dL (1.6-2.3); Phosphorus 3.8 mg/dL (2.5-4.5); Potassium 4.4 mmol/L (3.4-5.0); Sodium 139 mmol/L (137-145)
[2023-04-14 08:18] LABS: Glucose Point of Care 109 mg/dl (65-105)
[2023-04-14] MEDS: VANCOMYCIN 1,500 MG/NS 500 ML 1,500 MG/500 ML BAG 250 MG IVPB (09:39)
[2023-04-14] MEDS: ATORVASTATIN 40 MG TABLET 80 MG PO (09:44)
[2023-04-14] MEDS: FAMOTIDINE 20 MG TABLET PO ×2 (09:44→21:14)
[2023-04-14] MEDS: ASCORBIC ACID 500 MG TABLET PO (09:44)
[2023-04-14] MEDS: allopurinoL 300 MG TABLET PO (09:44)
[2023-04-14] MEDS: CALCIUM CARBONATE (TUMS) 500 MG (200 MG ELEMENTAL) PO ×2 (09:44→17:04)
[2023-04-14] MEDS: CHOLECALCIFEROL 1,000 UNITS TABLET 1000 UNITS PO (09:44)
[2023-04-14] MEDS: LORATADINE 10 MG TABLET PO (09:44)
[2023-04-14] MEDS: DIVALPROEX SODIUM DR 250 MG TABEC 500 MG PO ×2 (09:45→17:04)
[2023-04-14] MEDS: METOPROLOL TARTRATE 25 MG TABLET PO ×2 (09:45→21:15)
[2023-04-14] MEDS: CYANOCOBALAMIN 1,000 MCG TABLET 1000 MCG PO (09:46)
[2023-04-14] MEDS: VENLAFAXINE HCL XR 75 MG CAP.ER.24H 225 MG PO (09:46)
[2023-04-14] MEDS: ASPIRIN 81 MG ENTERIC TABLET PO (09:47)
[2023-04-14] MEDS: metFORMIN HCL 500 MG TABLET 1000 MG PO ×2 (09:49→17:04)
[2023-04-14] MEDS: ENOXAPARIN 40 MG/0.4 ML SYRINGE SUB-Q (09:50)
--- NOTE | 2023-04-14 10:47 | PM.IMPN ---
Progress Note: A&P Assessment and Plan (1) Sepsis: Code(s): A41.9 - Sepsis, unspecified organism Status: Acute Assessment and Plan: Patient presents with complaints of lower extremity discoloration. [place] to have sepsis with tachycardia, IRIS, lactic acidosis and HoTN; central line placed and but did not need pressors Admitted to the ICU. Source probably from UTI. Patient is on IV Levaquin as patient has multiple allergic to penicillin UCx 04/12: GNB BCx 04/12: GPC from anaerobic bottle Treated with IV fluids. lactic acid level normal. BP normal. Not on pressors Continue levaquin Add Vancomycin. Follow up on cx results (2) IRIS (acute kidney injury): Code(s): N17.9 - Acute kidney failure, unspecified Status: Acute Assessment and Plan: Cr normal in April 2022. Cr 1.2 on admission felt to be mild IRIS secondary to sepsis and dehydration TCK level normal. Renal ultrasound pending Cr better. IV fluids off Monitor urine, electrolytes and renal fxn (3) Acute UTI: Code(s): N39.0 - Urinary tract infection, site not specified Status: Acute Assessment and Plan: See above (4) Type 2 diabetes mellitus with hyperglycemia, with long-term current use of insulin: Code(s): E11.65 - Type 2 diabetes mellitus with hyperglycemia; Z79.4 - USP (current) use of insulin Status: Acute Assessment and Plan: A1c 6.2. The patient's blood glucose was reviewed on 04/14 Glucose elevated at times. Continue AccuCheks covering with sliding scale. Hypoglycemia protocol available as needed. Holding empagliflozin since has UTI (5) Dementia: Qualifiers: Dementia type: unspecified type Dementia behavioral disturbance: without behavioral disturbance Qualified Code(s): F03.90 - Unspecified dementia without behavioral disturbance Code(s): F03.90 - Unspecified dementia, unspecified severity, without behavioral disturbance, psychotic disturbance, mood disturbance, and anxiety Status: Acute Assessment and Plan: Patient with dementia Probably worse related to above Not on treatment (6) Paroxysmal atrial fibrillation: Code(s): I48.0 - Paroxysmal atrial fibrillation Status: Acute Assessment and Plan: Patient has history of proximal AFib with EKG showing possible atrial flutter. On metoprolol for rate control. BP better and metoprolol resumed. Not on anticoagulation b/c high risk of falls. Continue aspirin (7) Elevated troponin: Code(s): R77.8 - Other specified abnormalities of plasma proteins Status: Acute Assessment and Plan: Mildly elevated but flat troponin in light of sepsis and IRIS Patient has history of CAD EKG reviewed Continue aspirin, statin and beta-hermila Plan DVT prophylaxis -Lovenox Stress ulcer prophylaxis -Pepcid Nutrition -diabetic diet Code Status - Full Code Subjective Date/time seen: 04/14/23 10:47 Interval history: 67yo female with dCHF, VTE, pulm HTN, CAD and HTN here for lower extremity discoloration. Patient confused so unable to provide hx Exam Narrative: AF 97.6 136/55 99 14 100% ra Gen - NARD sitting up in bed Neck - Right IJ Chest - lungs clear anteriorly. nml RR CV - irregularly irregular S1/S2. Tele showing PVCs, AFlutter Abd - Soft, obese, NT Ext - Trace edema. Ad hose in place Neuro - Alert but confused Psych - pleasant and cooperative Skin - Warm and dry Objective Data Vital Signs Vital Signs: Vital Signs - 24 hr 04/13/23 10:54 04/13/23 12:00 04/13/23 12:00 Temperature 98.1 F Pulse Rate 124 H 116 H Respiratory Rate 17 Blood Pressure 116/98 H Pulse Oximetry 98 Oxygen Delivery Room Air 04/13/23 12:00 04/13/23 14:00 04/13/23 14:00 Temperature Pulse Rate 109 H 95 92 Respiratory Rate 15 Blood Pressure 118/61 Pulse Oximetry 96 Oxygen Delivery 04/13/23 16:00 04/13/23 16:
[2023-04-14 12:31] LABS: Glucose Point of Care 112 mg/dl (65-105)
[2023-04-14] MEDS: COLESTIPOL HCL 1 GM TABLET PO ×2 (13:09→18:28)
[2023-04-14 16:57] LABS: Glucose Point of Care 148 mg/dl (65-105)
--- NOTE | 2023-04-14 18:25 | ECG_ITS ---
Measurements Intervals [place] Rate: 100 P: MO: 0 QRS: -3 QRSD: 107 T: 59 QT: 358 QTc: 462 Interpretive Statements SINUS TACHYCARDIA WITH PREMATURE ATRIAL CONTRACTIONS LOW QRS VOLTAGE [QRS DEFLECTION < 0.5/1.0 mV IN LIMB/CHEST LEADS] POSSIBLE ANTERIOR MYOCARDIAL INFARCTION , PROBABLY OLD [30 ms Q WAVE IN V3/V4, OR R < 0.2 mV IN V4] ABNORMAL ECG COMPARED TO ECG 04/12/2023 21:09:22 NO SIGNIFICANT CHANGES Electronically Signed On 04-15-2023 18:19:56 BULK [employer]IL TECHNICIAN by Jak Cedillo M.D.
[2023-04-14 20:28] LABS: Glucose Point of Care 78 mg/dl (65-105)
--- NOTE | 2023-04-14 20:45 | PM.EVENT ---
Event Note Event Note Event Note: Cross Coverage: Patient's glucose 78 this evening. Has had 1 dose of Lantus yesterday evening (04/13). Has not needed corrective insulin today. Glucose range today: 78 - 148. Reducing Lantus dose from 40u to 30u. Patient to be given juice by RN and recheck glucose in 1 hour.
[2023-04-14 21:05] LABS: Glucose Point of Care 95 mg/dl (65-105)
[2023-04-14] MEDS: ACETAMINOPHEN 325 MG TABLET 650 MG PO (21:14)
[2023-04-14] MEDS: INSULIN GLARGINE (*BKC) 100 UNITS/ML 30 UNITS SUB-Q (21:15)
[2023-04-15] VITALS (12 sets, daily range): BP systolic 102–115; BP diastolic 59–78; PULSE 70–128; RESP 18; TEMP 36.6–37.1; O2SAT 96–98
[2023-04-15] MEDS: levoFLOXacin 250 MG/D5W 50 ML 250 MG/50 ML BAG 50 MG IVPB (00:30)
[2023-04-15 03:58] LABS: Glucose Point of Care 87 mg/dl (65-105)
[2023-04-15 04:57] LABS: Basophils Absolute Auto 0.1 K/mm3 (0.0-0.1); Basophils Percent Auto 0.8 % (0.2-1.2); Eosinophils Absolute Auto 0.5 K/mm3 (0-0.3); Eosinophils Percent Auto 7.7 % (0-4.4); Hematocrit 35.3 % (37.0-47.0); Hemoglobin 10.8 g/dL (12.0-15.0); Immature Granulocyte Absolute 0.02 K/mm3 (0.00-0.031); Immature Granulocyte Percent A 0.3 % (0-0.5); Lymphocytes Absolute Auto 1.91 K/mm3 (0.9-3.2); Lymphocytes Percent Auto 31.9 % (18.3-44.2); Mean Corpuscular HGB Conc 30.6 g/dl (32-36); Mean Corpuscular Hemoglobin 31.9 pg (26-34); Mean Corpuscular Volume 104.1 fl (80-100); Mean Platelet Volume 11.6 fl (7.4-10.4); Monocytes Absolute Auto 0.6 K/mm3 (0.1-0.6); Monocytes Percent Auto 10.7 % (2.6-8.5); Neutrophils Absolute Auto 2.9 K/mm3 (1.3-6.7); Neutrophils Percent Auto 48.6 % (45.5-73.1); Platelet Count Result 153 k/mm3 (150-375); Red Blood Count 3.39 M/mm3 (4.2-5.4); Red Cell Distribution Width 15.4 % (11.5-14.5)
[2023-04-15] MEDS: CENTRAL LINE FLUSH 10 ML IV PUSH ×3 (05:03→20:07)
[2023-04-15 05:11] LABS: Albumin Level 2.6 g/dL (3.5-5.1); Anion Gap 1 mmol/L (8-16); Blood Urea Nitrogen 17 mg/dL (7-17); Calcium 8.4 mg/dL (8.4-10.2); Carbon Dioxide 29 mmol/L (22-30); Chloride 107 mmol/L (98-107); Estimated CRCL calculation 58 ml/min; Estimated Glomerular Filt Rate > 60; Glucose 100 mg/dL (65-110); Magnesium 1.8 mg/dL (1.6-2.3); Phosphorus 2.9 mg/dL (2.5-4.5); Sodium 137 mmol/L (137-145)
[2023-04-15 07:55] LABS: Glucose Point of Care 92 mg/dl (65-105)
[2023-04-15] MEDS: VANCOMYCIN 1,500 MG/NS 500 ML 1,500 MG/500 ML BAG 250 MG IVPB (08:52)
[2023-04-15] MEDS: ASPIRIN 81 MG ENTERIC TABLET PO (08:58)
[2023-04-15] MEDS: CYANOCOBALAMIN 1,000 MCG TABLET 1000 MCG PO (08:58)
[2023-04-15] MEDS: VENLAFAXINE HCL XR 75 MG CAP.ER.24H 225 MG PO (08:58)
[2023-04-15] MEDS: METOPROLOL TARTRATE 25 MG TABLET PO ×2 (08:58→20:06)
[2023-04-15] MEDS: ENOXAPARIN 40 MG/0.4 ML SYRINGE SUB-Q (08:58)
[2023-04-15] MEDS: metFORMIN HCL 500 MG TABLET 1000 MG PO ×2 (08:59→17:01)
[2023-04-15] MEDS: ASCORBIC ACID 500 MG TABLET PO (08:59)
[2023-04-15] MEDS: FAMOTIDINE 20 MG TABLET PO ×2 (08:59→20:05)
[2023-04-15] MEDS: ATORVASTATIN 40 MG TABLET 80 MG PO (08:59)
[2023-04-15] MEDS: CHOLECALCIFEROL 1,000 UNITS TABLET 1000 UNITS PO (09:00)
[2023-04-15] MEDS: CALCIUM CARBONATE (TUMS) 500 MG (200 MG ELEMENTAL) PO ×2 (09:00→16:19)
[2023-04-15] MEDS: allopurinoL 300 MG TABLET PO (09:00)
[2023-04-15] MEDS: LORATADINE 10 MG TABLET PO (09:00)
[2023-04-15] MEDS: DIVALPROEX SODIUM DR 250 MG TABEC 500 MG PO ×2 (09:00→16:19)
[2023-04-15] MEDS: COLESTIPOL HCL 1 GM TABLET PO ×2 (09:59→18:02)
[2023-04-15 11:52] LABS: Glucose Point of Care 100 mg/dl (65-105)
--- NOTE | 2023-04-15 12:41 | PM.IMPN ---
Progress Note: A&P Assessment and Plan (1) Sepsis: Code(s): A41.9 - Sepsis, unspecified organism Status: Acute Assessment and Plan: Patient presents with complaints of lower extremity discoloration. [place] to have sepsis with tachycardia, IRIS, lactic acidosis and HoTN; central line placed and but did not need pressors Admitted to the ICU. Source probably from UTI. Patient is on IV Levaquin as patient has multiple allergic to penicillin UCx 04/12: Klebsiella sensitive to levaquim BCx 04/12: Staph hominis felt to be contaminate Treated with IV fluids. lactic acid level normal. BP normal. Not on pressors Continue levaquin and Vancomycin. Follow up on cx results (2) IRIS (acute kidney injury): Code(s): N17.9 - Acute kidney failure, unspecified Status: Acute Assessment and Plan: Cr normal in April 2022. Cr 1.2 on admission felt to be mild IRIS secondary to sepsis and dehydration TCK level normal. Renal ultrasound pending Cr better. IV fluids off Monitor urine, electrolytes and renal fxn (3) Acute UTI: Code(s): N39.0 - Urinary tract infection, site not specified Status: Acute Assessment and Plan: See above (4) Type 2 diabetes mellitus with hyperglycemia, with long-term current use of insulin: Code(s): E11.65 - Type 2 diabetes mellitus with hyperglycemia; Z79.4 - custodial (current) use of insulin Status: Acute Assessment and Plan: A1c 6.2. The patient's blood glucose was reviewed on 04/15 Glucose low so Continue AccuCheks covering with sliding scale. Hypoglycemia protocol available as needed. Holding empagliflozin since has UTI and IRIS Lantus dose cut back (5) Dementia: Qualifiers: Dementia type: unspecified type Dementia behavioral disturbance: without behavioral disturbance Qualified Code(s): F03.90 - Unspecified dementia without behavioral disturbance Code(s): F03.90 - Unspecified dementia, unspecified severity, without behavioral disturbance, psychotic disturbance, mood disturbance, and anxiety Status: Acute Assessment and Plan: Patient with dementia Probably worse related to above Not on treatment (6) Paroxysmal atrial fibrillation: Code(s): I48.0 - Paroxysmal atrial fibrillation Status: Acute Assessment and Plan: Patient has history of proximal AFib with EKG showing possible atrial flutter. On metoprolol for rate control. BP better and metoprolol resumed. Not on anticoagulation b/c high risk of falls. Continue aspirin (7) Elevated troponin: Code(s): R77.8 - Other specified abnormalities of plasma proteins Status: Acute Assessment and Plan: Mildly elevated but flat troponin in light of sepsis and IRIS Patient has history of CAD EKG reviewed Continue aspirin, statin and beta-hermila Plan DVT prophylaxis -Lovenox Stress ulcer prophylaxis -Pepcid Nutrition -diabetic diet Code Status - Full Code Subjective Date/time seen: 04/15/23 12:41 Interval history: 67yo female with dCHF, VTE, pulm HTN, CAD and HTN here for lower extremity discoloration. No CP or SOB. No cough. Complains of nausea. Patietn had CP yesterday and was evaluate. She stated the CP was long standing and palpable. Exam confirmed palpable chest wall pain. EKG showingno change. Exam Narrative: AF 98.2 112/65 80 18 98% ra Gen - NARD sitting up in bed Neck - Right IJ Chest - lungs clear anteriorly. nml RR CV - irregularly irregular S1/S2. Tele showing PVCs, AFib Abd - Soft, obese, NT Ext - no edema Neuro - Alert but confused Psych - pleasant and cooperative Skin - Warm and dry Objective Data Vital Signs Vital Signs: Vital Signs - 24 hr 04/14/23 16:13 04/14/23 16:00 04/14/23 18:21 Temperature 98.9 F Pulse Rate 134 H 133 H 106 H Respiratory Rate 16 18 Blood Pressure 106/72 114/77 Pulse Oximetry 95 99 Oxygen Delivery 04/14/23 20:
[2023-04-15 17:03] LABS: Glucose Point of Care 112 mg/dl (65-105)
[2023-04-15 19:40] LABS: Glucose Point of Care 138 mg/dl (65-105)
[2023-04-15] MEDS: INSULIN GLARGINE (*BKC) 100 UNITS/ML 30 UNITS SUB-Q (20:04)
[2023-04-15] MEDS: levoFLOXacin 250 MG TABLET PO (20:05)
[2023-04-16] VITALS (8 sets, daily range): BP systolic 99–124; BP diastolic 56–64; PULSE 85–126; RESP 14–18; TEMP 36.6–36.8; O2SAT 95–100
[2023-04-16] MEDS: CENTRAL LINE FLUSH 10 ML IV PUSH (04:23)
[2023-04-16 04:26] LABS: Hematocrit 34.2 % (37.0-47.0); Hemoglobin 10.4 g/dL (12.0-15.0); Mean Corpuscular HGB Conc 30.4 g/dl (32-36); Mean Corpuscular Hemoglobin 31.3 pg (26-34); Mean Platelet Volume 10.8 fl (7.4-10.4); Platelet Count Result 154 k/mm3 (150-375); Red Blood Count 3.32 M/mm3 (4.2-5.4); Red Cell Distribution Width 15.5 % (11.5-14.5); White Blood Count 6.6 K/mm3 (4.5-10.0)
[2023-04-16 04:37] LABS: Albumin Level 2.6 g/dL (3.5-5.1); Anion Gap 2 mmol/L (8-16); Blood Urea Nitrogen 16 mg/dL (7-17); Calcium 8.5 mg/dL (8.4-10.2); Carbon Dioxide 28 mmol/L (22-30); Chloride 107 mmol/L (98-107); Estimated CRCL calculation 58 ml/min; Estimated Glomerular Filt Rate > 60; Glucose 87 mg/dL (65-110); Magnesium 1.7 mg/dL (1.6-2.3); Phosphorus 2.9 mg/dL (2.5-4.5); Potassium 3.9 mmol/L (3.4-5.0); Sodium 137 mmol/L (137-145)
[2023-04-16 08:54] LABS: Glucose Point of Care 86 mg/dl (65-105)
[2023-04-16] MEDS: ENOXAPARIN 40 MG/0.4 ML SYRINGE SUB-Q (09:13)
[2023-04-16] MEDS: ASCORBIC ACID 500 MG TABLET PO (09:20)
[2023-04-16] MEDS: VENLAFAXINE HCL XR 75 MG CAP.ER.24H 225 MG PO (09:27)
[2023-04-16] MEDS: metFORMIN HCL 500 MG TABLET 1000 MG PO ×2 (09:32→16:36)
[2023-04-16] MEDS: CYANOCOBALAMIN 1,000 MCG TABLET 1000 MCG PO (09:35)
[2023-04-16] MEDS: DIVALPROEX SODIUM DR 250 MG TABEC 500 MG PO ×2 (09:37→16:36)
[2023-04-16] MEDS: METOPROLOL TARTRATE 25 MG TABLET PO (09:40)
[2023-04-16] MEDS: ATORVASTATIN 40 MG TABLET 80 MG PO (09:42)
[2023-04-16] MEDS: CHOLECALCIFEROL 1,000 UNITS TABLET 1000 UNITS PO (09:44)
[2023-04-16] MEDS: allopurinoL 300 MG TABLET PO (09:45)
[2023-04-16] MEDS: FAMOTIDINE 20 MG TABLET PO (09:47)
[2023-04-16] MEDS: ASPIRIN 81 MG ENTERIC TABLET PO (09:47)
[2023-04-16] MEDS: LORATADINE 10 MG TABLET PO (09:48)
[2023-04-16] MEDS: CALCIUM CARBONATE (TUMS) 500 MG (200 MG ELEMENTAL) PO ×2 (09:49→16:36)
[2023-04-16] MEDS: COLESTIPOL HCL 1 GM TABLET PO ×2 (11:24→18:06)
[2023-04-16 11:35] LABS: Glucose Point of Care 150 mg/dl (65-105)
--- NOTE | 2023-04-16 12:32 | PM.DS ---
DS: Admitting Diagnosis Discharge Date 04/16/23 Admitting Diagnosis Lower extremity discoloration DS: Discharge Diagnosis Discharge Diagnosis (1) Sepsis: Code(s): A41.9 - Sepsis, unspecified organism Status: Acute (2) IRIS (acute kidney injury): Code(s): N17.9 - Acute kidney failure, unspecified Status: Acute (3) Acute UTI: Code(s): N39.0 - Urinary tract infection, site not specified Status: Acute (4) Type 2 diabetes mellitus with hyperglycemia, with long-term current use of insulin: Code(s): E11.65 - Type 2 diabetes mellitus with hyperglycemia; Z79.4 - intermediate teacher (current) use of insulin Status: Acute (5) Dementia: Qualifiers: Dementia type: unspecified type Dementia behavioral disturbance: without behavioral disturbance Qualified Code(s): F03.90 - Unspecified dementia without behavioral disturbance Code(s): F03.90 - Unspecified dementia, unspecified severity, without behavioral disturbance, psychotic disturbance, mood disturbance, and anxiety Status: Acute (6) Paroxysmal atrial fibrillation: Code(s): I48.0 - Paroxysmal atrial fibrillation Status: Acute (7) Elevated troponin: Code(s): R77.8 - Other specified abnormalities of plasma proteins Status: Acute DS: Summary Hospital Course Reason for hospitalization: 67yo female with dCHF, VTE, pulm HTN, CAD and HTN here for lower extremity discoloration. Please see H&P for details. Hospital Course: Patient presents with complaints of lower extremity discoloration. [place] to have sepsis with tachycardia, IRIS, lactic acidosis and HoTN; central line placed and but did not need pressors. She was admitted to the ICU. Source probably from UTI. Patient was on IV Levaquin as patient has multiple allergic including penicillin. UCx 2/: Klebsiella sensitive to Levaquin. BCx 2/: Staph hominis felt to be contaminate. Treated with IV fluids. Lactic acid level normal. BP normal. Cr normal in April 2022. Cr 1.2 on admission felt to be mild IRIS secondary to sepsis and dehydration. TCK level normal. Renal ultrasound was unremarkable. Cr normallized. A1c 6.2. The patient's blood glucose was monitored with AccuCheks covering with sliding scale.? Hypoglycemia protocol was available as needed.?Lantus cut back and empagliflozin held since has UTI and IRIS. Patient with dementia. Probably worse related to above. She is not on treatment. Patient has history of proximal AFib with EKG showing possible atrial flutter. She is on metoprolol for rate control. BP improved and metoprolol resumed. She is not on anticoagulation b/c high risk of falls. We continued aspirin here. Mildly elevated but flat troponin in light of sepsis and IRIS. Patient has history of CAD. We continued aspirin, statin and beta-hermila. She had clinical improvement. She overall did well and was able to be discharged to the group home on 04/16/23. Status at Discharge Cognitive/behavioral status at discharge: stable Time Spent with Patient Time attestation: Total time spent providing and/or coordinating discharge services: 35 miutes Time spent: Greater than 30 minutes Exam Narrative: AF 98.2 124/56 85 16 95% ra Gen - NARD sitting up in bed Chest - CTA bilaterally, nml RR CV - irregularly irregular S1/S2. Tele showing PVCs, AFib Abd - Soft, obese, NT Ext - no edema Neuro - Alert but confused Psych - pleasant and cooperative Skin - Warm and dry DS: Data Data Completed and Pending Labs on day of discharge: Labs from last 24 hours 04/16/23 04/16/23 04/16/23 11:29 08:43 04:20 WBC 6.6 RBC 3.32 L Hgb 10.4 L Hct 34.2 L MCV 103.0 H MCH 31.3 MCHC 30.4 L RDW 15.5 H Plt Count 154 MPV 10.8 H Sodium 137 Potassium 3.9 Chloride 107 Carbon Dioxide 28 Anion Gap 2 L BUN 16 Creatinine 0.90 Estim Creat Clear Calc 58 Estimated GFR > 60 Glucose 87 P
[2023-04-16 13:45] LABS: SARS-CoV-2 RNA PCR Negative (Negative)
[2023-04-16 17:22] LABS: Glucose Point of Care 116 mg/dl (65-105)
--- NOTE | 2023-04-23 07:04 | PC.NURSE ---
Blood cx are negative. Dr. Rodger trotter.
== END 2023-04-16 18:45 | DRG 872 ==
LOC: ANHED 23:54 → ANH3MED 04-13 01:33 → ANHIMU 04-13 02:33 → ANHICU 04-13 05:42 → ANH2MED 04-13 23:24
PROVIDERS: Internal Medicine; Admitting Provider Student in an Organized Health Care Education/Training Program; Emergency Provider Student in an Organized Health Care Education/Training Program; PCP Family Medicine; Visit Provider Internal Medicine
DX: A41.9 Sepsis, unspecified organism (principal); N39.0 Urinary tract infection, site not specified; I50.32 Chronic diastolic (congestive) heart failure; I13.0 Hypertensive heart and chronic kidney disease with heart failure and stage 1 through stage 4 chronic kidney disease, or unspecified chronic kidney disease; N17.9 Acute kidney failure, unspecified; Z68.41 Body mass index [BMI] 40.0-44.9, adult; I48.0 Paroxysmal atrial fibrillation; I25.10 Atherosclerotic heart disease of native coronary artery without angina pectoris; I87.8 Other specified disorders of veins; I27.20 Pulmonary hypertension, unspecified; N18.30 Chronic kidney disease, stage 3 unspecified; E11.22 Type 2 diabetes mellitus with diabetic chronic kidney disease; E11.42 Type 2 diabetes mellitus with diabetic polyneuropathy; E11.65 Type 2 diabetes mellitus with hyperglycemia; E78.5 Hyperlipidemia, unspecified; J44.9 Chronic obstructive pulmonary disease, unspecified; K21.9 Gastro-esophageal reflux disease without esophagitis; N39.46 Mixed incontinence; E66.01 Morbid (severe) obesity due to excess calories; R77.8 Other specified abnormalities of plasma proteins; B96.1 Klebsiella pneumoniae [K. pneumoniae] as the cause of diseases classified elsewhere; G47.33 Obstructive sleep apnea (adult) (pediatric); Z20.822 Contact with and (suspected) exposure to COVID-19; Z11.52 Encounter for screening for COVID-19; F41.9 Anxiety disorder, unspecified; F32.A Depression, unspecified; F03.90 Unspecified dementia, unspecified severity, without behavioral disturbance, psychotic disturbance, mood disturbance, and anxiety; I25.2 Old myocardial infarction; Z79.4 Long term (current) use of insulin; Z86.718 Personal history of other venous thrombosis and embolism; Z86.711 Personal history of pulmonary embolism; Z79.82 Long term (current) use of aspirin; Z91.81 History of falling
CPT/HCPCS: 36415; 71045; 76775; 80048; 80053; 80069; 81001; 82550; 82948; 83036; 83605; 83690; 83735; 84484; 85025; 85027; 85610; 85730; 86140; 87040; 87086; 87181; 87186; 87635; 87637; 87641; 93005; 96361; 96365; 96375; 99285; A9270; C1751; G0378; J1650; J1815; J1956; J3370; J7030; J7040; J7120

== ENCOUNTER 2023-10-18 19:36 | Observation (INO) | payer MEDICARE, MEDICAID, SELFPAY ==
--- NOTE | ~2023-10-18 | XR_ITS ---
XR chest 1V portable Ordering provider: Angel Noriega MD History: 68 years Female with . CP . Comparison: April 13 0.224 FINDINGS: MEDIASTINUM: The cardiac silhouette is not enlarged. LUNGS: No infiltrates, effusions or pneumothorax. OTHER: No free air under the diaphragm. IMPRESSION: No acute cardiopulmonary pathology. Reviewed, dictated and finalized at location A.
--- NOTE | 2023-10-18 19:38 | ECG_ITS ---
Test Date: 2023-10-18 19:55:46 Measurements Intervals [place] Rate: 114 P: 0 DE: 0 QRS: 1 QRSD: 110 T: 59 QT: 347 QTc: 478 Interpretive Statements ATRIAL FIBRILLATION WITH RAPID VENTRICULAR RESPONSE LOW QRS VOLTAGE [QRS DEFLECTION < 0.5/1.0 mV IN LIMB/CHEST LEADS] No previous ECG available for comparison Electronically Signed On 10-19-2023 10:35:04 CDT by Cleveland Rodriguez M.D.
[2023-10-18 19:44] VITALS: BP 112/71; PULSE 105; RESP 19; TEMP 36.3; O2SAT 95
[2023-10-18 20:13] VITALS: BP 118/84; PULSE 106; RESP 14; TEMP 36.8; O2SAT 97
[2023-10-18 20:15] VITALS: O2SAT 97
[2023-10-18 20:16] LABS: Basophils Absolute Auto 0.1 K/mm3 (0.0-0.1); Basophils Percent Auto 0.7 % (0.2-1.2); Eosinophils Absolute Auto 0.3 K/mm3 (0-0.3); Eosinophils Percent Auto 3.8 % (0-4.4); Hematocrit 42.1 % (37.0-47.0); Hemoglobin 13.5 g/dL (12.0-15.0); Immature Granulocyte Absolute 0.08 K/mm3 (0.00-0.031); Immature Granulocyte Percent A 0.9 % (0-0.5); Lymphocytes Absolute Auto 2.02 K/mm3 (0.9-3.2); Lymphocytes Percent Auto 23.7 % (18.3-44.2); Mean Corpuscular HGB Conc 32.1 g/dl (32-36); Mean Corpuscular Hemoglobin 31.9 pg (26-34); Mean Corpuscular Volume 99.5 fl (80-100); Mean Platelet Volume 11.7 fl (7.4-10.4); Monocytes Absolute Auto 0.9 K/mm3 (0.1-0.6); Monocytes Percent Auto 10.8 % (2.6-8.5); Neutrophils Absolute Auto 5.1 K/mm3 (1.3-6.7); Neutrophils Percent Auto 60.1 % (45.5-73.1); Platelet Count Result 236 k/mm3 (150-375); Red Blood Count 4.23 M/mm3 (4.2-5.4); Red Cell Distribution Width 15.8 % (11.5-14.5); White Blood Count 8.5 K/mm3 (4.5-10.0)
[2023-10-18 20:20] LABS: Add Urine Microscopic? YES; Appearance Urine Clear (Clear); Bacteria Urine None Seen /hpf; Bilirubin Urine Negative (Negative); Blood Urine Negative (Negative); Color Urine Yellow (Yellow); Glucose Urine UA 3+ mg/dL (Negative); Ketones Urine Negative (Negative); Leukocyte Esterase Ur 1+ LEU/UL (Negative); Nitrate Urine Negative (Negative); Non Pathogenic Casts 0-2; Protein Urine Negative (Negative); RBC Urine 0-2 /hpf (0-2); Specific Grav Ur 1.021 (1.001-1.035); Squamous Epithelial Cell Urine None Seen /hpf (Few); Urobilinogen Urine 0.2 mg/dL (<2.0)
[2023-10-18 20:25] LABS: Alanine Aminotransferase 15 U/L (6-35); Albumin Level 3.5 g/dL (3.5-5.1); Alkaline Phosphatase 75 U/L (38-126); Anion Gap 10 mmol/L (4-12); Aspartate Amino Transferase 23 U/L (14-36); Bilirubin,Total 0.2 mg/dL (0.2-1.3); Blood Urea Nitrogen 29 mg/dL (7-17); Calcium 8.4 mg/dL (8.4-10.2); Carbon Dioxide 27 mmol/L (22-30); Chloride 97 mmol/L (98-107); Estimated CRCL calculation 49 ml/min; Estimated Glomerular Filt Rate 50; Glucose 152 mg/dL (65-110); Lipase 95 U/L (23-300); Sodium 134 mmol/L (137-145)
[2023-10-18 20:26] LABS: Prothrombin Time 13.2 Seconds (11.1-14.7)
[2023-10-18 20:27] LABS: Partial Thromboplastin Time 27.4 Seconds (22.3-36.8)
[2023-10-18 20:37] LABS: Troponin I 0.021 ng/mL (0.000-0.034)
--- NOTE | 2023-10-18 21:21 | ED.GENADULT ---
HPI - General Adult General Chief complaint: Chest Pain Stated complaint: chest pain Time Seen by Provider: 10/18/23 19:56 History of Present Illness HPI narrative: patient 68-year-old female who presents emerged from with chief complaint of chest pain back pain and low blood pressure. Patient reports that around 6:00 p.m. started having pressure patient has history of proximal atrial fibrillation the patient is normally alert oriented x1 at baseline urine and was confused at her baseline facility the patient did start complaining of chest pain reports that is not improved by anything she was given nitroglycerin by the staff at the facility and that when her pressure came down they gave her another dose of nitroglycerin Related Data Home Medications Medication Instructions Recorded Confirmed acetaminophen 650 mg tablet 650 mg PO Q6H PRN Pain (Scale 01/20/21 04/13/23 Score 1-3) albuterol sulfate 90 mcg/actuation 2 puff inhalation Q4H PRN 01/20/21 04/13/23 aerosol inhaler Shortness Of Breath Or Wheezing allopurinol 300 mg tablet 300 mg PO DAILY 01/20/21 04/13/23 ascorbic acid (vitamin C) 500 mg 500 mg PO DAILY 01/20/21 04/13/23 tablet bisacodyl 10 mg rectal suppository 10 mg RECTAL DAILY PRN Constipation 01/20/21 04/13/23 calcium carbonate 200 mg PO BID 01/20/21 04/13/23 cholecalciferol (vitamin D3) 25 25 mcg PO DAILY 01/20/21 04/13/23 mcg (1,000 unit) tablet (Vitamin D3) cyanocobalamin (vitamin B-12) 1,000 mcg PO DAILY 01/20/21 04/13/23 1,000 mcg tablet (Vitamin B-12) famotidine 20 mg tablet 20 mg PO BID 01/20/21 04/13/23 insulin aspart U-100 100 unit/mL See Rx Instructions .Route .COMPLEX 01/20/21 04/13/23 (3 mL) subcutaneous pen (Novolog FlexPen U-100 Insulin aspart) loperamide 2 mg capsule 2 mg PO Q6H PRN Diarrhea 01/20/21 04/13/23 loratadine 10 mg tablet 10 mg PO DAILY 01/20/21 04/13/23 magnesium citrate 296 ml PO DAILY PRN Constipation 01/20/21 04/13/23 magnesium hydroxide 400 mg/5 mL 30 ml PO HS PRN Constipation 01/20/21 04/13/23 oral suspension (Milk of Magnesia) melatonin 5 mg tablet 5 mg PO HS 01/20/21 04/13/23 metformin 500 mg tablet 1,000 mg PO BID 01/20/21 04/13/23 sodium phosphates 19 gram-7 118 ml RECTAL DAILY PRN 01/20/21 04/13/23 gram/118 mL enema (Fleet Enema) Constipation venlafaxine 75 mg capsule,extended 225 mg PO HS 01/20/21 04/13/23 release 24 hr multivitamin-ferrous 1 tablet PO DAILY 05/13/21 04/13/23 fumarate-folic acid 18 mg-400 mcg tablet nystatin-triamcinolone 100,000 1 applic topical Q24H 05/13/21 04/13/23 unit/g-0.1 % topical cream divalproex 500 mg tablet,delayed 500 mg PO BID 09/20/21 04/13/23 release empagliflozin 25 mg tablet 25 mg PO DAILY 09/20/21 04/13/23 (Jardiance) colestipol 1 gram tablet (Colestid) 1 g PO BID 04/27/22 04/13/23 DermaSeptin 1 applic topical DAILY 04/13/23 04/13/23 albuterol sulfate 90 mcg/actuation 2 puff inhalation HS 04/13/23 04/13/23 aerosol inhaler (Ventolin HFA) glucagon 1 mg solution for 1 mg subcut PRN PRN Hypoglycemia 04/13/23 04/13/23 injection (Glucagon Emergency Kit) metoprolol tartrate 25 mg tablet 25 mg PO Q12HR 04/13/23 04/13/23 Allergies Allergy/AdvReac Type Severity Reaction Status Date / Time amoxicillin Allergy Severe Anaphylaxis Verified 04/27/22 15:55 bee venom protein (honey bee) Allergy Severe Anaphylaxis Verified 04/27/22 15:55 [bees] Penicillins Allergy Severe Anaphylaxis Verified 04/27/22 15:55 Sulfa (Sulfonamide Allergy Severe Anaphylaxis Verified 04/27/22 15:55 Antibiotics) blue dye Allergy Unknown Verified 04/12/23 20:15 fish derived Allergy Unknown Verified 04/12/23 20:16 iodine Allergy Rash Verified 04/27/22 15:55 metaproterenol Allergy Unknown Verified 04/27/22 15:55 methocarbamol Allergy Unknown Verified 04/27/22 15:55 oxytetracycline Allergy Unknown Verified 04/27/22 15:55 pentazocine Allergy Unknown Verified 04/27/22 15:55 procaine Allergy Unknown Verified 04/27/22 15:55 aspirin
[2023-10-18 23:14] VITALS: BP 106/89; PULSE 110; RESP 14; O2SAT 100
[2023-10-18 23:46] LABS: Troponin I 0.021 ng/mL (0.000-0.034)
[2023-10-19] VITALS (15 sets, daily range): BP systolic 101–140; BP diastolic 47–89; PULSE 85–112; RESP 14–22; TEMP 36.3–36.9; O2SAT 97–100; BMI 42.3
--- NOTE | 2023-10-19 02:55 | ADMGEN ---
This patient, Nazanin Medellin, was admitted to IMU Room 212-01 at 0250. Patient/family oriented to hospital policies and general routines including ID bracelet, bed and alarms, visiting hours, pain management, procedures, bathroom and other care routines, personal items, smoking policy, room service/diet, and visiting hours. Information on how to activate the Rapid Response Team has been discussed. Patient/Family are encouraged to report perceived risks to care and to ask questions if they do not understand what they are told or what they should do.
[2023-10-19 04:22] LABS: Troponin I 0.023 ng/mL (0.000-0.034)
[2023-10-19 04:37] LABS: Cholesterol 187 mg/dL (0-200); HDL Direct 25 mg/dL; Triglycerides 418 mg/dL (<150)
[2023-10-19 04:48] LABS: LDL Cholesterol Direct 89 mg/dL
--- NOTE | 2023-10-19 10:19 | PC.NURSE ---
Updated brother Moi on plan of care. Reviewed contact information with Moi.
--- NOTE | 2023-10-19 10:26 | PM.IMHP ---
H&P: HPI History of Present Illness Date/Time: 10/19/23 10:26 Chief Complaint: Chest pain Narrative: patient 68-year-old female who presents emerged from with chief complaint of chest pain back pain and low blood pressure. Patient reports that around 6:00 p.m. started having pressure patient has history of proximal atrial fibrillation the patient is normally alert oriented x1 at baseline urine and was confused at her baseline facility the patient did start complaining of chest pain reports that is not improved by anything she was given nitroglycerin by the staff at the facility and that when her pressure came down they gave her another dose of nitroglycerin. Patient is a poor historian and has no re-collection of what happened yesterday. She denies any shortness of breath or chest pain. EKG does reveal atrial fibrillation intermittently in a RVR. Review of Systems Review of Systems: - CONSTITUTIONAL: Denies weight loss, fever and chills. - HEENT: Denies changes in vision and hearing - RESPIRATORY: Denies SOB and cough. - CV: Denies palpitations and CP. - GI: Denies abdominal pain, nausea, vomiting and diarrhea. - : Denies dysuria and urinary frequency. - MSK: Denies myalgia and joint pain. - SKIN: Denies rash and pruritus. - NEUROLOGICAL: Denies headache and syncope. - PSYCHIATRIC: Denies recent changes in mood. Denies anxiety and depression. [facility] Past Medical History Medical History Anxiety Asthma CAD (coronary artery disease) Non STEMI 12/2020 Congestive heart failure Echocardiogram 04/2021: EF 65-70%, mildly increased left ventricular wall thickness, abnormal diastolic function, moderate left atrial enlargement, mild aortic valve stenosis peak velocity of 205 mean gradient 11 and valve area 2.39 cm, mild aortic valve regurgitation, mild mitral valve stenosis, mild mitral valve regurgitation, severely calcified mitral valve annulus, mild tricuspid valve regurgitation, moderate pulmonary hypertension RVSP of 59 Deep venous thrombosis Depression Diabetic peripheral neuropathy Frequent urinary tract infections Gastroesophageal reflux disease Hyperlipidemia Hypertension Mixed stress and urge incontinence Moderate pulmonary hypertension Morbid obesity with BMI of 50.0-59.9, adult NSTEMI (non-ST elevated myocardial infarction) Obstructive sleep apnea Intolerant to CPAP. Paroxysmal atrial fibrillation Pulmonary embolism Surgical History Surgical History History of cardiac catheterization Most recent cardiac catheterization 12/2020: 70% eccentric stenosis proximal left circumflex status post angioplasty and stent placement 3 x 12 mm Medtronic resolute becca zotarolimus stent, 30 40% stenosis mid LAD, 50 60% diffuse stenosis proximal segment of D2 and D3, 30-40% stenosis proximal segment of RCA preserved EF 70% left ventricular end-diastolic pressure 12 History of cholecystectomy History of colonoscopy History of cystoscopy History of tonsillectomy and adenoidectomy Family History Family History Mother No problems noted. Father No problems noted. Other Adopted Chest pain Social History Social History Social History: Surrogate decision maker: Moi [place]ell[place], brother. Code status: Full code. Smoking status: Never smoker Second hand tobacco smoke exposure: No Alcohol intake: never Substance use: never Substance use type: does not use Additional living arrangements comments: Patient is a resident at [facility]. She has no children. 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 Spiritual care concerns: No Meds Home Medications and Allergies Home Me
[2023-10-19 11:19] LABS: Magnesium 1.9 mg/dL (1.6-2.3)
[2023-10-19] MEDS: CHOLECALCIFEROL 1,000 UNITS TABLET 1000 UNITS PO (12:24)
[2023-10-19] MEDS: FUROSEMIDE 80 MG TABLET PO (12:24)
[2023-10-19] MEDS: ASCORBIC ACID 500 MG TABLET PO (12:24)
[2023-10-19] MEDS: MICONAZOLE NITRATE 2% CREAM 30 GM TUBE 1 APPLIC TOPICAL ×2 (12:24→21:29)
[2023-10-19] MEDS: METOPROLOL TARTRATE 12.5 MG TABLET PO ×2 (12:53→21:30)
[2023-10-19] MEDS: ONDANSETRON HCL ODT 4 MG TABLET 8 MG PO ×2 (14:48→22:28)
[2023-10-19 15:48] LABS: Free T4 Free Thyroxine Reflex 0.92 ng/dL (0.78-2.19)
[2023-10-19 16:44] LABS: Total Triiodothyronine (T3) 1.17 NG/ML (0.97-1.69)
[2023-10-19] MEDS: DIVALPROEX SODIUM DR 250 MG TABEC 500 MG PO (16:59)
[2023-10-19] MEDS: metFORMIN HCL 500 MG TABLET 1000 MG PO (16:59)
[2023-10-19] MEDS: COLESTIPOL HCL 1 GM TABLET PO (16:59)
[2023-10-19] MEDS: CALCIUM CARBONATE (TUMS) 500 MG (200 MG ELEMENTAL) PO (16:59)
[2023-10-19] MEDS: FAMOTIDINE 20 MG TABLET PO (16:59)
[2023-10-19] MEDS: oxyCODONE HCL (*CRX) 5 MG TAB IR PO (19:13)
[2023-10-19 20:55] LABS: Glucose Point of Care 131 mg/dl (65-105)
[2023-10-19] MEDS: INSULIN GLARGINE (*BKC) 100 UNITS/ML 10 UNITS SUB-Q (21:29)
[2023-10-19] MEDS: VENLAFAXINE HCL XR 75 MG CAP.ER.24H 225 MG PO (21:30)
[2023-10-19] MEDS: OLANZapine 2.5 MG TABLET PO (21:30)
[2023-10-19] MEDS: MELATONIN 5 MG TABLET PO (21:31)
[2023-10-20] VITALS (20 sets, daily range): BP systolic 97–124; BP diastolic 63–73; PULSE 79–109; RESP 20; TEMP 35.8–36.5; O2SAT 93–99
[2023-10-20 04:49] LABS: Basophils Absolute Auto 0.1 K/mm3 (0.0-0.1); Basophils Percent Auto 0.8 % (0.2-1.2); Eosinophils Absolute Auto 0.4 K/mm3 (0-0.3); Eosinophils Percent Auto 5.8 % (0-4.4); Hematocrit 44.1 % (37.0-47.0); Hemoglobin 13.6 g/dL (12.0-15.0); Immature Granulocyte Absolute 0.04 K/mm3 (0.00-0.031); Immature Granulocyte Percent A 0.6 % (0-0.5); Lymphocytes Absolute Auto 2.48 K/mm3 (0.9-3.2); Lymphocytes Percent Auto 39.2 % (18.3-44.2); Mean Corpuscular HGB Conc 30.8 g/dl (32-36); Mean Corpuscular Hemoglobin 31.3 pg (26-34); Mean Corpuscular Volume 101.6 fl (80-100); Mean Platelet Volume 11.7 fl (7.4-10.4); Monocytes Absolute Auto 0.8 K/mm3 (0.1-0.6); Monocytes Percent Auto 12.6 % (2.6-8.5); Neutrophils Absolute Auto 2.6 K/mm3 (1.3-6.7); Platelet Count Result 186 k/mm3 (150-375); Red Blood Count 4.34 M/mm3 (4.2-5.4); Red Cell Distribution Width 15.7 % (11.5-14.5); White Blood Count 6.3 K/mm3 (4.5-10.0)
[2023-10-20 05:00] LABS: Alanine Aminotransferase 16 U/L (6-35); Albumin Level 3.5 g/dL (3.5-5.1); Alkaline Phosphatase 77 U/L (38-126); Anion Gap 8 mmol/L (4-12); Aspartate Amino Transferase 26 U/L (14-36); Bilirubin,Total 0.2 mg/dL (0.2-1.3); Blood Urea Nitrogen 26 mg/dL (7-17); Calcium 8.5 mg/dL (8.4-10.2); Carbon Dioxide 33 mmol/L (22-30); Chloride 95 mmol/L (98-107); Estimated CRCL calculation 48 ml/min; Estimated Glomerular Filt Rate 50; Glucose 105 mg/dL (65-110); Magnesium 2.1 mg/dL (1.6-2.3); Sodium 136 mmol/L (137-145)
[2023-10-20] MEDS: ONDANSETRON HCL ODT 4 MG TABLET 8 MG PO ×3 (06:59→21:00)
[2023-10-20] MEDS: METOPROLOL TARTRATE 12.5 MG TABLET PO ×2 (09:21→21:00)
[2023-10-20] MEDS: POTASSIUM CHLORIDE 20 MEQ ER TABLET PO (09:21)
[2023-10-20] MEDS: MULTIVITAMINS /C LUTEIN (CENTRUM SILVER) TABLET *BKC 1 TAB PO (09:21)
[2023-10-20] MEDS: LORATADINE 10 MG TABLET PO (09:21)
[2023-10-20] MEDS: FAMOTIDINE 20 MG TABLET PO ×2 (09:21→17:23)
[2023-10-20] MEDS: metFORMIN HCL 500 MG TABLET 1000 MG PO ×2 (09:21→17:23)
[2023-10-20] MEDS: EMPAGLIFLOZIN 25 MG TABLET PO (09:21)
[2023-10-20] MEDS: FUROSEMIDE 80 MG TABLET PO (09:21)
[2023-10-20] MEDS: MICONAZOLE NITRATE 2% CREAM 30 GM TUBE 1 APPLIC TOPICAL ×2 (09:21→21:01)
[2023-10-20] MEDS: allopurinoL 50 MG TABLET PO (09:22)
[2023-10-20] MEDS: DIVALPROEX SODIUM DR 250 MG TABEC 500 MG PO ×2 (09:22→17:24)
[2023-10-20] MEDS: ASPIRIN 81 MG ENTERIC TABLET PO (09:22)
[2023-10-20] MEDS: CALCIUM CARBONATE (TUMS) 500 MG (200 MG ELEMENTAL) PO ×2 (09:22→17:23)
[2023-10-20] MEDS: ASCORBIC ACID 500 MG TABLET PO (09:22)
[2023-10-20] MEDS: CYANOCOBALAMIN 1,000 MCG TABLET 1000 MCG PO (09:22)
[2023-10-20] MEDS: CHOLECALCIFEROL 1,000 UNITS TABLET 1000 UNITS PO (09:22)
[2023-10-20] MEDS: allopurinoL 300 MG TABLET PO (09:22)
[2023-10-20] MEDS: COLESTIPOL HCL 1 GM TABLET PO ×2 (09:22→17:23)
--- NOTE | 2023-10-20 14:15 | PM.IMPN ---
Progress Note: A&P Assessment and Plan (1) Chest pain: Code(s): R07.9 - Chest pain, unspecified Status: Acute (2) Acute UTI: Code(s): N39.0 - Urinary tract infection, site not specified Status: Acute (3) Diastolic heart failure: Qualifiers: Heart failure chronicity: chronic Qualified Code(s): I50.32 - Chronic diastolic (congestive) heart failure Code(s): I50.30 - Unspecified diastolic (congestive) heart failure Status: Acute (4) Type 2 diabetes mellitus with hyperglycemia, with long-term current use of insulin: Code(s): E11.65 - Type 2 diabetes mellitus with hyperglycemia; Z79.4 - jail (current) use of insulin Status: Acute (5) Obstructive sleep apnea: Code(s): G47.33 - Obstructive sleep apnea (adult) (pediatric) Status: Acute (6) Anemia: Code(s): D64.9 - Anemia, unspecified Status: Acute (7) Dementia: Qualifiers: Dementia type: unspecified type Dementia behavioral disturbance: without behavioral disturbance Qualified Code(s): F03.90 - Unspecified dementia without behavioral disturbance Code(s): F03.90 - Unspecified dementia, unspecified severity, without behavioral disturbance, psychotic disturbance, mood disturbance, and anxiety Status: Acute (8) Anxiety: Code(s): F41.9 - Anxiety disorder, unspecified Status: Acute (9) Depression: Code(s): F32.A - Depression, unspecified Status: Acute (10) Paroxysmal atrial fibrillation: Code(s): I48.0 - Paroxysmal atrial fibrillation Status: Acute (11) Hyperlipidemia: Code(s): E78.5 - Hyperlipidemia, unspecified Status: Acute (12) Hypertension: Qualifiers: Hypertension type: primary hypertension Qualified Code(s): I10 - Essential (primary) hypertension Code(s): I10 - Essential (primary) hypertension Status: Chronic (13) COPD (chronic obstructive pulmonary disease): Code(s): J44.9 - Chronic obstructive pulmonary disease, unspecified Status: Acute Plan This is a 68-year-old female who presents to the ED with complaint of chest pain back pain and low blood pressure. Patient reported that around 6:00 p.m. she started having chest pressure. She has a history of atrial fibrillation paroxysmal. She is normally alert and oriented x1 at baseline. From a nursing facility. She was also more confused per nursing facility and started complaining of chest pain which did improve with anything. She was given nitroglycerin by the staff at the facility. In ED her vitals were stable except for mild tachycardia. EKG showed atrial fibrillation. Initial troponin x2 is 0.021 which is negative. Third set is 0.023 was remains negative. She was poorly kept. Evidence of UTI on laboratory evaluation. Creatinine 1.1 and BUN of 29 normal WBC and hemoglobin. Lipase was normal. Chest x-ray with no acute cardiopulmonary abnormality. She is admitted for further treatment. Atrial fibrillation with rapid ventricular rate. History of proximal atrial fibrillation. Electrolytes were adequate. Lab to check magnesium. Rate controlled resume metoprolol check TSH UTI started on ceftriaxone. Urine cultures no growth. Will switch to oral levofloxacin Type 2 diabetes on insulin History of dementia Paroxysmal atrial fibrillation not on anticoagulation due high risk of falls. On aspirin and metoprolol Coronary artery disease with history of non STEMI in 12/2020 Chronic diastolic congestive heart failure echo with EF 60-5 to 70% on 04/2021 moderate pulmonary hypertension mild aortic valve stenosis History of DVT/PE History of anemia History of bipolar/mood disorder COPD Peripheral neuropathy Frequent UTI GERD Hypertension Hyperlipidemia Moderate pulmonary hypertension Morbid obesity Obstructive sleep apnea intolerant to CPAP DVT prophylaxis Lovenox Code status full code Subjective Date/time seen
[2023-10-20 16:27] LABS: Glucose Point of Care 125 mg/dl (65-105)
[2023-10-20 20:34] LABS: Glucose Point of Care 194 mg/dl (65-105)
[2023-10-20] MEDS: ALBUTEROL SULFATE (*SP) AEROSOL 1 PUFF 2 PUFF INHALATION (20:41)
[2023-10-20] MEDS: OLANZapine 2.5 MG TABLET PO (21:00)
[2023-10-20] MEDS: MELATONIN 5 MG TABLET PO (21:01)
[2023-10-20] MEDS: INSULIN GLARGINE (*BKC) 100 UNITS/ML 10 UNITS SUB-Q (21:08)
[2023-10-20] MEDS: VENLAFAXINE HCL XR 75 MG CAP.ER.24H 225 MG PO (21:08)
[2023-10-21] VITALS (14 sets, daily range): BP systolic 101–110; BP diastolic 50–72; PULSE 51–110; RESP 18–20; TEMP 35.6–36.6; O2SAT 95–99
[2023-10-21 05:36] LABS: Basophils Absolute Auto 0.1 K/mm3 (0.0-0.1); Basophils Percent Auto 0.8 % (0.2-1.2); Eosinophils Absolute Auto 0.3 K/mm3 (0-0.3); Eosinophils Percent Auto 4.5 % (0-4.4); Hemoglobin 13.1 g/dL (12.0-15.0); Immature Granulocyte Absolute 0.04 K/mm3 (0.00-0.031); Immature Granulocyte Percent A 0.6 % (0-0.5); Lymphocytes Absolute Auto 1.98 K/mm3 (0.9-3.2); Lymphocytes Percent Auto 30.8 % (18.3-44.2); Mean Corpuscular HGB Conc 31.2 g/dl (32-36); Mean Corpuscular Hemoglobin 31.6 pg (26-34); Mean Corpuscular Volume 101.2 fl (80-100); Mean Platelet Volume 11.5 fl (7.4-10.4); Monocytes Absolute Auto 0.9 K/mm3 (0.1-0.6); Monocytes Percent Auto 13.8 % (2.6-8.5); Neutrophils Absolute Auto 3.2 K/mm3 (1.3-6.7); Neutrophils Percent Auto 49.5 % (45.5-73.1); Platelet Count Result 188 k/mm3 (150-375); Red Blood Count 4.15 M/mm3 (4.2-5.4); Red Cell Distribution Width 15.9 % (11.5-14.5); White Blood Count 6.4 K/mm3 (4.5-10.0)
[2023-10-21 06:00] LABS: Alanine Aminotransferase 17 U/L (6-35); Albumin Level 3.4 g/dL (3.5-5.1); Alkaline Phosphatase 75 U/L (38-126); Anion Gap 7 mmol/L (4-12); Aspartate Amino Transferase 23 U/L (14-36); Bilirubin,Total 0.2 mg/dL (0.2-1.3); Blood Urea Nitrogen 26 mg/dL (7-17); Calcium 8.6 mg/dL (8.4-10.2); Carbon Dioxide 34 mmol/L (22-30); Chloride 97 mmol/L (98-107); Estimated CRCL calculation 41 ml/min; Estimated Glomerular Filt Rate 41; Glucose 113 mg/dL (65-110); Magnesium 1.9 mg/dL (1.6-2.3); Potassium 4.2 mmol/L (3.4-5.0); Sodium 138 mmol/L (137-145)
[2023-10-21] MEDS: ONDANSETRON HCL ODT 4 MG TABLET 8 MG PO ×2 (06:27→14:55)
[2023-10-21 08:41] LABS: Glucose Point of Care 128 mg/dl (65-105)
[2023-10-21] MEDS: CYANOCOBALAMIN 1,000 MCG TABLET 1000 MCG PO (09:13)
[2023-10-21] MEDS: COLESTIPOL HCL 1 GM TABLET PO ×2 (09:13→17:23)
[2023-10-21] MEDS: METOPROLOL TARTRATE 12.5 MG TABLET PO (09:13)
[2023-10-21] MEDS: FUROSEMIDE 80 MG TABLET PO (09:13)
[2023-10-21] MEDS: ASPIRIN 81 MG ENTERIC TABLET PO (09:14)
[2023-10-21] MEDS: ASCORBIC ACID 500 MG TABLET PO (09:14)
[2023-10-21] MEDS: metFORMIN HCL 500 MG TABLET 1000 MG PO ×2 (09:14→17:22)
[2023-10-21] MEDS: LORATADINE 10 MG TABLET PO (09:14)
[2023-10-21] MEDS: DIVALPROEX SODIUM DR 250 MG TABEC 500 MG PO ×2 (09:14→17:22)
[2023-10-21] MEDS: CALCIUM CARBONATE (TUMS) 500 MG (200 MG ELEMENTAL) PO ×2 (09:14→17:22)
[2023-10-21] MEDS: allopurinoL 300 MG TABLET PO (09:14)
[2023-10-21] MEDS: MULTIVITAMINS /C LUTEIN (CENTRUM SILVER) TABLET *BKC 1 TAB PO (09:14)
[2023-10-21] MEDS: EMPAGLIFLOZIN 25 MG TABLET PO (09:14)
[2023-10-21] MEDS: FAMOTIDINE 20 MG TABLET PO ×2 (09:14→17:23)
[2023-10-21] MEDS: MICONAZOLE NITRATE 2% CREAM 30 GM TUBE 1 APPLIC TOPICAL (09:15)
[2023-10-21] MEDS: POTASSIUM CHLORIDE 20 MEQ ER TABLET PO (09:15)
[2023-10-21] MEDS: CHOLECALCIFEROL 1,000 UNITS TABLET 1000 UNITS PO (09:15)
[2023-10-21 12:59] LABS: Glucose Point of Care 149 mg/dl (65-105)
--- NOTE | 2023-10-21 13:57 | PM.DS ---
DS: Admitting Diagnosis Discharge Date 10/21/2023 Admitting Diagnosis Chest pain DS: Discharge Diagnosis Discharge Diagnosis (1) Chest pain: Code(s): R07.9 - Chest pain, unspecified Status: Acute (2) Acute UTI: Code(s): N39.0 - Urinary tract infection, site not specified Status: Acute (3) Diastolic heart failure: Qualifiers: Heart failure chronicity: chronic Qualified Code(s): I50.32 - Chronic diastolic (congestive) heart failure Code(s): I50.30 - Unspecified diastolic (congestive) heart failure Status: Acute (4) Type 2 diabetes mellitus with hyperglycemia, with long-term current use of insulin: Code(s): E11.65 - Type 2 diabetes mellitus with hyperglycemia; Z79.4 - 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 (current) use of insulin Status: Acute (5) Obstructive sleep apnea: Code(s): G47.33 - Obstructive sleep apnea (adult) (pediatric) Status: Acute (6) Anemia: Code(s): D64.9 - Anemia, unspecified Status: Acute (7) Dementia: Qualifiers: Dementia type: unspecified type Dementia behavioral disturbance: without behavioral disturbance Qualified Code(s): F03.90 - Unspecified dementia without behavioral disturbance Code(s): F03.90 - Unspecified dementia, unspecified severity, without behavioral disturbance, psychotic disturbance, mood disturbance, and anxiety Status: Acute (8) Anxiety: Code(s): F41.9 - Anxiety disorder, unspecified Status: Acute (9) Depression: Code(s): F32.A - Depression, unspecified Status: Acute (10) Paroxysmal atrial fibrillation: Code(s): I48.0 - Paroxysmal atrial fibrillation Status: Acute (11) Hyperlipidemia: Code(s): E78.5 - Hyperlipidemia, unspecified Status: Acute (12) Hypertension: Qualifiers: Hypertension type: primary hypertension Qualified Code(s): I10 - Essential (primary) hypertension Code(s): I10 - Essential (primary) hypertension Status: Chronic (13) COPD (chronic obstructive pulmonary disease): Code(s): J44.9 - Chronic obstructive pulmonary disease, unspecified Status: Acute DS: Summary Hospital Course Hospital Course: This is a 68-year-old female who presents to the ED with complaint of chest pain back pain and low blood pressure. Patient reported that around 6:00 p.m. she started having chest pressure. She has a history of atrial fibrillation paroxysmal. She is normally alert and oriented x1 at baseline. From a nursing facility. She was also more confused per nursing facility and started complaining of chest pain which did improve with anything. She was given nitroglycerin by the staff at the facility. In ED her vitals were stable except for mild tachycardia. EKG showed atrial fibrillation. Initial troponin x2 is 0.021 which is negative. Third set is 0.023 was remains negative. She was poorly kept. Evidence of UTI on laboratory evaluation. Creatinine 1.1 and BUN of 29 normal WBC and hemoglobin. Lipase was normal. Chest x-ray with no acute cardiopulmonary abnormality. She is admitted for further treatment. Atrial fibrillation with rapid ventricular rate. History of proximal atrial fibrillation. Electrolytes were adequate. Lab to check magnesium. Rate controlled resume metoprolol check TSH UTI started on ceftriaxone. Urine cultures no growth. Will switch to oral levofloxacin as she has allergy to penicillins Type 2 diabetes on insulin History of dementia Paroxysmal atrial fibrillation not on anticoagulation due high risk of falls. On aspirin and metoprolol patient remained rate controlled controlled Coronary artery disease with history of non STEMI in 12/2020 Chronic diastolic congestive heart failure echo with EF 60-5 to 70% on 04/2021 moderate pulmonary hypertension mild aortic valve stenosis History of DVT/PE History of anemia History of bipolar/mood disorder COPD Peripheral neuropathy Frequent UTI
[2023-10-21 16:59] LABS: Glucose Point of Care 117 mg/dl (65-105)
== END 2023-10-21 17:53 ==
LOC: ANHED 10-19 00:41 → ANHIMU 10-19 04:03
PROVIDERS: Admitting Provider Internal Medicine; Emergency Provider Emergency Medicine; PCP Family Medicine; Visit Provider Internal Medicine
DX: R07.9 Chest pain, unspecified (principal); N39.0 Urinary tract infection, site not specified; I50.32 Chronic diastolic (congestive) heart failure; E11.65 Type 2 diabetes mellitus with hyperglycemia; I48.0 Paroxysmal atrial fibrillation; F41.9 Anxiety disorder, unspecified; I25.10 Atherosclerotic heart disease of native coronary artery without angina pectoris; J45.909 Unspecified asthma, uncomplicated; K21.9 Gastro-esophageal reflux disease without esophagitis; E78.5 Hyperlipidemia, unspecified; I11.0 Hypertensive heart disease with heart failure; E66.01 Morbid (severe) obesity due to excess calories; Z68.41 Body mass index [BMI] 40.0-44.9, adult; G47.33 Obstructive sleep apnea (adult) (pediatric); Z86.711 Personal history of pulmonary embolism; Z79.4 Long term (current) use of insulin; D64.9 Anemia, unspecified; F03.90 Unspecified dementia, unspecified severity, without behavioral disturbance, psychotic disturbance, mood disturbance, and anxiety
CPT/HCPCS: 36415; 71045; 80053; 80061; 81001; 82948; 83690; 83735; 84439; 84443; 84480; 84484; 85025; 85610; 85730; 87086; 93005; 94640; 96365; 97165; 99285; A9270; G0378; J0696; J1815

== ENCOUNTER 2024-09-01 08:51 | Inpatient (IN) | payer MEDICARE, MEDICAID, SELFPAY ==
[2024-09-01] VITALS (29 sets, daily range): BP systolic 107–161; BP diastolic 52–95; PULSE 85–142; RESP 12–26; TEMP 36.2–37; O2SAT 89–100; BMI 34.3
--- NOTE | ~2024-09-01 | CT_ITS ---
CT brain wo con Ordering provider: Racheal Huang MD History: 69 years Female with . AMS . Comparison: September 11, 2024 Technique: CT of the head without contrast. FINDINGS: BRAIN PARENCHYMA AND CSF SPACES: Mild leukoaraiosis and diffuse cortical atrophy. Mild atheromatous d isease. 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 No midline shift, mass effect or hem orrhage. The brain parenchyma and CSF spaces are otherwise normal. Sed. VISUALIZED PARANASAL SINUSES: Well aerated. MASTOIDS: Well aerated. BONES: The bones appear intact. SOFT TISSUES: Visualized nasopharynx is normal. Superficial soft tissues are normal. IMPRESSION: No acute intracranial findings. Reviewed, dictated and finalized at location A.
--- NOTE | ~2024-09-01 | NM_ITS ---
EXAMINATION: NM lung vent and perfusion DATE: 09/01/2024 14:47 INDICATION: Hypoxia. Elevated d-dimer. TECHNIQUE: 22.5 mCi xenon-133 by inhalation and 5.6 mCi Tc-99m MAA by intravenous route. Scintigraph ic images of the chest were obtained. COMPARISON: Chest radiograph dated 09/01/2024 FINDINGS: There is homogeneous radiotracer activity throughout the lungs on the single breath ventilation seque nce. There is relatively homogeneous perfusion throughout the lungs. No discrete ventilation and pe rfusion mismatch is identified. IMPRESSION: 1. Normal study. Very low probability for pulmonary embolism. Reviewed, dictated and finalized at location A.
--- NOTE | ~2024-09-01 | CT_ITS ---
CT head without contrast Indication: Altered mental status COMPARISON: 09/19/2021 Technique: Serial scans were obtained through the brain without the administration of contrast. Dose reduction technique was used on this scan by utilizing automated exposure control and iterative recon struction technique. The dose-length product (DLP) was 681.00 mGy-cm. Findings: There is no evidence of intracranial hemorrhage, mass lesion, or acute infarct. The ventri cles and subarachnoid spaces are dilated, consistent with mild atrophy. Low attenuation regions are seen within the periventricular white matter bilaterally, likely representing changes from chronic mi crovascular ischemic disease. There is no evidence of edema, mass effect or midline shift. The visu alized paranasal sinuses and mastoid air cells are clear. Impression: No intracranial hemorrhage, mass, or acute infarct. Atrophy and chronic white matter changes, as above. Reviewed, dictated and finalized at [facility]. Impression: No intracranial hemorrhage, mass, or acute infarct. Atrophy and chronic white matter changes, as above.
--- NOTE | ~2024-09-01 | XR_ITS ---
Portable chest x-ray Comparison: 10/18/2023 Clinical History: Altered mental status Findings: Possible retrocardiac airspace disease. Right lung clear. Cardiomediastinal silhouette is stable. Bones and soft tissues are unremarkable. Impression: Possible medial left lower lobe pneumonia. Reviewed, dictated and finalized at location . Impression: Possible medial left lower lobe pneumonia.
--- NOTE | ~2024-09-01 | XR_ITS ---
Portable chest x-ray Comparison: 09/01/2024 Clinical History: Respiratory failure Findings: Lungs are clear, without focal consolidation or pleural effusion. Cardiomediastinal silho uette is stable. Bones and soft tissues are unremarkable. Impression: Clear lungs. Reviewed, dictated and finalized at location . Impression: Clear lungs.
--- NOTE | 2024-09-01 08:52 | ECG_ITS ---
Test Date: 2024-09-01 08:58:21 Measurements Intervals Mona Rate: 145 P: 0 TN: 0 QRS: -32 QRSD: 107 T: 133 QT: 310 QTc: 482 Interpretive Statements ATRIAL FIBRILLATION WITH RAPID VENTRICULAR RESPONSE POOR R-WAVE PROGRESSION CANNOT RULE OUT PREVIOUS INFERIOR INFARCTION ABNORMAL ECG Compared to ECG 10/18/2023 19:55:46 NO SIGNIFICANT DIFFERENCE Electronically Signed On 09-02-2024 07:26:55 CDT by Jonathan Nevarez M.D.
[2024-09-01 09:13] LABS: Hematocrit 46.0 % (37.0-47.0); Hemoglobin 14.3 g/dL (12.0-15.0); Immature Granulocyte Percent A 1.8 % (0-0.5); Lymphocytes Absolute Auto 1.23 K/mm3 (0.9-3.2); Mean Corpuscular HGB Conc 31.1 g/dl (32-36); Mean Corpuscular Hemoglobin 30.9 pg (26-34); Mean Corpuscular Volume 99.4 fl (80-100); Nucleated Red Blood Cells Absolute Auto 0.000 K/mm3 (0.0-0.012); Nucleated Red Blood Cells Perc 0.0 % (0.0-0.2); Platelet Count Result 369 k/mm3 (150-375); Red Blood Count 4.63 M/mm3 (4.2-5.4); White Blood Count 11.6 K/mm3 (4.5-10.0)
--- OUTSIDE RECORDS SUMMARY | 2024-09-01 09:18 | XMS_ITS | Clinical Summary ---
Author Organization [facility] Address [address] [place] [address] Care Team Providers Care Greek Professor Name Role Phone Lai Dexter MD Primary Care Provider [phone] Source Comments [facility],non-owned Affiliates and Associated Physician Practices is amultiple site organization consisting of ambulatory clinics and hospital sitesin [place], [place], [place] and [place]. This disclosure is being madepursuant to the Care Everywhere program and may not contain all information available regarding this patient. Last updated 17.[facility] Allergies Active Allergy Reactions Criticality Noted Date Comments Amoxicillin Skin Reactions Medium 02/03/2017 Aspirin Shortness of Breath High 02/03/2017 Bee Anaphylaxis High 02/03/2017 Chlorpheniramine-Hydroco done Other Low 02/03/2017 Cannot remember reaction, Cannot remember reaction, Cannot remember reaction Erythromycin Nausea and/or Vomiting Low 02/03/2017 Fenofibrate Other Low 02/03/2017 Cannot remember reaction, Cannot remember reaction, Cannot remember reaction Fluoxetine Nausea and/or Vomiting Low 02/03/2017 Hmg-Coa-R Inhibitors Other Low 02/03/2017 confusion, confusion, confusion Kdc:Yellow Dye+Hydroxyzine+Brillian t Blue Fcf Other Low 02/03/2017 Told to not take anymore, cant rememeber reaction, Told to not take anymore, cant rememeber reaction, Told to not take anymore, cant rememeber reaction Metaproterenol Skin Reactions Medium 02/03/2017 Methocarbamol Skin Reactions High 02/03/2017 Oxytetracycline Nausea and/or Vomiting Low 02/03/2017 Penicillins Skin Reactions Medium 02/03/2017 Pentazocine Nausea and/or Vomiting Low 02/03/2017 Povidone Iodine Anaphylaxis High 02/03/2017 Procaine Other Low 02/03/2017 Loss of conciousness, Loss of conciousness, Loss of conciousness Propoxyphene Other Low 02/03/2017 Cannot remember reaction, Cannot remember reaction, Cannot remember reaction Sertraline Rash Medium 02/03/2017 Sulfamethoxazole W-Trimethoprim Nausea and/or Vomiting Low 02/03/2017 Terbutaline Nausea and/or Vomiting Low 02/03/2017 Medications * Be aware that medications may not be up to date on this document. Alwaysverify current medications with the patient. Multiple Vitamin (DAILY VITES) TABS Take 1 tablet by mouth DAILY. 30 tablet 3 02/18/20 Active ascorbic acid (VITAMIN C) 500 MG tablet 500 mg DAILY. 30 tablet 3 02/18/20 Active clopidogrel (PLAVIX) 75 MG tablet Take 75 mg by mouth DAILY. 02/05/20 Active metFORMIN (GLUCOPHAGE) 500 MG tablet Take 500 mg by mouth 2 times daily with morning and evening meal. 02/05/20 Active oxyCODONE, immediate release, (ROXICODONE) 5 MG tablet Take 1 tablet by mouth every 6 hours 12 tablet 12/23/19 Active acetaminophen (TYLENOL) 325 MG tablet Take 2 tablets by mouth every 6 hours Maximum allowable Acetaminophen amount = 4 Grams (4000 mg) / 24 hours. 12/23/19 Active venlafaxine XR 24hr (EFFEXOR XR) 75 MG capsule Take 3 capsules by mouth daily with breakfast 12/24/19 Active insulin glargine (LANTUS) vial Inject 50 Units subcutaneously at bedtime 12/23/19 Active lactobacillus (LACTINEX) PACK granules Take 1 packet by mouth 2 times daily 12/23/19 Active divalproex ER 24hr (DEPAKOTE ER) 500 MG tablet Take 1 tablet by mouth 2 times daily 12/23/19 Active furosemide (LASIX) 20 MG tablet Take 3 tablets by mouth once daily 12/24/19 Active calcium 500 MG tablet Take 1 tablet by mouth 2 times daily with morning and evening meal 12/23/19 Active cyanocobalamin 1000 MCG Take 1 tablet by mouth once daily 12/24/19 Active gemfibrozil (LOPID) 600 MG tablet Take 1 tablet by mouth 2 times daily, before breakfast and supper 10/28/20 20 Active bisacodyl (DULCOLAX) 10 MG suppository Insert 1 suppository into the rectum once daily as needed for Constipation 12/23/19 20 Active melatonin 3 MG tablet Take 1 tablet by mouth at bedtime 12/23/19 20 Active famotidine (PEPCID) 20 MG tablet Take 1 tablet by mouth 2 times daily 12/23/19 20 Active vitamin D3-cholecalcife rol (CHOLECALCIFERO L) 25 MCG (1000 UNITS) tablet Take 1 tablet by mouth once daily 12/24/19 20 Active insulin aspart (NOVOLOG) pen Inject 6 Units subcutaneously 3 times daily with meals 12/23/19 20 Active amLODIPine (NORVASC) 10 MG tablet Take 10 mg by mouth once daily 11/22/19 19 Active glipiZIDE (GLUCOTROL) 5 MG tablet Take 5 mg by mouth once daily 04/24/19 20 Active albuterol-iprat ropium (DUO-NEB) 0.5-2.5 (3) MG/3ML nebulizer solution Inhale 3 mL by mouth every 4 hours as needed 07/27/19 19 Active potassium chloride ER (KLOR-CON) 10 MEQ tablet Take 10 mEq by mouth 2 times daily 11/12/19 19 Active allopurinol (ZYLOPRIM) 300 MG tablet Take 300 mg by mouth once daily 05/25/19 21 Active acetaminophen (TYLENOL) 325 MG tablet Take 650 mg by mouth every 4 hours as needed Active OLANZapine (ZYPREXA) 5 MG tablet 05/25/19 21 Active Active Problems Problem Noted Date Diagnosed Date Fracture of left ankle 12/12/2019 Mild cognitive impairment 12/12/2019 Type 2 diabetes mellitus wit h diabetic nephropathy, with long-term current use of insulin 12/12/2019 Hypertension 12/12/2019 Sepsis 02/16/2017 Severe sepsis with septic shock (CODE) 7 Necrotizing fasciitis 02/16/2017 Acute posthemorrhagic anemia 02/11/2017 Protein-calorie malnutrition 02/11/2017 Hyperglycemia 02/11/2017 Cellulitis of abdominal wall 02/05/2017 Acute respiratory failure with hypoxia 7 Type 2 diabetes mellitus with 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 Gender Identity Not on file Sexual Orientation Not on file Last Filed Vital Signs Vital Sign Reading Time Taken Comments Blood Pressure 123/79 11/16/2020 11:11 AM CDT Pulse 79 11/16/2020 11:11 AM CDT Temperature 36.8 C (98.2 F) 11/16/2020 11:11 AM CDT Respiratory Rate 18 12/23/2019 3:39 PM CDT Oxygen Saturation 98% 11/16/2020 11:11 AM CDT Inhaled Oxygen Concentration 40% 12/15/2019 1 2:04 AM CDT Weight 120.7 kg (266 lb) 11/16/2020 11:11 AM CDT Height 154.9 cm (5' 1) 11/16/2020 11:11 AM CDT Body Mass Index 50.26 11/16/2020 11:11 AM CDT Plan of Treatment Health Maintenance Due Date Last Done Comments BONE DENSITY TESTING 1955 COLOGUARD (AGES 45-75) - COLON CA SCREENING 1956 COLON MONITORING 1956 COLONOSCOPY - COLON CA SCREENING 1956 CT COLONOGRAPHY - COLON CA SCREENING 1955 Colorectal Cancer Screening 1955 FIT - COLON CA SCREENING 1956 FLEX SIG - COLON CA SCREENING 1955 MAMMOGRAM 1955 HEPATITIS C SCREENING 07/24/1974 DTAP/TDAP/TD VACCINES (1 - Tdap) 07/29/1975 DIABETES-STATIN 1996 ZOSTER VACCINE (1 of 2) 2006 Respiratory Syncytial Virus (RSV) Vaccine Pt: or over 60 yrs (1 - Risk 60-74 years 1-dose series) 2016 PNEUMOCOCCAL VACCINE 50+ (2 of 2 - PCV) 02/03/2018 02/03/2017 DIABETES-FOOT EXAM WITH MONOFILAMENT 12/12/2019 DIABETES-HGB A1C 06/14/2020 12/15/2019, , 05/17/2017, Additional history exists DIABETES-SERUM CREATININE 12/18/20202019, 12/18/2019, 12/17/2019, Additional history exists COVID-19 VACCINE (2023- season) 2023 DEPRESSION SCREENING 02/26/2024 DIABETES - URINE PROTEIN SCREENING 02/26/2024 INFLUENZA VACCINE (Season Ended) 2024 12/17/2019 HEPATITIS B VACCINE Aged Out No longe r eligible based on patient's age to complete this topic HIB VACCINE Aged Out No longer eligi ble based on patient's age to complete this topic HPV VACCINE Aged Out No longer eligi ble based on patient's age to complete this topic MENINGOCOCCAL (Group B) VACCINE SHARED DECISION-MAKING Aged Out No longer eligible based on patient's age to complete this topic MENINGOCOCCAL GROUPS A/C/Y/W VACCINE Aged Out No longer eligible based on patient's age to complete this topic Goals Goal Patient Goal Type Associated Problems Recent Progress Patient-Stated? Author Mobility General No Vel Peterson, RN Note: Expected end date: ongoing The goal is to maintain or improve your mobility at the optimum level for you. Interventions: Medical Devices Implanted Type Area Acid Wash Operator Device Identifier Shelf Expiration Date Model / Serial / Lot Screw 3.5mm 6mm 150mm 2.5mm Ft Slf-Tap Implanted:Qty: 1 on 12/13/2019 by Koko Gaines MD at [facility] Left: Leg PeerPong Usa [id number] / / Gw Orth 400mm 3.2mm Tib Thrd Nonster Implanted:Qty: 1 on 12/13/2019 by Koko Gaines MD at [facility] Left: Leg Synthes Usa [id number] / / 12mm Ti Michaela Tibial Nail-Ex W/Prox Bend 315mm Implanted:Qty: 1 on 12/13/2019 by Koko Gaines MD at [facility] Left: Leg Synthes Usa 12/26/2020 [id number] / / [id number] Screw 5mm 4.3mm 32mm T25 Ft Slf-Tap Lck Implanted:Qty: 2 on 12/13/2019 by Koko Gaines MD at [facility] Left: Leg Synthes Usa [id number] / / Screw 5mm 4.3mm 42mm T25 Ft Tib Lck Implanted:Qty: 2 on 12/13/2019 by Koko Gaines MD at [facility] Left: Leg Synthes Usa [id number] / / Screw 5mm 4.3mm 28mm T25 Ft Tib Lck Implanted:Qty: 1 on 12/13/2019 by Koko Gaines MD at [facility] Left: Leg Synthes Usa [id number] / / Explanted Type Area Acid Wash Operator Device Identifier Shelf Expiration Date Model / Serial / Lot Wire K 2mm 150mm Troc Tip Ss Fx Nonster Explanted:Qty: 1 on 12/13/2019 at [facility] Left: Leg Synthes Usa [id number] / / Procedures Procedure Name Priority Date/Time Associated Diagnosis Comments BASIC METABOLIC PANEL (CALCIUM TOTAL) AM Draw 12/19/2019 4:50 AM CDT HEMOGLOBIN A1C Routine 12/15/2019 7:01 AM CDT from Last 3 Months or Most Recently Relevant to Health Maintenance Results * (ABNORMAL) BASIC METABOLIC PANEL (CALCIUM TOTAL) (12/19/2019 4:50 AM CDT) BUN 17 7 - 26 mg/dL 12/19/2019 5:32 AM CDT [facility] Creatinine 1.0 0.6 - 1.2 mg/dL 12/19/2019 5:32 AM CDT [facility] Sodium 140 136 - 145 mmol/L 12/19/2019 5:32 AM CDT [facility] Potassium 3.7 3.5 - 4.5 mmol/L 12/19/2019 5:32 AM CDT [facility] Chloride 98 98 - 107 mmol/L 12/19/2019 5:32 AM [facility] CO2 30(H) 22 - 29 mmol/L 12/19/2019 5:32 AM [facility] Glucose 131(H) 70 - 115 mg/dL 12/19/2019 5:32 AM [facility] Calcium 9.0 8.4 - 10.2 mg/dL 12/19/2019 5:32 AM [facility] Anion Gap 16 8 - 18 12/19/2019 5:32 AM [facility] BUN/Creatinine Ratio 17 7 - 23 12/19/2019 5:32 AM [facility] Osmolality Calculated 293 270 - 300 mOsm/kg 12/19/2019 5:32 AM [facility] eGFR 56(L) >60 mL/min/1.7 3 m2 12/19/2019 5:32 AM [facility] Blood BLOOD SPECIMEN / Unknown Venipuncture / Unknown 12/19/2019 4:50 AM CDT 12/19/2019 5:05 AM CDT Rosetta Flores DO LAB - CHEMISTRY ORDERABLES Final Result [facility] [address] [place] [id number], [facility] [phone] * HEMOGLOBIN A1C (12/15/2019 7:01 AM CDT) Hemoglobin A1c 5.6 4.4 - 6.3 % 12/15/2019 12:45 PM [facility] Estimated Average Glucose 114 mg/dL 12/15/2019 12:45 PM [facility] Comment: HbA1c Interpretation: Treatment target values recommended by ADA and other clinical organizations should be used to evaluate metabolic control in patients. Treatment Target Values: Normal : < 5.7% Pre-diabetes: 5.7-6.4% Diabetes: Equal to or greater than 6.5% Reference: [place] [employer] Standards of Care in Diabetes -2014 In patients 70 years and older consider HbA1c target range of 7.0-7.5% Reference: Diabetes Mellitus in Older People: Position Statement on behalf of the International Association of Gerontology and Geriatrics (IAGG), the Diabetes Working Democrat for Older People (EDWPOP), and the International Task Force of Experts in Diabetes. Nemesio Garcia, et al. J [place] [employer] Association. 2012 Test results diagnostic of diabetes should be repeated for confirmation. The Sebia Capillary 2 assay for the measurement of HbA1c is a National Glycohemoglobin Standardization Program (NGSP)certified method. Blood BLOOD SPECIMEN / Unknown Lab Venipuncture / Unknown 12/15/2019 7:01 AM CDT 12/15/2019 7:26 AM CDT us Kenji Pitts MD LAB - CHEMISTRY ORDERABLES F inal Result [id number] [place] [address], [facility] [phone] from Last 3 Months or Most Recently Relevant to Health Maintenance Insurance [facility] MEDICAID MEDICARE MEDICARE Advance Directives * Full Code (Latest Code Status on File) Date Activated Date Inactivated Comments 12/12/2019 2:12 PM 12/23/2019 4:59 PM Care Teams Greek Professor Relationship Specialty Start Date End Date Lai Dexter MD [address] [place] [address] PCP - General 06/13/20
[2024-09-01 09:22] LABS: Alanine Aminotransferase 16 U/L (6-35); Albumin Level 3.2 g/dL (3.5-5.1); Alkaline Phosphatase 92 U/L (38-126); Anion Gap 11 mmol/L (4-12); Aspartate Amino Transferase 28 U/L (14-36); Bilirubin,Total 0.4 mg/dL (0.2-1.3); Blood Urea Nitrogen 21 mg/dL (7-17); Calcium 9.2 mg/dL (8.4-10.2); Carbon Dioxide 26 mmol/L (22-30); Chloride 107 mmol/L (98-107); Estimated CRCL calculation 52 ml/min; Estimated Glomerular Filt Rate 54; Glucose 189 mg/dL (65-110); Potassium 4.0 mmol/L (3.4-5.0); Sodium 144 mmol/L (137-145); Total Protein 7.5 g/dL (6.3-8.2)
[2024-09-01 09:28] LABS: Add Urine Microscopic? YES; Appearance Urine Cloudy (Clear); Glucose Urine UA 3+ mg/dL (Negative); INR 1.1; Leukocyte Esterase Ur Negative LEU/UL (Negative); Need Manual Microscopic Reviewed; Nitrate Urine Negative (Negative); Non Pathogenic Casts 0-2; Prothrombin Time 14.2 Seconds (11.1-14.7); Specific Grav Ur 1.031 (1.001-1.035)
[2024-09-01 09:29] LABS: Partial Thromboplastin Time 31.7 Seconds (22.3-36.8)
[2024-09-01] MEDS: METOPROLOL TARTRATE INJ 5 MG/5 ML VIAL IV PUSH ×2 (10:02→11:04)
[2024-09-01] MEDS: SODIUM CHLORIDE 0.9% IV 500 ML 999 ML IV CONT ×2 (10:02→11:04)
[2024-09-01 10:07] LABS: Cannabinoid Screen Urine Negative (Negative)
--- NOTE | 2024-09-01 10:35 | ED_ITS ---
HPI - Altered Mental Status General Chief Complaint: Altered Mental Status <Katy Mayer PA-C - Last Filed: 09/01/24 18:45> Stated Complaint: AMS <Katy Mayer PA-C - Last Filed: 09/01/24 18:45> Time Seen by Provider: 09/01/24 09:10 <Katy Mayer PA-C - Last Filed: 09/01/24 18:45> Source: EMS <Katy Mayer PA-C - Last Filed: 09/01/24 18:45> Mode of arrival: EMS <GILLES Eid Last Filed: 09/01/24 18:45> Limitations: altered mental status <Katy Mayer PA-C - Last Filed: 09/01/24 18:45> History of Present Illness HPI narrative: This is a 69 year old female that presents to the ER for altered mental status. Reportedly patient this morning was lethargic. Her baseline is alert and oriented x1. Unable to obtain any history from the patient. <Katy Mayer PA-C - Last Filed: 09/01/24 18:45> Related Data Home Medications: Home Medications ?Medication ?Instructions ?Recorded ?Confirmed ?Last Taken ?Type albuterol sulfate 90 mcg/actuation 2 puff inhalation Q4H PRN 01/20/21 09/01/24 Unknown History aerosol inhaler Shortness Of Breath Or Wheezing allopurinol 300 mg tablet 300 mg PO DAILY 01/20/21 09/01/24 01/19/21 21:00 History bisacodyl 10 mg rectal suppository 10 mg RECTAL DAILY PRN Constipation 01/20/21 09/01/24 Unknown History calcium carbonate 500 mg PO BID 01/20/21 09/01/24 01/20/21 09:00 History cyanocobalamin (vitamin B-12) 1,000 mcg PO DAILY 01/20/21 09/01/24 01/20/21 09:00 History 1,000 mcg tablet (Vitamin B-12) famotidine 20 mg tablet 20 mg PO BID 01/20/21 09/01/24 01/20/21 09:00 History loperamide 2 mg capsule 2 mg PO Q6H PRN Diarrhea 01/20/21 09/01/24 Unknown History loratadine 10 mg tablet 10 mg PO DAILY 01/20/21 09/01/24 Unknown History magnesium citrate 296 ml PO DAILY PRN Constipation 01/20/21 09/01/24 Unknown History magnesium hydroxide 400 mg/5 mL 30 ml PO HS PRN Constipation 01/20/21 09/01/24 Unknown History oral suspension (Milk of Magnesia) melatonin 5 mg tablet 5 mg PO HS 01/20/21 09/01/24 01/19/21 21:00 History metformin 500 mg tablet 1,000 mg PO BID 01/20/21 09/01/24 01/20/21 09:00 History sodium phosphates 19 gram-7 118 ml RECTAL DAILY PRN 01/20/21 09/01/24 Unknown History gram/118 mL enema (Fleet Enema) Constipation multivitamin-ferrous 1 tablet PO DAILY 05/13/21 09/01/24 Unknown History fumarate-folic acid 18 mg-400 mcg tablet divalproex 500 mg tablet,delayed 500 mg PO BID 09/20/21 09/01/24 Unknown History release empagliflozin 25 mg tablet 25 mg PO DAILY 09/20/21 09/01/24 Unknown History (Jardiance) colestipol 1 gram tablet (Colestid) 1 g PO BID 04/27/22 09/01/24 Unknown History albuterol sulfate 90 mcg/actuation 2 puff inhalation HS 04/13/23 09/01/24 Unknown History aerosol inhaler (Ventolin HFA) glucagon 1 mg solution for 1 mg subcut PRN PRN Hypoglycemia 04/13/23 09/01/24 Unknown History injection (Glucagon Emergency Kit) metoprolol tartrate 25 mg tablet 12.5 mg PO Q12HR 04/13/23 09/01/24 Unknown History allopurinol 100 mg tablet 50 mg PO EVERY OTHER DAY 10/19/23 09/01/24 Unknown History aspirin 81 mg tablet,delayed 81 mg PO DAILY 10/19/23 09/01/24 Unknown History release furosemide 20 mg tablet 80 mg PO DAILY 10/19/23 09/01/24 Unknown History insulin glargine 100 unit/mL (3 16 unit subcut QAM 10/19/23 09/01/24 Unknown History mL) subcutaneous pen (Lantus Solostar U-100 Insulin) ondansetron HCl 8 mg tablet 8 mg PO Q8H 10/19/23 09/01/24 Unknown History oxycodone 5 mg tablet 5 mg PO Q6H PRN Pain (Scale Score 10/19/23 09/01/24 Unknown History 4-6) potassium chloride 20 mEq 20 meq PO DAILY 10/19/23 09/01/24 Unknown History tablet,extended release buspirone 10 mg tablet 10 mg PO TID 09/01/24 09/01/24 Unknown History duloxetine 20 mg capsule,delayed 20 mg PO BID 09/01/24 09/01/24 Unknown History release ergocalciferol (vitamin D2) 1,250 50,000 unit PO WEEKLY 09/01/24 09/01/24 Unknown History mcg (50,000 unit) capsule (Vitamin D2) lorazepam 0.5 mg tablet 0.5 mg PO BID 09/01/24 09/01/24 Unknown History trazodone 50 mg tablet 50 mg PO HS 09/01/24 09/01/24 Unknown History <Katy Mayer PA-C - Last Filed: 09/01/24 18:45> Allergies/Adverse Reactions: Allergies Allergy/AdvReac Type Severity Reaction Status Date / Time amoxicillin Allergy Severe Anaphylaxis Verified 09/01/24 08:57 bee venom protein (honey Allergy Severe Anaphylaxis Verified 09/01/24 08:57 bee) (bees) Penicillins Allergy Severe Anaphylaxis Verified 09/01/24 08:57 Sulfa (Sulfonamide Allergy Severe Anaphylaxis Verified 09/01/24 08:57 Antibiotics) blue dye Allergy Unknown Verified 09/01/24 08:57 fish derived Allergy Unknown Verified 09/01/24 08:57 iodine Allergy Rash Verified 09/01/24 08:57 metaproterenol Allergy Unknown Verified 09/01/24 08:57 methocarbamol Allergy Unknown Verified 09/01/24 08:57 oxytetracycline Allergy Unknown Verified 09/01/24 08:57 pentazocine Allergy Unknown Verified 09/01/24 08:57 procaine Allergy Unknown Verified 09/01/24 08:57 aspirin AdvReac Mild Nausea and Verified 09/01/24 08:57 Vomiting fluoxetine AdvReac Mild Nausea and Verified 09/01/24 08:57 Vomiting chlorpheniramine AdvReac Nausea and Verified 09/01/24 08:57 Vomiting erythromycin base AdvReac Nausea and Verified 09/01/24 08:57 Vomiting fenofibrate AdvReac Nausea and Verified 09/01/24 08:57 Vomiting hydrocodone AdvReac Nausea and Verified 09/01/24 08:57 Vomiting hydroxyzine AdvReac Nausea and Verified 09/01/24 08:57 Vomiting propoxyphene AdvReac Nausea and Verified 09/01/24 08:57 Vomiting sertraline AdvReac Nausea and Verified 09/01/24 08:57 Vomiting terbutaline AdvReac Nausea and Verified 09/01/24 08:57 Vomiting yellow dye AdvReac Nausea and Verified 09/01/24 08:57 Vomiting hmg-coa-[id number] Inhibitors Allergy Unknown Uncoded 09/01/24 08:57 <Katy Mayer PA-C - Last Filed: 09/01/24 18:45> Review of Systems 2 Review of Systems: ROS unobtainable: Yes unobtainable due to mental status <GILLES Eid Last Filed: 09/01/24 18:45> [facility] Past Medical History Medical History: Medical History Moderate pulmonary hypertension CAD (coronary artery disease) Non STEMI 12/2020 Morbid obesity with BMI of 50.0-59.9, adult NSTEMI (non-ST elevated myocardial infarction) Gastroesophageal reflux disease Diabetic peripheral neuropathy Anxiety Depression Obstructive sleep apnea Intolerant to CPAP. Paroxysmal atrial fibrillation Pulmonary embolism Deep venous thrombosis Mixed stress and urge incontinence Hyperlipidemia Hypertension Frequent urinary tract infections Congestive heart failure Echocardiogram 04/2021: EF 65-70%, mildly increased left ventricular wall thickness, abnormal diastolic function, moderate left atrial enlargement, mild aortic valve stenosis peak velocity of 205 mean gradient 11 and valve area 2.39 cm, mild aortic valve regurgitation, mild mitral valve stenosis, mild mitral valve regurgitation, severely calcified mitral valve annulus, mild tricuspid valve regurgitation, moderate pulmonary hypertension RVSP of 59 Asthma <Katy Mayer PA-C - Last Filed: 09/01/24 18:45> Surgical History Surgical History: Surgical History History of cardiac catheterization Most recent cardiac catheterization 12/2020: 70% eccentric stenosis proximal left circumflex status post angioplasty and stent placement 3 x 12 mm Medtronic resolute becca zotarolimus stent, 30 40% stenosis mid LAD, 50 60% diffuse stenosis proximal segment of D2 and D3, 30-40% stenosis proximal segment of RCA preserved EF 70% left ventricular end-diastolic pressure 12 History of cystoscopy History of colonoscopy History of cholecystectomy History of tonsillectomy and adenoidectomy <Katy Mayer PA-C - Last Filed: 09/01/24 18:45> Family History Family History: Family History Mother No problems noted. Father No problems noted. Other Adopted Chest pain <Katy Mayer PA-C - Last Filed: 09/01/24 18:45> Social History Social History: Social History Social History: Surrogate decision maker: Moi [place], brother. Code status: Full code. Smoking status: Unknown if ever smoked Second hand tobacco smoke exposure: No Alcohol intake: never Substance use: never Substance use type: does not use Additional living arrangements comments: Patient is a resident at [facility]. She has no children. 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 Spiritual care concerns: No <Katy Mayer PA-C - Last Filed: 09/01/24 18:45> Exam 2 Narrative: GENERAL: Chronically ill-appearing, well-nourished, and in no acute distress. HEAD: Normocephalic, atraumatic. EYES: PERRLA ENT: Nares clear, no rhinorrhea or epistaxis. Mucous membranes moist. Oropharynx without tonsillar hypertrophy exudate or other lesions. Bilateral TMs pearly renteria non-bulging NECK: Supple. No adenopathy or masses. CHEST: Clear to auscultation. No respiratory distress. No wheezes rales or rhonchi HEART: Regular rate and rhythm. No murmur heard. Normal peripheral pulses. ABDOMEN: Soft, nontender, nondistended, normal active bowel sounds. EXTREMITIES: No edema. SKIN: Warm, dry, no rash. NEURO: No focal deficits. Alert and oriented x1. Patient does not follow commands. Singing, repeating what is asked of her <Katy Mayer PA-C - Last Filed: 09/01/24 18:45> Course Course Emergency Course: I attempted to reach patient's family member without success <Katy Mayer PA-C - Last Filed: 09/01/24 18:45> ECOSYSTEM ECOLOGY PROFESSOR/PA Physician Supervision For this patient encounter, I reviewed the ECOSYSTEM ECOLOGY PROFESSOR or PA documentation, treatment plan, and medical decision making; and I had [id number] time with this patient. <Hipolito Vega MD - Last Filed: 09/01/24 21:34> Consultations Consultation #1: Spoke with hospitalist about patient and workup who accepts admission < Katy Mayer PA-C - Last Filed: 09/01/24 18:45> Date: 09/01/24 <Katy Mayer PA-C - Last Filed: 09/01/24 18:45> Vital Signs Vital signs: Vital Signs Temperature 97.8 F 09/01/24 08:47 Pulse Rate 96 09/01/24 08:47 Respiratory Rate 20 09/01/24 08:47 Blood Pressure 151/95 H 09/01/24 08:47 Pulse Oximetry 95 09/01/24 08:47 Oxygen Delivery Room Air 09/01/24 08:47 Temperature 98.6 F 09/01/24 20:30 Pulse Rate 85 09/01/24 20:30 Respiratory Rate 20 09/01/24 20:30 Blood Pressure 141/78 H 09/01/24 20:30 Pulse Oximetry 97 09/01/24 20:30 Oxygen Delivery Nasal Cannula 09/01/24 10:04 Oxygen Flow Rate 2 09/01/24 10:04 <Katy Mayer PA-C - Last Filed: 09/01/24 18:45> Vital Signs Temperature 97.8 F 09/01/24 08:47 Pulse Rate 96 09/01/24 08:47 Respiratory Rate 20 09/01/24 08:47 Blood Pressure 151/95 H 09/01/24 08:47 Pulse Oximetry 95 09/01/24 08:47 Oxygen Delivery Room Air 09/01/24 08:47 Temperature 98.6 F 09/01/24 20:30 Pulse Rate 85 09/01/24 20:30 Respiratory Rate 20 09/01/24 20:30 Blood Pressure 141/78 H 09/01/24 20:30 Pulse Oximetry 97 09/01/24 20:30 Oxygen Delivery Nasal Cannula 09/01/24 10:04 Oxygen Flow Rate 2 09/01/24 10:04 <Hipolito Vega MD - Last Filed: 09/01/24 21:34> MDM - Altered Mental Status MDM Narrative Medical decision making narrative: Patient presents to the emergency department for altered mental status. Patient is alert, no focal deficits appreciated. She is singing repetitively and repeating what is asked of her. Patient is afebrile. In atrial fibrillation with RVR, initially given doses of metoprolol. Started on Diltiazem with improvement. CBC with mild leukocytosis to 11.6. Metabolic panel without concerning findings. Urine without evidence of infection. Drug screen is negative. CT brain without acute findings. Chest x-ray shows possible medial left lower lobe pneumonia. Blood cultures obtained, patient started on IV antibiotics. D-dimer elevated, nuc med scan obtained as patient has iodine allergy. Very low probability of PE. Patient will be admitted for further management. Spoke with hospitalist about patient and workup who accepts admission. <Katy Mayer PA-C - Last Filed: 09/01/24 18:45> Differential Diagnosis Differential diagnosis: Likely altered mental status, delirium, dementia, hypoglycemia, subarachnoid hemorrhage, sepsis and other (pneumonia) <Katy Mayer PA-C - Last Filed: 09/01/24 18:45> Lab Data Attestation: I reviewed the patient's lab results. <Katy Mayer PA-C - Last Filed: 09/01/24 18:45> Result diagrams: 09/01/24 09:00 09/01/24 09:00 <Katy Mayer PA-C - Last Filed: 09/01/24 18:45> Labs: Lab Results 09/01/24 09/01/24 09/01/24 Range/Units 09:00 14:20 16:53 WBC 11.6 H (4.5-10.0) K/mm3 RBC 4.63 (4.2-5.4) M/mm3 Hgb 14.3 (12.0-15.0) g/dL Hct 46.0 (37.0-47.0) % MCV 99.4 (80-100) fl MCH 30.9 (26-34) pg MCHC 31.1 L (32-36) g/dl RDW 15.3 H (11.5-14.5) % Plt Count 369 D (150-375) k/mm3 MPV 10.9 H (7.4-10.4) fl Immature Gran % (Auto) 1.8 H (0-0.5) % Neut % (Auto) 72.9 (45.5-73.1) % Lymph % (Auto) 10.6 L (18.3-44.2) % Bland % (Auto) 14.0 H (2.6-8.5) % Eos % (Auto) 0.0 (0-4.4) % Baso % (Auto) 0.7 (0.2-1.2) % Lymph # (Auto) 1.23 (0.9-3.2) K/mm3 Bland # (Auto) 1.6 H (0.1-0.6) K/mm3 Eos # (Auto) 0.0 (0-0.3) K/mm3 Baso # (Auto) 0.1 (0.0-0.1) K/mm3 Abs Immat Gran (auto) 0.21 H (0.00-0.031) K/mm3 Absolute Neuts (auto) 8.4 H (1.3-6.7) K/mm3 Absolute Nucleated RBC 0.000 (0.0-0.012) K/mm3 Nucleated RBC % 0.0 (0.0-0.2) % PT 14.2 (11.1-14.7) Seconds INR 1.1 APTT 31.7 (22.3-36.8) Seconds D-Dimer 3.17 H (<0.48) ug/mL Sodium 144 (137-145) mmol/L Potassium 4.0 (3.4-5.0) mmol/L Chloride 107 (98-107) mmol/L Carbon Dioxide 26 (22-30) mmol/L Anion Gap 11 (4-12) mmol/L BUN 21 H (7-17) mg/dL Creatinine 1.02 H (0.7-1.0) mg/dL Estim Creat Clear Calc 52 ml/min Estimated GFR 54 L (59 - ) Glucose 189 H (65-110) mg/dL POC Capillary Glucose (65-105) mg/dl Lactic Acid 1.4 (0.7-2.0) mmol/L Calcium 9.2 (8.4-10.2) mg/dL Total Bilirubin 0.4 (0.2-1.3) mg/dL AST 28 (14-36) U/L ALT 16 (6-35) U/L Alkaline Phosphatase 92 (38-126) U/L Total Protein 7.5 (6.3-8.2) g/dL Albumin 3.2 L (3.5-5.1) g/dL Vitamin B12 > 1000.0 H (239-931) pg/mL Folate 12.5 (2.76->20) ng/mL Urine Color Yellow (Yellow) Urine Appearance Cloudy H (Clear) Urine pH 6.0 (5.0-9.0) Ur Specific [place] 1.031 (1.001-1.035) Urine Protein 2+ H (Negative) mg/dL Urine Glucose (UA) 3+ H (Negative) mg/dL Urine Ketones 1+ H (Negative) mg/dL Ur Blood (Man) Negative (Negative) Urine Nitrate Negative (Negative) Urine Bilirubin Negative (Negative) Urine Urobilinogen 1.0 (<2.0) mg/dL Add Ur Microanalysis Reviewed Leukocyte Esterase Rfl Negative (Negative) ANNE/UL Urine RBC 3-5 H (0-2) /hpf Urine WBC 0-5 (0-3) /hpf Ur Squamous Epith Cells Occasional (Few) /hpf Urine Bacteria None seen /hpf Urine Casts 0-2 Nasal MRSA (PCR) Detected A* (NOT DETECTE) Urine Opiates Screen Negative (Negative) Urine Methadone Screen Negative (Negative) Ur Barbiturates Screen Negative (Negative) Ur Phencyclidine Scrn Negative (Negative) Ur Amphetamine Screen Negative (Negative) U Benzodiazepines Scrn Negative (Negative) Urine Cocaine Screen Negative (Negative) U Cannabinoids Screen Negative (Negative) Influenza A (RT-PCR) Negative (Negative) Influenza B (RT-PCR) Negative (Negative) RSV (RT-PCR) Negative (Negative) SARS-CoV-2 RNA (RT-PCR) Negative (Negative) 09/01/24 Range/Units 18:09 WBC (4.5-10.0) K/mm3 RBC (4.2-5.4) M/mm3 Hgb (12.0-15.0) g/dL Hct (37.0-47.0) % MCV (80-100) fl MCH (26-34) pg MCHC (32-36) g/dl RDW (11.5-14.5) % Plt Count (150-375) k/mm3 MPV (7.4-10.4) fl Immature Gran % (Auto) (0-0.5) % Neut % (Auto) (45.5-73.1) % Lymph % (Auto) (18.3-44.2) % Bland % (Auto) (2.6-8.5) % Eos % (Auto) (0-4.4) % Baso % (Auto) (0.2-1.2) % Lymph # (Auto) (0.9-3.2) K/mm3 Bland # (Auto) (0.1-0.6) K/mm3 Eos # (Auto) (0-0.3) K/mm3 Baso # (Auto) (0.0-0.1) K/mm3 Abs Immat Gran (auto) (0.00-0.031) K/mm3 Absolute Neuts (auto) (1.3-6.7) K/mm3 Absolute Nucleated RBC (0.0-0.012) K/mm3 Nucleated RBC % (0.0-0.2) % PT (11.1-14.7) Seconds INR APTT (22.3-36.8) Seconds D-Dimer (<0.48) ug/mL Sodium (137-145) mmol/L Potassium (3.4-5.0) mmol/L Chloride (98-107) mmol/L Carbon Dioxide (22-30) mmol/L Anion Gap (4-12) mmol/L BUN (7-17) mg/dL Creatinine (0.7-1.0) mg/dL Estim Creat Clear Calc ml/min Estimated GFR (59 - ) Glucose (65-110) mg/dL POC Capillary Glucose 190 H (65-105) mg/dl Lactic Acid (0.7-2.0) mmol/L Calcium (8.4-10.2) mg/dL Total Bilirubin (0.2-1.3) mg/dL AST (14-36) U/L ALT (6-35) U/L Alkaline Phosphatase (38-126) U/L Total Protein (6.3-8.2) g/dL Albumin (3.5-5.1) g/dL Vitamin B12 (239-931) pg/mL Folate (2.76->20) ng/mL Urine Color (Yellow) Urine Appearance (Clear) Urine pH (5.0-9.0) Ur Specific [place] (1.001-1.035) Urine Protein (Negative) mg/dL Urine Glucose (UA) (Negative) mg/dL Urine Ketones (Negative) mg/dL Ur Blood (Man) (Negative) Urine Nitrate (Negative) Urine Bilirubin (Negative) Urine Urobilinogen (<2.0) mg/dL Add Ur Microanalysis Leukocyte Esterase Rfl (Negative) ANNE/UL Urine RBC (0-2) /hpf Urine WBC (0-3) /hpf Ur Squamous Epith Cells (Few) /hpf Urine Bacteria /hpf Urine Casts Nasal MRSA (PCR) (NOT DETECTE) Urine Opiates Screen (Negative) Urine Methadone Screen (Negative) Ur Barbiturates Screen (Negative) Ur Phencyclidine Scrn (Negative) Ur Amphetamine Screen (Negative) U Benzodiazepines Scrn (Negative) Urine Cocaine Screen (Negative) U Cannabinoids Screen (Negative) Influenza A (RT-PCR) (Negative) Influenza B (RT-PCR) (Negative) RSV (RT-PCR) (Negative) SARS-CoV-2 RNA (RT-PCR) (Negative) <Katy Mayer PA-C - Last Filed: 09/01/24 18:45> Lab Results 09/01/24 09/01/24 09/01/24 Range/Units 09:00 14:20 16:53 WBC 11.6 H (4.5-10.0) K/mm3 RBC 4.63 (4.2-5.4) M/mm3 Hgb 14.3 (12.0-15.0) g/dL Hct 46.0 (37.0-47.0) % MCV 99.4 (80-100) fl MCH 30.9 (26-34) pg MCHC 31.1 L (32-36) g/dl RDW 15.3 H (11.5-14.5) % Plt Count 369 D (150-375) k/mm3 MPV 10.9 H (7.4-10.4) fl Immature Gran % (Auto) 1.8 H (0-0.5) % Neut % (Auto) 72.9 (45.5-73.1) % Lymph % (Auto) 10.6 L (18.3-44.2) % Bland % (Auto) 14.0 H (2.6-8.5) % Eos % (Auto) 0.0 (0-4.4) % Baso % (Auto) 0.7 (0.2-1.2) % Lymph # (Auto) 1.23 (0.9-3.2) K/mm3 Bland # (Auto) 1.6 H (0.1-0.6) K/mm3 Eos # (Auto) 0.0 (0-0.3) K/mm3 Baso # (Auto) 0.1 (0.0-0.1) K/mm3 Abs Immat Gran (auto) 0.21 H (0.00-0.031) K/mm3 Absolute Neuts (auto) 8.4 H (1.3-6.7) K/mm3 Absolute Nucleated RBC 0.000 (0.0-0.012) K/mm3 Nucleated RBC % 0.0 (0.0-0.2) % PT 14.2 (11.1-14.7) Seconds INR 1.1 APTT 31.7 (22.3-36.8) Seconds D-Dimer 3.17 H (<0.48) ug/mL Sodium 144 (137-145) mmol/L Potassium 4.0 (3.4-5.0) mmol/L Chloride 107 (98-107) mmol/L Carbon Dioxide 26 (22-30) mmol/L Anion Gap 11 (4-12) mmol/L BUN 21 H (7-17) mg/dL Creatinine 1.02 H (0.7-1.0) mg/dL Estim Creat Clear Calc 52 ml/min Estimated GFR 54 L (59 - ) Glucose 189 H (65-110) mg/dL POC Capillary Glucose (65-105) mg/dl Lactic Acid 1.4 (0.7-2.0) mmol/L Calcium 9.2 (8.4-10.2) mg/dL Total Bilirubin 0.4 (0.2-1.3) mg/dL AST 28 (14-36) U/L ALT 16 (6-35) U/L Alkaline Phosphatase 92 (38-126) U/L Total Protein 7.5 (6.3-8.2) g/dL Albumin 3.2 L (3.5-5.1) g/dL Vitamin B12 > 1000.0 H (239-931) pg/mL Folate 12.5 (2.76->20) ng/mL Urine Color Yellow (Yellow) Urine Appearance Cloudy H (Clear) Urine pH 6.0 (5.0-9.0) Ur Specific [place] 1.031 (1.001-1.035) Urine Protein 2+ H (Negative) mg/dL Urine Glucose (UA) 3+ H (Negative) mg/dL Urine Ketones 1+ H (Negative) mg/dL Ur Blood (Man) Negative (Negative) Urine Nitrate Negative (Negative) Urine Bilirubin Negative (Negative) Urine Urobilinogen 1.0 (<2.0) mg/dL Add Ur Microanalysis Reviewed Leukocyte Esterase Rfl Negative (Negative) ANNE/UL Urine RBC 3-5 H (0-2) /hpf Urine WBC 0-5 (0-3) /hpf Ur Squamous Epith Cells Occasional (Few) /hpf Urine Bacteria None seen /hpf Urine Casts 0-2 Nasal MRSA (PCR) Detected A* (NOT DETECTE) Urine Opiates Screen Negative (Negative) Urine Methadone Screen Negative (Negative) Ur Barbiturates Screen Negative (Negative) Ur Phencyclidine Scrn Negative (Negative) Ur Amphetamine Screen Negative (Negative) U Benzodiazepines Scrn Negative (Negative) Urine Cocaine Screen Negative (Negative) U Cannabinoids Screen Negative (Negative) Influenza A (RT-PCR) Negative (Negative) Influenza B (RT-PCR) Negative (Negative) RSV (RT-PCR) Negative (Negative) SARS-CoV-2 RNA (RT-PCR) Negative (Negative) 09/01/24 Range/Units 18:09 WBC (4.5-10.0) K/mm3 RBC (4.2-5.4) M/mm3 Hgb (12.0-15.0) g/dL Hct (37.0-47.0) % MCV (80-100) fl MCH (26-34) pg MCHC (32-36) g/dl RDW (11.5-14.5) % Plt Count (150-375) k/mm3 MPV (7.4-10.4) fl Immature Gran % (Auto) (0-0.5) % Neut % (Auto) (45.5-73.1) % Lymph % (Auto) (18.3-44.2) % Bland % (Auto) (2.6-8.5) % Eos % (Auto) (0-4.4) % Baso % (Auto) (0.2-1.2) % Lymph # (Auto) (0.9-3.2) K/mm3 Bland # (Auto) (0.1-0.6) K/mm3 Eos # (Auto) (0-0.3) K/mm3 Baso # (Auto) (0.0-0.1) K/mm3 Abs Immat Gran (auto) (0.00-0.031) K/mm3 Absolute Neuts (auto) (1.3-6.7) K/mm3 Absolute Nucleated RBC (0.0-0.012) K/mm3 Nucleated RBC % (0.0-0.2) % PT (11.1-14.7) Seconds INR APTT (22.3-36.8) Seconds D-Dimer (<0.48) ug/mL Sodium (137-145) mmol/L Potassium (3.4-5.0) mmol/L Chloride (98-107) mmol/L Carbon Dioxide (22-30) mmol/L Anion Gap (4-12) mmol/L BUN (7-17) mg/dL Creatinine (0.7-1.0) mg/dL Estim Creat Clear Calc ml/min Estimated GFR (59 - ) Glucose (65-110) mg/dL POC Capillary Glucose 190 H (65-105) mg/dl Lactic Acid (0.7-2.0) mmol/L Calcium (8.4-10.2) mg/dL Total Bilirubin (0.2-1.3) mg/dL AST (14-36) U/L ALT (6-35) U/L Alkaline Phosphatase (38-126) U/L Total Protein (6.3-8.2) g/dL Albumin (3.5-5.1) g/dL Vitamin B12 (239-931) pg/mL Folate (2.76->20) ng/mL Urine Color (Yellow) Urine Appearance (Clear) Urine pH (5.0-9.0) Ur Specific [place] (1.001-1.035) Urine Protein (Negative) mg/dL Urine Glucose (UA) (Negative) mg/dL Urine Ketones (Negative) mg/dL Ur Blood (Man) (Negative) Urine Nitrate (Negative) Urine Bilirubin (Negative) Urine Urobilinogen (<2.0) mg/dL Add Ur Microanalysis Leukocyte Esterase Rfl (Negative) ANNE/UL Urine RBC (0-2) /hpf Urine WBC (0-3) /hpf Ur Squamous Epith Cells (Few) /hpf Urine Bacteria /hpf Urine Casts Nasal MRSA (PCR) (NOT DETECTE) Urine Opiates Screen (Negative) Urine Methadone Screen (Negative) Ur Barbiturates Screen (Negative) Ur Phencyclidine Scrn (Negative) Ur Amphetamine Screen (Negative) U Benzodiazepines Scrn (Negative) Urine Cocaine Screen (Negative) U Cannabinoids Screen (Negative) Influenza A (RT-PCR) (Negative) Influenza B (RT-PCR) (Negative) RSV (RT-PCR) (Negative) SARS-CoV-2 RNA (RT-PCR) (Negative) <Hipolito Vega MD - Last Filed: 09/01/24 21:34> Imaging Data Radiologist's impression: ITS Impressions Head CT 09/01/24 09:39 Impression: No intracranial hemorrhage, mass, or acute infarct. Atrophy and chronic white matter changes, as above. Chest X-Ray 09/01/24 13:09 Impression: Possible medial left lower lobe pneumonia. Pulmonary Perfusion Imaging 09/01/24 15:26 IMPRESSION: 1. Normal study. Very low probability for pulmonary embolism. <Katy Mayer PA-C - Last Filed: 09/01/24 18:45> ECG Data EKG #1: ECG completion date: 09/01/24 <Katy Mayer PA-C - Last Filed: 09/01/24 18:45> EKG Interpretation: atrial fibrillation (with RVR) and no ST changes <Katy Mayer PA-C - Last Filed: 09/01/24 18:45> Critical Care Time Critical Care Time Critical Care Time: Yes <Katy Mayer PA-C - Last Filed: 09/01/24 18:45> Total Critical Care Time: 35 <Katy Mayer PA-C - Last Filed: 09/01/24 18:45> Discharge Plan Discharge Clinical Impression: Atrial fibrillation with RVR Altered mental status Qualifiers: Altered mental status type: unspecified Qualified Code(s): R41.82 - Altered mental status, unspecified Pneumonia Qualifiers: Pneumonia type: due to unspecified organism Laterality: left Lung location: l ower lobe of lung Qualified Code(s): J18.9 - Pneumonia, unspecified organism <Katy Mayer PA-C - Last Filed: 09/01/24 18:45> Patient Disposition: Still a Patient <Katy Mayer PA-C - Last Filed: 09/01/24 18:45> Condition: Serious <Katy Mayer PA-C - Last Filed: 09/01/24 18:45>
--- NOTE | 2024-09-01 11:05 | PC.NURSE ---
assumed care of pt from RAISSA Hagan. pt resting on stretcher, no distress noted. pt informed we are medicating for high HR to lower rate. pt confused, which has been pt's status the entire visit per Danya.
[2024-09-01] MEDS: levoFLOXacin 750 MG/D5W 150 ML 750 MG/150 ML BAG 100 MG IVPB (14:21)
--- NOTE | 2024-09-01 14:35 | P.HP_ITS ---
H&P: HPI History of Present Illness Date/Time: 09/01/24 14:35 Chief Complaint: Altered Mental Status Narrative: 69 y/o F with PMH of coronary artery disease, NSTEMI, CHF, DVT, hyperlipidemia, hypertension, moderate pulmonary hypertension, MARITA intolerant of CPAP, paroxysmal AFib, and pulmonary embolism presents here with altered mental status. The patient presents here from [facility] via EMS on 09/01 for further evaluation of altered mental status. HPI obtained through chart review, patient non-verbal and cannot follow commands. Staff at patient's facility reported to EMS that the patient woke up this morning nonverbal and has had a decline over the last 3 days. She arrived to the Emergency Department awake and staring. Able to contact her brother (Moi) who is her POA. He believes she has some level of dementia as she has been experiencing visual hallucinations for the past few years which was similar to what his dad had experienced who also had dementia. According the the brother she frequently cries out and they will have to give her medicine to calm her down. He denies any known history of stoke in regards to the patient. No new symptoms reported to him or reported to him by the [place]. He does believe the patient was started on a new mental health medication within the last 2 weeks, unsure of name. Initial VS at presentation: 97.8? F, HR 96, RR 20, 151/95, and 95% on RA. ED workup showed: WBC 11.6, no anemia, coags within normal limits, D-dimer elevated, creatinine 1.02 and GFR 54, glucose 189, UA was cloudy with 2+ protein / 3+ glucose /1+ ketones / 3-5 RBC otherwise unremarkable. UDS negative. Head CT showed no intracranial hemorrhage, mass, or acute infarct and atrophy/chronic white matter changes. CXR showed possible medial left lower lobe pneumonia. Review of Systems Review of Systems: ROS unobtainable: Yes unobtainable due to mental status [facility] Past Medical History Medical History Moderate pulmonary hypertension CAD (coronary artery disease) Non STEMI 12/2020 Morbid obesity with BMI of 50.0-59.9, adult NSTEMI (non-ST elevated myocardial infarction) Gastroesophageal reflux disease Diabetic peripheral neuropathy Anxiety Depression Obstructive sleep apnea Intolerant to CPAP. Paroxysmal atrial fibrillation Pulmonary embolism Deep venous thrombosis Mixed stress and urge incontinence Hyperlipidemia Hypertension Frequent urinary tract infections Congestive heart failure Echocardiogram 04/2021: EF 65-70%, mildly increased left ventricular wall thickness, abnormal diastolic function, moderate left atrial enlargement, mild aortic valve stenosis peak velocity of 205 mean gradient 11 and valve area 2.39 cm, mild aortic valve regurgitation, mild mitral valve stenosis, mild mitral valve regurgitation, severely calcified mitral valve annulus, mild tricuspid valve regurgitation, moderate pulmonary hypertension RVSP of 59 Asthma Surgical History Surgical History History of cardiac catheterization Most recent cardiac catheterization 12/2020: 70% eccentric stenosis proximal left circumflex status post angioplasty and stent placement 3 x 12 mm Medtronic resolute becca zotarolimus stent, 30 40% stenosis mid LAD, 50 60% diffuse stenosis proximal segment of D2 and D3, 30-40% stenosis proximal segment of RCA preserved EF 70% left ventricular end-diastolic pressure 12 History of cystoscopy History of colonoscopy History of cholecystectomy History of tonsillectomy and adenoidectomy Family History Family History Mother No problems noted. Father No problems noted. Other Adopted Chest pain Social History Social History Social History: Surrogate decision maker: Moi Medellin, brother. Code status: Full code. Smoking status: Never smoker Second hand tobacco smoke exposure: No Alcohol intake: never Substance use: never Substance use type: does not use Additional living arrangements comments: Patient is a resident at [facility]. She has no children. 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 Spiritual care concerns: No Meds Home Medications and Allergies Home Medications ?Medication ?Instructions ?Recorded ?Confirmed ?Type acetaminophen 650 mg tablet 650 mg PO Q6H PRN Pain (Scale 01/20/21 10/19/23 History Score 1-3) albuterol sulfate 90 mcg/actuation 2 puff inhalation Q4H PRN 01/20/21 10/19/23 History aerosol inhaler Shortness Of Breath Or Wheezing allopurinol 300 mg tablet 300 mg PO DAILY 01/20/21 10/19/23 History ascorbic acid (vitamin C) 500 mg 500 mg PO DAILY 01/20/21 10/19/23 History tablet bisacodyl 10 mg rectal suppository 10 mg RECTAL DAILY PRN Constipation 01/20/21 10/19/23 History calcium carbonate 200 mg PO BID 01/20/21 10/19/23 History cholecalciferol (vitamin D3) 25 25 mcg PO DAILY 01/20/21 10/19/23 History mcg (1,000 unit) tablet (Vitamin D3) cyanocobalamin (vitamin B-12) 1,000 mcg PO DAILY 01/20/21 10/19/23 History 1,000 mcg tablet (Vitamin B-12) famotidine 20 mg tablet 20 mg PO BID 01/20/21 10/19/23 History insulin aspart U-100 100 unit/mL See Rx Instructions .Route .COMPLEX 01/20/21 10/19/23 History (3 mL) subcutaneous pen (Novolog FlexPen U-100 Insulin aspart) loperamide 2 mg capsule 2 mg PO Q6H PRN Diarrhea 01/20/21 10/19/23 History loratadine 10 mg tablet 10 mg PO DAILY 01/20/21 10/19/23 History magnesium citrate 296 ml PO DAILY PRN Constipation 01/20/21 10/19/23 History magnesium hydroxide 400 mg/5 mL 30 ml PO HS PRN Constipation 01/20/21 10/19/23 History oral suspension (Milk of Magnesia) melatonin 5 mg tablet 5 mg PO HS 01/20/21 10/19/23 History metformin 500 mg tablet 1,000 mg PO BID 01/20/21 10/19/23 History sodium phosphates 19 gram-7 118 ml RECTAL DAILY PRN 01/20/21 10/19/23 History gram/118 mL enema (Fleet Enema) Constipation venlafaxine 75 mg capsule,extended 225 mg PO HS 01/20/21 10/19/23 History release 24 hr nitroglycerin 0.4 mg sublingual 0.4 mg sublingual Q5MIN PRN Chest 01/25/21 10/19/23 Rx tablet (Nitrostat) Pain 30 days #15 tabs multivitamin-ferrous 1 tablet PO DAILY 05/13/21 10/19/23 History fumarate-folic acid 18 mg-400 mcg tablet divalproex 500 mg tablet,delayed 500 mg PO BID 09/20/21 10/19/23 History release empagliflozin 25 mg tablet 25 mg PO DAILY 09/20/21 10/19/23 History (Jardiance) colestipol 1 gram tablet (Colestid) 1 g PO BID 04/27/22 10/19/23 History albuterol sulfate 90 mcg/actuation 2 puff inhalation HS 04/13/23 10/19/23 History aerosol inhaler (Ventolin HFA) glucagon 1 mg solution for 1 mg subcut PRN PRN Hypoglycemia 04/13/23 10/19/23 History injection (Glucagon Emergency Kit) metoprolol tartrate 25 mg tablet 12.5 mg PO Q12HR 04/13/23 10/19/23 History allopurinol 100 mg tablet 50 mg PO EVERY OTHER DAY 10/19/23 10/19/23 History aspirin 81 mg tablet,delayed 81 mg PO DAILY 10/19/23 10/19/23 History release clotrimazole 1 % topical cream 1 applic topical Q12H 10/19/23 10/19/23 History furosemide 20 mg tablet 80 mg PO DAILY 10/19/23 10/19/23 History insulin glargine 100 unit/mL (3 10 unit subcut HS 10/19/23 10/19/23 History mL) subcutaneous pen (Lantus Solostar U-100 Insulin) olanzapine 5 mg disintegrating 2.5 mg PO HS 10/19/23 10/19/23 History tablet ondansetron HCl 8 mg tablet 8 mg PO Q8H 10/19/23 10/19/23 History oxycodone 5 mg tablet 5 mg PO Q6H PRN Pain (Scale Score 10/19/23 10/19/23 History 4-6) potassium chloride 20 mEq 20 meq PO DAILY 10/19/23 10/19/23 History tablet,extended release levofloxacin 500 mg tablet 500 mg PO DAILY #4 tabs 10/21/23 Rx Allergies Allergy/AdvReac Type Severity Reaction Status Date / Time amoxicillin Allergy Severe Anaphylaxis Verified 09/01/24 08:57 bee venom protein (honey Allergy Severe Anaphylaxis Verified 09/01/24 08:57 bee) (bees) Penicillins Allergy Severe Anaphylaxis Verified 09/01/24 08:57 Sulfa (Sulfonamide Allergy Severe Anaphylaxis Verified 09/01/24 08:57 Antibiotics) blue dye Allergy Unknown Verified 09/01/24 08:57 fish derived Allergy Unknown Verified 09/01/24 08:57 iodine Allergy Rash Verified 09/01/24 08:57 metaproterenol Allergy Unknown Verified 09/01/24 08:57 methocarbamol Allergy Unknown Verified 09/01/24 08:57 oxytetracycline Allergy Unknown Verified 09/01/24 08:57 pentazocine Allergy Unknown Verified 09/01/24 08:57 procaine Allergy Unknown Verified 09/01/24 08:57 aspirin AdvReac Mild Nausea and Verified 09/01/24 08:57 Vomiting fluoxetine AdvReac Mild Nausea and Verified 09/01/24 08:57 Vomiting chlorpheniramine AdvReac Nausea and Verified 09/01/24 08:57 Vomiting erythromycin base AdvReac Nausea and Verified 09/01/24 08:57 Vomiting fenofibrate AdvReac Nausea and Verified 09/01/24 08:57 Vomiting hydrocodone AdvReac Nausea and Verified 09/01/24 08:57 Vomiting hydroxyzine AdvReac Nausea and Verified 09/01/24 08:57 Vomiting propoxyphene AdvReac Nausea and Verified 09/01/24 08:57 Vomiting sertraline AdvReac Nausea and Verified 09/01/24 08:57 Vomiting terbutaline AdvReac Nausea and Verified 09/01/24 08:57 Vomiting yellow dye AdvReac Nausea and Verified 09/01/24 08:57 Vomiting hmg-coa-R Inhibitors Allergy Unknown Uncoded 09/01/24 08:57 Vital Signs Vital Signs - 24 hr 09/01/24 08:47 09/01/24 09:01 09/01/24 09:02 Temperature 97.8 F Pulse Rate 96 138 H 139 H Respiratory Rate 20 14 26 H Blood Pressure 151/95 H 136/68 Pulse Oximetry 95 94 Oxygen Delivery Room Air Oxygen Flow Rate 09/01/24 09:15 09/01/24 09:16 09/01/24 09:16 Temperature Pulse Rate 139 H 126 H 139 H Respiratory Rate 15 12 Blood Pressure 120/54 L Pulse Oximetry 91 93 Oxygen Delivery Oxygen Flow Rate 09/01/24 09:35 09/01/24 09:45 09/01/24 10:00 Temperature Pulse Rate 137 H 142 H 137 H Respiratory Rate 23 H 13 22 H Blood Pressure 127/52 L Pulse Oximetry 92 95 92 Oxygen Delivery Oxygen Flow Rate 09/01/24 10:01 07/08/25 10:02 09/01/24 10:03 Temperature Pulse Rate 133 H 136 H 136 H Respiratory Rate 23 H 14 Blood Pressure 127/52 L Pulse Oximetry 91 89 L Oxygen Delivery Oxygen Flow Rate 09/01/24 10:04 09/01/24 10:15 09/01/24 10:16 Temperature Pulse Rate 110 H Respiratory Rate 13 21 H Blood Pressure 107/73 Pulse Oximetry 98 99 99 Oxygen Delivery Nasal Cannula Oxygen Flow Rate 2 09/01/24 11:04 09/01/24 11:06 09/01/24 14:04 Temperature 97.2 F L 97.9 F Pulse Rate 133 H 132 H 134 H Respiratory Rate 18 20 Blood Pressure 111/86 141/57 H Pulse Oximetry 99 97 Oxygen Delivery Oxygen Flow Rate Exam Const: General: comfortable and no acute distress Other: , female, chronically ill-appearing, obese body habitus HENMT: Face/Nose/Sinus: Normal nares present Mouth: Yes dry mucous membranes Eyes: General: appearance normal, both eyes and all related structures Sclera: sclerae normal Pupils: Equal, round and reactive pupils present Other: unable to assess for gaze palsy, staring midline Resp: Effort & Inspection: normal respiratory effort Auscultation: clear to auscultation bilaterally Cardio: Rate: tachycardic Other: abnormal rhythm with frequent ectopy, no appreciable murmur. GI: Other: Abdomen soft, nondistended, nontender. Normoactive bowel sounds in all quadrants. Skin: General skin exam: normal color and no rashes or lesions noted Wounds: no wounds Neuro: Other: Very limited neuro exam. PERRLA - 3 mm bilaterally, will try to squeeze eyes shut during exam. Briefly attempted to regard. Unable to assess for gaze palsy, gaze does remain midline. DTR normal in all extremities. does not attempt to follow commands, unable to assess strength. No movement of extremities. Extrem: General: normal to inspection Psych: Other: flat affect H&P: Results Labs Labs: Short CBC 09/01/24 Range/Units 09:00 WBC 11.6 H (4.5-10.0) K/mm3 Hgb 14.3 (12.0-15.0) g/dL Hct 46.0 (37.0-47.0) % Plt Count 369 D (150-375) k/mm3 BMP 09/01/24 09:00 Sodium 144 Potassium 4.0 Chloride 107 Carbon Dioxide 26 BUN 21 H Creatinine 1.02 H Glucose 189 H Calcium 9.2 Liver Function 09/01/24 Range/Units 09:00 Total Bilirubin 0.4 (0.2-1.3) mg/dL AST 28 (14-36) U/L ALT 16 (6-35) U/L Alkaline Phosphatase 92 (38-126) U/L Albumin 3.2 L (3.5-5.1) g/dL Urine 09/01/24 Range/Units 09:00 Urine Color Yellow (Yellow) Urine Appearance Cloudy H (Clear) Urine pH 6.0 (5.0-9.0) Ur Specific [place] 1.031 (1.001-1.035) Urine Protein 2+ H (Negative) mg/dL Urine Glucose (UA) 3+ H (Negative) mg/dL Assessment and Plan Assessment and plan (1) AMS (altered mental status): Code(s): R41.82 - Altered mental status, unspecified Status: Acute Assessment and Plan: - Thus far Head CT reviewed and no acute findings. UA showed no indications of infection. UDS was negative. very mild leukocytosis noted. No significant electrolyte derangements and renal function at baseline. Glucose was 189 and lactic was within normal limits. - CXR showed possible left lower lobe pneumonia. - Patient's brother who is her POA believes she may have been put on a new mental health medication, reviewed outside med rec. No new medications prescribed or dose adjustments, has been on same medications and doses for a minimum of 3 months. Differential includes: CVA, encephalopathy secondary to possible pneumonia, catatonia, non-convulsive status epilepticus Plan to consult neurology for possible EEG, obtain MRI, empiric abx for possible PNA, and will trial small dose of Ativan 1 mg IV. Will additionally check TSH, B12 and Folic Acid. Will make NPO until mental status improves. (2) Pneumonia: Qualifiers: Laterality: left Lung location: lower lobe of lung Pneumonia type: due to unspecified organism Qualified Code(s): J18.9 - Pneumonia, unspecified organism Code(s): J18.9 - Pneumonia, unspecified organism Status: Acute Assessment and Plan: - CXR showed possible medial left lower lobe pneumonia - started on Levaquin (see allergy list) on 09/01 - MRSA PCR positive on 03/2023, repeat - check Viral PCR and sputum culture (if obtainable) - currently requiring 2L NC, wean as tolerated. Maintain O2 sat greater than 92%. (3) Paroxysmal atrial fibrillation: Code(s): I48.0 - Paroxysmal atrial fibrillation Status: Acute Assessment and Plan: - history of pAfib - initial EKG showed AFib RVR, rate 145 - given metoprolol 5 mg IV x2 and diltiazem 10 mg IV x1 without stabilization of HR. Now on diltiazem gtt 5 mg/hour. Hold home rate control medications. - given persistence of tachycardia and tachypnea, some concern for PE. D-dimer was elevated, however NM study showed low probability for PE. (4) Type 2 diabetes mellitus with hyperglycemia, with long-term current use of insulin: Code(s): E11.65 - Type 2 diabetes mellitus with hyperglycemia; Z79.4 - custodial (current) use of insulin Status: Chronic Assessment and Plan: - hypoglycemia protocol - POC blood glucose Q6H, currently NPO - hold home SQ medication as the patient is NPO to avoid hypoglycemia. tyler ective in place. - correct regimen ordered - high dose Q6H - A1C 6.2% in 2023, update (5) Hypertension: Qualifiers: Hypertension type: primary hypertension Qualified Code(s): I10 - Essential (primary) hypertension Code(s): I10 - Essential (primary) hypertension Status: Chronic Assessment and Plan: - chronic, currently 161/83 - hold home medications, unable to tolerate PO due to AMS - hydralazine prn for BP greater than 180/90 - monitor Plan Diet: NPO until mental status improved GI Prophylaxis: not currently indicated DVT Prophylaxis: Lovenox SQ IV fluids: 2L bolus Lines/Tubes: peripheral IV Code Status: full code Quality VTE Prophylaxis VTE prophylaxis: pharmacologic ordered Hospitalist [facility] Advance Care Plan I have confirmed that the patient's Advanced Care Plan is present, code status is documented, or surrogate decision maker is listed in patient medical record.: Yes Medication Reconciliation I have utilized all available resources to obtain, update and review the patients current medications (includes all prescriptions, OTC, herbals, cannabis, and nutritional supplements).: Yes
[2024-09-01] MEDS: dilTIAZem 100 MG/100 ML 100 MG/100 ML BAG IV CONT (15:47)
[2024-09-01] MEDS: LORazepam INJ (*CRX) 2 MG/ML VIAL 1 MG IV PUSH (16:51)
[2024-09-01 17:35] LABS: Influenza A QL RT-PCR Negative (Negative); Influenza B QL RT-PCR Negative (Negative); RSV RNA, RT-PCR Negative (Negative); SARS-CoV-2 RNA PCR Negative (Negative)
[2024-09-01 18:13] LABS: MRSA (PCR) DETECTED (NOT DETECTE)
[2024-09-01 18:23] LABS: Vitamin B12 > 1000.0 pg/mL (239-931)
--- NOTE | 2024-09-01 20:00 | ADMGEN ---
This patient, Nazanin Medellin, was admitted to IMU Room 204-01. Patient/family oriented to hospital policies and general routines including ID bracelet, bed and alarms, visiting hours, pain management, procedures, bathroom and other care routines, personal items, smoking policy, room service/diet, and visiting hours. Information on how to activate the Rapid Response Team has been discussed. Patient/Family are encouraged to report perceived risks to care and to ask questions if they do not understand what they are told or what they should do.
[2024-09-01] MEDS: VANCOMYCIN 1,250 MG/NS 250 ML 1,250 MG/250 ML BAG 166.67 MG IVPB ×2 (20:27→22:01)
[2024-09-01] MEDS: MUPIROCIN 2% OINT 22 GM TUBE 1 APPLIC EACH NARE (21:49)
[2024-09-02] VITALS (24 sets, daily range): BP systolic 137–161; BP diastolic 74–96; PULSE 80–135; RESP 16–22; TEMP 36.4–37.2; O2SAT 93–100; BMI 34.8
[2024-09-02] MEDS: dilTIAZem 100 MG/100 ML 100 MG/100 ML BAG 10 MG IV CONT ×3 (00:10→20:56)
[2024-09-02 04:59] LABS: Hematocrit 44.3 % (37.0-47.0); Hemoglobin 13.5 g/dL (12.0-15.0); Immature Granulocyte Percent A 1.8 % (0-0.5); Lymphocytes Absolute Auto 1.20 K/mm3 (0.9-3.2); Mean Corpuscular HGB Conc 30.5 g/dl (32-36); Mean Corpuscular Hemoglobin 31.4 pg (26-34); Mean Corpuscular Volume 103.0 fl (80-100); Nucleated Red Blood Cells Absolute Auto 0.000 K/mm3 (0.0-0.012); Nucleated Red Blood Cells Perc 0.0 % (0.0-0.2); Platelet Count Result 290 k/mm3 (150-375); Red Blood Count 4.30 M/mm3 (4.2-5.4); White Blood Count 9.6 K/mm3 (4.5-10.0)
[2024-09-02 05:16] LABS: Hemoglobin A1C 5.8 % (<5.7)
[2024-09-02 05:18] LABS: Alanine Aminotransferase 16 U/L (6-35); Albumin Level 3.1 g/dL (3.5-5.1); Alkaline Phosphatase 74 U/L (38-126); Anion Gap 8 mmol/L (4-12); Aspartate Amino Transferase 31 U/L (14-36); Bilirubin,Total 0.4 mg/dL (0.2-1.3); Blood Urea Nitrogen 26 mg/dL (7-17); Calcium 8.9 mg/dL (8.4-10.2); Carbon Dioxide 27 mmol/L (22-30); Chloride 110 mmol/L (98-107); Estimated CRCL calculation 63 ml/min; Estimated Glomerular Filt Rate > 60; Glucose 173 mg/dL (65-110); Magnesium 2.1 mg/dL (1.6-2.3); Potassium 4.0 mmol/L (3.4-5.0); Sodium 145 mmol/L (137-145); Total Protein 7.0 g/dL (6.3-8.2)
[2024-09-02 05:55] LABS: Thyroid Stimulating Hormone Reflex 0.754 uIU/mL (0.465-4.68)
--- NOTE | 2024-09-02 09:12 | P.CONNEU_ITS ---
Assessment and Plan Assessment and plan (1) Altered mental status: Qualifiers: Altered mental status type: unspecified Qualified Code(s): R41.82 - Altered mental status, unspecified Code(s): R41.82 - Altered mental status, unspecified Status: Acute Plan [address] scan of the head the major stroke or bleed but finding suggestive of the chronic atrophy, 2. he history of dementia with anxiety disorder and depression in the past 3. Question unwitnessed seizure plan obtain the EEG and MRI of the brain in addition to medical workup thank Consult date: 09/02/24 HPI: Nazanin Medellin is a 69 year old female Admitted to the hospital through the emergency room with the complaints of change in the mental state described as very lethargic though usually she is awake and alert and oriented x1. Has been taking multiple medications as outlined particularly melatonin 5mg at night, Depakote 500mg twice a day, Jardiance 25mg daily, insulin 16units subQ every morning, BuSpar 10mg 3 times a day, duloxetine 20mg b.i.d., lorazepam 0.5mg b.i.d., and trazodone 50mg at night. She reportedly allergic to multiple medications as outlined she has history of 1. Pulmonary hypertension 2. Coronary artery disease 3. Diabetes mellitus with peripheral neuropathy 4. Obstructive sleep apnea intolerant to CPAP 5. Paroxysmal atrial fibrillation 6. Hyper and 7. Congestive heart failure. She has a known to have ever smoked, and does not drink alcohol. On initial exam in the emergency room she appeared chronically ill with no gross neurological deficit except she was unable to follow the verbal commands and was singing and repeating what was asked of her. Routine vital signs were normal, CBC was normal, [employer] was with blood sugar 189, vitamin B12 more than 1000, and negative for the routine virus infection such as influenza a B RSV and [id number], drug screen was negative, CT of the head without bleed but with generalized atrophy and chronic white matter changes x- ray chest with possible medial left lower lobe pneumonia EKG with atrial fibrillation, Review of Systems 2 Review of Systems: All systems reviewed & are unremarkable except as noted in HPI and below PMFSH Past Medical History Medical History Moderate pulmonary hypertension CAD (coronary artery disease) Non STEMI 12/2020 Morbid obesity with BMI of 50.0-59.9, adult NSTEMI (non-ST elevated myocardial infarction) Gastroesophageal reflux disease Diabetic peripheral neuropathy Anxiety Depression Obstructive sleep apnea Intolerant to CPAP. Paroxysmal atrial fibrillation Pulmonary embolism Deep venous thrombosis Mixed stress and urge incontinence Hyperlipidemia Hypertension Frequent urinary tract infections Congestive heart failure Echocardiogram 04/2021: EF 65-70%, mildly increased left ventricular wall thickness, abnormal diastolic function, moderate left atrial enlargement, mild aortic valve stenosis peak velocity of 205 mean gradient 11 and valve area 2.39 cm, mild aortic valve regurgitation, mild mitral valve stenosis, mild mitral valve regurgitation, severely calcified mitral valve annulus, mild tricuspid valve regurgitation, moderate pulmonary hypertension RVSP of 59 Asthma Surgical History Surgical History History of cardiac catheterization Most recent cardiac catheterization 12/2020: 70% eccentric stenosis proximal left circumflex status post angioplasty and stent placement 3 x 12 mm Medtronic resolute becca zotarolimus stent, 30 40% stenosis mid LAD, 50 60% diffuse stenosis proximal segment of D2 and D3, 30-40% stenosis proximal segment of RCA preserved EF 70% left ventricular end-diastolic pressure 12 History of cystoscopy History of colonoscopy History of cholecystectomy History of tonsillectomy and adenoidectomy Family History Family History Mother No problems noted. Father No problems noted. Other Adopted Chest pain Social History Social History Social History: Surrogate decision maker: Moi Medellin, brother. Code status: Full code. Smoking status: Unknown if ever smoked Second hand tobacco smoke exposure: No Alcohol intake: never Substance use: never Substance use type: does not use Additional living arrangements comments: Patient is a resident at [facility]. She has no children. 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 Spiritual care concerns: No Meds Home Medications and Allergies Home Medications ?Medication ?Instructions ?Recorded ?Confirmed ?Type albuterol sulfate 90 mcg/actuation 2 puff inhalation Q4H PRN 01/20/21 09/01/24 History aerosol inhaler Shortness Of Breath Or Wheezing allopurinol 300 mg tablet 300 mg PO DAILY 01/20/21 09/01/24 History bisacodyl 10 mg rectal suppository 10 mg RECTAL DAILY PRN Constipation 01/20/21 09/01/24 History calcium carbonate 500 mg PO BID 01/20/21 09/01/24 History cyanocobalamin (vitamin B-12) 1,000 mcg PO DAILY 01/20/21 09/01/24 History 1,000 mcg tablet (Vitamin B-12) famotidine 20 mg tablet 20 mg PO BID 01/20/21 09/01/24 History loperamide 2 mg capsule 2 mg PO Q6H PRN Diarrhea 01/20/21 09/01/24 History loratadine 10 mg tablet 10 mg PO DAILY 01/20/21 09/01/24 History magnesium citrate 296 ml PO DAILY PRN Constipation 01/20/21 09/01/24 History magnesium hydroxide 400 mg/5 mL 30 ml PO HS PRN Constipation 01/20/21 09/01/24 History oral suspension (Milk of Magnesia) melatonin 5 mg tablet 5 mg PO HS 01/20/21 09/01/24 History metformin 500 mg tablet 1,000 mg PO BID 01/20/21 09/01/24 History sodium phosphates 19 gram-7 118 ml RECTAL DAILY PRN 01/20/21 09/01/24 History gram/118 mL enema (Fleet Enema) Constipation nitroglycerin 0.4 mg sublingual 0.4 mg sublingual Q5MIN PRN Chest 01/25/21 09/01/24 Rx tablet (Nitrostat) Pain 30 days #15 tabs multivitamin-ferrous 1 tablet PO DAILY 05/13/21 09/01/24 History fumarate-folic acid 18 mg-400 mcg tablet divalproex 500 mg tablet,delayed 500 mg PO BID 09/20/21 09/01/24 History release empagliflozin 25 mg tablet 25 mg PO DAILY 09/20/21 09/01/24 History (Jardiance) colestipol 1 gram tablet (Colestid) 1 g PO BID 04/27/22 09/01/24 History albuterol sulfate 90 mcg/actuation 2 puff inhalation HS 04/13/23 09/01/24 History aerosol inhaler (Ventolin HFA) glucagon 1 mg solution for 1 mg subcut PRN PRN Hypoglycemia 04/13/23 09/01/24 History injection (Glucagon Emergency Kit) metoprolol tartrate 25 mg tablet 12.5 mg PO Q12HR 04/13/23 09/01/24 History allopurinol 100 mg tablet 50 mg PO EVERY OTHER DAY 10/19/23 09/01/24 History aspirin 81 mg tablet,delayed 81 mg PO DAILY 10/19/23 09/01/24 History release furosemide 20 mg tablet 80 mg PO DAILY 10/19/23 09/01/24 History insulin glargine 100 unit/mL (3 16 unit subcut QAM 10/19/23 09/01/24 History mL) subcutaneous pen (Lantus Solostar U-100 Insulin) ondansetron HCl 8 mg tablet 8 mg PO Q8H PRN nausea and vomiting 10/19/23 09/02/24 History oxycodone 5 mg tablet 5 mg PO Q6H PRN Pain (Scale Score 10/19/23 09/01/24 History 4-6) potassium chloride 20 mEq 20 meq PO DAILY 10/19/23 09/01/24 History tablet,extended release buspirone 10 mg tablet 10 mg PO TID 09/01/24 09/01/24 History duloxetine 20 mg capsule,delayed 20 mg PO BID 09/01/24 09/01/24 History release ergocalciferol (vitamin D2) 1,250 50,000 unit PO WEEKLY 09/01/24 09/01/24 History mcg (50,000 unit) capsule (Vitamin D2) lorazepam 0.5 mg tablet 0.5 mg PO BID 09/01/24 09/01/24 History trazodone 50 mg tablet 50 mg PO HS 09/01/24 09/01/24 History Allergies Allergy/AdvReac Type Severity Reaction Status Date / Time amoxicillin Allergy Severe Anaphylaxis Verified 09/01/24 08:57 bee venom protein (honey Allergy Severe Anaphylaxis Verified 09/01/24 08:57 bee) (bees) Penicillins Allergy Severe Anaphylaxis Verified 09/01/24 08:57 Sulfa (Sulfonamide Allergy Severe Anaphylaxis Verified 09/01/24 08:57 Antibiotics) blue dye Allergy Unknown Verified 09/01/24 08:57 fish derived Allergy Unknown Verified 09/01/24 08:57 iodine Allergy Rash Verified 09/01/24 08:57 metaproterenol Allergy Unknown Verified 09/01/24 08:57 methocarbamol Allergy Unknown Verified 09/01/24 08:57 oxytetracycline Allergy Unknown Verified 09/01/24 08:57 pentazocine Allergy Unknown Verified 09/01/24 08:57 procaine Allergy Unknown Verified 09/01/24 08:57 aspirin AdvReac Mild Nausea and Verified 09/01/24 08:57 Vomiting fluoxetine AdvReac Mild Nausea and Verified 09/01/24 08:57 Vomiting chlorpheniramine AdvReac Nausea and Verified 09/01/24 08:57 Vomiting erythromycin base AdvReac Nausea and Verified 09/01/24 08:57 Vomiting fenofibrate AdvReac Nausea and Verified 09/01/24 08:57 Vomiting hydrocodone AdvReac Nausea and Verified 09/01/24 08:57 Vomiting hydroxyzine AdvReac Nausea and Verified 09/01/24 08:57 Vomiting propoxyphene AdvReac Nausea and Verified 09/01/24 08:57 Vomiting sertraline AdvReac Nausea and Verified 09/01/24 08:57 Vomiting terbutaline AdvReac Nausea and Verified 09/01/24 08:57 Vomiting yellow dye AdvReac Nausea and Verified 09/01/24 08:57 Vomiting hmg-coa-R Inhibitors Allergy Unknown Uncoded 09/01/24 08:57 Vital Signs Vital Signs - 24 hr 09/01/24 09:15 09/01/24 09:16 09/01/24 09:16 Temperature Pulse Rate 139 H 126 H 139 H Respiratory Rate 15 12 Blood Pressure 120/54 L Pulse Oximetry 91 93 Oxygen Delivery Oxygen Flow Rate 09/01/24 09:35 09/01/24 09:45 09/01/24 10:00 Temperature Pulse Rate 137 H 142 H 137 H Respiratory Rate 23 H 13 22 H Blood Pressure 127/52 L Pulse Oximetry 92 95 92 Oxygen Delivery Oxygen Flow Rate 09/01/24 10:01 09/01/24 10:02 09/01/24 10:03 Temperature Pulse Rate 133 H 136 H 136 H Respiratory Rate 23 H 14 Blood Pressure 127/52 L Pulse Oximetry 91 89 L Oxygen Delivery Oxygen Flow Rate 09/01/24 10:04 09/01/24 10:15 09/01/24 10:16 Temperature Pulse Rate 110 H Respiratory Rate 13 21 H Blood Pressure 107/73 Pulse Oximetry 98 99 99 Oxygen Delivery Nasal Cannula Oxygen Flow Rate 2 09/01/24 11:04 09/01/24 11:06 09/01/24 14:04 Temperature 36.2 C L 36.6 C Pulse Rate 133 H 132 H 134 H Respiratory Rate 18 20 Blood Pressure 111/86 141/57 H Pulse Oximetry 99 97 Oxygen Delivery Oxygen Flow Rate 09/01/24 15:28 09/01/24 15:47 09/01/24 17:23 Temperature 36.9 C Pulse Rate 95 115 H 129 H Respiratory Rate 16 22 H Blood Pressure 146/71 H 161/83 H 142/85 H Pulse Oximetry 95 98 Oxygen Delivery Oxygen Flow Rate 09/01/24 17:24 09/01/24 17:53 09/01/24 20:05 Temperature 36.7 C Pulse Rate 129 H 106 H 101 H Respiratory Rate 22 H Blood Pressure 142/85 H 143/76 H Pulse Oximetry 97 Oxygen Delivery Oxygen Flow Rate 09/01/24 20:10 09/01/24 20:30 09/01/24 20:30 Temperature 36.7 C 37.0 C Pulse Rate 88 85 89 Respiratory Rate 20 20 Blood Pressure 138/78 141/78 H 141/78 H Pulse Oximetry 97 97 Oxygen Delivery Oxygen Flow Rate 09/01/24 20:45 09/01/24 22:00 09/01/24 22:00 Temperature Pulse Rate 88 88 Respiratory Rate 20 Blood Pressure 137/80 Pulse Oximetry 97 Oxygen Delivery Nasal Cannula Oxygen Flow Rate 2 09/01/24 22:00 09/01/24 23:40 09/01/24 23:49 Temperature 36.6 C Pulse Rate 88 87 88 Respiratory Rate 18 20 Blood Pressure 137/80 140/75 Pulse Oximetry 98 100 Oxygen Delivery Nasal Cannula Oxygen Flow Rate 2 09/02/24 00:00 09/02/24 00:10 09/02/24 01:45 Temperature Pulse Rate 89 94 95 Respiratory Rate Blood Pressure 140/75 139/84 Pulse Oximetry Oxygen Delivery Oxygen Flow Rate 09/02/24 02:00 09/02/24 02:00 09/02/24 03:35 Temperature 36.5 C Pulse Rate 93 93 93 Respiratory Rate 20 Blood Pressure 139/84 147/88 H Pulse Oximetry 100 Oxygen Delivery Oxygen Flow Rate 09/02/24 04:00 09/02/24 04:00 09/02/24 04:00 Temperature Pulse Rate 93 104 H 88 Respiratory Rate 20 Blood Pressure 147/88 H Pulse Oximetry 100 Oxygen Delivery Nasal Cannula Oxygen Flow Rate 2 09/02/24 06:00 09/02/24 06:00 09/02/24 06:00 Temperature Pulse Rate 82 89 87 Respiratory Rate Blood Pressure 151/82 H 151/82 H Pulse Oximetry Oxygen Delivery Oxygen Flow Rate 09/02/24 08:00 Temperature 37.2 C Pulse Rate 96 Respiratory Rate 16 Blood Pressure 150/74 H Pulse Oximetry 100 Oxygen Delivery Oxygen Flow Rate Exam 2 Narrative: Revealed her to be awake alert not able to follow all the verbal commands appropriately also not able to answer appropriately repeating the same words again and again, head normocephalic with no cranial bruit, neck supple with no cervical bruit no meningeal signs no thyromegaly no lymphadenopathy, heart regular with normal lungs with no rhonchi or crepitations, abdomen nontender, neurologically she is awake alert but unable to follow the verbal commands looks at the examiner closes the eyes and keeps repeating the same sentences pupils round regular feels the vision to threat stimuli positive in all 4 quadrants and extraocular movements are spontaneously full in the horizontal gaze and there is no nystagmus facial sensation is intact to pinprick face symmetrical tongue in the oral cavity no fasciculation motor examination revealed her to have inability to move both upper and lower extremities with absent reflexes and plantar responses are without any response. Cerebellar functions could not be reliably checked. Results Labs 09/02/24 04:16 09/02/24 04:16 Labs: Short CBC 09/01/24 09/02/24 Range/Units 09:00 04:16 WBC 11.6 H 9.6 (4.5-10.0) K/mm3 Hgb 14.3 13.5 (12.0-15.0) g/dL Hct 46.0 44.3 (37.0-47.0) % Plt Count 369 D 290 (150-375) k/mm3 BMP 09/01/24 09/02/24 09:00 04:16 Sodium 144 145 Potassium 4.0 4.0 Chloride 107 110 H Carbon Dioxide 26 27 BUN 21 H 26 H Creatinine 1.02 H 0.81 Glucose 189 H 173 H Calcium 9.2 8.9 Liver Function 09/01/24 09/02/24 Range/Units 09:00 04:16 Total Bilirubin 0.4 0.4 (0.2-1.3) mg/dL AST 28 31 (14-36) U/L ALT 16 16 (6-35) U/L Alkaline Phosphatase 92 74 (38-126) U/L Albumin 3.2 L 3.1 L (3.5-5.1) g/dL Urine 09/01/24 Range/Units 09:00 Urine Color Yellow (Yellow) Urine Appearance Cloudy H (Clear) Urine pH 6.0 (5.0-9.0) Ur Specific Maribel 1.031 (1.001-1.035) Urine Protein 2+ H (Negative) mg/dL Urine Glucose (UA) 3+ H (Negative) mg/dL
[2024-09-02] MEDS: MUPIROCIN 2% OINT 22 GM TUBE 1 APPLIC EACH NARE ×2 (09:14→22:52)
[2024-09-02] MEDS: ENOXAPARIN 40 MG/0.4 ML SYRINGE SUB-Q (09:15)
[2024-09-02] MEDS: ENOXAPARIN 60 MG/0.6 ML SYRINGE 50 MG SUB-Q (11:48)
[2024-09-02] MEDS: DIVALPROEX SODIUM DR 250 MG TABEC 500 MG PO ×2 (12:52→17:59)
[2024-09-02] MEDS: allopurinoL 50 MG TABLET PO (12:56)
[2024-09-02] MEDS: FUROSEMIDE 80 MG TABLET PO (12:57)
[2024-09-02] MEDS: EMPAGLIFLOZIN 25 MG TABLET PO (12:57)
[2024-09-02] MEDS: LORATADINE 10 MG TABLET PO (12:59)
[2024-09-02] MEDS: METOPROLOL TARTRATE 12.5 MG TABLET PO ×2 (13:00→20:51)
[2024-09-02] MEDS: LORazepam (*CRX) 0.5 MG TABLET PO ×2 (13:01→17:59)
[2024-09-02] MEDS: POTASSIUM CHLORIDE 20 MEQ ER TABLET PO (13:02)
[2024-09-02] MEDS: MULTIVITAMINS /C LUTEIN (CENTRUM SILVER) TABLET *BKC 1 TAB PO (13:03)
[2024-09-02] MEDS: CALCIUM CARBONATE (TUMS) 500 MG (200 MG ELEMENTAL) PO ×2 (13:04→17:58)
[2024-09-02] MEDS: CYANOCOBALAMIN 1,000 MCG TABLET 1000 MCG PO (13:07)
[2024-09-02] MEDS: FAMOTIDINE 20 MG TABLET PO ×2 (13:08→20:52)
[2024-09-02] MEDS: ASPIRIN 81 MG ENTERIC TABLET PO (13:08)
[2024-09-02] MEDS: INSULIN GLARGINE (*BKC) 100 UNITS/ML 16 UNITS SUB-Q (13:12)
[2024-09-02] MEDS: INSULIN ASPART (*BKC) 100 UNITS/ML SUB-Q (13:15)
--- NOTE | 2024-09-02 14:38 | PM.IMPN ---
Progress Note: A&P Assessment and Plan (1) AMS (altered mental status): Code(s): R41.82 - Altered mental status, unspecified Status: Acute Assessment and Plan: - Thus far Head CT reviewed and no acute findings. UA showed no indications of infection. UDS was negative. very mild leukocytosis noted. No significant electrolyte derangements and renal function at baseline. Glucose was 189 and lactic was within normal limits. - CXR showed possible left lower lobe pneumonia. - Patient's brother who is her POA believes she may have been put on a new mental health medication, reviewed outside med rec. No new medications prescribed or dose adjustments, has been on same medications and doses for a minimum of 3 months. Differential includes: CVA, encephalopathy secondary to possible pneumonia, catatonia, non-convulsive status epilepticus Plan to consult neurology for possible EEG, obtain MRI, empiric abx for possible PNA, and will trial small dose of Ativan 1 mg IV. Will additionally check TSH, B12 and Folic Acid. Will make NPO until mental status improves. (2) Pneumonia: Qualifiers: Laterality: left Lung location: lower lobe of lung Pneumonia type: due to unspecified organism Qualified Code(s): J18.9 - Pneumonia, unspecified organism Code(s): J18.9 - Pneumonia, unspecified organism Status: Acute Assessment and Plan: - CXR showed possible medial left lower lobe pneumonia - started on Levaquin (see allergy list) on 09/01 - MRSA PCR positive on 03/2023, repeat - check Viral PCR and sputum culture (if obtainable) - currently requiring 2L NC, wean as tolerated. Maintain O2 sat greater than 92%. (3) Paroxysmal atrial fibrillation: Code(s): I48.0 - Paroxysmal atrial fibrillation Status: Acute Assessment and Plan: - history of pAfib - initial EKG showed AFib RVR, rate 145 - given metoprolol 5 mg IV x2 and diltiazem 10 mg IV x1 without stabilization of HR. Now on diltiazem gtt 5 mg/hour. Hold home rate control medications. - given persistence of tachycardia and tachypnea, some concern for PE. D-dimer was elevated, however NM study showed low probability for PE. 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 corrective in place. - correct regimen ordered - high dose Q6H - A1C 6.2% in 2023, update (5) Hypertension: Qualifiers: Hypertension type: primary hypertension Qualified Code(s): I10 - Essential (primary) hypertension Code(s): I10 - Essential (primary) hypertension Status: Chronic Assessment and Plan: - chronic, currently 161/83 - hold home medications, unable to tolerate PO due to AMS - hydralazine prn for BP greater than 180/90 - monitor Plan unfortunately patient still quite confused and unable to provider and history or ROS, or history, she keeps repeating her self, her drug screen was negative, CT of the head without bleed but with generalized atrophy and chronic white matter changes, patient is seen by neurologist, will have EEG, plan was to do MRI of the brain however unable to get any history, x-ray chest with possible medial left lower lobe pneumonia and being treated Levaquin, EKG with atrial fibrillation, sometime in flutter, currently on diltiazem drip, being anticoagulated with Lovenox, patient will be seen by general superintendent and further recommendation to follow, Diet: NPO until mental status improved GI Prophylaxis: not currently indicated DVT Prophylaxis: Lovenox SQ IV fluids: 2L bolus Lines/Tubes: peripheral IV Code Status: full code Subjective Date/time seen: 09/02/24 14:38 Interval history: H&P-Narrative: 69 y/o F with PMH of coronary artery disease, NSTEMI, CHF, DVT, hyperlipidemia, hypertension, moderate pulmonary hypertension, MARITA intolerant of CPAP, paroxysmal AFib, and pulmonary embolism presents here with altered mental status. The patient presents here from [facility] via EMS on 09/01 for further evaluation of altered mental status. HPI obtained through chart review, patient non-verbal and cannot follow commands. Staff at patient's facility reported to EMS that the patient woke up this morning nonverbal and has had a decline over the last 3 days. She arrived to the Emergency Department awake and staring. Able to contact her brother (Moi) who is her POA. He believes she has some level of dementia as she has been experiencing visual hallucinations for the past few years which was similar to what his dad had experienced who also had dementia. According the the brother she frequently cries out and they will have to give her medicine to calm her down. He denies any known history of stoke in regards to the patient. No new symptoms reported to him or reported to him by the NH. He does believe the patient was started on a new mental health medication within the last 2 weeks, unsure of name. Initial VS at presentation: 97.8? F, HR 96, RR 20, 151/95, and 95% on RA. ED workup showed: WBC 11.6, no anemia, coags within normal limits, D-dimer elevated, creatinine 1.02 and GFR 54, glucose 189, UA was cloudy with 2+ protein / 3+ glucose /1+ ketones / 3-5 RBC otherwise unremarkable. UDS negative. Head CT showed no intracranial hemorrhage, mass, or acute infarct and atrophy/chronic white matter changes. CXR showed possible medial left lower lobe pneumonia. unfortunately patient still quite confused and unable to provider and history or ROS, or history, she keeps repeating her self, her drug screen was negative, CT of the head without bleed but with generalized atrophy and chronic white matter changes, patient is seen by neurologist, will have EEG, plan was to do MRI of the brain however unable to get any history, x-ray chest with possible medial left lower lobe pneumonia and being treated Levaquin, EKG with atrial fibrillation, sometime in flutter, currently on diltiazem drip, being anticoagulated with Lovenox, patient will be seen by general superintendent and further recommendation to follow, Review of Systems Review of Systems: ROS unobtainable: Yes unobtainable due to mental status Exam Narrative: Patient is comfortable, NAD HEENT: eyes are clear and none icteric ABD: Obese Lower extremities: no edema SKIN: nonjaundiced Neuro: grossly intact. Confused Objective Data Vital Signs Vital Signs: Vital Signs - 24 hr 09/01/24 15:28 09/01/24 15:47 09/01/24 17:23 Temperature 36.9 C Pulse Rate 95 115 H 129 H Respiratory Rate 16 22 H Blood Pressure 146/71 H 161/83 H 142/85 H Pulse Oximetry 95 98 Oxygen Delivery Oxygen Flow Rate Fraction of Inspired Oxygen 09/01/24 17:24 09/01/24 17:53 09/01/24 20:05 Temperature 36.7 C Pulse Rate 129 H 106 H 101 H Respiratory Rate 22 H Blood Pressure 142/85 H 143/76 H Pulse Oximetry 97 Oxygen Delivery Oxygen Flow Rate Fraction of Inspired Oxygen 09/01/24 20:10 09/01/24 20:30 09/01/24 20:30 Temperature 36.7 C 37.0 C Pulse Rate 88 85 89 Respiratory Rate 20 20 Blood Pressure 138/78 141/78 H 141/78 H Pulse Oximetry 97 97 Oxygen Delivery Oxygen Flow Rate Fraction of Inspired Oxygen 09/01/24 20:45 09/01/24 22:00 09/01/24 22:00 Temperature Pulse Rate 88 88 Respiratory Rate 20 Blood Pressure 137/80 Pulse Oximetry 97 Oxygen Delivery Nasal Cannula Oxygen Flow Rate 2 Fraction of Inspired Oxygen 09/01/24 22:00 09/01/24 23:40 09/01/24 23:49 Temperature 36.6 C Pulse Rate 88 87 88 Respiratory Rate 18 20 Blood Pressure 137/80 140/75 Pulse Oximetry 98 100 Oxygen Delivery Nasal Cannula Oxygen Flow Rate 2 Fraction of Inspired Oxygen 09/02/24 00:00 09/02/24 00:10 09/02/24 01:45 Temperature Pulse Rate 89 94 95 Respiratory Rate Blood Pressure 140/75 139/84 Pulse Oximetry Oxygen Delivery Oxygen Flow Rate Fraction of Inspired Oxygen 09/02/24 02:00 09/02/24 02:00 09/02/24 03:35 Temperature 36.5 C Pulse Rate 93 93 93 Respiratory Rate 20 Blood Pressure 139/84 147/88 H Pulse Oximetry 100 Oxygen Delivery Oxygen Flow Rate Fraction of Inspired Oxygen 09/02/24 04:00 09/02/24 04:00 09/02/24 04:00 Temperature Pulse Rate 93 104 H 88 Respiratory Rate 20 Blood Pressure 147/88 H Pulse Oximetry 100 Oxygen Delivery Nasal Cannula Oxygen Flow Rate 2 Fraction of Inspired Oxygen 09/02/24 06:00 09/02/24 06:00 09/02/24 06:00 Temperature Pulse Rate 82 89 87 Respiratory Rate Blood Pressure 151/82 H 151/82 H Pulse Oximetry Oxygen Delivery Oxygen Flow Rate Fraction of Inspired Oxygen 09/02/24 08:00 09/02/24 08:00 09/02/24 09:40 Temperature 37.2 C Pulse Rate 96 96 Respiratory Rate 16 Blood Pressure 150/74 H 150/96 H Pulse Oximetry 100 100 Oxygen Delivery Nasal Cannula Oxygen Flow Rate 2 Fraction of Inspired Oxygen 09/02/24 10:00 09/02/24 10:00 09/02/24 11:45 Temperature 36.6 C Pulse Rate 99 99 135 H Respiratory Rate 22 H Blood Pressure 146/83 H 146/83 H 146/83 H Pulse Oximetry 100 Oxygen Delivery Oxygen Flow Rate Fraction of Inspired Oxygen 09/02/24 12:00 09/02/24 13:00 Temperature 36.9 C Pulse Rate 80 132 H Respiratory Rate 20 Blood Pressure 161/88 H Pulse Oximetry 100 Oxygen Delivery Oxygen Flow Rate Fraction of Inspired Oxygen Intake/Output Intake/Output: Intake & Output 08/30/24 08/31/24 09/01/24 09/02/24 23:59 23:59 23:59 23:59 Intake Total 1704.1 155.8 Balance 1704.1 155.8 Meds/Results Medications: Active Medications Generic Name Dose Route Start Last Admin Trade Name Freq PRN Reason Stop Dose Admin Albuterol 2 puff 09/02/24 09:43 Albuterol Sulfate (*Sp) Aerosol 1 Puff INHALATION Q4HRT PRN Shortness Of Breath Or Wheezing Allopurinol 300 mg 09/02/24 09:55 09/02/24 12:59 Allopurinol 300 Mg Tablet PO 300 mg DAILY [facility] Administration Allopurinol 50 mg 09/02/24 09:00 09/02/24 12:56 Allopurinol 50 Mg Tablet PO 50 mg Q48HR [facility] Administration Aspirin 81 mg 09/02/24 09:55 09/02/24 13:08 Aspirin 81 Mg Enteric Tablet PO 81 mg DAILY [facility] Administration Bisacodyl 10 mg 09/02/24 09:43 Bisacodyl 10 Mg Suppository RECTAL DAILY PRN Constipation Buspirone HCl 10 mg 09/02/24 09:55 09/02/24 13:11 Buspirone Hcl 10 Mg Tablet PO Not Given TID [facility] Calcium Carbonate 500 mg 09/02/24 09:55 09/02/24 13:04 Calcium Carbonate (Tums) 500 Mg (200 Mg Elemental) PO 500 mg BID [facility] Administration Colestipol HCl 1 gm 09/02/24 11:00 09/02/24 13:11 Colestipol Hcl 1 Gm Tablet PO Not Given BID@1000,1800 [facility] Cyanocobalamin 1,000 mcg 09/02/24 09:55 09/02/24 13:07 Cyanocobalamin 1,000 Mcg Tablet PO 1,000 mcg DAILY [facility] Administration Dextrose 12.5 gm 09/01/24 16:26 Dextrose 50% 25 Gm/50 Ml Syringe IV PUSH PRN PRN Hypoglycemia Protocol Divalproex Sodium 500 mg 09/02/24 10:00 09/02/24 12:[address] 250 Mg Tabec PO 500 mg BID [facility] Administration Duloxetine HCl 20 mg 09/02/24 10:00 09/02/24 13:09 Duloxetine Hcl 20 Mg Capsule.Dr PO 20 mg Q12HR [facility] Administration Empagliflozin 25 mg 09/02/24 10:00 09/02/24 12:57 Empagliflozin 25 Mg Tablet PO 25 mg DAILY [facility] Administration Enoxaparin Sodium 90 mg 09/02/24 21:00 Enoxaparin 100 Mg/Ml Syringe SUB-Q Q12HR [facility] Ergocalciferol 1,250 mcg 09/05/24 09:00 Ergocalciferol (Vitamin D2) 1,250 Mcg (50,000 Units) Capsule PO Sa@0900 [facility] Famotidine 20 mg 09/02/24 10:00 09/02/24 13:08 Famotidine 20 Mg Tablet PO 20 mg Q12HR [facility] Administration Furosemide 80 mg 09/02/24 10:00 09/02/24 12:57 Furosemide 80 Mg Tablet PO 80 mg DAILY [facility] Administration Glucagon 1 mg 09/01/24 16:26 Glucagon For Inj 1 Mg Vial IM PRN PRN Hypoglycemia Protocol Glucose 15 gm 09/01/24 16:26 Glucose Oral Gel 15 Gm Of Glucse In 37.5 Gm Tube PO PRN PRN Hypoglycemia Protocol Hydralazine HCl 10 mg 09/01/24 17:24 Hydralazine Hcl 20 Mg/Ml Vial IV PUSH Q8H PRN Blood Pressure - >180/90 Levofloxacin/Dextrose 750 mg in 150 mls @ 100 mls/hr 09/01/24 14:00 09/01/24 16:31 Levaquin 750 Mg/D5w 150 Ml IVPB Infused Q24H [facility] Infusion Dextrose 1,000 mls @ 100 mls/hr 09/01/24 16:26 Dextrose 5% 1,000 Ml IVPB PRN PRN Hypoglycemia Protocol Diltiazem HCl 100 mg in 100 mls @ 10 mls/hr 09/02/24 00:05 09/02/24 11:45 Cardizem 100 Mg/100 Ml IV CONT 10 mg/hr .Q10H ASAD 10 mls/hr Infusion 10 MG/HR Vancomycin HCl 1,500 mg in 500 mls @ 250 mls/hr 09/02/24 15:00 Vancomycin 1,500 Mg/Ns 500 Ml IVPB Q18H [facility] Insulin Aspart 4 - 8 units 09/01/24 18:00 09/02/24 13:15 Insulin Aspart (*Bkc) 100 Units/Ml SUB-Q 4 units Q6HR [facility] Administration Protocol Insulin Glargine 16 units 09/02/24 10:00 09/02/24 13:12 Insulin Glargine (*Bkc) 100 Units/Ml SUB-Q 16 units QAM [facility] Administration Loperamide HCl 2 mg 09/02/24 09:43 Loperamide Hcl 2 Mg Capsule PO Q6H PRN Diarrhea Loratadine 10 mg 09/02/24 10:00 09/02/24 12:59 Loratadine 10 Mg Tablet PO 10 mg DAILY [facility] Administration Lorazepam 0.5 mg 09/02/24 10:00 09/02/24 13:01 Lorazepam (*Crx) 0.5 Mg Tablet PO 0.5 mg BID [facility] Administration Magnesium Citrate 296 ml 09/02/24 09:43 Magnesium Citrate 300 Ml Btl PO DAILY PRN Constipation Magnesium Hydroxide 30 ml 09/02/24 09:43 Magnesium Hydroxide Susp 30 Ml Udc PO HS PRN Constipation Melatonin 5 mg 09/02/24 21:00 Melatonin 5 Mg Tablet PO HS [facility] Metformin HCl 1,000 mg 09/02/24 17:00 Metformin Hcl 500 Mg Tablet PO BID [facility] Metoprolol Tartrate 12.5 mg 09/02/24 10:00 09/02/24 13:00 Metoprolol Tartrate 12.5 Mg Tablet PO 12.5 mg Q12HR [facility] Administration Miscellaneous Information 1 each 09/02/24 10:00 Central Supply Item XX 09/03/24 09:59 PRN PRN Informational Multivitamins/Minerals 1 tab 09/02/24 10:00 09/02/24 13:03 Multivitamins /C Lutein (Centrum Silver) Tablet *Bkc PO 1 tab DAILY [facility] Administration Mupirocin 1 applic 09/01/24 21:00 09/02/24 09:14 Mupirocin 2% Oint 22 Gm Tube EACH NARE 09/06/24 09:01 1 applic Q12HR [facility] Administration Nitroglycerin 0.4 mg 09/02/24 09:43 Nitroglycerin Sl 0.4 Mg Tablet SUBLINGUAL Q5MIN PRN Chest Pain Ondansetron HCl 8 mg 09/02/24 10:00 09/02/24 13:03 Ondansetron Hcl Odt 4 Mg Tablet PO 10/02/24 09:59 Not Given Q8H ASAD Oxycodone HCl 5 mg 09/02/24 09:43 Oxycodone Hcl (*Crx) 5 Mg Tab Ir PO Q6H PRN Pain (Scale Score 4-6) Potassium Chloride 20 meq 09/02/24 10:00 09/02/24 13:02 Potassium Chloride 20 Meq Er Tablet PO 20 meq DAILY [facility] Administration Trazodone HCl 50 mg 09/02/24 21:00 Trazodone Hcl 50 Mg Tablet PO HS [facility] Radiology Results: ITS Impressions Head CT 09/01/24 09:39 Impression: No intracranial hemorrhage, mass, or acute infarct. Atrophy and chronic white matter changes, as above. Chest X-Ray 09/01/24 13:09 Impression: Possible medial left lower lobe pneumonia. Pulmonary Perfusion Imaging 09/01/24 15:26 IMPRESSION: 1. Normal study. Very low probability for pulmonary embolism. Labs Labs: Laboratory Results - last 24 hr 09/01/24 09/01/24 09/01/24 14:20 16:53 18:09 WBC RBC Hgb Hct MCV MCH MCHC RDW Plt Count MPV Immature Gran % (Auto) Neut % (Auto) Lymph % (Auto) [facility] % (Auto) Eos % (Auto) Baso % (Auto) Lymph # (Auto) [facility] # (Auto) Eos # (Auto) Baso # (Auto) Abs Immat Gran (auto) Absolute Neuts (auto) Absolute Nucleated RBC Nucleated RBC % Sodium Potassium Chloride Carbon Dioxide Anion Gap BUN Creatinine Estim Creat Clear Calc Estimated GFR Glucose POC Capillary Glucose 190 H Hemoglobin A1c Lactic Acid 1.4 Calcium Phosphorus Magnesium Total Bilirubin AST ALT Alkaline Phosphatase Total Protein Albumin Vitamin B12 > 1000.0 H Folate 12.5 TSH (Reflex) Nasal MRSA (PCR) Detected A* Influenza A (RT-PCR) Negative Influenza B (RT-PCR) Negative RSV (RT-PCR) Negative SARS-CoV-2 RNA (RT-PCR) Negative 09/01/24 09/02/24 09/02/24 23:59 04:16 12:08 WBC 9.6 RBC 4.30 Hgb 13.5 Hct 44.3 MCV 103.0 H MCH 31.4 MCHC 30.5 L RDW 15.1 H Plt Count 290 MPV 11.0 H Immature Gran % (Auto) 1.8 H Neut % (Auto) 71.1 Lymph % (Auto) 12.6 L [facility] % (Auto) 13.8 H Eos % (Auto) 0.1 Baso % (Auto) 0.6 Lymph # (Auto) 1.20 [facility] # (Auto) 1.3 H Eos # (Auto) 0.0 Baso # (Auto) 0.1 Abs Immat Gran (auto) 0.17 H Absolute Neuts (auto) 6.8 H Absolute Nucleated RBC 0.000 Nucleated RBC % 0.0 Sodium 145 Potassium 4.0 Chloride 110 H Carbon Dioxide 27 Anion Gap 8 BUN 26 H Creatinine 0.81 Estim Creat Clear Calc 63 Estimated GFR > 60 Glucose 173 H POC Capillary Glucose 165 H 209 H Hemoglobin A1c 5.8 H Lactic Acid Calcium 8.9 Phosphorus 3.4 Magnesium 2.1 Total Bilirubin 0.4 AST 31 ALT 16 Alkaline Phosphatase 74 Total Protein 7.0 Albumin 3.1 L Vitamin B12 Folate TSH (Reflex) 0.754 Nasal MRSA (PCR) Influenza A (RT-PCR) Influenza B (RT-PCR) RSV (RT-PCR) SARS-CoV-2 RNA (RT-PCR) Quality VTE Prophylaxis VTE prophylaxis: pharmacologic ordered
--- NOTE | 2024-09-02 14:47 | WPDNEURCNPN ---
Consult date: 09/02/24 HPI: Nazanin Medellin is a 69 year old female COUNTS INCLUDE 234 BEDS AT THE [facility] Past Medical History Medical History Moderate pulmonary hypertension CAD (coronary artery disease) Non STEMI 12/2020 Morbid obesity with BMI of 50.0-59.9, adult NSTEMI (non-ST elevated myocardial infarction) Gastroesophageal reflux disease Diabetic peripheral neuropathy Anxiety Depression Obstructive sleep apnea Intolerant to CPAP. Paroxysmal atrial fibrillation Pulmonary embolism Deep venous thrombosis Mixed stress and urge incontinence Hyperlipidemia Hypertension Frequent urinary tract infections Congestive heart failure Echocardiogram 04/2021: EF 65-70%, mildly increased left ventricular wall thickness, abnormal diastolic function, moderate left atrial enlargement, mild aortic valve stenosis peak velocity of 205 mean gradient 11 and valve area 2.39 cm, mild aortic valve regurgitation, mild mitral valve stenosis, mild mitral valve regurgitation, severely calcified mitral valve annulus, mild tricuspid valve regurgitation, moderate pulmonary hypertension RVSP of 59 Asthma Surgical History Surgical History History of cardiac catheterization Most recent cardiac catheterization 12/2020: 70% eccentric stenosis proximal left circumflex status post angioplasty and stent placement 3 x 12 mm Medtronic resolute becca zotarolimus stent, 30 40% stenosis mid LAD, 50 60% diffuse stenosis proximal segment of D2 and D3, 30-40% stenosis proximal segment of RCA preserved EF 70% left ventricular end-diastolic pressure 12 History of cystoscopy History of colonoscopy History of cholecystectomy History of tonsillectomy and adenoidectomy Family History Family History Mother No problems noted. Father No problems noted. Other Adopted Chest pain Social History Social History Social History: Surrogate decision maker: Moi Medellin, brother. Code status: Full code. Smoking status: Unknown if ever smoked Second hand tobacco smoke exposure: No Alcohol intake: never Substance use: never Substance use type: does not use Additional living arrangements comments: Patient is a resident at [facility]. She has no children. 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 Spiritual care concerns: No Meds Home Medications and Allergies Home Medications ?Medication ?Instructions ?Recorded ?Confirmed ?Type albuterol sulfate 90 mcg/actuation 2 puff inhalation Q4H PRN 01/20/21 09/01/24 History aerosol inhaler Shortness Of Breath Or Wheezing allopurinol 300 mg tablet 300 mg PO DAILY 01/20/21 09/01/24 History bisacodyl 10 mg rectal suppository 10 mg RECTAL DAILY PRN Constipation 01/20/21 09/01/24 History calcium carbonate 500 mg PO BID 01/20/21 09/01/24 History cyanocobalamin (vitamin B-12) 1,000 mcg PO DAILY 01/20/21 09/01/24 History 1,000 mcg tablet (Vitamin B-12) famotidine 20 mg tablet 20 mg PO BID 01/20/21 09/01/24 History loperamide 2 mg capsule 2 mg PO Q6H PRN Diarrhea 01/20/21 09/01/24 History loratadine 10 mg tablet 10 mg PO DAILY 01/20/21 09/01/24 History magnesium citrate 296 ml PO DAILY PRN Constipation 01/20/21 09/01/24 History magnesium hydroxide 400 mg/5 mL 30 ml PO HS PRN Constipation 01/20/21 09/01/24 History oral suspension (Milk of Magnesia) melatonin 5 mg tablet 5 mg PO HS 01/20/21 09/01/24 History metformin 500 mg tablet 1,000 mg PO BID 01/20/21 09/01/24 History sodium phosphates 19 gram-7 118 ml RECTAL DAILY PRN 01/20/21 09/01/24 History gram/118 mL enema (Fleet Enema) Constipation nitroglycerin 0.4 mg sublingual 0.4 mg sublingual Q5MIN PRN Chest 01/25/21 09/01/24 Rx tablet (Nitrostat) Pain 30 days #15 tabs multivitamin-ferrous 1 tablet PO DAILY 05/13/21 09/01/24 History fumarate-folic acid 18 mg-400 mcg tablet divalproex 500 mg tablet,delayed 500 mg PO BID 09/20/21 09/01/24 History release empagliflozin 25 mg tablet 25 mg PO DAILY 09/20/21 09/01/24 History (Jardiance) colestipol 1 gram tablet (Colestid) 1 g PO BID 04/27/22 09/01/24 History albuterol sulfate 90 mcg/actuation 2 puff inhalation HS 04/13/23 09/01/24 History aerosol inhaler (Ventolin HFA) glucagon 1 mg solution for 1 mg subcut PRN PRN Hypoglycemia 04/13/23 09/01/24 History injection (Glucagon Emergency Kit) metoprolol tartrate 25 mg tablet 12.5 mg PO Q12HR 04/13/23 09/01/24 History allopurinol 100 mg tablet 50 mg PO EVERY OTHER DAY 10/19/23 09/01/24 History aspirin 81 mg tablet,delayed 81 mg PO DAILY 10/19/23 09/01/24 History release furosemide 20 mg tablet 80 mg PO DAILY 10/19/23 09/01/24 History insulin glargine 100 unit/mL (3 16 unit subcut QAM 10/19/23 09/01/24 History mL) subcutaneous pen (Lantus Solostar U-100 Insulin) ondansetron HCl 8 mg tablet 8 mg PO Q8H PRN nausea and vomiting 10/19/23 09/02/24 History oxycodone 5 mg tablet 5 mg PO Q6H PRN Pain (Scale Score 10/19/23 09/01/24 History 4-6) potassium chloride 20 mEq 20 meq PO DAILY 10/19/23 09/01/24 History tablet,extended release buspirone 10 mg tablet 10 mg PO TID 09/01/24 09/01/24 History duloxetine 20 mg capsule,delayed 20 mg PO BID 09/01/24 09/01/24 History release ergocalciferol (vitamin D2) 1,250 50,000 unit PO WEEKLY 09/01/24 09/01/24 History mcg (50,000 unit) capsule (Vitamin D2) lorazepam 0.5 mg tablet 0.5 mg PO BID 09/01/24 09/01/24 History trazodone 50 mg tablet 50 mg PO HS 09/01/24 09/01/24 History Allergies Allergy/AdvReac Type Severity Reaction Status Date / Time amoxicillin Allergy Severe Anaphylaxis Verified 09/01/24 08:57 bee venom protein (honey Allergy Severe Anaphylaxis Verified 09/01/24 08:57 bee) (bees) Penicillins Allergy Severe Anaphylaxis Verified 09/01/24 08:57 Sulfa (Sulfonamide Allergy Severe Anaphylaxis Verified 09/01/24 08:57 Antibiotics) blue dye Allergy Unknown Verified 09/01/24 08:57 fish derived Allergy Unknown Verified 09/01/24 08:57 iodine Allergy Rash Verified 09/01/24 08:57 metaproterenol Allergy Unknown Verified 09/01/24 08:57 methocarbamol Allergy Unknown Verified 09/01/24 08:57 oxytetracycline Allergy Unknown Verified 09/01/24 08:57 pentazocine Allergy Unknown Verified 09/01/24 08:57 procaine Allergy Unknown Verified 09/01/24 08:57 aspirin AdvReac Mild Nausea and Verified 09/01/24 08:57 Vomiting fluoxetine AdvReac Mild Nausea and Verified 09/01/24 08:57 Vomiting chlorpheniramine AdvReac Nausea and Verified 09/01/24 08:57 Vomiting erythromycin base AdvReac Nausea and Verified 09/01/24 08:57 Vomiting fenofibrate AdvReac Nausea and Verified 09/01/24 08:57 Vomiting hydrocodone AdvReac Nausea and Verified 09/01/24 08:57 Vomiting hydroxyzine AdvReac Nausea and Verified 09/01/24 08:57 Vomiting propoxyphene AdvReac Nausea and Verified 09/01/24 08:57 Vomiting sertraline AdvReac Nausea and Verified 09/01/24 08:57 Vomiting terbutaline AdvReac Nausea and Verified 09/01/24 08:57 Vomiting yellow dye AdvReac Nausea and Verified 09/01/24 08:57 Vomiting hmg-coa-R Inhibitors Allergy Unknown Uncoded 09/01/24 08:57 Vital Signs Vital Signs - 24 hr 09/01/24 15:28 09/01/24 15:47 09/01/24 17:23 Temperature 36.9 C Pulse Rate 95 115 H 129 H Respiratory Rate 16 22 H Blood Pressure 146/71 H 161/83 H 142/85 H Pulse Oximetry 95 98 Oxygen Delivery Oxygen Flow Rate Fraction of Inspired Oxygen 09/01/24 17:24 09/01/24 17:53 09/01/24 20:05 Temperature 36.7 C Pulse Rate 129 H 106 H 101 H Respiratory Rate 22 H Blood Pressure 142/85 H 143/76 H Pulse Oximetry 97 Oxygen Delivery Oxygen Flow Rate Fraction of Inspired Oxygen 09/01/24 20:10 09/01/24 20:30 09/01/24 20:30 Temperature 36.7 C 37.0 C Pulse Rate 88 85 89 Respiratory Rate 20 20 Blood Pressure 138/78 141/78 H 141/78 H Pulse Oximetry 97 97 Oxygen Delivery Oxygen Flow Rate Fraction of Inspired Oxygen 09/01/24 20:45 09/01/24 22:00 09/01/24 22:00 Temperature Pulse Rate 88 88 Respiratory Rate 20 Blood Pressure 137/80 Pulse Oximetry 97 Oxygen Delivery Nasal Cannula Oxygen Flow Rate 2 Fraction of Inspired Oxygen 09/01/24 22:00 09/01/24 23:40 09/01/24 23:49 Temperature 36.6 C Pulse Rate 88 87 88 Respiratory Rate 18 20 Blood Pressure 137/80 140/75 Pulse Oximetry 98 100 Oxygen Delivery Nasal Cannula Oxygen Flow Rate 2 Fraction of Inspired Oxygen 09/02/24 00:00 09/02/24 00:10 09/02/24 01:45 Temperature Pulse Rate 89 94 95 Respiratory Rate Blood Pressure 140/75 139/84 Pulse Oximetry Oxygen Delivery Oxygen Flow Rate Fraction of Inspired Oxygen 09/02/24 02:00 09/02/24 02:00 09/02/24 03:35 Temperature 36.5 C Pulse Rate 93 93 93 Respiratory Rate 20 Blood Pressure 139/84 147/88 H Pulse Oximetry 100 Oxygen Delivery Oxygen Flow Rate Fraction of Inspired Oxygen 09/02/24 04:00 09/02/24 04:00 09/02/24 04:00 Temperature Pulse Rate 93 104 H 88 Respiratory Rate 20 Blood Pressure 147/88 H Pulse Oximetry 100 Oxygen Delivery Nasal Cannula Oxygen Flow Rate 2 Fraction of Inspired Oxygen 09/02/24 06:00 09/02/24 06:00 09/02/24 06:00 Temperature Pulse Rate 82 89 87 Respiratory Rate Blood Pressure 151/82 H 151/82 H Pulse Oximetry Oxygen Delivery Oxygen Flow Rate Fraction of Inspired Oxygen 09/02/24 08:00 09/02/24 08:00 09/02/24 09:40 Temperature 37.2 C Pulse Rate 96 96 Respiratory Rate 16 Blood Pressure 150/74 H 150/96 H Pulse Oximetry 100 100 Oxygen Delivery Nasal Cannula Oxygen Flow Rate 2 Fraction of Inspired Oxygen 28 09/02/24 10:00 09/02/24 10:00 09/02/24 11:45 Temperature 36.6 C Pulse Rate 99 99 135 H Respiratory Rate 22 H Blood Pressure 146/83 H 146/83 H 146/83 H Pulse Oximetry 100 Oxygen Delivery Oxygen Flow Rate Fraction of Inspired Oxygen 09/02/24 12:00 09/02/24 13:00 Temperature 36.9 C Pulse Rate 80 132 H Respiratory Rate 20 Blood Pressure 161/88 H Pulse Oximetry 100 Oxygen Delivery Oxygen Flow Rate Fraction of Inspired Oxygen Results Labs 09/02/24 04:16 09/02/24 04:16 Labs: Short CBC 09/02/24 Range/Units 04:16 WBC 9.6 (4.5-10.0) K/mm3 Hgb 13.5 (12.0-15.0) g/dL Hct 44.3 (37.0-47.0) % Plt Count 290 (150-375) k/mm3 [facility] 09/02/24 04:16 Sodium 145 Potassium 4.0 Chloride 110 H Carbon Dioxide 27 BUN 26 H Creatinine 0.81 Glucose 173 H Calcium 8.9 Liver Function 09/02/24 Range/Units 04:16 Total Bilirubin 0.4 (0.2-1.3) mg/dL AST 31 (14-36) U/L ALT 16 (6-35) U/L Alkaline Phosphatase 74 (38-126) U/L Albumin 3.1 L (3.5-5.1) g/dL
--- NOTE | 2024-09-02 15:17 | P.CONCA_ITS ---
Assessment and Plan Assessment and plan (1) Atrial fibrillation with RVR: Code(s): I48.91 - Unspecified atrial fibrillation Status: Acute (2) Hypertension: Qualifiers: Hypertension type: primary hypertension Qualified Code(s): I10 - Essential (primary) hypertension Code(s): I10 - Essential (primary) hypertension Status: Chronic Plan 69-year-old female with history of coronary artery disease status post PCI to proximal LCX in 2020 with 3.0 x 12 mm Medtronic resolute becca zotarolimus eluting stent, CHF, DVT, hyperlipidemia, hypertension, moderate pulmonary hypertension, MARITA intolerant of CPAP, paroxysmal AFib, and pulmonary embolism presents with altered mental status from [facility] via EMS. Noted to be in AFib with RVR for which Cardiology is consulted. -AFib with RVR in a patient with known paroxysmal AFib-rates in the 140 -CAD status post PCI to proximal LCX in 2020 -Hypertension-poorly controlled -Hyperlipidemia -Elevated D-dimer with V/Q scan normal and low probability of PE Plan: -She was started on Cardizem drip. Continue Cardizem drip and titrate to heart rate less than 110 -Unsure why she is not on anticoagulation for AFib. Will discuss with her HCPOA -Continue aspirin 81 mg -Increase metoprolol to 25 mg b.i.d. -Continue empagliflozin 10 mg daily -Continue Lasix 20 mg daily -Check TSH and free T4 -TTE -Check and replace electrolytes to keep potassium greater than 4 and magnesium greater than 2 History of Present Illness History of Present Illness Consult date/time: 09/02/24 15:17 Reason For Visit: Afib with RVR/Altered Mental Status/Pneumonia Narrative: 69-year-old female with history of coronary artery disease status post PCI to proximal LCX in 2020 with 3.0 x 12 mm Medtronic resolute becca zotarolimus eluting stent, CHF, DVT, hyperlipidemia, hypertension, moderate pulmonary hypertension, MARITA intolerant of CPAP, paroxysmal AFib, and pulmonary embolism presents with altered mental status from [facility] via EMS. Patient did not provide any history and HPI is obtained through review of medical records. EMS received report from staff at patient's facility the patient had a decline over 3 days prior to admission was nonverbal on the morning of admission. She was awake and stating when she arrived to the ER. It appears from family members report that patient has had visual hallucinations for the past few years and some dementia. Patient frequently cries out and is given medication to calm her down. She is noted to be in AFib with RVR for which Cardiology is consulted. Workup: WBC 11.6 D-dimer: Elevated V/Q scan: Normal study. Very low probability for pulmonary embolism. EKG: AFib with RVR with rate of 145, poor RV progression, cannot rule out prior inferior infarct Head CT: showed no intracranial hemorrhage, mass, or acute infarct and atrophy/chronic white matter changes CXR: Shows possible medial left lower lobe pneumonia Prior cardiac workup: TTE 04/2021: Normal LVEF of 65-70%, abnormal diastolic function, mild aortic stenosis, mild AR, mild MS and mild MR, mild TR, moderate pulmonary hypertension with PASP 59 mm Hg Cardiac catheterization in 2020:1. CAD- a) About 70% eccentric stenosis proximal LCX; b) 30-40% stenosis mid LAD; 50-60% diffuse stenosis proximal segments of D2 and D3 c) 30-40% stenosis proximal segment of RCA 2. Preserved LV systolic function, ejection fraction more than 70%; LVEDP 12 mmHg. 3. PCI -balloon angioplasty and stenting of proximal left circumflex artery using a 3.0 x 12 mm Medtronic resolute becca zotarolimus eluting stent. Review of Systems 2 Review of Systems: Complete review of systems could not be performed due to patient being nonverbal [facility] Past Medical History Medical History Moderate pulmonary hypertension CAD (coronary artery disease) Non STEMI 12/2020 Morbid obesity with BMI of 50.0-59.9, adult NSTEMI (non-ST elevated myocardial infarction) Gastroesophageal reflux disease Diabetic peripheral neuropathy Anxiety Depression Obstructive sleep apnea Intolerant to CPAP. Paroxysmal atrial fibrillation Pulmonary embolism Deep venous thrombosis Mixed stress and urge incontinence Hyperlipidemia Hypertension Frequent urinary tract infections Congestive heart failure Echocardiogram 04/2021: EF 65-70%, mildly increased left ventricular wall thickness, abnormal diastolic function, moderate left atrial enlargement, mild aortic valve stenosis peak velocity of 205 mean gradient 11 and valve area 2.39 cm, mild aortic valve regurgitation, mild mitral valve stenosis, mild mitral valve regurgitation, severely calcified mitral valve annulus, mild tricuspid valve regurgitation, moderate pulmonary hypertension RVSP of 59 Asthma Surgical History Surgical History History of cardiac catheterization Most recent cardiac catheterization 12/2020: 70% eccentric stenosis proximal left circumflex status post angioplasty and stent placement 3 x 12 mm Medtronic resolute becca zotarolimus stent, 30 40% stenosis mid LAD, 50 60% diffuse stenosis proximal segment of D2 and D3, 30-40% stenosis proximal segment of RCA preserved EF 70% left ventricular end-diastolic pressure 12 History of cystoscopy History of colonoscopy History of cholecystectomy History of tonsillectomy and adenoidectomy Family History Family History Mother No problems noted. Father No problems noted. Other Adopted Chest pain Social History Social History Social History: Surrogate decision maker: Moi Medellin, brother. Code status: Full code. Smoking status: Unknown if ever smoked Second hand tobacco smoke exposure: No Alcohol intake: never Substance use: never Substance use type: does not use Additional living arrangements comments: Patient is a resident at [facility]. She has no children. 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 Spiritual care concerns: No Meds Home Medications and Allergies Home Medications ?Medication ?Instructions ?Recorded ?Confirmed ?Type albuterol sulfate 90 mcg/actuation 2 puff inhalation Q4H PRN 01/20/21 09/01/24 History aerosol inhaler Shortness Of Breath Or Wheezing allopurinol 300 mg tablet 300 mg PO DAILY 01/20/21 09/01/24 History bisacodyl 10 mg rectal suppository 10 mg RECTAL DAILY PRN Constipation 01/20/21 09/01/24 History calcium carbonate 500 mg PO BID 01/20/21 09/01/24 History cyanocobalamin (vitamin B-12) 1,000 mcg PO DAILY 01/20/21 09/01/24 History 1,000 mcg tablet (Vitamin B-12) famotidine 20 mg tablet 20 mg PO BID 01/20/21 09/01/24 History loperamide 2 mg capsule 2 mg PO Q6H PRN Diarrhea 01/20/21 09/01/24 History loratadine 10 mg tablet 10 mg PO DAILY 01/20/21 09/01/24 History magnesium citrate 296 ml PO DAILY PRN Constipation 01/20/21 09/01/24 History magnesium hydroxide 400 mg/5 mL 30 ml PO HS PRN Constipation 01/20/21 09/01/24 History oral suspension (Milk of Magnesia) melatonin 5 mg tablet 5 mg PO HS 01/20/21 09/01/24 History metformin 500 mg tablet 1,000 mg PO BID 01/20/21 09/01/24 History sodium phosphates 19 gram-7 118 ml RECTAL DAILY PRN 01/20/21 09/01/24 History gram/118 mL enema (Fleet Enema) Constipation nitroglycerin 0.4 mg sublingual 0.4 mg sublingual Q5MIN PRN Chest 01/25/21 09/01/24 Rx tablet (Nitrostat) Pain 30 days #15 tabs multivitamin-ferrous 1 tablet PO DAILY 05/13/21 09/01/24 History fumarate-folic acid 18 mg-400 mcg tablet divalproex 500 mg tablet,delayed 500 mg PO BID 09/20/21 09/01/24 History release empagliflozin 25 mg tablet 25 mg PO DAILY 09/20/21 09/01/24 History (Jardiance) colestipol 1 gram tablet (Colestid) 1 g PO BID 04/27/22 09/01/24 History albuterol sulfate 90 mcg/actuation 2 puff inhalation HS 04/13/23 09/01/24 History aerosol inhaler (Ventolin HFA) glucagon 1 mg solution for 1 mg subcut PRN PRN Hypoglycemia 04/13/23 09/01/24 History injection (Glucagon Emergency Kit) metoprolol tartrate 25 mg tablet 12.5 mg PO Q12HR 04/13/23 09/01/24 History allopurinol 100 mg tablet 50 mg PO EVERY OTHER DAY 10/19/23 09/01/24 History aspirin 81 mg tablet,delayed 81 mg PO DAILY 10/19/23 09/01/24 History release furosemide 20 mg tablet 80 mg PO DAILY 10/19/23 09/01/24 History insulin glargine 100 unit/mL (3 16 unit subcut QAM 10/19/23 09/01/24 History mL) subcutaneous pen (Lantus Solostar U-100 Insulin) ondansetron HCl 8 mg tablet 8 mg PO Q8H PRN nausea and vomiting 10/19/23 09/02/24 History oxycodone 5 mg tablet 5 mg PO Q6H PRN Pain (Scale Score 10/19/23 09/01/24 History 4-6) potassium chloride 20 mEq 20 meq PO DAILY 10/19/23 09/01/24 History tablet,extended release buspirone 10 mg tablet 10 mg PO TID 09/01/24 09/01/24 History duloxetine 20 mg capsule,delayed 20 mg PO BID 09/01/24 09/01/24 History release ergocalciferol (vitamin D2) 1,250 50,000 unit PO WEEKLY 09/01/24 09/01/24 History mcg (50,000 unit) capsule (Vitamin D2) lorazepam 0.5 mg tablet 0.5 mg PO BID 09/01/24 09/01/24 History trazodone 50 mg tablet 50 mg PO HS 09/01/24 09/01/24 History Allergies Allergy/AdvReac Type Severity Reaction Status Date / Time amoxicillin Allergy Severe Anaphylaxis Verified 09/01/24 08:57 bee venom protein (honey Allergy Severe Anaphylaxis Verified 09/01/24 08:57 bee) (bees) Penicillins Allergy Severe Anaphylaxis Verified 09/01/24 08:57 Sulfa (Sulfonamide Allergy Severe Anaphylaxis Verified 09/01/24 08:57 Antibiotics) blue dye Allergy Unknown Verified 09/01/24 08:57 fish derived Allergy Unknown Verified 09/01/24 08:57 iodine Allergy Rash Verified 09/01/24 08:57 metaproterenol Allergy Unknown Verified 09/01/24 08:57 methocarbamol Allergy Unknown Verified 09/01/24 08:57 oxytetracycline Allergy Unknown Verified 09/01/24 08:57 pentazocine Allergy Unknown Verified 09/01/24 08:57 procaine Allergy Unknown Verified 09/01/24 08:57 aspirin AdvReac Mild Nausea and Verified 09/01/24 08:57 Vomiting fluoxetine AdvReac Mild Nausea and Verified 09/01/24 08:57 Vomiting chlorpheniramine AdvReac Nausea and Verified 09/01/24 08:57 Vomiting erythromycin base AdvReac Nausea and Verified 09/01/24 08:57 Vomiting fenofibrate AdvReac Nausea and Verified 09/01/24 08:57 Vomiting hydrocodone AdvReac Nausea and Verified 09/01/24 08:57 Vomiting hydroxyzine AdvReac Nausea and Verified 09/01/24 08:57 Vomiting propoxyphene AdvReac Nausea and Verified 09/01/24 08:57 Vomiting sertraline AdvReac Nausea and Verified 09/01/24 08:57 Vomiting terbutaline AdvReac Nausea and Verified 09/01/24 08:57 Vomiting yellow dye AdvReac Nausea and Verified 09/01/24 08:57 Vomiting hmg-coa-R Inhibitors Allergy Unknown Uncoded 09/01/24 08:57 Vital Signs Vital Signs - 24 hr 09/01/24 15:28 09/01/24 15:47 09/01/24 17:23 Temperature 36.9 C Pulse Rate 95 115 H 129 H Respiratory Rate 16 22 H Blood Pressure 146/71 H 161/83 H 142/85 H Pulse Oximetry 95 98 Oxygen Delivery Oxygen Flow Rate Fraction of Inspired Oxygen 09/01/24 17:24 09/01/24 17:53 09/01/24 20:05 Temperature 36.7 C Pulse Rate 129 H 106 H 101 H Respiratory Rate 22 H Blood Pressure 142/85 H 143/76 H Pulse Oximetry 97 Oxygen Delivery Oxygen Flow Rate Fraction of Inspired Oxygen 09/01/24 20:10 09/01/24 20:30 09/01/24 20:30 Temperature 36.7 C 37.0 C Pulse Rate 88 85 89 Respiratory Rate 20 20 Blood Pressure 138/78 141/78 H 141/78 H Pulse Oximetry 97 97 Oxygen Delivery Oxygen Flow Rate Fraction of Inspired Oxygen 09/01/24 20:45 09/01/24 22:00 09/01/24 22:00 Temperature Pulse Rate 88 88 Respiratory Rate 20 Blood Pressure 137/80 Pulse Oximetry 97 Oxygen Delivery Nasal Cannula Oxygen Flow Rate 2 Fraction of Inspired Oxygen 09/01/24 22:00 09/01/24 23:40 09/01/24 23:49 Temperature 36.6 C Pulse Rate 88 87 88 Respiratory Rate 18 20 Blood Pressure 137/80 140/75 Pulse Oximetry 98 100 Oxygen Delivery Nasal Cannula Oxygen Flow Rate 2 Fraction of Inspired Oxygen 09/02/24 00:00 09/02/24 00:10 09/02/24 01:45 Temperature Pulse Rate 89 94 95 Respiratory Rate Blood Pressure 140/75 139/84 Pulse Oximetry Oxygen Delivery Oxygen Flow Rate Fraction of Inspired Oxygen 09/02/24 02:00 09/02/24 02:00 09/02/24 03:35 Temperature 36.5 C Pulse Rate 93 93 93 Respiratory Rate 20 Blood Pressure 139/84 147/88 H Pulse Oximetry 100 Oxygen Delivery Oxygen Flow Rate Fraction of Inspired Oxygen 09/02/24 04:00 09/02/24 04:00 09/02/24 04:00 Temperature Pulse Rate 93 104 H 88 Respiratory Rate 20 Blood Pressure 147/88 H Pulse Oximetry 100 Oxygen Delivery Nasal Cannula Oxygen Flow Rate 2 Fraction of Inspired Oxygen 09/02/24 06:00 09/02/24 06:00 09/02/24 06:00 Temperature Pulse Rate 82 89 87 Respiratory Rate Blood Pressure 151/82 H 151/82 H Pulse Oximetry Oxygen Delivery Oxygen Flow Rate Fraction of Inspired Oxygen 09/02/24 08:00 09/02/24 08:00 09/02/24 09:40 Temperature 37.2 C Pulse Rate 96 96 Respiratory Rate 16 Blood Pressure 150/74 H 150/96 H Pulse Oximetry 100 100 Oxygen Delivery Nasal Cannula Oxygen Flow Rate 2 Fraction of Inspired Oxygen 28 09/02/24 10:00 09/02/24 10:00 09/02/24 11:45 Temperature 36.6 C Pulse Rate 99 99 135 H Respiratory Rate 22 H Blood Pressure 146/83 H 146/83 H 146/83 H Pulse Oximetry 100 Oxygen Delivery Oxygen Flow Rate Fraction of Inspired Oxygen 09/02/24 12:00 09/02/24 13:00 Temperature 36.9 C Pulse Rate 80 132 H Respiratory Rate 20 Blood Pressure 161/88 H Pulse Oximetry 100 Oxygen Delivery Oxygen Flow Rate Fraction of Inspired Oxygen Exam 2 Narrative: General: Patient nonverbal, no acute distress Neck: Supple, unable to assess JVD Chest: Bilaterally clear to auscultation, no rales or rhonchi Cardiac: S1, S2 +, irregularly irregular rhythm, no murmurs or rubs Extremities: No pedal edema, no skin rash Neurologic: Patient nonverbal Results Labs and Meds 09/02/24 04:16 09/02/24 04:16 Lab results: Cardiac Enzymes 09/02/24 Range/Units 04:16 AST 31 (14-36) U/L CBC 09/02/24 Range/Units 04:16 WBC 9.6 (4.5-10.0) K/mm3 RBC 4.30 (4.2-5.4) M/mm3 Hgb 13.5 (12.0-15.0) g/dL Hct 44.3 (37.0-47.0) % Plt Count 290 (150-375) k/mm3 Lymph # (Auto) 1.20 (0.9-3.2) K/mm3 [place] # (Auto) 1.3 H (0.1-0.6) K/mm3 Eos # (Auto) 0.0 (0-0.3) K/mm3 Baso # (Auto) 0.1 (0.0-0.1) K/mm3 Comprehensive Metabolic Panel 09/02/24 Range/Units 04:16 Sodium 145 (137-145) mmol/L Potassium 4.0 (3.4-5.0) mmol/L Chloride 110 H (98-107) mmol/L Carbon Dioxide 27 (22-30) mmol/L BUN 26 H (7-17) mg/dL Creatinine 0.81 (0.7-1.0) mg/dL Glucose 173 H (65-110) mg/dL Calcium 8.9 (8.4-10.2) mg/dL AST 31 (14-36) U/L ALT 16 (6-35) U/L Alkaline Phosphatase 74 (38-126) U/L Total Protein 7.0 (6.3-8.2) g/dL Albumin 3.1 L (3.5-5.1) g/dL Intake and Output 09/01/24 09/02/24 09/02/24 23:59 07:59 15:59 Intake Total 704.1 58.3 97.5 Balance 704.1 58.3 97.5 Intake: IV 704.1 58.3 37.5 dilTIAZem 100 MG/100 ML 100 mg 54.1 58.3 37.5 In 100 ml @ 10 MG/HR 10 mls/hr IV CONT .Q10H ASAD Rx#:[id number] Vancomycin 1,250 mg/Ns 250 ml 1 500 ,250 mg In 250 ml @ 166.667 mls /hr IVPB ONCE ONE Rx#:[id number] levoFLOXacin 750 MG/D5W 150 ML 150 750 mg In 150 ml @ 100 mls/hr IVPB Q24H ASAD Rx#:[id number] Oral 60 Other: Intake, Other Source NPO # Incontinent Voids 1 # Urine Diapers 1 Patient Weight 09/02/24 23:59 Weight 92 kg
[2024-09-02] MEDS: levoFLOXacin 750 MG/D5W 150 ML 750 MG/150 ML BAG 100 MG IVPB (15:36)
[2024-09-02] MEDS: VANCOMYCIN 1,500 MG/NS 500 ML 1,500 MG/500 ML BAG 250 MG IVPB (15:41)
[2024-09-02] MEDS: COLESTIPOL HCL 1 GM TABLET PO (19:18)
--- NOTE | 2024-09-02 20:19 | PC.NURSE ---
1200- unable to obtain information to complete MRI form -Dr. Stein notified
[2024-09-02] MEDS: ENOXAPARIN 100 MG/ML SYRINGE 90 MG SUB-Q (20:50)
[2024-09-02] MEDS: MELATONIN 5 MG TABLET PO (20:51)
[2024-09-03] VITALS (23 sets, daily range): BP systolic 124–153; BP diastolic 61–97; PULSE 86–139; RESP 20–21; TEMP 36.5–37.3; O2SAT 94–100
--- NOTE | 2024-09-03 | ECHO_ITS ---
Patient Info Name: Nazanin Medellin Age: 69 years : 1955 Gender: Female Ht: 64 in Wt: 202 lbs BSA: 2.07 m2 HR: 92 bpm BP: 151 / 83 mmHg Technical Quality: Good Exam Date: 09/03/2024 10:42 AM Patient Status: I Admit Date: 09/01/2024 Exam Type: CA echo dop color flow w con Complete two-dimensional, color flow and Doppler transthoracic echocardiogram is performed with contrast to opacify the left ventricle and to improve the deliniation of the left ventricle endocardial borders. Staff Referring Physician: Suzy Garcia Jack Spinner: Basia Lisa Attending Provider: Angel Soares MD Contrast/Agitated Saline Contrast/Ag. Saline: Definity Amount: 2.00 ml Administered By: Basia Lisa Existing IV Access: Yes IV Access Condition: patent with no signs of infiltration Summary 1. This was a technically difficult study with poorly visualized acoustic windows and limited views. 2. Overall normal biventricular size and systolic function. 3. There is severe mitral annular calcification with at least mild mitral stenosis. 4. There is moderate aortic stenosis. Left Ventricle Left ventricle is normal in size and systolic function. The left ventricular ejection fraction is visually estimated to be 60-60%. Right Ventricle The right ventricle is normal in size and systolic function. Left Atria The left atrium is moderately dilated. Right Atria The right atrium is normal size. Atrial Septum The atrial septum is not well visualized. Aortic Valve The aortic valve is trileaflet and calcified. There is moderate aortic stenosis. There is mild aortic regurgitation. Pulmonic Valve The pulmonic valve is grossly normal. There is no color Doppler evidence of pulmonic valve regurgitation. Mitral Valve There is severe mitral annular calcification. The valve leaflets are not well visualized however the gradients do suggest at least mild mitral stenosis. There is trace mitral regurgitation. Tricuspid Valve The tricuspid valve is normal. There is trace tricuspid regurgitation. Pericardium/Pleural Pericardium is normal in appearance with no evidence for significant pericardial effusion. Inferior Vena Cava Inferior vena cava is not well visualized. Aorta Aortic root at the level of the sinus of Valsalva measures 3.0 cm in diameter. Left Ventricular Outflow Tract Name Value Normal LVOT 2D LVOT Diameter 1.7 cm LVOT Doppler LVOT Peak Velocity 123 cm/s LVOT Peak Gradient 6 mmHg LVOT Mean Gradient 3 mmHg LVOT VTI 20 cm LVOT VTI/AV VTI Ratio 0.7 LVOT Stroke Volume 45 ml LVOT CO 3.8 l/min LVOT CI 1.8 l/min/m2 Pulmonic Valve Name Value Normal PV Doppler PV Peak Velocity 144 cm/s PV Peak Gradient 8 mmHg Mitral Valve Name Value Normal MV Regurgitation Doppler MR Peak Gradient 78 mmHg MV Diastolic Function MV E Peak Velocity 150 cm/s MV A Peak Velocity 85 cm/s MV E/A 1.8 MV Decel Time (PW) 281 ms MV Annular TDI MV E/e' (Septal) 16.7 MV E/e' (Lateral) 28.4 MV E/e' (Average) 22.6 Tricuspid Valve Name Value Normal TV Regurgitation Doppler TR Peak Velocity 251 cm/s TR Peak Gradient 25 mmHg Estimated PAP/RSVP RA Pressure 10 mmHg <=5 PA Systolic Pressure 35 mmHg <36 RV Systolic Pressure 35 mmHg <36 TV Annular TDI TV Lateral Jacquelin s' Velocity 9.4 cm/s >=9.5 Aortic Valve Name Value Normal AV 2D/MM AV Area (Planimetry) 0.8 cm2 AV Doppler AV Peak Velocity 202 cm/s AV Peak Gradient 16 mmHg AV Mean Gradient 8 mmHg AV VTI 29 cm AV Area (Cont Eq VTI) 1.5 cm2 >=3.0 AV Area (Cont Eq Aristeo) 1.4 cm2 AV DI (Aristeo) 0.61 AV Regurgitation 2D LVOT Area 2.3 cm2 Ventricles Name Value Normal LV Dimensions 2D/MM IVS Diastolic Thickness (2D) 0.8 cm 0.6-1.0 LVID Diastole (2D) 3.5 cm 3.8-5.2 LVIW Diastolic Thickness (2D) 0.9 cm 0.6-0.9 LVID Systole (2D) 2.7 cm 2.2-3.5 LVOT Diameter 1.7 cm LV Mass (2D Cubed) 88.35 g 67.00-162.00 LV Mass Index (2D Cubed) 43 g/m2 43-95 Relative Wall Thickness (2D) 0.52 <=0.42 LV Fractional Shortening/Ejection Fraction 2D/MM LV Fractional Shortening (2D) 24 % 27-45 LV EF (2D Teichholz) 49 % LV Diastolic Volume (4C MOD) 97 ml LV EF (4C MOD) 59 % LV Diastolic Volume (2C MOD) 89 ml LV EF (2C MOD) 54 % LV Diastolic Volume (BP MOD) 94 ml 46-106 LV Diastolic Volume Index (BP MOD) 45 ml/m2 29-61 LV Systolic Volume (BP MOD) 40 ml 14-42 LV Systolic Volume Index (BP MOD) 19 ml/m2 8-24 LV EF (BP MOD) 57 % 54-74 LV Diastolic Length (4C) 7.4 cm LV Systolic Length (4C) 6.2 cm LV Stroke Volume (4C MOD) 57 ml Atria Name Value Normal LA Dimensions LA Volume (4C A-L) 102 ml LA Volume (BP A-L) 100 ml RA Dimensions RA Systolic Major Kent Length (4C) 5.9 cm 2.2-2.8 RA Area (4C) 15.3 cm2 <=18.0 Report Signatures
[2024-09-03] MEDS: dilTIAZem 100 MG/100 ML 100 MG/100 ML BAG 10 MG IV CONT (07:18)
[2024-09-03 07:53] LABS: Hematocrit 46.0 % (37.0-47.0); Hemoglobin 14.2 g/dL (12.0-15.0); Mean Corpuscular HGB Conc 30.9 g/dl (32-36); Mean Corpuscular Hemoglobin 31.8 pg (26-34); Mean Corpuscular Volume 103.1 fl (80-100); Platelet Count Result 364 k/mm3 (150-375); Red Blood Count 4.46 M/mm3 (4.2-5.4); White Blood Count 11.0 K/mm3 (4.5-10.0)
[2024-09-03 08:08] LABS: Anion Gap 9 mmol/L (4-12); Blood Urea Nitrogen 30 mg/dL (7-17); Calcium 9.3 mg/dL (8.4-10.2); Carbon Dioxide 29 mmol/L (22-30); Chloride 111 mmol/L (98-107); Estimated CRCL calculation 46 ml/min; Estimated Glomerular Filt Rate 46; Glucose 167 mg/dL (65-110); Magnesium 2.2 mg/dL (1.6-2.3); Potassium 3.8 mmol/L (3.4-5.0); Sodium 149 mmol/L (137-145)
--- NOTE | 2024-09-03 08:24 | P.PNCA_ITS ---
Progress Note: A&P Assessment and Plan (1) Atrial fibrillation with RVR: Code(s): I48.91 - Unspecified atrial fibrillation Status: Acute (2) Hypertension: Qualifiers: Hypertension type: primary hypertension Qualified Code(s): I10 - Essential (primary) hypertension Code(s): I10 - Essential (primary) hypertension Status: Chronic Plan 69-year-old female with history of coronary artery disease status post PCI to proximal LCX in 2020 with 3.0 x 12 mm Medtronic resolute becca zotarolimus eluting stent, CHF, DVT, hyperlipidemia, hypertension, moderate pulmonary hypertension, MARITA intolerant of CPAP, paroxysmal AFib, and pulmonary embolism presents with altered mental status from [facility] via EMS. Noted to be in AFib with RVR for which Cardiology is consulted. -AFib with RVR in a patient with known paroxysmal AFib-rates in the 140 -CAD status post PCI to proximal LCX in 2020 -Hypertension-poorly controlled -Hyperlipidemia -Elevated D-dimer with V/Q scan normal and low probability of PE Plan: -She was started on Cardizem drip. Rates have been acceptable, will shift to p.o. diltiazem -Unsure why she is not on anticoagulation for AFib. Will discuss with her HCPOA -Continue aspirin 81 mg -Increase metoprolol to 25 mg b.i.d. -Continue empagliflozin 10 mg daily -Continue Lasix 20 mg daily -TTE pending -Check and replace electrolytes to keep potassium greater than 4 and magnesium greater than 2 Subjective Date/time seen: 09/03/24 08:24 Interval history: Cardiology follow up visit Date of service 09/03/2024: Unable to obtain any subjective information as she will not speak to me Review of Systems Review of Systems: Complete review of systems could not be performed due to patient being nonverbal Exam Narrative: General: Patient nonverbal, no acute distress Neck: Supple, unable to assess JVD Chest: Bilaterally clear to auscultation, no rales or rhonchi Cardiac: S1, S2 +, irregularly irregular rhythm, no murmurs or rubs Extremities: No pedal edema, no skin rash Neurologic: Patient nonverbal Objective Data Vital Signs Vital Signs: Vital Signs - 24 hr 09/02/24 09:40 09/02/24 10:00 09/02/24 10:00 Temperature 36.6 C Pulse Rate 99 99 Respiratory Rate 22 H Blood Pressure 146/83 H 146/83 H Pulse Oximetry 100 100 Oxygen Delivery Nasal Cannula Oxygen Flow Rate 2 Fraction of Inspired Oxygen 28 09/02/24 11:45 09/02/24 12:00 09/02/24 12:00 Temperature 36.9 C Pulse Rate 135 H 80 80 Respiratory Rate 20 Blood Pressure 146/83 H 161/88 H 161/88 H Pulse Oximetry 100 Oxygen Delivery Oxygen Flow Rate Fraction of Inspired Oxygen 09/02/24 12:00 09/02/24 13:00 09/02/24 14:00 Temperature Pulse Rate 90 132 H 88 Respiratory Rate Blood Pressure 152/87 H Pulse Oximetry Oxygen Delivery Oxygen Flow Rate Fraction of Inspired Oxygen 09/02/24 14:00 09/02/24 14:00 09/02/24 16:00 Temperature 36.4 C Pulse Rate 90 88 90 Respiratory Rate 20 20 Blood Pressure 152/87 H 147/79 H Pulse Oximetry 93 93 Oxygen Delivery Oxygen Flow Rate Fraction of Inspired Oxygen 09/02/24 16:00 09/02/24 16:00 09/02/24 18:00 Temperature Pulse Rate 90 90 Respiratory Rate Blood Pressure 147/79 H 145/81 H Pulse Oximetry Oxygen Delivery Oxygen Flow Rate Fraction of Inspired Oxygen 09/02/24 18:00 09/02/24 18:00 09/02/24 20:00 Temperature 36.5 C Pulse Rate 80 82 90 Respiratory Rate 20 Blood Pressure 145/81 H 147/84 H Pulse Oximetry 98 Oxygen Delivery Oxygen Flow Rate Fraction of Inspired Oxygen 09/02/24 20:00 09/02/24 20:00 09/02/24 20:51 Temperature Pulse Rate 93 91 90 Respiratory Rate Blood Pressure 148/84 H Pulse Oximetry Oxygen Delivery Oxygen Flow Rate Fraction of Inspired Oxygen 09/02/24 20:56 09/02/24 22:00 09/02/24 22:12 Temperature Pulse Rate 93 88 88 Respiratory Rate 20 Blood Pressure 148/84 H 137/77 Pulse Oximetry 95 Oxygen Delivery Room Air Oxygen Flow Rate Fraction of Inspired Oxygen 21 09/02/24 22:23 09/02/24 22:49 09/02/24 23:50 Temperature 36.4 C Pulse Rate 88 88 88 Respiratory Rate 20 Blood Pressure 137/77 140/75 Pulse Oximetry 98 Oxygen Delivery Oxygen Flow Rate Fraction of Inspired Oxygen 09/03/24 00:00 09/03/24 00:00 09/03/24 02:00 Temperature Pulse Rate 88 88 87 Respiratory Rate Blood Pressure 140/75 153/97 H Pulse Oximetry Oxygen Delivery Oxygen Flow Rate Fraction of Inspired Oxygen 09/03/24 02:00 09/03/24 02:00 09/03/24 03:55 Temperature 36.5 C Pulse Rate 89 87 90 Respiratory Rate 20 Blood Pressure 153/97 H 151/83 H Pulse Oximetry 96 Oxygen Delivery Oxygen Flow Rate Fraction of Inspired Oxygen 09/03/24 04:00 09/03/24 04:00 09/03/24 04:00 Temperature Pulse Rate 90 90 Respiratory Rate Blood Pressure 151/83 H Pulse Oximetry Oxygen Delivery Room Air Oxygen Flow Rate Fraction of Inspired Oxygen 09/03/24 06:00 09/03/24 06:00 09/03/24 07:10 Temperature Pulse Rate 92 88 91 Respiratory Rate Blood Pressure 151/92 H 151/92 H Pulse Oximetry Oxygen Delivery Oxygen Flow Rate Fraction of Inspired Oxygen 09/03/24 07:18 09/03/24 07:59 Temperature 37.3 C Pulse Rate 91 120 H Respiratory Rate 20 Blood Pressure 124/93 H 124/93 H Pulse Oximetry 97 Oxygen Delivery Oxygen Flow Rate Fraction of Inspired Oxygen Intake/Output Intake/Output: Intake & Output 08/31/24 09/01/24 09/02/24 09/03/24 23:59 23:59 23:59 23:59 Intake Total 1704.1 1007.1 81.2 Output Total 800 400 Balance 1704.1 207.1 -318.8 Meds/Results Medications: Active Medications Generic Name Dose Route Start Last Admin Trade Name Freq PRN Reason Stop Dose Admin Albuterol 2 puff 09/02/24 09:43 Albuterol Sulfate (*Sp) Aerosol 1 Puff INHALATION Q4HRT PRN Shortness Of Breath Or Wheezing Allopurinol 300 mg 09/02/24 09:55 09/02/24 12:59 Allopurinol 300 Mg Tablet PO 300 mg DAILY ASAD Administration Allopurinol 50 mg 09/02/24 09:00 09/02/24 12:56 Allopurinol 50 Mg Tablet PO 50 mg Q48HR ASAD Administration Aspirin 81 mg 09/02/24 09:55 09/02/24 13:08 Aspirin 81 Mg Enteric Tablet PO 81 mg DAILY ASAD Administration Bisacodyl 10 mg 09/02/24 09:43 Bisacodyl 10 Mg Suppository RECTAL DAILY PRN Constipation Buspirone HCl 10 mg 09/02/24 09:55 09/02/24 17:59 Buspirone Hcl 10 Mg Tablet PO 10 mg TID ASAD Administration Calcium Carbonate 500 mg 09/02/24 09:55 09/02/24 17:58 Calcium Carbonate (Tums) 500 Mg (200 Mg Elemental) PO 500 mg BID ASAD Administration Colestipol HCl 1 gm 09/02/24 11:00 09/02/24 19:18 Colestipol Hcl 1 Gm Tablet PO 1 gm BID@1000,1800 ASAD Administration Cyanocobalamin 1,000 mcg 09/02/24 09:55 09/02/24 13:07 Cyanocobalamin 1,000 Mcg Tablet PO 1,000 mcg DAILY ASAD Administration Dextrose 12.5 gm 09/01/24 16:26 Dextrose 50% 25 Gm/50 Ml Syringe IV PUSH PRN PRN Hypoglycemia Protocol Dextrose 12.5 gm 09/02/24 14:58 Dextrose 50% 25 Gm/50 Ml Syringe IV PUSH PRN PRN Hypoglycemia Protocol Divalproex Sodium 500 mg 09/02/24 10:00 09/02/24 17:[address] 250 Mg Tabec PO 500 mg BID ASAD Administration Duloxetine HCl 20 mg 09/02/24 10:00 09/02/24 20:51 Duloxetine Hcl 20 Mg Capsule.Dr PO 20 mg Q12HR ASAD Administration Empagliflozin 25 mg 09/02/24 10:00 09/02/24 12:57 Empagliflozin 25 Mg Tablet PO 25 mg DAILY ASAD Administration Enoxaparin Sodium 90 mg 09/02/24 21:00 09/02/24 20:50 Enoxaparin 100 Mg/Ml Syringe SUB-Q 90 mg Q12HR ASAD Administration Ergocalciferol 1,250 mcg 09/05/24 09:00 Ergocalciferol (Vitamin D2) 1,250 Mcg (50,000 Units) Capsule PO Sa@0900 ASAD Famotidine 20 mg 09/02/24 10:00 09/02/24 20:52 Famotidine 20 Mg Tablet PO 20 mg Q12HR ASAD Administration Furosemide 80 mg 09/02/24 10:00 09/02/24 12:57 Furosemide 80 Mg Tablet PO 80 mg DAILY ASAD Administration Glucagon 1 mg 09/01/24 16:26 Glucagon For Inj 1 Mg Vial IM PRN PRN Hypoglycemia Protocol Glucagon 1 mg 09/02/24 14:58 Glucagon For Inj 1 Mg Vial IM PRN PRN Hypoglycemia Protocol Glucose 15 gm 09/01/24 16:26 Glucose Oral Gel 15 Gm Of Glucse In 37.5 Gm Tube PO PRN PRN Hypoglycemia Protocol Glucose 15 gm 09/02/24 14:58 Glucose Oral Gel 15 Gm Of Glucse In 37.5 Gm Tube PO PRN PRN Hypoglycemia Protocol Hydralazine HCl 10 mg 09/01/24 17:24 Hydralazine Hcl 20 Mg/Ml Vial IV PUSH Q8H PRN Blood Pressure - >180/90 Levofloxacin/Dextrose 750 mg in 150 mls @ 100 mls/hr 09/01/24 14:00 09/02/24 17:00 Levaquin 750 Mg/D5w 150 Ml IVPB Infused Q24H ASAD Infusion Dextrose 1,000 mls @ 100 mls/hr 09/01/24 16:26 Dextrose 5% 1,000 Ml IVPB PRN PRN Hypoglycemia Protocol Diltiazem HCl 100 mg in 100 mls @ 10 mls/hr 09/02/24 00:05 09/03/24 07:18 Cardizem 100 Mg/100 Ml IV CONT 10 mg/hr .Q10H ASAD 10 mls/hr Administration 10 MG/HR Vancomycin HCl 1,500 mg in 500 mls @ 250 mls/hr 09/02/24 15:00 09/02/24 18:00 Vancomycin 1,500 Mg/Ns 500 Ml IVPB Infused Q18H ASAD Infusion Dextrose 1,000 mls @ 100 mls/hr 09/02/24 14:58 Dextrose 5% 1,000 Ml IVPB PRN PRN Hypoglycemia Protocol Insulin Aspart 4 - 8 units 09/03/24 08:00 Insulin Aspart (*Bkc) 100 Units/Ml SUB-Q TIDWM ASAD Protocol Insulin Glargine 16 units 09/02/24 10:00 09/02/24 13:12 Insulin Glargine (*Bkc) 100 Units/Ml SUB-Q 16 units QAM ASAD Administration Loperamide HCl 2 mg 09/02/24 09:43 Loperamide Hcl 2 Mg Capsule PO Q6H PRN Diarrhea Loratadine 10 mg 09/02/24 10:00 09/02/24 12:59 Loratadine 10 Mg Tablet PO 10 mg DAILY ASAD Administration Lorazepam 0.5 mg 09/02/24 10:00 09/02/24 17:59 Lorazepam (*Crx) 0.5 Mg Tablet PO 0.5 mg BID ASAD Administration Magnesium Citrate 296 ml 09/02/24 09:43 Magnesium Citrate 300 Ml Btl PO DAILY PRN Constipation Magnesium Hydroxide 30 ml 09/02/24 09:43 Magnesium Hydroxide Susp 30 Ml Udc PO HS PRN Constipation Melatonin 5 mg 09/02/24 21:00 09/02/24 20:51 Melatonin 5 Mg Tablet PO 5 mg HS ASAD Administration Metoprolol Tartrate 12.5 mg 09/02/24 10:00 09/02/24 20:51 Metoprolol Tartrate 12.5 Mg Tablet PO 12.5 mg Q12HR ASAD Administration Miscellaneous Information 1 each 09/02/24 10:00 Central Supply Item XX 09/03/24 09:59 PRN PRN Informational Multivitamins/Minerals 1 tab 09/02/24 10:00 09/02/24 13:03 Multivitamins /C Lutein (Centrum Silver) Tablet *Bkc PO 1 tab DAILY ASAD Administration Mupirocin 1 applic 09/01/24 21:00 09/02/24 22:52 Mupirocin 2% Oint 22 Gm Tube EACH NARE 09/06/24 09:01 1 applic Q12HR ASAD Administration Nitroglycerin 0.4 mg 09/02/24 09:43 Nitroglycerin Sl 0.4 Mg Tablet SUBLINGUAL Q5MIN PRN Chest Pain Ondansetron HCl 8 mg 09/02/24 18:21 Ondansetron Hcl Odt 4 Mg Tablet PO 10/02/24 09:59 Q8H PRN Nausea And Vomiting Oxycodone HCl 5 mg 09/02/24 09:43 Oxycodone Hcl (*Crx) 5 Mg Tab Ir PO Q6H PRN Pain (Scale Score 4-6) Perflutren Lipid Microsphere 0 ml 09/02/24 16:18 Perflutren Lipid Microspheres 1.5 Ml Vial Diluted To 10 Ml Total Volume IV PUSH 09/05/24 16:18 ONCE PRN adequate visualization Protocol Potassium Chloride 20 meq 09/02/24 10:00 09/02/24 13:02 Potassium Chloride 20 Meq Er Tablet PO 20 meq DAILY ASAD Administration Trazodone HCl 50 mg 09/02/24 21:00 09/02/24 20:52 Trazodone Hcl 50 Mg Tablet PO 50 mg HS ASAD Administration Radiology Results: ITS Impressions Head CT 09/01/24 09:39 Impression: No intracranial hemorrhage, mass, or acute infarct. Atrophy and chronic white matter changes, as above. Chest X-Ray 09/01/24 13:09 Impression: Possible medial left lower lobe pneumonia. Pulmonary Perfusion Imaging 09/01/24 15:26 IMPRESSION: 1. Normal study. Very low probability for pulmonary embolism. Labs Labs: Laboratory Results - last 24 hr 09/02/24 09/02/24 09/02/24 12:08 16:32 20:36 WBC RBC Hgb Hct MCV MCH MCHC RDW Plt Count MPV Sodium Potassium Chloride Carbon Dioxide Anion Gap BUN Creatinine Estim Creat Clear Calc Estimated GFR Glucose POC Capillary Glucose 209 H 172 H 147 H Calcium Magnesium 09/02/24 09/03/24 23:48 07:47 WBC 11.0 H RBC 4.46 Hgb 14.2 Hct 46.0 MCV 103.1 H MCH 31.8 MCHC 30.9 L RDW 15.0 H Plt Count 364 MPV 10.7 H Sodium 149 H Potassium 3.8 Chloride 111 H Carbon Dioxide 29 Anion Gap 9 BUN 30 H Creatinine 1.16 H Estim Creat Clear Calc 46 Estimated GFR 46 L Glucose 167 H POC Capillary Glucose 148 H Calcium 9.3 Magnesium 2.2 Quality VTE Prophylaxis VTE prophylaxis: pharmacologic ordered
[2024-09-03] MEDS: CALCIUM CARBONATE (TUMS) 500 MG (200 MG ELEMENTAL) PO ×2 (08:53→17:26)
[2024-09-03] MEDS: FUROSEMIDE 80 MG TABLET PO (08:54)
[2024-09-03] MEDS: EMPAGLIFLOZIN 25 MG TABLET PO (08:54)
[2024-09-03] MEDS: METOPROLOL TARTRATE 12.5 MG TABLET PO ×2 (08:54→21:12)
[2024-09-03] MEDS: CYANOCOBALAMIN 1,000 MCG TABLET 1000 MCG PO (08:54)
[2024-09-03] MEDS: POTASSIUM CHLORIDE 20 MEQ ER TABLET PO (08:54)
[2024-09-03] MEDS: MULTIVITAMINS /C LUTEIN (CENTRUM SILVER) TABLET *BKC 1 TAB PO (08:54)
[2024-09-03] MEDS: DIVALPROEX SODIUM DR 250 MG TABEC 500 MG PO ×2 (08:54→17:26)
[2024-09-03] MEDS: LORazepam (*CRX) 0.5 MG TABLET PO ×2 (08:54→17:26)
[2024-09-03] MEDS: LORATADINE 10 MG TABLET PO (08:54)
[2024-09-03] MEDS: ASPIRIN 81 MG ENTERIC TABLET PO (08:54)
[2024-09-03] MEDS: INSULIN GLARGINE (*BKC) 100 UNITS/ML 16 UNITS SUB-Q (08:55)
[2024-09-03] MEDS: ENOXAPARIN 100 MG/ML SYRINGE 90 MG SUB-Q ×2 (08:55→21:13)
[2024-09-03] MEDS: FAMOTIDINE 20 MG TABLET PO ×2 (08:55→21:12)
[2024-09-03] MEDS: MUPIROCIN 2% OINT 22 GM TUBE 1 APPLIC EACH NARE ×2 (08:55→21:14)
[2024-09-03] MEDS: COLESTIPOL HCL 1 GM TABLET PO ×2 (09:13→17:26)
[2024-09-03] MEDS: VANCOMYCIN 1,500 MG/NS 500 ML 1,500 MG/500 ML BAG 250 MG IVPB (09:13)
[2024-09-03] MEDS: PERFLUTREN LIPID MICROSPHERES 1.5 ML VIAL DILUTED TO 10 ML TOTAL VOLUME IV PUSH (11:00)
--- NOTE | 2024-09-03 12:19 | IVDEFINITY ---
Prior to administration of IV Definity the patient was educated on the risks and benefits of the imaging enhancing agent including potential adverse side effects. The patient verbalized understanding. Allergies were verified. No exclusion criteria were identified and at least one of the following inclusion criteria were met: 1) physician request, 2) patient technically difficult to image (per the [place] [employer] guidelines of two or more segments not discernable within the apical view), or 3) questionable left ventricular function. ?
[2024-09-03] MEDS: DEXTROSE 5%/0.9% SOD CHL 1,000 ML 100 ML IV CONT (12:38)
[2024-09-03] MEDS: INSULIN ASPART (*BKC) 100 UNITS/ML SUB-Q (12:41)
--- NOTE | 2024-09-03 14:36 | PM.IMPN ---
Progress Note: A&P Assessment and Plan (1) AMS (altered mental status): Code(s): R41.82 - Altered mental status, unspecified Status: Acute Assessment and Plan: ?CVA, encephalopathy secondary to possible pneumonia, catatonia, non-convulsive status epilepticus CT head unremarkable UA unremarkable, Na 149 CXR showed possible left lower lobe pneumonia - Patient's brother who is her POA believes she may have been put on a new mental health medication, reviewed outside med rec. No new medications prescribed or dose adjustments, has been on same medications and doses for a minimum of 3 months. EEG, MRI brain b12 and folate, TSH wnl continue abx and start D5w Neurology (2) Pneumonia: Qualifiers: Pneumonia type: due to unspecified organism Laterality: left Lung location: lower lobe of lung Qualified Code(s): J18.9 - Pneumonia, unspecified organism Code(s): J18.9 - Pneumonia, unspecified organism Status: Acute Assessment and Plan: - CXR showed possible medial left lower lobe pneumonia - MRSA PCR positive on 03/2023, repeat - check Viral PCR and sputum culture (if obtainable) - currently requiring 2L NC, wean as tolerated. Maintain O2 sat greater than 92%. 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 corrective in place. - correct regimen ordered - high dose Q6H - A1C 6.2% in 2023, update (5) Hypertension: Qualifiers: Hypertension type: primary hypertension Qualified Code(s): I10 - Essential (primary) hypertension Code(s): I10 - Essential (primary) hypertension Status: Chronic Assessment and Plan: - chronic, currently 161/83 - hold home medications, unable to tolerate PO due to AMS - hydralazine prn for BP greater than 180/90 - monitor Plan Hypernatremia Na 149 D5w and monitor Diet: NPO until mental status improved GI Prophylaxis: not currently indicated DVT Prophylaxis: Lovenox SQ IV fluids: 2L bolus Lines/Tubes: peripheral IV Code Status: full code Subjective Date/time seen: 09/03/24 14:36 Interval history: Comfortable at bedside Patient noted to be at baseline by her nurse EEG and MRI pending Review of Systems Review of Systems: ROS unobtainable: Yes unobtainable due to mental status Exam Narrative: Patient is comfortable, NAD HEENT: eyes are clear and none icteric ABD: Obese Lower extremities: no edema SKIN: nonjaundiced Neuro: grossly intact. Confused Const: General: comfortable and no acute distress Other: , female, chronically ill-appearing, obese body habitus HENMT: Face/Nose/Sinus: Normal nares present Mouth: Yes dry mucous membranes Eyes: General: appearance normal, both eyes and all related structures Sclera: sclerae normal Pupils: Equal, round and reactive pupils present Other: unable to assess for gaze palsy, staring midline Resp: Effort & Inspection: normal respiratory effort Auscultation: clear to auscultation bilaterally Cardio: Rate: tachycardic Other: abnormal rhythm with frequent ectopy, no appreciable murmur. GI: Other: Abdomen soft, nondistended, nontender. Normoactive bowel sounds in all quadrants. Skin: General skin exam: normal color and no rashes or lesions noted Wounds: no wounds Neuro: Cranial nerves: Yes Equal, round and reactive pupils present Other: Very limited neuro exam. PERRLA - 3 mm bilaterally, will try to squeeze eyes shut during exam. Briefly attempted to regard. Unable to assess for gaze palsy, gaze does remain midline. DTR normal in all extremities. does not attempt to follow commands, unable to assess strength. No movement of extremities. Extrem: General: normal to inspection Psych: Other: flat affect Objective Data Vital Signs Vital Signs: Vital Signs - 24 hr 09/02/24 16:00 09/02/24 16:00 09/02/24 16:00 Temperature 97.6 F Pulse Rate 90 90 90 Respiratory Rate 20 Blood Pressure 147/79 H 147/79 H Pulse Oximetry 93 Oxygen Delivery Fraction of Inspired Oxygen 09/02/24 18:00 09/02/24 18:00 09/02/24 18:00 Temperature Pulse Rate 80 82 Respiratory Rate Blood Pressure 145/81 H 145/81 H Pulse Oximetry Oxygen Delivery Fraction of Inspired Oxygen 09/02/24 20:00 09/02/24 20:00 09/02/24 20:00 Temperature 97.7 F Pulse Rate 90 93 91 Respiratory Rate 20 Blood Pressure 147/84 H 148/84 H Pulse Oximetry 98 Oxygen Delivery Fraction of Inspired Oxygen 09/02/24 20:51 09/02/24 20:56 09/02/24 22:00 Temperature Pulse Rate 90 93 88 Respiratory Rate Blood Pressure 148/84 H 137/77 Pulse Oximetry Oxygen Delivery Fraction of Inspired Oxygen 09/02/24 22:12 09/02/24 22:23 09/02/24 22:49 Temperature Pulse Rate 88 88 88 Respiratory Rate 20 Blood Pressure 137/77 Pulse Oximetry 95 Oxygen Delivery Room Air Fraction of Inspired Oxygen 21 09/02/24 23:50 09/03/24 00:00 09/03/24 00:00 Temperature 97.6 F Pulse Rate 88 88 88 Respiratory Rate 20 Blood Pressure 140/75 140/75 Pulse Oximetry 98 Oxygen Delivery Fraction of Inspired Oxygen 09/03/24 02:00 09/03/24 02:00 09/03/24 02:00 Temperature Pulse Rate 87 89 87 Respiratory Rate Blood Pressure 153/97 H 153/97 H Pulse Oximetry Oxygen Delivery Fraction of Inspired Oxygen 09/03/24 03:55 09/03/24 04:00 09/03/24 04:00 Temperature 97.7 F Pulse Rate 90 90 Respiratory Rate 20 Blood Pressure 151/83 H Pulse Oximetry 96 Oxygen Delivery Room Air Fraction of Inspired Oxygen 09/03/24 04:00 09/03/24 06:00 09/03/24 06:00 Temperature Pulse Rate 90 92 88 Respiratory Rate Blood Pressure 151/83 H 151/92 H Pulse Oximetry Oxygen Delivery Fraction of Inspired Oxygen 09/03/24 07:10 09/03/24 07:18 09/03/24 07:59 Temperature 99.2 F Pulse Rate 91 91 120 H Respiratory Rate 20 Blood Pressure 151/92 H 124/93 H 124/93 H Pulse Oximetry 97 Oxygen Delivery Fraction of Inspired Oxygen 09/03/24 08:00 09/03/24 08:00 09/03/24 08:54 Temperature Pulse Rate 104 H 104 H 102 H Respiratory Rate Blood Pressure Pulse Oximetry Oxygen Delivery Fraction of Inspired Oxygen 09/03/24 10:00 09/03/24 10:00 09/03/24 10:00 Temperature 98.5 F Pulse Rate 87 98 98 Respiratory Rate 20 Blood Pressure 133/61 Pulse Oximetry 98 Oxygen Delivery Fraction of Inspired Oxygen 09/03/24 11:40 09/03/24 12:00 09/03/24 12:00 Temperature 99.0 F Pulse Rate 86 90 90 Respiratory Rate 21 H Blood Pressure 148/73 H Pulse Oximetry 94 Oxygen Delivery Fraction of Inspired Oxygen 09/03/24 12:41 Temperature Pulse Rate 110 H Respiratory Rate Blood Pressure Pulse Oximetry Oxygen Delivery Fraction of Inspired Oxygen Intake/Output Intake/Output: Intake & Output 08/31/24 09/01/24 09/02/24 09/03/24 23:59 23:59 23:59 23:59 Intake Total 1704.1 1007.1 135.0 Output Total 800 400 Balance 1704.1 207.1 -265.0 Meds/Results Medications: Active Medications Generic Name Dose Route Start Last Admin Trade Name Freq PRN Reason Stop Dose Admin Albuterol 2 puff 09/02/24 09:43 Albuterol Sulfate (*Sp) Aerosol 1 Puff INHALATION Q4HRT PRN Shortness Of Breath Or Wheezing Allopurinol 300 mg 09/02/24 09:55 09/03/24 08:53 Allopurinol 300 Mg Tablet PO 300 mg DAILY ASAD Administration Allopurinol 50 mg 09/02/24 09:00 09/02/24 12:56 Allopurinol 50 Mg Tablet PO 50 mg Q48HR ASAD Administration Aspirin 81 mg 09/02/24 09:55 09/03/24 08:54 Aspirin 81 Mg Enteric Tablet PO 81 mg DAILY ASAD Administration Bisacodyl 10 mg 09/02/24 09:43 Bisacodyl 10 Mg Suppository RECTAL DAILY PRN Constipation Buspirone HCl 10 mg 09/02/24 09:55 09/03/24 12:38 Buspirone Hcl 10 Mg Tablet PO 10 mg TID ASAD Administration Calcium Carbonate 500 mg 09/02/24 09:55 09/03/24 08:53 Calcium Carbonate (Tums) 500 Mg (200 Mg Elemental) PO 500 mg BID [facility] Administration Colestipol HCl 1 gm 09/02/24 11:00 09/03/24 09:13 Colestipol Hcl 1 Gm Tablet PO 1 gm BID@1000,1800 ASAD Administration Cyanocobalamin 1,000 mcg 09/02/24 09:55 09/03/24 08:54 Cyanocobalamin 1,000 Mcg Tablet PO 1,000 mcg DAILY ASAD Administration Dextrose 12.5 gm 09/01/24 16:26 Dextrose 50% 25 Gm/50 Ml Syringe IV PUSH PRN PRN Hypoglycemia Protocol Dextrose 12.5 gm 09/02/24 14:58 Dextrose 50% 25 Gm/50 Ml Syringe IV PUSH PRN PRN Hypoglycemia Protocol Diltiazem HCl 60 mg 09/03/24 12:00 09/03/24 12:38 Diltiazem Hcl 60 Mg Tablet PO 60 mg Q6HR ASAD Administration Divalproex Sodium 500 mg 09/02/24 10:00 09/03/24 08:[address] 250 Mg Tabec PO 500 mg BID ASAD Administration Duloxetine HCl 20 mg 09/02/24 10:00 09/03/24 08:53 Duloxetine Hcl 20 Mg Capsule.Dr PO 20 mg Q12HR ASAD Administration Empagliflozin 25 mg 09/02/24 10:00 09/03/24 08:54 Empagliflozin 25 Mg Tablet PO 25 mg DAILY ASAD Administration Enoxaparin Sodium 90 mg 09/02/24 21:00 09/03/24 08:55 Enoxaparin 100 Mg/Ml Syringe SUB-Q 90 mg Q12HR ASAD Administration Ergocalciferol 1,250 mcg 09/05/24 09:00 Ergocalciferol (Vitamin D2) 1,250 Mcg (50,000 Units) Capsule PO Sa@0900 ASAD Famotidine 20 mg 09/02/24 10:00 09/03/24 08:55 Famotidine 20 Mg Tablet PO 20 mg Q12HR ASAD Administration Furosemide 80 mg 09/02/24 10:00 09/03/24 08:54 Furosemide 80 Mg Tablet PO 80 mg DAILY ASAD Administration Glucagon 1 mg 09/01/24 16:26 Glucagon For Inj 1 Mg Vial IM PRN PRN Hypoglycemia Protocol Glucagon 1 mg 09/02/24 14:58 Glucagon For Inj 1 Mg Vial IM PRN PRN Hypoglycemia Protocol Glucose 15 gm 09/01/24 16:26 Glucose Oral Gel 15 Gm Of Glucse In 37.5 Gm Tube PO PRN PRN Hypoglycemia Protocol Glucose 15 gm 09/02/24 14:58 Glucose Oral Gel 15 Gm Of Glucse In 37.5 Gm Tube PO PRN PRN Hypoglycemia Protocol Hydralazine HCl 10 mg 09/01/24 17:24 Hydralazine Hcl 20 Mg/Ml Vial IV PUSH Q8H PRN Blood Pressure - >180/90 Levofloxacin/Dextrose 750 mg in 150 mls @ 100 mls/hr 09/01/24 14:00 09/02/24 17:00 Levaquin 750 Mg/D5w 150 Ml IVPB Infused Q24H ASAD Infusion Dextrose 1,000 mls @ 100 mls/hr 09/01/24 16:26 Dextrose 5% 1,000 Ml IVPB PRN PRN Hypoglycemia Protocol Vancomycin HCl 1,500 mg in 500 mls @ 250 mls/hr 09/02/24 15:00 09/03/24 09:13 Vancomycin 1,500 Mg/Ns 500 Ml IVPB 250 mls/hr Q18H ASAD Administration Dextrose 1,000 mls @ 100 mls/hr 09/02/24 14:58 Dextrose 5% 1,000 Ml IVPB PRN PRN Hypoglycemia Protocol Dextrose/Sodium Chloride 1,000 mls @ 100 mls/hr 09/03/24 10:00 09/03/24 12:38 Dextrose 5% Sodium Chloride 0.9% IV CONT 09/03/24 19:59 100 mls/hr .Q10H ASAD Administration Insulin Aspart 4 - 8 units 09/03/24 08:00 09/03/24 12:41 Insulin Aspart (*Bkc) 100 Units/Ml SUB-Q 4 units TIDWM ASAD Administration Protocol Insulin Glargine 16 units 09/02/24 10:00 09/03/24 08:55 Insulin Glargine (*Bkc) 100 Units/Ml SUB-Q 16 units QAM ASAD Administration Loperamide HCl 2 mg 09/02/24 09:43 Loperamide Hcl 2 Mg Capsule PO Q6H PRN Diarrhea Loratadine 10 mg 09/02/24 10:00 09/03/24 08:54 Loratadine 10 Mg Tablet PO 10 mg DAILY ASAD Administration Lorazepam 0.5 mg 09/02/24 10:00 09/03/24 08:54 Lorazepam (*Crx) 0.5 Mg Tablet PO 0.5 mg BID ASAD Administration Magnesium Citrate 296 ml 09/02/24 09:43 Magnesium Citrate 300 Ml Btl PO DAILY PRN Constipation Magnesium Hydroxide 30 ml 09/02/24 09:43 Magnesium Hydroxide Susp 30 Ml Udc PO HS PRN Constipation Melatonin 5 mg 09/02/24 21:00 09/02/24 20:51 Melatonin 5 Mg Tablet PO 5 mg HS ASAD Administration Metoprolol Tartrate 12.5 mg 09/02/24 10:00 09/03/24 08:54 Metoprolol Tartrate 12.5 Mg Tablet PO 12.5 mg Q12HR ASAD Administration Multivitamins/Minerals 1 tab 09/02/24 10:00 09/03/24 08:54 Multivitamins /C Lutein (Centrum Silver) Tablet *Bkc PO 1 tab DAILY ASAD Administration Mupirocin 1 applic 09/01/24 21:00 09/03/24 08:55 Mupirocin 2% Oint 22 Gm Tube EACH NARE 09/06/24 09:01 1 applic Q12HR ASAD Administration Nitroglycerin 0.4 mg 09/02/24 09:43 Nitroglycerin Sl 0.4 Mg Tablet SUBLINGUAL Q5MIN PRN Chest Pain Ondansetron HCl 8 mg 09/02/24 18:21 Ondansetron Hcl Odt 4 Mg Tablet PO 10/02/24 09:59 Q8H PRN Nausea And Vomiting Oxycodone HCl 5 mg 09/02/24 09:43 Oxycodone Hcl (*Crx) 5 Mg Tab Ir PO Q6H PRN Pain (Scale Score 4-6) Potassium Chloride 20 meq 09/02/24 10:00 09/03/24 08:54 Potassium Chloride 20 Meq Er Tablet PO 20 meq DAILY ASAD Administration Trazodone HCl 50 mg 09/02/24 21:00 09/02/24 20:52 Trazodone Hcl 50 Mg Tablet PO 50 mg HS ASAD Administration Radiology Results: ITS Impressions Head CT 09/01/24 09:39 Impression: No intracranial hemorrhage, mass, or acute infarct. Atrophy and chronic white matter changes, as above. Chest X-Ray 09/01/24 13:09 Impression: Possible medial left lower lobe pneumonia. Pulmonary Perfusion Imaging 09/01/24 15:26 IMPRESSION: 1. Normal study. Very low probability for pulmonary embolism. Labs Labs: Laboratory Results - last 24 hr 09/02/24 09/02/24 09/02/24 16:32 20:36 23:48 WBC RBC Hgb Hct MCV MCH MCHC RDW Plt Count MPV Sodium Potassium Chloride Carbon Dioxide Anion Gap BUN Creatinine Estim Creat Clear Calc Estimated GFR Glucose POC Capillary Glucose 172 H 147 H 148 H Calcium Magnesium Vancomycin Trough 09/03/24 09/03/24 09/03/24 07:25 07:47 11:25 WBC 11.0 H RBC 4.46 Hgb 14.2 Hct 46.0 MCV 103.1 H MCH 31.8 MCHC 30.9 L RDW 15.0 H Plt Count 364 MPV 10.7 H Sodium 149 H Potassium 3.8 Chloride 111 H Carbon Dioxide 29 Anion Gap 9 BUN 30 H Creatinine 1.16 H Estim Creat Clear Calc 46 Estimated GFR 46 L Glucose 167 H POC Capillary Glucose 128 H 243 H Calcium 9.3 Magnesium 2.2 Vancomycin Trough 18.5 Quality VTE Prophylaxis VTE prophylaxis: pharmacologic ordered
[2024-09-03] MEDS: levoFLOXacin 750 MG/D5W 150 ML 750 MG/150 ML BAG 100 MG IVPB (15:20)
[2024-09-03] MEDS: MELATONIN 5 MG TABLET PO (21:11)
[2024-09-04] VITALS (17 sets, daily range): BP systolic 139–156; BP diastolic 64–94; PULSE 85–128; RESP 18–20; TEMP 36.6–37.4; O2SAT 96–100
[2024-09-04] MEDS: VANCOMYCIN 1,500 MG/NS 500 ML 1,500 MG/500 ML BAG 250 MG IVPB ×2 (03:17→22:05)
[2024-09-04 04:25] LABS: Hematocrit 43.3 % (37.0-47.0); Hemoglobin 13.2 g/dL (12.0-15.0); Immature Granulocyte Percent A 1.8 % (0-0.5); Lymphocytes Absolute Auto 1.25 K/mm3 (0.9-3.2); Mean Corpuscular HGB Conc 30.5 g/dl (32-36); Mean Corpuscular Hemoglobin 31.4 pg (26-34); Mean Corpuscular Volume 103.1 fl (80-100); Nucleated Red Blood Cells Absolute Auto 0.000 K/mm3 (0.0-0.012); Nucleated Red Blood Cells Perc 0.0 % (0.0-0.2); Platelet Count Result 301 k/mm3 (150-375); Red Blood Count 4.20 M/mm3 (4.2-5.4); White Blood Count 10.6 K/mm3 (4.5-10.0)
[2024-09-04 04:38] LABS: Alanine Aminotransferase 20 U/L (6-35); Albumin Level 3.0 g/dL (3.5-5.1); Alkaline Phosphatase 71 U/L (38-126); Anion Gap 8 mmol/L (4-12); Aspartate Amino Transferase 30 U/L (14-36); Bilirubin,Total 0.2 mg/dL (0.2-1.3); Blood Urea Nitrogen 26 mg/dL (7-17); Calcium 9.0 mg/dL (8.4-10.2); Carbon Dioxide 26 mmol/L (22-30); Chloride 116 mmol/L (98-107); Estimated CRCL calculation 53 ml/min; Estimated Glomerular Filt Rate 56; Glucose 175 mg/dL (65-110); Magnesium 2.3 mg/dL (1.6-2.3); Potassium 3.7 mmol/L (3.4-5.0); Sodium 150 mmol/L (137-145); Total Protein 6.7 g/dL (6.3-8.2)
--- NOTE | 2024-09-04 06:41 | PM.PNCARD ---
Progress Note: A&P Assessment and Plan (1) Atrial fibrillation with RVR: Code(s): I48.91 - Unspecified atrial fibrillation Status: Acute (2) Hypertension: Qualifiers: Hypertension type: primary hypertension Qualified Code(s): I10 - Essential (primary) hypertension Code(s): I10 - Essential (primary) hypertension Status: Chronic Plan 69-year-old female with history of coronary artery disease status post PCI to proximal LCX in 2020 with 3.0 x 12 mm Medtronic resolute becca zotarolimus eluting stent, CHF, DVT, hyperlipidemia, hypertension, moderate pulmonary hypertension, MARITA intolerant of CPAP, paroxysmal AFib, and pulmonary embolism presents with altered mental status from [facility] via EMS. Noted to be in AFib with RVR for which Cardiology is consulted. -AFib with RVR in a patient with known paroxysmal AFib-rates down to the 90s to 100s from 140s -CAD status post PCI to proximal LCX in 2020 -Hypertension-better controlled -Hyperlipidemia -Elevated D-dimer with V/Q scan normal and low probability of PE Plan: -Per RN, patient chews all her medications. Long-acting Cardizem is not chewable. Will stop Cardizem as we cannot switch it to long-acting form -Increase metoprolol from 12.5 mg p.o. b.i.d. to 50 mg p.o. b.i.d. -Unsure why she is not on anticoagulation for AFib. Will discuss with her HCPOA -Continue aspirin 81 mg -Continue empagliflozin 10 mg daily -Continue Lasix 20 mg daily -TTE shows normal LV systolic function, mild MS and moderate . Repeat TTE in 6 months follow severity of valvular heart disease -Check and replace electrolytes to keep potassium greater than 4 and magnesium greater than 2 Subjective Date/time seen: 09/04/24 06:41 Interval history: Reason for encounter: AFib with RVR Relevant history: Patient is not communicating with me. No further subjective history could be obtained. Telemetry shows AFib with RVR. Review of Systems Review of Systems: Complete review of systems could not be performed due to patient being nonverbal Exam Narrative: General: Patient nonverbal, no acute distress Neck: Supple, no JVD Chest: Bilaterally clear to auscultation, no rales or rhonchi Cardiac: S1, S2 +, irregularly irregular rhythm, no murmurs or rubs Extremities: No pedal edema, no skin rash Neurologic: Patient nonverbal Objective Data Vital Signs Vital Signs: Vital Signs - 24 hr 09/03/24 07:10 09/03/24 07:18 09/03/24 07:59 Temperature 37.3 C Pulse Rate 91 91 120 H Respiratory Rate 20 Blood Pressure 151/92 H 124/93 H 124/93 H Pulse Oximetry 97 Oxygen Delivery 09/03/24 08:00 09/03/24 08:00 09/03/24 08:54 Temperature Pulse Rate 104 H 104 H 102 H Respiratory Rate Blood Pressure Pulse Oximetry Oxygen Delivery 09/03/24 10:00 09/03/24 10:00 09/03/24 10:00 Temperature 36.9 C Pulse Rate 87 98 98 Respiratory Rate 20 Blood Pressure 133/61 Pulse Oximetry 98 Oxygen Delivery 09/03/24 11:40 09/03/24 12:00 09/03/24 12:00 Temperature 37.2 C Pulse Rate 86 90 90 Respiratory Rate 21 H Blood Pressure 148/73 H Pulse Oximetry 94 Oxygen Delivery 09/03/24 12:41 09/03/24 14:00 09/03/24 15:58 Temperature 36.9 C Pulse Rate 110 H 90 101 H Respiratory Rate 20 Blood Pressure 141/73 H Pulse Oximetry 96 Oxygen Delivery 09/03/24 16:00 09/03/24 19:48 09/03/24 20:00 Temperature 36.6 C Pulse Rate 94 136 H 139 H Respiratory Rate 20 Blood Pressure 144/74 H Pulse Oximetry 100 Oxygen Delivery 09/03/24 21:04 09/03/24 21:12 09/03/24 22:00 Temperature Pulse Rate 132 H 126 H Respiratory Rate Blood Pressure Pulse Oximetry 99 Oxygen Delivery Room Air 09/03/24 23:52 09/04/24 00:00 09/04/24 02:00 Temperature 36.6 C Pulse Rate 96 86 85 Respiratory Rate 20 Blood Pressure 152/70 H Pulse Oximetry 96 Oxygen Delivery 09/04/24 03:44 09/04/24 04:00 09/04/24 06:00 Temperature 36.6 C Pulse Rate 86 86 114 H Respiratory Rate 20 Blood Pressure 139/67 Pulse Oximetry 97 Oxygen Delivery Intake/Output Intake/Output: Intake & Output 09/01/24 09/02/24 09/03/24/11/25 23:59 23:59 23:59 23:59 Intake Total 1704.1 1007.1 2475.0 650 Output Total 800 2000 700 Balance 1704.1 207.1 475.0 -50 Meds/Results Medications: Active Medications Generic Name Dose Route Start Last Admin Trade Name Freq PRN Reason Stop Dose Admin Albuterol 2 puff 09/02/24 09:43 Albuterol Sulfate (*Sp) Aerosol 1 Puff INHALATION Q4HRT PRN Shortness Of Breath Or Wheezing Allopurinol 300 mg 09/02/24 09:55 09/03/24 08:53 Allopurinol 300 Mg Tablet PO 300 mg DAILY ASAD Administration Allopurinol 50 mg 09/02/24 09:00 09/02/24 12:56 Allopurinol 50 Mg Tablet PO 50 mg Q48HR ASAD Administration Aspirin 81 mg 09/02/24 09:55 09/03/24 08:54 Aspirin 81 Mg Enteric Tablet PO 81 mg DAILY ASAD Administration Bisacodyl 10 mg 09/02/24 09:43 Bisacodyl 10 Mg Suppository RECTAL DAILY PRN Constipation Buspirone HCl 10 mg 09/02/24 09:55 09/03/24 17:26 Buspirone Hcl 10 Mg Tablet PO 10 mg TID ASAD Administration Calcium Carbonate 500 mg 09/02/24 09:55 09/03/24 17:26 Calcium Carbonate (Tums) 500 Mg (200 Mg Elemental) PO 500 mg BID ASAD Administration Colestipol HCl 1 gm 09/02/24 11:00 09/03/24 17:26 Colestipol Hcl 1 Gm Tablet PO 1 gm BID@1000,1800 ASAD Administration Cyanocobalamin 1,000 mcg 09/02/24 09:55 09/03/24 08:54 Cyanocobalamin 1,000 Mcg Tablet PO 1,000 mcg DAILY ASAD Administration Dextrose 12.5 gm 09/01/24 16:26 Dextrose 50% 25 Gm/50 Ml Syringe IV PUSH PRN PRN Hypoglycemia Protocol Dextrose 12.5 gm 09/02/24 14:58 Dextrose 50% 25 Gm/50 Ml Syringe IV PUSH PRN PRN Hypoglycemia Protocol Diltiazem HCl 60 mg 09/03/24 12:00 09/04/24 05:25 Diltiazem Hcl 60 Mg Tablet PO 60 mg Q6HR ASAD Administration Divalproex Sodium 500 mg 09/02/24 10:00 09/03/24 17:[address] 250 Mg Tabec PO 500 mg BID ASAD Administration Duloxetine HCl 20 mg 09/02/24 10:00 09/03/24 21:11 Duloxetine Hcl 20 Mg Capsule.Dr PO 20 mg Q12HR ASAD Administration Empagliflozin 25 mg 09/02/24 10:00 09/03/24 08:54 Empagliflozin 25 Mg Tablet PO 25 mg DAILY ASAD Administration Enoxaparin Sodium 90 mg 09/02/24 21:00 09/03/24 21:13 Enoxaparin 100 Mg/Ml Syringe SUB-Q 90 mg Q12HR ASAD Administration Ergocalciferol 1,250 mcg 09/05/24 09:00 Ergocalciferol (Vitamin D2) 1,250 Mcg (50,000 Units) Capsule PO Sa@0900 ASAD Famotidine 20 mg 09/02/24 10:00 09/03/24 21:12 Famotidine 20 Mg Tablet PO 20 mg Q12HR ASAD Administration Furosemide 80 mg 09/02/24 10:00 09/03/24 08:54 Furosemide 80 Mg Tablet PO 80 mg DAILY ASAD Administration Glucagon 1 mg 09/01/24 16:26 Glucagon For Inj 1 Mg Vial IM PRN PRN Hypoglycemia Protocol Glucagon 1 mg 09/02/24 14:58 Glucagon For Inj 1 Mg Vial IM PRN PRN Hypoglycemia Protocol Glucose 15 gm 09/01/24 16:26 Glucose Oral Gel 15 Gm Of Glucse In 37.5 Gm Tube PO PRN PRN Hypoglycemia Protocol Glucose 15 gm 09/02/24 14:58 Glucose Oral Gel 15 Gm Of Glucse In 37.5 Gm Tube PO PRN PRN Hypoglycemia Protocol Hydralazine HCl 10 mg 09/01/24 17:24 Hydralazine Hcl 20 Mg/Ml Vial IV PUSH Q8H PRN Blood Pressure - >180/90 Levofloxacin/Dextrose 750 mg in 150 mls @ 100 mls/hr 09/01/24 14:00 09/03/24 15:20 Levaquin 750 Mg/D5w 150 Ml IVPB 100 mls/hr Q24H ASAD Administration Dextrose 1,000 mls @ 100 mls/hr 09/01/24 16:26 Dextrose 5% 1,000 Ml IVPB PRN PRN Hypoglycemia Protocol Vancomycin HCl 1,500 mg in 500 mls @ 250 mls/hr 09/02/24 15:00 09/04/24 05:17 Vancomycin 1,500 Mg/Ns 500 Ml IVPB Infused Q18H ASAD Infusion Dextrose 1,000 mls @ 100 mls/hr 09/02/24 14:58 Dextrose 5% 1,000 Ml IVPB PRN PRN Hypoglycemia Protocol Insulin Aspart 4 - 8 units 09/03/24 08:00 09/03/24 17:26 Insulin Aspart (*Bkc) 100 Units/Ml SUB-Q Not Given TIDWM [facility] Protocol Insulin Glargine 16 units 09/02/24 10:00 09/03/24 08:55 Insulin Glargine (*Bkc) 100 Units/Ml SUB-Q 16 units QAM ASAD Administration Loperamide HCl 2 mg 09/02/24 09:43 Loperamide Hcl 2 Mg Capsule PO Q6H PRN Diarrhea Loratadine 10 mg 09/02/24 10:00 09/03/24 08:54 Loratadine 10 Mg Tablet PO 10 mg DAILY ASAD Administration Lorazepam 0.5 mg 09/02/24 10:00 09/03/24 17:26 Lorazepam (*Crx) 0.5 Mg Tablet PO 0.5 mg BID ASAD Administration Magnesium Citrate 296 ml 09/02/24 09:43 Magnesium Citrate 300 Ml Btl PO DAILY PRN Constipation Magnesium Hydroxide 30 ml 09/02/24 09:43 Magnesium Hydroxide Susp 30 Ml Udc PO HS PRN Constipation Melatonin 5 mg 09/02/24 21:00 09/03/24 21:11 Melatonin 5 Mg Tablet PO 5 mg HS ASAD Administration Metoprolol Tartrate 12.5 mg 09/02/24 10:00 09/03/24 21:12 Metoprolol Tartrate 12.5 Mg Tablet PO 12.5 mg Q12HR ASAD Administration Multivitamins/Minerals 1 tab 09/02/24 10:00 09/03/24 08:54 Multivitamins /C Lutein (Centrum Silver) Tablet *Bkc PO 1 tab DAILY ASAD Administration Mupirocin 1 applic 09/01/24 21:00 09/03/24 21:14 Mupirocin 2% Oint 22 Gm Tube EACH NARE 09/06/24 09:01 1 applic Q12HR ASAD Administration Nitroglycerin 0.4 mg 09/02/24 09:43 Nitroglycerin Sl 0.4 Mg Tablet SUBLINGUAL Q5MIN PRN Chest Pain Ondansetron HCl 8 mg 09/02/24 18:21 Ondansetron Hcl Odt 4 Mg Tablet PO 10/02/24 09:59 Q8H PRN Nausea And Vomiting Oxycodone HCl 5 mg 09/02/24 09:43 Oxycodone Hcl (*Crx) 5 Mg Tab Ir PO Q6H PRN Pain (Scale Score 4-6) Potassium Chloride 20 meq 09/02/24 10:00 09/03/24 08:54 Potassium Chloride 20 Meq Er Tablet PO 20 meq DAILY ASAD Administration Trazodone HCl 50 mg 09/02/24 21:00 09/03/24 21:11 Trazodone Hcl 50 Mg Tablet PO 50 mg HS ASAD Administration Radiology Results: ITS Impressions Head CT 09/01/24 09:39 Impression: No intracranial hemorrhage, mass, or acute infarct. Atrophy and chronic white matter changes, as above. Chest X-Ray 09/01/24 13:09 Impression: Possible medial left lower lobe pneumonia. Pulmonary Perfusion Imaging 09/01/24 15:26 IMPRESSION: 1. Normal study. Very low probability for pulmonary embolism. Labs Labs: Laboratory Results - last 24 hr 09/03/24 09/03/24 09/03/24 07: 07:47 11:25 WBC 11.0 H RBC 4.46 Hgb 14.2 Hct 46.0 MCV 103.1 H MCH 31.8 MCHC 30.9 L RDW 15.0 H Plt Count 364 MPV 10.7 H Immature Gran % (Auto) Neut % (Auto) Lymph % (Auto) Turner % (Auto) Eos % (Auto) Baso % (Auto) Lymph # (Auto) Turner # (Auto) Eos # (Auto) Baso # (Auto) Abs Immat Gran (auto) Absolute Neuts (auto) Absolute Nucleated RBC Nucleated RBC % Sodium 149 H Potassium 3.8 Chloride 111 H Carbon Dioxide 29 Anion Gap 9 BUN 30 H Creatinine 1.16 H Estim Creat Clear Calc 46 Estimated GFR 46 L Glucose 167 H POC Capillary Glucose 128 H 243 H Lactic Acid Calcium 9.3 Magnesium 2.2 Total Bilirubin AST ALT Alkaline Phosphatase Total Protein Albumin Vancomycin Trough 18.5 09/03/24 09/03/24 09/04/24 16:35 20:32 03:51 WBC 10.6 H RBC 4.20 Hgb 13.2 Hct 43.3 MCV 103.1 H MCH 31.4 MCHC 30.5 L RDW 15.1 H Plt Count 301 MPV 11.2 H Immature Gran % (Auto) 1.8 H Neut % (Auto) 72.6 Lymph % (Auto) 11.8 L Turner % (Auto) 13.1 H Eos % (Auto) 0.1 Baso % (Auto) 0.6 Lymph # (Auto) 1.25 Turner # (Auto) 1.4 H Eos # (Auto) 0.0 Baso # (Auto) 0.1 Abs Immat Gran (auto) 0.19 H Absolute Neuts (auto) 7.7 H Absolute Nucleated RBC 0.000 Nucleated RBC % 0.0 Sodium 150 H Potassium 3.7 Chloride 116 H Carbon Dioxide 26 Anion Gap 8 BUN 26 H Creatinine 0.99 Estim Creat Clear Calc 53 Estimated GFR 56 L Glucose 175 H POC Capillary Glucose 191 H 274 H Lactic Acid 2.1 H Calcium 9.0 Magnesium 2.3 Total Bilirubin 0.2 AST 30 ALT 20 Alkaline Phosphatase 71 Total Protein 6.7 Albumin 3.0 L Vancomycin Trough
[2024-09-04] MEDS: DIVALPROEX SODIUM DR 250 MG TABEC 500 MG PO (09:08)
[2024-09-04] MEDS: FUROSEMIDE 80 MG TABLET PO (09:09)
[2024-09-04] MEDS: LORazepam (*CRX) 0.5 MG TABLET PO (09:09)
[2024-09-04] MEDS: allopurinoL 50 MG TABLET PO (09:09)
[2024-09-04] MEDS: ASPIRIN 81 MG ENTERIC TABLET PO (09:09)
[2024-09-04] MEDS: CALCIUM CARBONATE (TUMS) 500 MG (200 MG ELEMENTAL) PO (09:09)
[2024-09-04] MEDS: LORATADINE 10 MG TABLET PO (09:09)
[2024-09-04] MEDS: FAMOTIDINE 20 MG TABLET PO ×2 (09:09→21:40)
[2024-09-04] MEDS: CYANOCOBALAMIN 1,000 MCG TABLET 1000 MCG PO (09:10)
[2024-09-04] MEDS: MULTIVITAMINS /C LUTEIN (CENTRUM SILVER) TABLET *BKC 1 TAB PO (09:10)
[2024-09-04] MEDS: POTASSIUM CHLORIDE 20 MEQ ER TABLET PO (09:10)
[2024-09-04] MEDS: MUPIROCIN 2% OINT 22 GM TUBE 1 APPLIC EACH NARE ×2 (09:10→21:42)
[2024-09-04] MEDS: EMPAGLIFLOZIN 25 MG TABLET PO (09:10)
[2024-09-04] MEDS: METOPROLOL TARTRATE 50 MG TAB PO ×2 (09:11→21:40)
[2024-09-04] MEDS: ENOXAPARIN 100 MG/ML SYRINGE 90 MG SUB-Q ×2 (09:31→21:40)
[2024-09-04] MEDS: INSULIN GLARGINE (*BKC) 100 UNITS/ML 16 UNITS SUB-Q (09:31)
[2024-09-04] MEDS: INSULIN ASPART (*BKC) 100 UNITS/ML SUB-Q (11:41)
[2024-09-04] MEDS: DEXTROSE 5% 1,000 ML 1,000 ML 100 ML IV CONT (13:01)
[2024-09-04] MEDS: levoFLOXacin 750 MG/D5W 150 ML 750 MG/150 ML BAG 100 MG IVPB (14:17)
--- NOTE | 2024-09-04 16:03 | PM.IMPN ---
Progress Note: A&P Assessment and Plan (1) AMS (altered mental status): Code(s): R41.82 - Altered mental status, unspecified Status: Acute Assessment and Plan: ?CVA, encephalopathy secondary to possible pneumonia, catatonia, non-convulsive status epilepticus CT head unremarkable UA unremarkable, Na 149 CXR showed possible left lower lobe pneumonia - Patient's brother who is her POA believes she may have been put on a new mental health medication, reviewed outside med rec. No new medications prescribed or dose adjustments, has been on same medications and doses for a minimum of 3 months. EEG, MRI brain b12 and folate, TSH wnl continue abx and start D5w Neurology following (2) Pneumonia: Qualifiers: Pneumonia type: due to unspecified organism Laterality: left Lung location: lower lobe of lung Qualified Code(s): J18.9 - Pneumonia, unspecified organism Code(s): J18.9 - Pneumonia, unspecified organism Status: Acute Assessment and Plan: - CXR showed possible medial left lower lobe pneumonia - MRSA PCR positive - check Viral PCR and sputum culture (if obtainable) - currently requiring 2L NC, wean as tolerated. Maintain O2 sat greater than 92%. 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 corrective in place. - correct regimen ordered - high dose Q6H - A1C 6.2% in 2023, update (5) Hypertension: Qualifiers: Hypertension type: primary hypertension Qualified Code(s): I10 - Essential (primary) hypertension Code(s): I10 - Essential (primary) hypertension Status: Chronic Assessment and Plan: - chronic, currently 161/83 - hold home medications, unable to tolerate PO due to AMS - hydralazine prn for BP greater than 180/90 - monitor Plan Hypernatremia Na 150 D5w and monitor Diet: NPO until mental status improved DVT Prophylaxis: Lovenox SQ IV fluids: IVF Code Status: full code Discuss goals of care with family Subjective Date/time seen: 09/04/24 16:03 Interval history: Patient obtunded at bedside Review of Systems Review of Systems: ROS unobtainable: Yes unobtainable due to mental status Exam Narrative: Patient is comfortable, NAD HEENT: eyes are clear and none icteric ABD: Obese Lower extremities: no edema SKIN: nonjaundiced Neuro: grossly intact. Confused Const: General: comfortable and no acute distress Other: , female, chronically ill-appearing, obese body habitus HENMT: Face/Nose/Sinus: Normal nares present Mouth: Yes dry mucous membranes Eyes: General: appearance normal, both eyes and all related structures Sclera: sclerae normal Pupils: Equal, round and reactive pupils present Other: unable to assess for gaze palsy, staring midline Resp: Effort & Inspection: normal respiratory effort Auscultation: clear to auscultation bilaterally Cardio: Rate: tachycardic Other: abnormal rhythm with frequent ectopy, no appreciable murmur. GI: Other: Abdomen soft, nondistended, nontender. Normoactive bowel sounds in all quadrants. Skin: General skin exam: normal color and no rashes or lesions noted Wounds: no wounds Neuro: Cranial nerves: Yes Equal, round and reactive pupils present Other: Very limited neuro exam. PERRLA - 3 mm bilaterally, will try to squeeze eyes shut during exam. Briefly attempted to regard. Unable to assess for gaze palsy, gaze does remain midline. DTR normal in all extremities. does not attempt to follow commands, unable to assess strength. No movement of extremities. Extrem: General: normal to inspection Psych: Other: flat affect Objective Data Vital Signs Vital Signs: Vital Signs - 24 hr 09/03/24 19:48 09/03/24 20:00 09/03/24 21:04 Temperature 97.8 F Pulse Rate 136 H 139 H Respiratory Rate 20 Blood Pressure 144/74 H Pulse Oximetry 100 99 Oxygen Delivery Room Air 09/03/24 21:12 09/03/24 22:00 09/03/24 23:52 Temperature 97.8 F Pulse Rate 132 H 126 H 96 Respiratory Rate 20 Blood Pressure 152/70 H Pulse Oximetry 96 Oxygen Delivery 09/04/24 00:00 09/04/24 02:00 09/04/24 03:44 Temperature 97.8 F Pulse Rate 86 85 86 Respiratory Rate 20 Blood Pressure 139/67 Pulse Oximetry 97 Oxygen Delivery 09/04/24 04:00 09/04/24 06:00 09/04/24 07:59 Temperature 98.6 F Pulse Rate 86 114 H 116 H Respiratory Rate 18 Blood Pressure 152/94 H Pulse Oximetry 100 Oxygen Delivery 09/04/24 09:11 09/04/24 11:29 Temperature 98.4 F Pulse Rate 116 H 87 Respiratory Rate 20 Blood Pressure 151/64 H Pulse Oximetry 98 Oxygen Delivery Intake/Output Intake/Output: Intake & Output 09/01/24 09/02/24 09/03/24 09/04/24 23:59 23:59 23:59 23:59 Intake Total 1704.1 1007.1 2625.0 890 Output Total 800 2000 2300 Balance 1704.1 207.1 625.0 -1410 Meds/Results Medications: Active Medications Generic Name Dose Route Start Last Admin Trade Name Freq PRN Reason Stop Dose Admin Albuterol 2 puff 09/02/24 09:43 Albuterol Sulfate (*Sp) Aerosol 1 Puff INHALATION Q4HRT PRN Shortness Of Breath Or Wheezing Allopurinol 300 mg 09/02/24 09:55 09/04/24 09:09 Allopurinol 300 Mg Tablet PO 300 mg DAILY ASAD Administration Allopurinol 50 mg 09/02/24 09:00 09/04/24 09:09 Allopurinol 50 Mg Tablet PO 50 mg Q48HR ASAD Administration Aspirin 81 mg 09/02/24 09:55 09/04/24 09:09 Aspirin 81 Mg Enteric Tablet PO 81 mg DAILY ASAD Administration Bisacodyl 10 mg 09/02/24 09:43 Bisacodyl 10 Mg Suppository RECTAL DAILY PRN Constipation Buspirone HCl 10 mg 09/02/24 09:55 09/04/24 12:46 Buspirone Hcl 10 Mg Tablet PO Not Given TID ASAD Calcium Carbonate 500 mg 09/02/24 09:55 09/04/24 09:09 Calcium Carbonate (Tums) 500 Mg (200 Mg Elemental) PO 500 mg BID ASAD Administration Colestipol HCl 1 gm 09/02/24 11:00 09/04/24 12:46 Colestipol Hcl 1 Gm Tablet PO Not Given BID@1000,1800 [facility] Cyanocobalamin 1,000 mcg 09/02/24 09:55 09/04/24 09:10 Cyanocobalamin 1,000 Mcg Tablet PO 1,000 mcg DAILY ASAD Administration Dextrose 12.5 gm 09/01/24 16:26 Dextrose 50% 25 Gm/50 Ml Syringe IV PUSH PRN PRN Hypoglycemia Protocol Dextrose 12.5 gm 09/02/24 14:58 Dextrose 50% 25 Gm/50 Ml Syringe IV PUSH PRN PRN Hypoglycemia Protocol Divalproex Sodium 500 mg 09/02/24 10:00 09/04/24 09:[address] 250 Mg Tabec PO 500 mg BID ASAD Administration Duloxetine HCl 20 mg 09/02/24 10:00 09/04/24 09:08 Duloxetine Hcl 20 Mg Capsule.Dr PO 20 mg Q12HR ASAD Administration Empagliflozin 25 mg 09/02/24 10:00 09/04/24 09:10 Empagliflozin 25 Mg Tablet PO 25 mg DAILY ASAD Administration Enoxaparin Sodium 90 mg 09/02/24 21:00 09/04/24 09:31 Enoxaparin 100 Mg/Ml Syringe SUB-Q 90 mg Q12HR ASAD Administration Ergocalciferol 1,250 mcg 09/05/24 09:00 Ergocalciferol (Vitamin D2) 1,250 Mcg (50,000 Units) Capsule PO Sa@0900 ASAD Famotidine 20 mg 09/02/24 10:00 09/04/24 09:09 Famotidine 20 Mg Tablet PO 20 mg Q12HR ASAD Administration Furosemide 80 mg 09/02/24 10:00 09/04/24 09:09 Furosemide 80 Mg Tablet PO 80 mg DAILY ASAD Administration Glucagon 1 mg 09/01/24 16:26 Glucagon For Inj 1 Mg Vial IM PRN PRN Hypoglycemia Protocol Glucagon 1 mg 09/02/24 14:58 Glucagon For Inj 1 Mg Vial IM PRN PRN Hypoglycemia Protocol Glucose 15 gm 09/01/24 16:26 Glucose Oral Gel 15 Gm Of Glucse In 37.5 Gm Tube PO PRN PRN Hypoglycemia Protocol Glucose 15 gm 09/02/24 14:58 Glucose Oral Gel 15 Gm Of Glucse In 37.5 Gm Tube PO PRN PRN Hypoglycemia Protocol Hydralazine HCl 10 mg 09/01/24 17:24 Hydralazine Hcl 20 Mg/Ml Vial IV PUSH Q8H PRN Blood Pressure - >180/90 Levofloxacin/Dextrose 750 mg in 150 mls @ 100 mls/hr 09/01/24 14:00 09/04/24 14:17 Levaquin 750 Mg/D5w 150 Ml IVPB 09/07/24 15:29 100 mls/hr Q24H ASAD Administration Dextrose 1,000 mls @ 100 mls/hr 09/01/24 16:26 Dextrose 5% 1,000 Ml IVPB PRN PRN Hypoglycemia Protocol Vancomycin HCl 1,500 mg in 500 mls @ 250 mls/hr 09/02/24 15:00 09/04/24 05:17 Vancomycin 1,500 Mg/Ns 500 Ml IVPB 09/07/24 23:59 Infused Q18H ASAD Infusion Dextrose 1,000 mls @ 100 mls/hr 09/02/24 14:58 Dextrose 5% 1,000 Ml IVPB PRN PRN Hypoglycemia Protocol Dextrose 1,000 mls @ 100 mls/hr 09/04/24 12:30 09/04/24 13:01 Dextrose 5% 1,000 Ml IV CONT 100 mls/hr .Q10H ASAD Administration Insulin Aspart 4 - 8 units 09/03/24 08:00 09/04/24 11:41 Insulin Aspart (*Bkc) 100 Units/Ml SUB-Q 4 units TIDWM ASAD Administration Protocol Insulin Glargine 16 units 09/02/24 10:00 09/04/24 09:31 Insulin Glargine (*Bkc) 100 Units/Ml SUB-Q 16 units QAM ASAD Administration Loperamide HCl 2 mg 09/02/24 09:43 Loperamide Hcl 2 Mg Capsule PO Q6H PRN Diarrhea Loratadine 10 mg 09/02/24 10:00 09/04/24 09:09 Loratadine 10 Mg Tablet PO 10 mg DAILY ASAD Administration Lorazepam 0.5 mg 09/02/24 10:00 09/04/24 09:09 Lorazepam (*Crx) 0.5 Mg Tablet PO 0.5 mg BID ASAD Administration Magnesium Citrate 296 ml 09/02/24 09:43 Magnesium Citrate 300 Ml Btl PO DAILY PRN Constipation Magnesium Hydroxide 30 ml 09/02/24 09:43 Magnesium Hydroxide Susp 30 Ml Udc PO HS PRN Constipation Melatonin 5 mg 09/02/24 21:00 09/03/24 21:11 Melatonin 5 Mg Tablet PO 5 mg HS ASAD Administration Metoprolol Tartrate 50 mg 09/04/24 09:00 09/04/24 09:11 Metoprolol Tartrate 50 Mg Tab PO 50 mg Q12HR ASAD Administration Multivitamins/Minerals 1 tab 09/02/24 10:00 09/04/24 09:10 Multivitamins /C Lutein (Centrum Silver) Tablet *Bkc PO 1 tab DAILY ASDA Administration Mupirocin 1 applic 09/01/24 21:00 09/04/24 09:10 Mupirocin 2% Oint 22 Gm Tube EACH NARE 09/06/24 09:01 1 applic Q12HR ASAD Administration Nitroglycerin 0.4 mg 09/02/24 09:43 Nitroglycerin Sl 0.4 Mg Tablet SUBLINGUAL Q5MIN PRN Chest Pain Ondansetron HCl 8 mg 09/02/24 18:21 Ondansetron Hcl Odt 4 Mg Tablet PO 10/02/24 09:59 Q8H PRN Nausea And Vomiting Oxycodone HCl 5 mg 09/02/24 09:43 Oxycodone Hcl (*Crx) 5 Mg Tab Ir PO Q6H PRN Pain (Scale Score 4-6) Potassium Chloride 20 meq 09/02/24 10:00 09/04/24 09:10 Potassium Chloride 20 Meq Er Tablet PO 20 meq DAILY ASAD Administration Trazodone HCl 50 mg 09/02/24 21:00 09/03/24 21:11 Trazodone Hcl 50 Mg Tablet PO 50 mg HS ASAD Administration Radiology Results: ITS Impressions Head CT 09/01/24 09:39 Impression: No intracranial hemorrhage, mass, or acute infarct. Atrophy and chronic white matter changes, as above. Chest X-Ray 09/01/24 13:09 Impression: Possible medial left lower lobe pneumonia. Pulmonary Perfusion Imaging 09/01/24 15:26 IMPRESSION: 1. Normal study. Very low probability for pulmonary embolism. Labs Labs: Laboratory Results - last 24 hr 09/03/24 09/03/24 09/04/24 16:35 20:32 03:51 WBC 10.6 H RBC 4.20 Hgb 13.2 Hct 43.3 MCV 103.1 H MCH 31.4 MCHC 30.5 L RDW 15.1 H Plt Count 301 MPV 11.2 H Immature Gran % (Auto) 1.8 H Neut % (Auto) 72.6 Lymph % (Auto) 11.8 L Placer % (Auto) 13.1 H Eos % (Auto) 0.1 Baso % (Auto) 0.6 Lymph # (Auto) 1.25 Placer # (Auto) 1.4 H Eos # (Auto) 0.0 Baso # (Auto) 0.1 Abs Immat Gran (auto) 0.19 H Absolute Neuts (auto) 7.7 H Absolute Nucleated RBC 0.000 Nucleated RBC % 0.0 Sodium 150 H Potassium 3.7 Chloride 116 H Carbon Dioxide 26 Anion Gap 8 BUN 26 H Creatinine 0.99 Estim Creat Clear Calc 53 Estimated GFR 56 L Glucose 175 H POC Capillary Glucose 191 H 274 H Lactic Acid 2.1 H Calcium 9.0 Magnesium 2.3 Total Bilirubin 0.2 AST 30 ALT 20 Alkaline Phosphatase 71 Total Protein 6.7 Albumin 3.0 L 09/04/24 09/04/24 09/04/24 06:54 07:17 11:31 WBC RBC Hgb Hct MCV MCH MCHC RDW Plt Count MPV Immature Gran % (Auto) Neut % (Auto) Lymph % (Auto) Placer % (Auto) Eos % (Auto) Baso % (Auto) Lymph # (Auto) Placer # (Auto) Eos # (Auto) Baso # (Auto) Abs Immat Gran (auto) Absolute Neuts (auto) Absolute Nucleated RBC Nucleated RBC % Sodium Potassium Chloride Carbon Dioxide Anion Gap BUN Creatinine Estim Creat Clear Calc Estimated GFR Glucose POC Capillary Glucose 155 H 223 H Lactic Acid 1.5 Calcium Magnesium Total Bilirubin AST ALT Alkaline Phosphatase Total Protein Albumin Quality VTE Prophylaxis VTE prophylaxis: pharmacologic ordered
[2024-09-04] MEDS: VALPROATE SODIUM INJ 250 MG in DEXTROSE 5% IN WATER 50 ML 52.5 MG IVPB (17:53)
[2024-09-05] VITALS (18 sets, daily range): BP systolic 101–157; BP diastolic 45–90; PULSE 107–127; RESP 14–18; TEMP 36.4–37.5; O2SAT 96–98
[2024-09-05] MEDS: VALPROATE SODIUM INJ 250 MG in DEXTROSE 5% IN WATER 50 ML 52.5 MG IVPB ×4 (00:24→18:32)
[2024-09-05 04:32] LABS: Hematocrit 40.7 % (37.0-47.0); Hemoglobin 12.5 g/dL (12.0-15.0); Immature Granulocyte Percent A 1.6 % (0-0.5); Lymphocytes Absolute Auto 1.49 K/mm3 (0.9-3.2); Mean Corpuscular HGB Conc 30.7 g/dl (32-36); Mean Corpuscular Hemoglobin 31.5 pg (26-34); Mean Corpuscular Volume 102.5 fl (80-100); Nucleated Red Blood Cells Absolute Auto 0.000 K/mm3 (0.0-0.012); Nucleated Red Blood Cells Perc 0.0 % (0.0-0.2); Platelet Count Result 238 k/mm3 (150-375); Red Blood Count 3.97 M/mm3 (4.2-5.4); White Blood Count 8.7 K/mm3 (4.5-10.0)
[2024-09-05] MEDS: DEXTROSE 5% 1,000 ML 1,000 ML 100 ML IV CONT (05:14)
[2024-09-05 05:20] LABS: Alanine Aminotransferase 19 U/L (6-35); Albumin Level 2.9 g/dL (3.5-5.1); Alkaline Phosphatase 70 U/L (38-126); Anion Gap 8 mmol/L (4-12); Aspartate Amino Transferase 24 U/L (14-36); Bilirubin,Total 0.3 mg/dL (0.2-1.3); Blood Urea Nitrogen 25 mg/dL (7-17); Calcium 8.9 mg/dL (8.4-10.2); Carbon Dioxide 29 mmol/L (22-30); Chloride 113 mmol/L (98-107); Estimated CRCL calculation 50 ml/min; Estimated Glomerular Filt Rate 53; Glucose 175 mg/dL (65-110); Magnesium 2.1 mg/dL (1.6-2.3); Potassium 3.3 mmol/L (3.4-5.0); Sodium 150 mmol/L (137-145); Total Protein 6.5 g/dL (6.3-8.2)
[2024-09-05] MEDS: METOPROLOL TARTRATE 50 MG TAB PO ×2 (09:44→20:35)
[2024-09-05] MEDS: ASPIRIN 81 MG ENTERIC TABLET PO (09:44)
[2024-09-05] MEDS: CYANOCOBALAMIN 1,000 MCG TABLET 1000 MCG PO (09:45)
[2024-09-05] MEDS: LORATADINE 10 MG TABLET PO (09:45)
[2024-09-05] MEDS: LORazepam (*CRX) 0.5 MG TABLET PO ×2 (09:45→16:39)
[2024-09-05] MEDS: MULTIVITAMINS /C LUTEIN (CENTRUM SILVER) TABLET *BKC 1 TAB PO (09:46)
[2024-09-05] MEDS: FAMOTIDINE 20 MG TABLET PO ×2 (09:46→20:36)
[2024-09-05] MEDS: POTASSIUM CHLORIDE 20 MEQ ER TABLET PO (09:46)
[2024-09-05] MEDS: EMPAGLIFLOZIN 25 MG TABLET PO (09:46)
[2024-09-05] MEDS: CALCIUM CARBONATE (TUMS) 500 MG (200 MG ELEMENTAL) PO (09:47)
[2024-09-05] MEDS: MUPIROCIN 2% OINT 22 GM TUBE 1 APPLIC EACH NARE ×2 (09:48→20:38)
[2024-09-05] MEDS: COLESTIPOL HCL 1 GM TABLET PO (09:49)
[2024-09-05] MEDS: ENOXAPARIN 100 MG/ML SYRINGE 90 MG SUB-Q ×2 (09:56→20:36)
[2024-09-05] MEDS: INSULIN GLARGINE (*BKC) 100 UNITS/ML 16 UNITS SUB-Q (09:56)
[2024-09-05] MEDS: ERGOCALCIFEROL (VITAMIN D2) 1,250 MCG (50,000 UNITS) CAPSULE 1250 MCG PO (09:56)
[2024-09-05] MEDS: INSULIN ASPART (*BKC) 100 UNITS/ML SUB-Q (12:00)
--- NOTE | 2024-09-05 12:35 | P.PNCA_ITS ---
Progress Note: A&P Assessment and Plan (1) Atrial fibrillation with RVR: Code(s): I48.91 - Unspecified atrial fibrillation Status: Acute Assessment and Plan: Continue metoprolol on aspirin. Give 5 mg IV metoprolol x1 Potassium is also low today at 3.3. Will give 40 mEq potassium p.o. x1 (2) Hypertension: Qualifiers: Hypertension type: primary hypertension Qualified Code(s): I10 - Essential (primary) hypertension Code(s): I10 - Essential (primary) hypertension Status: Chronic Assessment and Plan: Above goal. Metoprolol to be given Plan 69-year-old female with history of coronary artery disease status post PCI to proximal LCX in 2020 with 3.0 x 12 mm Medtronic resolute becca zotarolimus eluting stent, CHF, DVT, hyperlipidemia, hypertension, moderate pulmonary hypertension, MARITA intolerant of CPAP, paroxysmal AFib, and pulmonary embolism presents with altered mental status from [facility] via EMS. Noted to be in AFib with RVR for which Cardiology is consulted. -AFib with RVR in a patient with known paroxysmal AFib-rates down to the 90s to 100s from 140s -CAD status post PCI to proximal LCX in 2020 -Hypertension-better controlled -Hyperlipidemia -Elevated D-dimer with V/Q scan normal and low probability of PE Plan: -Per RN, patient chews all her medications. Long-acting Cardizem is not chewable. Will stop Cardizem as we cannot switch it to long-acting form --Unsure why she is not on anticoagulation for AFib. Will discuss with her HCPOA -Continue aspirin 81 mg -Continue empagliflozin 10 mg daily -Continue Lasix 20 mg daily -TTE shows normal LV systolic function, mild MS and moderate . Repeat TTE in 6 months follow severity of valvular heart disease -Check and replace electrolytes to keep potassium greater than 4 and magnesium greater than 2 Subjective Date/time seen: 09/05/24 12:35 Interval history: Reason for encounter: AFib with RVR Relevant history: Patient is not communicating with me. No further subjective history could be obtained. Telemetry shows AFib with RVR. Date of service 09/05/2024: Will open eyes but not communicate. Reportedly seeing though earlier today. No complaints of chest pain Review of Systems Review of Systems: All systems reviewed & are unremarkable except as noted in HPI and below Cardiovascular: Cardiovascular: Denies chest pain Respiratory: Respiratory: Denies hemoptysis Gastrointestinal: Gastrointestinal: Denies hematochezia Exam Const: General: comfortable and no acute distress HENMT: Face/Nose/Sinus: Normal nares present Eyes: Sclera: sclerae normal Neck: Neck: supple Resp: Auscultation: clear to auscultation bilaterally Cardio: Rhythm: abnormal rhythm irregularly irregular GI: Inspection: non-distended GI Palp: Yes Soft to palpation Skin: General skin exam: normal color Extrem: General: no edema Psych: Attitude: not belligerent Objective Data Vital Signs Vital Signs: Vital Signs - 24 hr 09/04/24 14:00 09/04/24 16:00 09/04/24 16:00 Temperature 37.4 C Pulse Rate 114 H 128 H 124 H Respiratory Rate 18 Blood Pressure 156/82 H Pulse Oximetry 96 Oxygen Delivery 09/04/24 18:00 09/04/24 20:00 09/04/24 20:00 Temperature 36.8 C Pulse Rate 118 H 128 H Respiratory Rate 18 Blood Pressure 145/76 H Pulse Oximetry 97 Oxygen Delivery Room Air 09/04/24 20:00 09/04/24 21:40 09/04/24 22:00 Temperature Pulse Rate 128 H 128 H 127 H Respiratory Rate Blood Pressure Pulse Oximetry Oxygen Delivery 09/05/24 00:00 09/05/24 00:00 09/05/24 00:00 Temperature 36.4 C L Pulse Rate 111 H 111 H Respiratory Rate 18 Blood Pressure 136/86 Pulse Oximetry 96 Oxygen Delivery Room Air 09/05/24 02:00 09/05/24 04:00 09/05/24 04:00 Temperature 36.4 C Pulse Rate 110 H 111 H Respiratory Rate 18 Blood Pressure 138/72 Pulse Oximetry 96 Oxygen Delivery Room Air 09/05/24 04:00 09/05/24 06:00 09/05/24 08:00 Temperature 36.7 C Pulse Rate 110 H 111 H 112 H Respiratory Rate 14 Blood Pressure 157/73 H Pulse Oximetry 96 Oxygen Delivery 09/05/24 08:00 09/05/24 08:00 09/05/24 09:44 Temperature Pulse Rate 113 H 127 H Respiratory Rate Blood Pressure Pulse Oximetry Oxygen Delivery Room Air 09/05/24 10:00 09/05/24 11:30 Temperature 37.5 C Pulse Rate 113 H 109 H Respiratory Rate 18 Blood Pressure 146/90 H Pulse Oximetry 97 Oxygen Delivery Intake/Output Intake/Output: Intake & Output 09/02/24 09/03/24 09/04/24 09/05/24 23:59 23:59 23:59 23:59 Intake Total 1007.1 2625.0 1942.5 605.0 Output Total 800 2000 2625 200 Balance 207.1 625.0 -682.5 405.0 Meds/Results Medications: Active Medications Generic Name Dose Route Start Last Admin Trade Name Freq PRN Reason Stop Dose Admin Albuterol 2 puff 09/02/24 09:43 Albuterol Sulfate (*Sp) Aerosol 1 Puff INHALATION Q4HRT PRN Shortness Of Breath Or Wheezing Allopurinol 300 mg 09/02/24 09:55 09/05/24 09:45 Allopurinol 300 Mg Tablet PO 300 mg DAILY ASAD Administration Allopurinol 50 mg 09/02/24 09:00 09/04/24 09:09 Allopurinol 50 Mg Tablet PO 50 mg Q48HR ASAD Administration Aspirin 81 mg 09/02/24 09:55 09/05/24 09:44 Aspirin 81 Mg Enteric Tablet PO 81 mg DAILY ASAD Administration Bisacodyl 10 mg 09/02/24 09:43 Bisacodyl 10 Mg Suppository RECTAL DAILY PRN Constipation Buspirone HCl 10 mg 09/02/24 09:55 09/05/24 09:46 Buspirone Hcl 10 Mg Tablet PO 10 mg TID ASAD Administration Calcium Carbonate 500 mg 09/02/24 09:55 09/05/24 09:47 Calcium Carbonate (Tums) 500 Mg (200 Mg Elemental) PO 500 mg BID ASAD Administration Colestipol HCl 1 gm 09/02/24 11:00 09/05/24 09:49 Colestipol Hcl 1 Gm Tablet PO 1 gm BID@1000,1800 ASAD Administration Cyanocobalamin 1,000 mcg 09/02/24 09:55 09/05/24 09:45 Cyanocobalamin 1,000 Mcg Tablet PO 1,000 mcg DAILY ASAD Administration Dextrose 12.5 gm 09/01/24 16:26 Dextrose 50% 25 Gm/50 Ml Syringe IV PUSH PRN PRN Hypoglycemia Protocol Dextrose 12.5 gm 09/02/24 14:58 Dextrose 50% 25 Gm/50 Ml Syringe IV PUSH PRN PRN Hypoglycemia Protocol Divalproex Sodium 500 mg 09/02/24 10:00 09/04/24 17:[address] 250 Mg Tabec PO Not Given BID ASAD Duloxetine HCl 20 mg 09/02/24 10:00 09/05/24 09:46 Duloxetine Hcl 20 Mg Capsule.Dr PO 20 mg Q12HR ASAD Administration Empagliflozin 25 mg 09/02/24 10:00 09/05/24 09:46 Empagliflozin 25 Mg Tablet PO 25 mg DAILY ASAD Administration Enoxaparin Sodium 90 mg 09/02/24 21:00 09/05/24 09:56 Enoxaparin 100 Mg/Ml Syringe SUB-Q 90 mg Q12HR ASAD Administration Ergocalciferol 1,250 mcg 09/05/24 09:00 09/05/24 09:56 Ergocalciferol (Vitamin D2) 1,250 Mcg (50,000 Units) Capsule PO 1,250 mcg Sa@0900 ASAD Administration Famotidine 20 mg 09/02/24 10:00 09/05/24 09:46 Famotidine 20 Mg Tablet PO 20 mg Q12HR ASAD Administration Furosemide 80 mg 09/02/24 10:00 09/04/24 09:09 Furosemide 80 Mg Tablet PO 80 mg DAILY ASAD Administration Glucagon 1 mg 09/01/24 16:26 Glucagon For Inj 1 Mg Vial IM PRN PRN Hypoglycemia Protocol Glucagon 1 mg 09/02/24 14:58 Glucagon For Inj 1 Mg Vial IM PRN PRN Hypoglycemia Protocol Glucose 15 gm 09/01/24 16:26 Glucose Oral Gel 15 Gm Of Glucse In 37.5 Gm Tube PO PRN PRN Hypoglycemia Protocol Glucose 15 gm 09/02/24 14:58 Glucose Oral Gel 15 Gm Of Glucse In 37.5 Gm Tube PO PRN PRN Hypoglycemia Protocol Hydralazine HCl 10 mg 09/01/24 17:24 Hydralazine Hcl 20 Mg/Ml Vial IV PUSH Q8H PRN Blood Pressure - >180/90 Levofloxacin/Dextrose 750 mg in 150 mls @ 100 mls/hr 09/01/24 14:00 09/04/24 14:17 Levaquin 750 Mg/D5w 150 Ml IVPB 09/07/24 15:29 100 mls/hr Q24H ASAD Administration Dextrose 1,000 mls @ 100 mls/hr 09/01/24 16:26 Dextrose 5% 1,000 Ml IVPB PRN PRN Hypoglycemia Protocol Vancomycin HCl 1,500 mg in 500 mls @ 250 mls/hr 09/02/24 15:00 09/05/24 00:05 Vancomycin 1,500 Mg/Ns 500 Ml IVPB 09/07/24 23:59 Infused Q18H ASAD Infusion Dextrose 1,000 mls @ 100 mls/hr 09/02/24 14:58 Dextrose 5% 1,000 Ml IVPB PRN PRN Hypoglycemia Protocol Dextrose 1,000 mls @ 150 mls/hr 09/04/24 12:30 09/05/24 05:14 Dextrose 5% 1,000 Ml IV CONT 100 mls/hr .Q6H40M ASAD Administration Valproate Sodium 250 mg/ 52.5 mls @ 52.5 mls/hr 09/04/24 18:00 09/05/24 12:00 Dextrose IVPB 52.5 mls/hr Q6HR ASAD Administration Insulin Aspart 4 - 8 units 09/04/24 18:00 09/05/24 12:00 Insulin Aspart (*Bkc) 100 Units/Ml SUB-Q 4 units Q6H ASAD Administration Protocol Insulin Glargine 16 units 09/02/24 10:00 09/05/24 09:56 Insulin Glargine (*Bkc) 100 Units/Ml SUB-Q 16 units QAM ASAD Administration Loperamide HCl 2 mg 09/02/24 09:43 Loperamide Hcl 2 Mg Capsule PO Q6H PRN Diarrhea Loratadine 10 mg 09/02/24 10:00 09/05/24 09:45 Loratadine 10 Mg Tablet PO 10 mg DAILY ASAD Administration Lorazepam 0.5 mg 09/02/24 10:00 09/05/24 09:45 Lorazepam (*Crx) 0.5 Mg Tablet PO 0.5 mg BID ASAD Administration Magnesium Citrate 296 ml 09/02/24 09:43 Magnesium Citrate 300 Ml Btl PO DAILY PRN Constipation Magnesium Hydroxide 30 ml 09/02/24 09:43 Magnesium Hydroxide Susp 30 Ml Udc PO HS PRN Constipation Melatonin 5 mg 09/02/24 21:00 09/04/24 21:41 Melatonin 5 Mg Tablet PO Not Given HS ASAD Metoprolol Tartrate 50 mg 09/04/24 09:00 09/05/24 09:44 Metoprolol Tartrate 50 Mg Tab PO 50 mg Q12HR ASAD Administration Multivitamins/Minerals 1 tab 09/02/24 10:00 09/05/24 09:46 Multivitamins /C Lutein (Centrum Silver) Tablet *Bkc PO 1 tab DAILY ASAD Administration Mupirocin 1 applic 09/01/24 21:00 09/05/24 09:48 Mupirocin 2% Oint 22 Gm Tube EACH NARE 09/06/24 09:01 1 applic Q12HR ASAD Administration Nitroglycerin 0.4 mg 09/02/24 09:43 Nitroglycerin Sl 0.4 Mg Tablet SUBLINGUAL Q5MIN PRN Chest Pain Ondansetron HCl 8 mg 09/02/24 18:21 Ondansetron Hcl Odt 4 Mg Tablet PO 10/02/24 09:59 Q8H PRN Nausea And Vomiting Oxycodone HCl 5 mg 09/02/24 09:43 Oxycodone Hcl (*Crx) 5 Mg Tab Ir PO Q6H PRN Pain (Scale Score 4-6) Potassium Chloride 20 meq 09/02/24 10:00 09/05/24 09:46 Potassium Chloride 20 Meq Er Tablet PO 20 meq DAILY ON LICENSE OF [facility] Administration Trazodone HCl 50 mg 09/02/24 21:00 09/04/24 21:41 Trazodone Hcl 50 Mg Tablet PO Not Given HS ON LICENSE OF [facility] Radiology Results: ITS Impressions Chest X-Ray 09/01/24 13:09 Impression: Possible medial left lower lobe pneumonia. Pulmonary Perfusion Imaging 09/01/24 15:26 IMPRESSION: 1. Normal study. Very low probability for pulmonary embolism. Head CT 09/04/24 18:43 IMPRESSION: No acute intracranial findings. Labs Labs: Laboratory Results - last 24 hr 09/04/24 09/04/24 09/05/24 16:04 20:30 00:34 WBC RBC Hgb Hct MCV MCH MCHC RDW Plt Count MPV Immature Gran % (Auto) Neut % (Auto) Lymph % (Auto) Crawford % (Auto) Eos % (Auto) Baso % (Auto) Lymph # (Auto) Crawford # (Auto) Eos # (Auto) Baso # (Auto) Abs Immat Gran (auto) Absolute Neuts (auto) Absolute Nucleated RBC Nucleated RBC % Sodium Potassium Chloride Carbon Dioxide Anion Gap BUN Creatinine Estim Creat Clear Calc Estimated GFR Glucose POC Capillary Glucose 175 H 168 H 154 H Calcium Magnesium Total Bilirubin AST ALT Alkaline Phosphatase Total Protein Albumin 09/05/24 03:55 WBC 8.7 RBC 3.97 L Hgb 12.5 Hct 40.7 MCV 102.5 H MCH 31.5 MCHC 30.7 L RDW 14.9 H Plt Count 238 MPV 11.4 H Immature Gran % (Auto) 1.6 H Neut % (Auto) 66.9 Lymph % (Auto) 17.0 L Crawford % (Auto) 13.6 H Eos % (Auto) 0.2 Baso % (Auto) 0.7 Lymph # (Auto) 1.49 Crawford # (Auto) 1.2 H Eos # (Auto) 0.0 Baso # (Auto) 0.1 Abs Immat Gran (auto) 0.14 H Absolute Neuts (auto) 5.8 Absolute Nucleated RBC 0.000 Nucleated RBC % 0.0 Sodium 150 H Potassium 3.3 L Chloride 113 H Carbon Dioxide 29 Anion Gap 8 BUN 25 H Creatinine 1.03 H Estim Creat Clear Calc 50 Estimated GFR 53 L Glucose 175 H POC Capillary Glucose Calcium 8.9 Magnesium 2.1 Total Bilirubin 0.3 AST 24 ALT 19 Alkaline Phosphatase 70 Total Protein 6.5 Albumin 2.9 L
--- NOTE | 2024-09-05 12:54 | P.PNIM_ITS ---
Progress Note: A&P Assessment and Plan (1) AMS (altered mental status): Code(s): R41.82 - Altered mental status, unspecified Status: Acute Assessment and Plan: ?CVA, encephalopathy secondary to possible pneumonia, catatonia, non-convulsive status epilepticus CT head unremarkable UA unremarkable, Na 149 CXR showed possible left lower lobe pneumonia - Patient's brother who is her POA believes she may have been put on a new mental health medication, reviewed outside med rec. No new medications prescribed or dose adjustments, has been on same medications and doses for a minimum of 3 months. EEG, MRI brain b12 and folate, TSH wnl continue abx and start D5w Neurology following (2) Pneumonia: Qualifiers: Pneumonia type: due to unspecified organism Laterality: left Lung location: lower lobe of lung Qualified Code(s): J18.9 - Pneumonia, unspecified organism Code(s): J18.9 - Pneumonia, unspecified organism Status: Acute Assessment and Plan: - CXR showed possible medial left lower lobe pneumonia - MRSA PCR positive - check Viral PCR and sputum culture (if obtainable) - currently requiring 2L NC, wean as tolerated. Maintain O2 sat greater than 92%. Continue Levaquin and Vancomycin, x7 days (3) Paroxysmal atrial fibrillation: Code(s): I48.0 - Paroxysmal atrial fibrillation Status: Acute Assessment and Plan: - history of pAfib S/p Cardizem infusion, now on Metoprolol Cardiology will discuss AC with family ECHO normal Biventricular function cardiology pending (4) Type 2 diabetes mellitus with hyperglycemia, with long-term current use of insulin: Code(s): E11.65 - Type 2 diabetes mellitus with hyperglycemia; Z79.4 - director long term care (current) use of insulin Status: Chronic Assessment and Plan: - hypoglycemia protocol - POC blood glucose Q6H, currently NPO - hold home SQ medication as the patient is NPO to avoid hypoglycemia. corrective in place. - correct regimen ordered - high dose Q6H - A1C 6.2% in 2023, update (5) Hypertension: Qualifiers: Hypertension type: primary hypertension Qualified Code(s): I10 - Essential (primary) hypertension Code(s): I10 - Essential (primary) hypertension Status: Chronic Assessment and Plan: - chronic, currently 161/83 - hold home medications, unable to tolerate PO due to AMS - hydralazine prn for BP greater than 180/90 - monitor Plan Hypernatremia Na 150 D5w and monitor Diet: NPO until mental status improved DVT Prophylaxis: Lovenox SQ IV fluids: IVF Code Status: full code Discuss goals of care with family Subjective Date/time seen: 09/05/24 12:54 Interval history: Comfortable at bedside now on 15 liters oxygen Pulmonology following Review of Systems Review of Systems: ROS unobtainable: Yes unobtainable due to mental status Exam Narrative: Patient is comfortable, NAD HEENT: eyes are clear and none icteric ABD: Obese Lower extremities: no edema SKIN: nonjaundiced Neuro: grossly intact. Confused Const: General: comfortable and no acute distress Other: , female, chronically ill-appearing, obese body habitus HENMT: Face/Nose/Sinus: Normal nares present Mouth: Yes dry mucous membranes Eyes: General: appearance normal, both eyes and all related structures Sclera: sclerae normal Pupils: Equal, round and reactive pupils present Other: unable to assess for gaze palsy, staring midline Resp: Effort & Inspection: normal respiratory effort Auscultation: clear to auscultation bilaterally Cardio: Rate: tachycardic Other: abnormal rhythm with frequent ectopy, no appreciable murmur. GI: Other: Abdomen soft, nondistended, nontender. Normoactive bowel sounds in all quadrants. Skin: General skin exam: normal color and no rashes or lesions noted Wounds: no wounds Neuro: Cranial nerves: Yes Equal, round and reactive pupils present Other: Very limited neuro exam. PERRLA - 3 mm bilaterally, will try to squeeze eyes shut during exam. Briefly attempted to regard. Unable to assess for gaze palsy, gaze does remain midline. DTR normal in all extremities. does not attempt to follow commands, unable to assess strength. No movement of extremities. Extrem: General: normal to inspection Psych: Other: flat affect Objective Data Vital Signs Vital Signs: Vital Signs - 24 hr 09/04/24 14:00 09/04/24 16:00 09/04/24 16:00 Temperature 99.4 F Pulse Rate 114 H 128 H 124 H Respiratory Rate 18 Blood Pressure 156/82 H Pulse Oximetry 96 Oxygen Delivery 09/04/24 18:00 09/04/24 20:00 09/04/24 20:00 Temperature 98.2 F Pulse Rate 118 H 128 H Respiratory Rate 18 Blood Pressure 145/76 H Pulse Oximetry 97 Oxygen Delivery Room Air 09/04/24 20:00 09/04/24 21:40 09/04/24 22:00 Temperature Pulse Rate 128 H 128 H 127 H Respiratory Rate Blood Pressure Pulse Oximetry Oxygen Delivery 09/05/24 00:00 09/05/24 00:00 09/05/24 00:00 Temperature 97.5 F L Pulse Rate 111 H 111 H Respiratory Rate 18 Blood Pressure 136/86 Pulse Oximetry 96 Oxygen Delivery Room Air 09/05/24 02:00 09/05/24 04:00 09/05/24 04:00 Temperature 97.6 F Pulse Rate 110 H 111 H Respiratory Rate 18 Blood Pressure 138/72 Pulse Oximetry 96 Oxygen Delivery Room Air 09/05/24 04:00 09/05/24 06:00 09/05/24 08:00 Temperature 98.1 F Pulse Rate 110 H 111 H 112 H Respiratory Rate 14 Blood Pressure 157/73 H Pulse Oximetry 96 Oxygen Delivery 09/05/24 08:00 09/05/24 08:00 09/05/24 09:44 Temperature Pulse Rate 113 H 127 H Respiratory Rate Blood Pressure Pulse Oximetry Oxygen Delivery Room Air 09/05/24 10:00 09/05/24 11:30 Temperature 99.5 F Pulse Rate 113 H 109 H Respiratory Rate 18 Blood Pressure 146/90 H Pulse Oximetry 97 Oxygen Delivery Intake/Output Intake/Output: Intake & Output 09/02/24 09/03/24 09/04/24 09/05/24 23:59 23:59 23:59 23:59 Intake Total 1007.1 2625.0 1942.5 605.0 Output Total 800 2000 2625 200 Balance 207.1 625.0 -682.5 405.0 Meds/Results Medications: Active Medications Generic Name Dose Route Start Last Admin Trade Name Freq PRN Reason Stop Dose Admin Albuterol 2 puff 09/02/24 09:43 Albuterol Sulfate (*Sp) Aerosol 1 Puff INHALATION Q4HRT PRN Shortness Of Breath Or Wheezing Allopurinol 300 mg 09/02/24 09:55 09/05/24 09:45 Allopurinol 300 Mg Tablet PO 300 mg DAILY ASAD Administration Allopurinol 50 mg 09/02/24 09:00 09/04/24 09:09 Allopurinol 50 Mg Tablet PO 50 mg Q48HR ASAD Administration Aspirin 81 mg 09/02/24 09:55 09/05/24 09:44 Aspirin 81 Mg Enteric Tablet PO 81 mg DAILY ASAD Administration Bisacodyl 10 mg 09/02/24 09:43 Bisacodyl 10 Mg Suppository RECTAL DAILY PRN Constipation Buspirone HCl 10 mg 09/02/24 09:55 09/05/24 09:46 Buspirone Hcl 10 Mg Tablet PO 10 mg TID ASAD Administration Calcium Carbonate 500 mg 09/02/24 09:55 09/05/24 09:47 Calcium Carbonate (Tums) 500 Mg (200 Mg Elemental) PO 500 mg BID ASAD Administration Colestipol HCl 1 gm 09/02/24 11:00 09/05/24 09:49 Colestipol Hcl 1 Gm Tablet PO 1 gm BID@1000,1800 ASAD Administration Cyanocobalamin 1,000 mcg 09/02/24 09:55 09/05/24 09:45 Cyanocobalamin 1,000 Mcg Tablet PO 1,000 mcg DAILY ASAD Administration Dextrose 12.5 gm 09/01/24 16:26 Dextrose 50% 25 Gm/50 Ml Syringe IV PUSH PRN PRN Hypoglycemia Protocol Dextrose 12.5 gm 09/02/24 14:58 Dextrose 50% 25 Gm/50 Ml Syringe IV PUSH PRN PRN Hypoglycemia Protocol Divalproex Sodium 500 mg 09/02/24 10:00 09/04/24 17:[address] 250 Mg Tabec PO Not Given BID [facility] Duloxetine HCl 20 mg 09/02/24 10:00 09/05/24 09:46 Duloxetine Hcl 20 Mg Capsule.Dr PO 20 mg Q12HR ASAD Administration Empagliflozin 25 mg 09/02/24 10:00 09/05/24 09:46 Empagliflozin 25 Mg Tablet PO 25 mg DAILY ASAD Administration Enoxaparin Sodium 90 mg 09/02/24 21:00 09/05/24 09:56 Enoxaparin 100 Mg/Ml Syringe SUB-Q 90 mg Q12HR ASAD Administration Ergocalciferol 1,250 mcg 09/05/24 09:00 09/05/24 09:56 Ergocalciferol (Vitamin D2) 1,250 Mcg (50,000 Units) Capsule PO 1,250 mcg Sa@0900 ASAD Administration Famotidine 20 mg 09/02/24 10:00 09/05/24 09:46 Famotidine 20 Mg Tablet PO 20 mg Q12HR ASAD Administration Furosemide 80 mg 09/02/24 10:00 09/04/24 09:09 Furosemide 80 Mg Tablet PO 80 mg DAILY ASAD Administration Glucagon 1 mg 09/01/24 16:26 Glucagon For Inj 1 Mg Vial IM PRN PRN Hypoglycemia Protocol Glucagon 1 mg 09/02/24 14:58 Glucagon For Inj 1 Mg Vial IM PRN PRN Hypoglycemia Protocol Glucose 15 gm 09/01/24 16:26 Glucose Oral Gel 15 Gm Of Glucse In 37.5 Gm Tube PO PRN PRN Hypoglycemia Protocol Glucose 15 gm 09/02/24 14:58 Glucose Oral Gel 15 Gm Of Glucse In 37.5 Gm Tube PO PRN PRN Hypoglycemia Protocol Hydralazine HCl 10 mg 09/01/24 17:24 Hydralazine Hcl 20 Mg/Ml Vial IV PUSH Q8H PRN Blood Pressure - >180/90 Levofloxacin/Dextrose 750 mg in 150 mls @ 100 mls/hr 09/01/24 14:00 09/04/24 14:17 Levaquin 750 Mg/D5w 150 Ml IVPB 09/07/24 15:29 100 mls/hr Q24H ASAD Administration Dextrose 1,000 mls @ 100 mls/hr 09/01/24 16:26 Dextrose 5% 1,000 Ml IVPB PRN PRN Hypoglycemia Protocol Vancomycin HCl 1,500 mg in 500 mls @ 250 mls/hr 09/02/24 15:00 09/05/24 00:05 Vancomycin 1,500 Mg/Ns 500 Ml IVPB 09/07/24 23:59 Infused Q18H ASAD Infusion Dextrose 1,000 mls @ 100 mls/hr 09/02/24 14:58 Dextrose 5% 1,000 Ml IVPB PRN PRN Hypoglycemia Protocol Dextrose 1,000 mls @ 150 mls/hr 09/04/24 12:30 09/05/24 05:14 Dextrose 5% 1,000 Ml IV CONT 100 mls/hr .Q6H40M ASAD Administration Valproate Sodium 250 mg/ 52.5 mls @ 52.5 mls/hr 09/04/24 18:00 09/05/24 12:00 Dextrose IVPB 52.5 mls/hr Q6HR ASAD Administration Insulin Aspart 4 - 8 units 09/04/24 18:00 09/05/24 12:00 Insulin Aspart (*Bkc) 100 Units/Ml SUB-Q 4 units Q6H ASAD Administration Protocol Insulin Glargine 16 units 09/02/24 10:00 09/05/24 09:56 Insulin Glargine (*Bkc) 100 Units/Ml SUB-Q 16 units QAM ASAD Administration Loperamide HCl 2 mg 09/02/24 09:43 Loperamide Hcl 2 Mg Capsule PO Q6H PRN Diarrhea Loratadine 10 mg 09/02/24 10:00 09/05/24 09:45 Loratadine 10 Mg Tablet PO 10 mg DAILY ASAD Administration Lorazepam 0.5 mg 09/02/24 10:00 09/05/24 09:45 Lorazepam (*Crx) 0.5 Mg Tablet PO 0.5 mg BID ASAD Administration Magnesium Citrate 296 ml 09/02/24 09:43 Magnesium Citrate 300 Ml Btl PO DAILY PRN Constipation Magnesium Hydroxide 30 ml 09/02/24 09:43 Magnesium Hydroxide Susp 30 Ml Udc PO HS PRN Constipation Melatonin 5 mg 09/02/24 21:00 09/04/24 21:41 Melatonin 5 Mg Tablet PO Not Given HS ASAD Metoprolol Tartrate 50 mg 09/04/24 09:00 09/05/24 09:44 Metoprolol Tartrate 50 Mg Tab PO 50 mg Q12HR ASAD Administration Multivitamins/Minerals 1 tab 09/02/24 10:00 09/05/24 09:46 Multivitamins /C Lutein (Centrum Silver) Tablet *Bkc PO 1 tab DAILY AASD Administration Mupirocin 1 applic 09/01/24 21:00 09/05/24 09:48 Mupirocin 2% Oint 22 Gm Tube EACH NARE 09/06/24 09:01 1 applic Q12HR ASAD Administration Nitroglycerin 0.4 mg 09/02/24 09:43 Nitroglycerin Sl 0.4 Mg Tablet SUBLINGUAL Q5MIN PRN Chest Pain Ondansetron HCl 8 mg 09/02/24 18:21 Ondansetron Hcl Odt 4 Mg Tablet PO 10/02/24 09:59 Q8H PRN Nausea And Vomiting Oxycodone HCl 5 mg 09/02/24 09:43 Oxycodone Hcl (*Crx) 5 Mg Tab Ir PO Q6H PRN Pain (Scale Score 4-6) Potassium Chloride 20 meq 09/02/24 10:00 09/05/24 09:46 Potassium Chloride 20 Meq Er Tablet PO 20 meq DAILY ASAD Administration Trazodone HCl 50 mg 09/02/24 21:00 09/04/24 21:41 Trazodone Hcl 50 Mg Tablet PO Not Given HS [facility] Radiology Results: ITS Impressions Chest X-Ray 09/01/24 13:09 Impression: Possible medial left lower lobe pneumonia. Pulmonary Perfusion Imaging 09/01/24 15:26 IMPRESSION: 1. Normal study. Very low probability for pulmonary embolism. Head CT 09/04/24 18:43 IMPRESSION: No acute intracranial findings. Labs Labs: Laboratory Results - last 24 hr 09/04/24 09/04/24 09/05/24 16:04 20:30 00:34 WBC RBC Hgb Hct MCV MCH MCHC RDW Plt Count MPV Immature Gran % (Auto) Neut % (Auto) Lymph % (Auto) Mower % (Auto) Eos % (Auto) Baso % (Auto) Lymph # (Auto) Mower # (Auto) Eos # (Auto) Baso # (Auto) Abs Immat Gran (auto) Absolute Neuts (auto) Absolute Nucleated RBC Nucleated RBC % Sodium Potassium Chloride Carbon Dioxide Anion Gap BUN Creatinine Estim Creat Clear Calc Estimated GFR Glucose POC Capillary Glucose 175 H 168 H 154 H Calcium Magnesium Total Bilirubin AST ALT Alkaline Phosphatase Total Protein Albumin 09/05/24 09/05/24 03:55 11:30 WBC 8.7 RBC 3.97 L Hgb 12.5 Hct 40.7 MCV 102.5 H MCH 31.5 MCHC 30.7 L RDW 14.9 H Plt Count 238 MPV 11.4 H Immature Gran % (Auto) 1.6 H Neut % (Auto) 66.9 Lymph % (Auto) 17.0 L Mower % (Auto) 13.6 H Eos % (Auto) 0.2 Baso % (Auto) 0.7 Lymph # (Auto) 1.49 Mower # (Auto) 1.2 H Eos # (Auto) 0.0 Baso # (Auto) 0.1 Abs Immat Gran (auto) 0.14 H Absolute Neuts (auto) 5.8 Absolute Nucleated RBC 0.000 Nucleated RBC % 0.0 Sodium 150 H Potassium 3.3 L Chloride 113 H Carbon Dioxide 29 Anion Gap 8 BUN 25 H Creatinine 1.03 H Estim Creat Clear Calc 50 Estimated GFR 53 L Glucose 175 H POC Capillary Glucose 245 H Calcium 8.9 Magnesium 2.1 Total Bilirubin 0.3 AST 24 ALT 19 Alkaline Phosphatase 70 Total Protein 6.5 Albumin 2.9 L Quality VTE Prophylaxis VTE prophylaxis: pharmacologic ordered
[2024-09-05] MEDS: levoFLOXacin 750 MG/D5W 150 ML 750 MG/150 ML BAG 100 MG IVPB (14:08)
[2024-09-05] MEDS: POTASSIUM CHLORIDE 20 MEQ ER TABLET 40 MEQ PO (14:08)
[2024-09-05] MEDS: METOPROLOL TARTRATE INJ 5 MG/5 ML VIAL IV PUSH (14:08)
--- NOTE | 2024-09-05 14:47 | WPDNEUROLOGY ---
Neurology EEG Report General Information Date of Study: 09/04/24 TEST electroencephalogram DIAGNOSIS altered mental status CONDITION OF RECORDING bedside recording EEG NUMBER [id number] CLINICAL HISTORY the patient has been noted to have fluctuTing mental status. The time the recording the patient was noted to be asleep and difficult to wake up. He did not respond to squeezing the finger or toes or with sternal rub. He did withdraw the left hand but did not open eyes EEG DESCRIPTION The background activity consists of predominantly theta activity intermixed with delta activity. There is some asymmetry of slow waves were seen over both hemispheres. Times focal slowing was seen independently over both left and right hemisphere. In addition occasional sharp transients also seen over both temporal areas hyperventilation or photic stimulation were not performed. Occasionally high amplitude waveforms with intervening relatively low attenuation background activity over both hemispheres was also noted. However a clear burst suppression pattern was not seen. IMPRESSION This is an abnormal EEG due to following 6 1. Diffuse background slowing suggestive of generalized encephalopathy. 2. Focal slow waves and sharp transients are noted independently over both temporal areas. Focal slowing may raise possibility of underlying structural lesion. Sharp transients are considered nonspecific focal interictal abnormality. Hence clinical and radiographic correlation are recommended.
[2024-09-05] MEDS: VANCOMYCIN 1,500 MG/NS 500 ML 1,500 MG/500 ML BAG 250 MG IVPB (16:38)
[2024-09-05] MEDS: DEXTROSE 5% 1,000 ML 1,000 ML 150 ML IV CONT (16:38)
--- NOTE | 2024-09-05 16:42 | P.PNNEUR_ITS ---
Progress Note: A&P Assessment and Plan (1) Metabolic encephalopathy: Code(s): G93.41 - Metabolic encephalopathy Status: Acute (2) Dementia: Qualifiers: Dementia type: unspecified type Dementia behavioral disturbance: without behavioral disturbance Qualified Code(s): F03.90 - Unspecified dementia without behavioral disturbance Code(s): F03.90 - Unspecified dementia, unspecified severity, without behavioral disturbance, psychotic disturbance, mood disturbance, and anxiety Status: Acute (3) Paroxysmal atrial fibrillation: Code(s): I48.0 - Paroxysmal atrial fibrillation Status: Acute (4) Type 2 diabetes mellitus with hyperglycemia, with long-term current use of insulin: Code(s): E11.65 - Type 2 diabetes mellitus with hyperglycemia; Z79.4 - MCC (current) use of insulin Status: Chronic (5) Pneumonia: Qualifiers: Laterality: left Lung location: lower lobe of lung Pneumonia type: due to unspecified organism Qualified Code(s): J18.9 - Pneumonia, unspecified organism Code(s): J18.9 - Pneumonia, unspecified organism Status: Acute (6) Obstructive sleep apnea: Code(s): G47.33 - Obstructive sleep apnea (adult) (pediatric) Status: Acute Time Spent With Patient Time: I reviewed the CT scan of brain which did not show any acute findings. EEG shows diffuse background slowing. In addition focal slow with the and sharp wave transients were noted over both temporal areas frequently during the recording. We did not see any electrographic seizures but certainly the possibility of seizure does come to mind as a concurrent problem. The patient is already on Depakote 500 mg twice a day. The patient has not had any observed seizures. And hence I would suggest to continue with the same medication for now. If there is any suspicion of any seizure-like activity I would suggest to switch her to Keppra or increase the dose or Depakote to 750 mg twice a day. I shall be glad to follow up. Subjective Date/time seen: 09/05/24 16:42 Interval history: The patient is 69 years old white female history of atrial fibrillation the hospital the heart rate of 140. She also history of diabetes mellitus and obstructive sleep apnea syndrome and congestive cardiac failure. CT scan of brain was performed twice which did not show any abnormality. It was noted the patient was transferred [facility] to the hospital on 09/01/2024 and was seen by Dr. Barry on 09/02/2024 for evaluation altered mental status. An EEG was recommended which shows bilateral slow sharp transients over temporal area in addition to diffuse background slowing. Patient unable to cooperate for MRI of the brain. Chest x-ray shows a left lower lobe pneumonia. Patient's brother is his power of insurance attorney. Serum B12 folic acid level were normal. Review of Systems Review of Systems: ROS unobtainable: Yes unobtainable due to medical condition Exam Narrative: Patient is awake but does not communicate. Her eyes remained open but she does not make any eye contact. No cogwheeling or involuntary movements are seen. She is able to respond to the general stimulation of the upper lower limbs. No spasticity. Objective Data Vital Signs Vital Signs: Vital Signs - 24 hr 09/04/24 18:00 09/04/24 20:00 09/04/24 20:00 Temperature 98.2 F Pulse Rate 118 H 128 H Respiratory Rate 18 Blood Pressure 145/76 H Pulse Oximetry 97 Oxygen Delivery Room Air 09/04/24 20:00 09/04/24 21:40 09/04/24 22:00 Temperature Pulse Rate 128 H 128 H 127 H Respiratory Rate Blood Pressure Pulse Oximetry Oxygen Delivery 09/05/24 00:00 09/05/24 00:00 09/05/24 00:00 Temperature 97.5 F L Pulse Rate 111 H 111 H Respiratory Rate 18 Blood Pressure 136/86 Pulse Oximetry 96 Oxygen Delivery Room Air 09/05/24 02:00 09/05/24 04:00 09/05/24 04:00 Temperature 97.6 F Pulse Rate 110 H 111 H Respiratory Rate 18 Blood Pressure 138/72 Pulse Oximetry 96 Oxygen Delivery Room Air 09/05/24 04:00 09/05/24 06:00 09/05/24 08:00 Temperature 98.1 F Pulse Rate 110 H 111 H 112 H Respiratory Rate 14 Blood Pressure 157/73 H Pulse Oximetry 96 Oxygen Delivery 09/05/24 08:00 09/05/24 08:00 09/05/24 09:44 Temperature Pulse Rate 113 H 127 H Respiratory Rate Blood Pressure Pulse Oximetry Oxygen Delivery Room Air 09/05/24 10:00 09/05/24 11:30 09/05/24 14:08 Temperature 99.5 F Pulse Rate 113 H 109 H 109 H Respiratory Rate 18 Blood Pressure 146/90 H Pulse Oximetry 97 Oxygen Delivery Intake/Output Intake/Output: Intake & Output 09/02/24 09/03/24 09/04/24 09/05/24 23:59 23:59 23:59 23:59 Intake Total 1007.1 2625.0 2092.5 1657.5 Output Total 800 2000 2625 200 Balance 207.1 625.0 -532.5 1457.5 Meds/Results Medications: Active Medications Generic Name Dose Route Start Last Admin Trade Name Freq PRN Reason Stop Dose Admin Albuterol 2 puff 09/02/24 09:43 Albuterol Sulfate (*Sp) Aerosol 1 Puff INHALATION Q4HRT PRN Shortness Of Breath Or Wheezing Allopurinol 300 mg 09/02/24 09:55 09/05/24 09:45 Allopurinol 300 Mg Tablet PO 300 mg DAILY ASAD Administration Allopurinol 50 mg 09/02/24 09:00 09/04/24 09:09 Allopurinol 50 Mg Tablet PO 50 mg Q48HR ASAD Administration Aspirin 81 mg 09/02/24 09:55 09/05/24 09:44 Aspirin 81 Mg Enteric Tablet PO 81 mg DAILY ASAD Administration Bisacodyl 10 mg 09/02/24 09:43 Bisacodyl 10 Mg Suppository RECTAL DAILY PRN Constipation Buspirone HCl 10 mg 09/02/24 09:55 09/05/24 16:39 Buspirone Hcl 10 Mg Tablet PO 10 mg TID ASAD Administration Calcium Carbonate 500 mg 09/02/24 09:55 09/05/24 16:39 Calcium Carbonate (Tums) 500 Mg (200 Mg Elemental) PO Not Given BID ASAD Colestipol HCl 1 gm 09/02/24 11:00 09/05/24 09:49 Colestipol Hcl 1 Gm Tablet PO 1 gm BID@1000,1800 ASAD Administration Cyanocobalamin 1,000 mcg 09/02/24 09:55 09/05/24 09:45 Cyanocobalamin 1,000 Mcg Tablet PO 1,000 mcg DAILY ASAD Administration Dextrose 12.5 gm 09/01/24 16:26 Dextrose 50% 25 Gm/50 Ml Syringe IV PUSH PRN PRN Hypoglycemia Protocol Dextrose 12.5 gm 09/02/24 14:58 Dextrose 50% 25 Gm/50 Ml Syringe IV PUSH PRN PRN Hypoglycemia Protocol Divalproex Sodium 500 mg 09/02/24 10:00 09/04/24 17:[address] 250 Mg Tabec PO Not Given BID ASAD Duloxetine HCl 20 mg 09/02/24 10:00 09/05/24 09:46 Duloxetine Hcl 20 Mg Capsule.Dr PO 20 mg Q12HR ASAD Administration Empagliflozin 25 mg 09/02/24 10:00 09/05/24 09:46 Empagliflozin 25 Mg Tablet PO 25 mg DAILY ASAD Administration Enoxaparin Sodium 90 mg 09/02/24 21:00 09/05/24 09:56 Enoxaparin 100 Mg/Ml Syringe SUB-Q 90 mg Q12HR ASAD Administration Ergocalciferol 1,250 mcg 09/05/24 09:00 09/05/24 09:56 Ergocalciferol (Vitamin D2) 1,250 Mcg (50,000 Units) Capsule PO 1,250 mcg Sa@0900 ASAD Administration Famotidine 20 mg 09/02/24 10:00 09/05/24 09:46 Famotidine 20 Mg Tablet PO 20 mg Q12HR ASAD Administration Furosemide 20 mg 09/06/24 09:00 Furosemide 20 Mg Tablet PO DAILY ASAD Glucagon 1 mg 09/01/24 16:26 Glucagon For Inj 1 Mg Vial IM PRN PRN Hypoglycemia Protocol Glucagon 1 mg 09/02/24 14:58 Glucagon For Inj 1 Mg Vial IM PRN PRN Hypoglycemia Protocol Glucose 15 gm 09/01/24 16:26 Glucose Oral Gel 15 Gm Of Glucse In 37.5 Gm Tube PO PRN PRN Hypoglycemia Protocol Glucose 15 gm 09/02/24 14:58 Glucose Oral Gel 15 Gm Of Glucse In 37.5 Gm Tube PO PRN PRN Hypoglycemia Protocol Hydralazine HCl 10 mg 09/01/24 17:24 Hydralazine Hcl 20 Mg/Ml Vial IV PUSH Q8H PRN Blood Pressure - >180/90 Levofloxacin/Dextrose 750 mg in 150 mls @ 100 mls/hr 09/01/24 14:00 09/05/24 14:08 Levaquin 750 Mg/D5w 150 Ml IVPB 09/07/24 15:29 100 mls/hr Q24H ASAD Administration Dextrose 1,000 mls @ 100 mls/hr 09/01/24 16:26 Dextrose 5% 1,000 Ml IVPB PRN PRN Hypoglycemia Protocol Vancomycin HCl 1,500 mg in 500 mls @ 250 mls/hr 09/02/24 15:00 09/05/24 16:38 Vancomycin 1,500 Mg/Ns 500 Ml IVPB 09/07/24 23:59 250 mls/hr Q18H ASAD Administration Dextrose 1,000 mls @ 100 mls/hr 09/02/24 14:58 Dextrose 5% 1,000 Ml IVPB PRN PRN Hypoglycemia Protocol Dextrose 1,000 mls @ 150 mls/hr 09/04/24 12:30 09/05/24 16:38 Dextrose 5% 1,000 Ml IV CONT 150 mls/hr .Q6H40M ASAD Administration Valproate Sodium 250 mg/ 52.5 mls @ 52.5 mls/hr 09/04/24 18:00 09/05/24 13:00 Dextrose IVPB Infused Q6HR ASAD Infusion Insulin Aspart 4 - 8 units 09/04/24 18:00 09/05/24 12:00 Insulin Aspart (*Bkc) 100 Units/Ml SUB-Q 4 units Q6H ASAD Administration Protocol Insulin Glargine 16 units 09/02/24 10:00 09/05/24 09:56 Insulin Glargine (*Bkc) 100 Units/Ml SUB-Q 16 units QAM ASAD Administration Loperamide HCl 2 mg 09/02/24 09:43 Loperamide Hcl 2 Mg Capsule PO Q6H PRN Diarrhea Loratadine 10 mg 09/02/24 10:00 09/05/24 09:45 Loratadine 10 Mg Tablet PO 10 mg DAILY ASAD Administration Lorazepam 0.5 mg 09/02/24 10:00 09/05/24 16:39 Lorazepam (*Crx) 0.5 Mg Tablet PO 0.5 mg BID ASAD Administration Magnesium Citrate 296 ml 09/02/24 09:43 Magnesium Citrate 300 Ml Btl PO DAILY PRN Constipation Magnesium Hydroxide 30 ml 09/02/24 09:43 Magnesium Hydroxide Susp 30 Ml Udc PO HS PRN Constipation Melatonin 5 mg 09/02/24 21:00 09/04/24 21:41 Melatonin 5 Mg Tablet PO Not Given HS ASAD Metoprolol Tartrate 50 mg 09/04/24 09:00 09/05/24 09:44 Metoprolol Tartrate 50 Mg Tab PO 50 mg Q12HR ASAD Administration Multivitamins/Minerals 1 tab 09/02/24 10:00 09/05/24 09:46 Multivitamins /C Lutein (Centrum Silver) Tablet *Bkc PO 1 tab DAILY ASAD Administration Mupirocin 1 applic 09/01/24 21:00 09/05/24 09:48 Mupirocin 2% Oint 22 Gm Tube EACH NARE 09/06/24 09:01 1 applic Q12HR ASAD Administration Nitroglycerin 0.4 mg 09/02/24 09:43 Nitroglycerin Sl 0.4 Mg Tablet SUBLINGUAL Q5MIN PRN Chest Pain Ondansetron HCl 8 mg 09/02/24 18:21 Ondansetron Hcl Odt 4 Mg Tablet PO 10/02/24 09:59 Q8H PRN Nausea And Vomiting Oxycodone HCl 5 mg 09/02/24 09:43 Oxycodone Hcl (*Crx) 5 Mg Tab Ir PO Q6H PRN Pain (Scale Score 4-6) Potassium Chloride 20 meq 09/02/24 10:00 09/05/24 09:46 Potassium Chloride 20 Meq Er Tablet PO 20 meq DAILY ASAD Administration Trazodone HCl 50 mg 09/02/24 21:00 09/04/24 21:41 Trazodone Hcl 50 Mg Tablet PO Not Given HS [facility] Radiology Results: ITS Impressions Chest X-Ray 09/01/24 13:09 Impression: Possible medial left lower lobe pneumonia. Pulmonary Perfusion Imaging 09/01/24 15:26 IMPRESSION: 1. Normal study. Very low probability for pulmonary embolism. Head CT 09/04/24 18:43 IMPRESSION: No acute intracranial findings. Labs Labs: Laboratory Results - last 24 hr 09/04/24 09/04/24 09/05/24 16:04 20:30 00:34 WBC RBC Hgb Hct MCV MCH MCHC RDW Plt Count MPV Immature Gran % (Auto) Neut % (Auto) Lymph % (Auto) [place] % (Auto) Eos % (Auto) Baso % (Auto) Lymph # (Auto) [place] # (Auto) Eos # (Auto) Baso # (Auto) Abs Immat Gran (auto) Absolute Neuts (auto) Absolute Nucleated RBC Nucleated RBC % Sodium Potassium Chloride Carbon Dioxide Anion Gap BUN Creatinine Estim Creat Clear Calc Estimated GFR Glucose POC Capillary Glucose 175 H 168 H 154 H Calcium Magnesium Total Bilirubin AST ALT Alkaline Phosphatase Total Protein Albumin 09/05/24 09/05/24 03:55 11:30 WBC 8.7 RBC 3.97 L Hgb 12.5 Hct 40.7 MCV 102.5 H MCH 31.5 MCHC 30.7 L RDW 14.9 H Plt Count 238 MPV 11.4 H Immature Gran % (Auto) 1.6 H Neut % (Auto) 66.9 Lymph % (Auto) 17.0 L [place] % (Auto) 13.6 H Eos % (Auto) 0.2 Baso % (Auto) 0.7 Lymph # (Auto) 1.49 [place] # (Auto) 1.2 H Eos # (Auto) 0.0 Baso # (Auto) 0.1 Abs Immat Gran (auto) 0.14 H Absolute Neuts (auto) 5.8 Absolute Nucleated RBC 0.000 Nucleated RBC % 0.0 Sodium 150 H Potassium 3.3 L Chloride 113 H Carbon Dioxide 29 Anion Gap 8 BUN 25 H Creatinine 1.03 H Estim Creat Clear Calc 50 Estimated GFR 53 L Glucose 175 H POC Capillary Glucose 245 H Calcium 8.9 Magnesium 2.1 Total Bilirubin 0.3 AST 24 ALT 19 Alkaline Phosphatase 70 Total Protein 6.5 Albumin 2.9 L
[2024-09-05] MEDS: MELATONIN 5 MG TABLET PO (20:36)
[2024-09-06] VITALS (13 sets, daily range): BP systolic 117–148; BP diastolic 61–86; PULSE 84–110; RESP 16–18; TEMP 36.6–37; O2SAT 96–99
[2024-09-06] MEDS: VALPROATE SODIUM INJ 250 MG in DEXTROSE 5% IN WATER 50 ML 52.5 MG IVPB ×5 (01:10→23:33)
[2024-09-06] MEDS: DEXTROSE 5% 1,000 ML 1,000 ML 150 ML IV CONT ×2 (04:02→12:02)
[2024-09-06] MEDS: INSULIN ASPART (*BKC) 100 UNITS/ML SUB-Q ×2 (06:38→11:35)
[2024-09-06 08:02] LABS: Hematocrit 37.4 % (37.0-47.0); Hemoglobin 11.7 g/dL (12.0-15.0); Immature Granulocyte Percent A 1.0 % (0-0.5); Lymphocytes Absolute Auto 1.34 K/mm3 (0.9-3.2); Mean Corpuscular HGB Conc 31.3 g/dl (32-36); Mean Corpuscular Hemoglobin 31.9 pg (26-34); Mean Corpuscular Volume 101.9 fl (80-100); Nucleated Red Blood Cells Absolute Auto 0.000 K/mm3 (0.0-0.012); Nucleated Red Blood Cells Perc 0.0 % (0.0-0.2); Platelet Count Result 227 k/mm3 (150-375); Red Blood Count 3.67 M/mm3 (4.2-5.4); White Blood Count 8.8 K/mm3 (4.5-10.0)
[2024-09-06 08:33] LABS: Alanine Aminotransferase 15 U/L (6-35); Albumin Level 2.5 g/dL (3.5-5.1); Alkaline Phosphatase 56 U/L (38-126); Anion Gap 3 mmol/L (4-12); Aspartate Amino Transferase 23 U/L (14-36); Bilirubin,Total 0.5 mg/dL (0.2-1.3); Blood Urea Nitrogen 20 mg/dL (7-17); Calcium 8.4 mg/dL (8.4-10.2); Carbon Dioxide 31 mmol/L (22-30); Chloride 105 mmol/L (98-107); Estimated CRCL calculation 62 ml/min; Estimated Glomerular Filt Rate > 60; Glucose 173 mg/dL (65-110); Magnesium 1.9 mg/dL (1.6-2.3); Potassium 4.1 mmol/L (3.4-5.0); Sodium 139 mmol/L (137-145); Total Protein 5.5 g/dL (6.3-8.2)
[2024-09-06] MEDS: ENOXAPARIN 100 MG/ML SYRINGE 90 MG SUB-Q ×2 (09:50→20:30)
[2024-09-06] MEDS: METOPROLOL TARTRATE 50 MG TAB PO ×2 (09:52→20:31)
[2024-09-06] MEDS: LORATADINE 10 MG TABLET PO (09:52)
[2024-09-06] MEDS: CALCIUM CARBONATE (TUMS) 500 MG (200 MG ELEMENTAL) PO ×2 (09:52→17:10)
[2024-09-06] MEDS: COLESTIPOL HCL 1 GM TABLET PO ×2 (09:52→17:10)
[2024-09-06] MEDS: LORazepam (*CRX) 0.5 MG TABLET PO ×2 (09:53→17:10)
[2024-09-06] MEDS: POTASSIUM CHLORIDE 20 MEQ ER TABLET PO (09:53)
[2024-09-06] MEDS: MULTIVITAMINS /C LUTEIN (CENTRUM SILVER) TABLET *BKC 1 TAB PO (09:53)
[2024-09-06] MEDS: ASPIRIN 81 MG ENTERIC TABLET PO (09:53)
[2024-09-06] MEDS: CYANOCOBALAMIN 1,000 MCG TABLET 1000 MCG PO (09:53)
[2024-09-06] MEDS: EMPAGLIFLOZIN 25 MG TABLET PO (09:53)
[2024-09-06] MEDS: VANCOMYCIN 1,500 MG/NS 500 ML 1,500 MG/500 ML BAG 250 MG IVPB (09:54)
[2024-09-06] MEDS: FAMOTIDINE 20 MG TABLET PO ×2 (09:54→20:31)
[2024-09-06] MEDS: allopurinoL 50 MG TABLET PO (09:54)
[2024-09-06] MEDS: FUROSEMIDE 20 MG TABLET PO (09:54)
[2024-09-06] MEDS: INSULIN GLARGINE (*BKC) 100 UNITS/ML 16 UNITS SUB-Q (09:57)
[2024-09-06] MEDS: MUPIROCIN 2% OINT 22 GM TUBE 1 APPLIC EACH NARE (09:58)
--- NOTE | 2024-09-06 10:27 | PM.PNCARD ---
Progress Note: A&P Assessment and Plan (1) Atrial fibrillation with RVR: Code(s): I48.91 - Unspecified atrial fibrillation Status: Acute Assessment and Plan: Continue metoprolol and on aspirin. (2) Hypertension: Qualifiers: Hypertension type: primary hypertension Qualified Code(s): I10 - Essential (primary) hypertension Code(s): I10 - Essential (primary) hypertension Status: Chronic Assessment and Plan: Above goal. Metoprolol to be given Plan 69-year-old female with history of coronary artery disease status post PCI to proximal LCX in 2020 with 3.0 x 12 mm Medtronic resolute becca zotarolimus eluting stent, CHF, DVT, hyperlipidemia, hypertension, moderate pulmonary hypertension, MARITA intolerant of CPAP, paroxysmal AFib, and pulmonary embolism presents with altered mental status from [facility] via EMS. Noted to be in AFib with RVR for which Cardiology is consulted. -AFib with RVR in a patient with known paroxysmal AFib-rates down to the 90s to 100s from 140s -CAD status post PCI to proximal LCX in 2020 -Hypertension-better controlled -Hyperlipidemia -Elevated D-dimer with V/Q scan normal and low probability of PE Plan: -Per RN, patient chews all her medications. Long-acting Cardizem is not chewable. Will stop Cardizem as we cannot switch it to long-acting form --Unsure why she is not on anticoagulation for AFib. Will discuss with her HCPOA -Continue aspirin 81 mg -Continue empagliflozin 10 mg daily -Continue Lasix 20 mg daily -TTE shows normal LV systolic function, mild MS and moderate . Repeat TTE in 6 months follow severity of valvular heart disease -Check and replace electrolytes to keep potassium greater than 4 and magnesium greater than 2 Potassium 4.1 today. No changes to her regimen. Continue metoprolol Subjective Date/time seen: 09/06/24 10:27 Interval history: Reason for encounter: AFib with RVR Relevant history: Patient is not communicating with me. No further subjective history could be obtained. Telemetry shows AFib with RVR. Date of service 09/05/2024: Will open eyes but not communicate. Reportedly seeing though earlier today. No complaints of chest pain Date of service 09/06/2024: Much more awake alert today. No chest pain Review of Systems Review of Systems: Complete review of systems could not be performed due to patient being nonverbal All systems reviewed & are unremarkable except as noted in HPI and below Cardiovascular: Cardiovascular: Denies chest pain Respiratory: Respiratory: Denies hemoptysis Gastrointestinal: Gastrointestinal: Denies hematochezia Exam Narrative: General: Patient nonverbal, no acute distress Neck: Supple, no JVD Chest: Bilaterally clear to auscultation, no rales or rhonchi Cardiac: S1, S2 +, irregularly irregular rhythm, no murmurs or rubs Extremities: No pedal edema, no skin rash Neurologic: Patient singing today Const: General: comfortable and no acute distress HENMT: Face/Nose/Sinus: Normal nares present Eyes: Sclera: sclerae normal Neck: Neck: supple Resp: Auscultation: clear to auscultation bilaterally Cardio: Rhythm: abnormal rhythm irregularly irregular GI: Inspection: non-distended Skin: General skin exam: normal color Extrem: General: no edema Psych: Attitude: not belligerent Objective Data Vital Signs Vital Signs: Vital Signs - 24 hr 09/05/24 11:30 09/05/24 12:00 09/05/24 12:00 Temperature 37.5 C Pulse Rate 109 H 108 H Respiratory Rate 18 Blood Pressure 146/90 H Pulse Oximetry 97 Oxygen Delivery Room Air 09/05/24 14:00 09/05/24 14:08 09/05/24 16:00 Temperature 36.9 C Pulse Rate 109 H 109 H 110 H Respiratory Rate 16 Blood Pressure 145/76 H Pulse Oximetry 98 Oxygen Delivery 09/05/24 16:00 09/05/24 16:00 09/05/24 18:00 Temperature Pulse Rate 109 H 109 H Respiratory Rate Blood Pressure Pulse Oximetry Oxygen Delivery Room Air 09/05/24 19:51 09/05/24 20:00 09/05/24 20:35 Temperature 36.6 C Pulse Rate 110 H 110 H 110 H Respiratory Rate 14 Blood Pressure 101/45 L Pulse Oximetry 98 Oxygen Delivery 09/05/24 22:00 09/05/24 23:49 09/06/24 00:00 Temperature 36.9 C Pulse Rate 108 H 107 H 109 H Respiratory Rate 18 Blood Pressure 105/47 L Pulse Oximetry 97 Oxygen Delivery 09/06/24 02:00 09/06/24 04:00 09/06/24 04:00 Temperature 37.0 C Pulse Rate 108 H 108 H 108 H Respiratory Rate 16 Blood Pressure 117/61 Pulse Oximetry 98 Oxygen Delivery 09/06/24 06:00 09/06/24 07:44 09/06/24 09:52 Temperature 37.0 C Pulse Rate 108 H 108 H 108 H Respiratory Rate 18 Blood Pressure 144/78 H Pulse Oximetry 99 Oxygen Delivery Intake/Output Intake/Output: Intake & Output 09/03/24 09/04/24 09/05/24 09/06/24 23:59 23:59 23:59 23:59 Intake Total 2625.0 2092.5 3509.0 252.5 Output Total 1999 2625 500 400 Balance 625.0 -532.5 3009.0 -147.5 Meds/Results Medications: Active Medications Generic Name Dose Route Start Last Admin Trade Name Freq PRN Reason Stop Dose Admin Albuterol 2 puff 09/02/24 09:43 Albuterol Sulfate (*Sp) Aerosol 1 Puff INHALATION Q4HRT PRN Shortness Of Breath Or Wheezing Allopurinol 300 mg 09/02/24 09:55 09/06/24 09:52 Allopurinol 300 Mg Tablet PO 300 mg DAILY ASAD Administration Allopurinol 50 mg 09/02/24 09:00 09/06/24 09:54 Allopurinol 50 Mg Tablet PO 50 mg Q48HR ASAD Administration Aspirin 81 mg 09/02/24 09:55 09/06/24 09:53 Aspirin 81 Mg Enteric Tablet PO 81 mg DAILY ASAD Administration Bisacodyl 10 mg 09/02/24 09:43 Bisacodyl 10 Mg Suppository RECTAL DAILY PRN Constipation Buspirone HCl 10 mg 09/02/24 09:55 09/06/24 09:53 Buspirone Hcl 10 Mg Tablet PO 10 mg TID ASAD Administration Calcium Carbonate 500 mg 09/02/24 09:55 09/06/24 09:52 Calcium Carbonate (Tums) 500 Mg (200 Mg Elemental) PO 500 mg BID ASAD Administration Colestipol HCl 1 gm 09/02/24 11:00 09/06/24 09:52 Colestipol Hcl 1 Gm Tablet PO 1 gm BID@1000,1800 ASAD Administration Cyanocobalamin 1,000 mcg 09/02/24 09:55 09/06/24 09:53 Cyanocobalamin 1,000 Mcg Tablet PO 1,000 mcg DAILY ASAD Administration Dextrose 12.5 gm 09/02/24 14:58 Dextrose 50% 25 Gm/50 Ml Syringe IV PUSH PRN PRN Hypoglycemia Protocol Divalproex Sodium 500 mg 09/02/24 10:00 09/04/24 17:[address] 250 Mg Tabec PO Not Given BID ASAD Duloxetine HCl 20 mg 09/02/24 10:00 09/06/24 09:52 Duloxetine Hcl 20 Mg Capsule.Dr PO 20 mg Q12HR ASAD Administration Empagliflozin 25 mg 09/02/24 10:00 09/06/24 09:53 Empagliflozin 25 Mg Tablet PO 25 mg DAILY ASAD Administration Enoxaparin Sodium 90 mg 09/02/24 21:00 09/06/24 09:50 Enoxaparin 100 Mg/Ml Syringe SUB-Q 90 mg Q12HR ASAD Administration Ergocalciferol 1,250 mcg 09/05/24 09:00 09/05/24 09:56 Ergocalciferol (Vitamin D2) 1,250 Mcg (50,000 Units) Capsule PO 1,250 mcg Sa@0900 ASAD Administration Famotidine 20 mg 09/02/24 10:00 09/06/24 09:54 Famotidine 20 Mg Tablet PO 20 mg Q12HR ASAD Administration Furosemide 20 mg 09/06/24 09:00 09/06/24 09:54 Furosemide 20 Mg Tablet PO 20 mg DAILY ASAD Administration Glucagon 1 mg 09/02/24 14:58 Glucagon For Inj 1 Mg Vial IM PRN PRN Hypoglycemia Protocol Glucose 15 gm 09/02/24 14:58 Glucose Oral Gel 15 Gm Of Glucse In 37.5 Gm Tube PO PRN PRN Hypoglycemia Protocol Hydralazine HCl 10 mg 09/01/24 17:24 Hydralazine Hcl 20 Mg/Ml Vial IV PUSH Q8H PRN Blood Pressure - >180/90 Levofloxacin/Dextrose 750 mg in 150 mls @ 100 mls/hr 09/01/24 14:00 09/05/24 15:38 Levaquin 750 Mg/D5w 150 Ml IVPB 09/07/24 15:29 Infused Q24H ASAD Infusion Vancomycin HCl 1,500 mg in 500 mls @ 250 mls/hr 09/02/24 15:00 09/06/24 09:54 Vancomycin 1,500 Mg/Ns 500 Ml IVPB 09/07/24 23:59 250 mls/hr Q18H ASAD Administration Dextrose 1,000 mls @ 100 mls/hr 09/02/24 14:58 Dextrose 5% 1,000 Ml IVPB PRN PRN Hypoglycemia Protocol Dextrose 1,000 mls @ 150 mls/hr 09/04/24 12:30 09/06/24 05:51 Dextrose 5% 1,000 Ml IV CONT Not Given .Q6H40M ASAD Valproate Sodium 250 mg/ 52.5 mls @ 52.5 mls/hr 09/04/24 18:00 09/06/24 06:32 Dextrose IVPB 52.5 mls/hr Q6HR ASAD Administration Insulin Aspart 4 - 8 units 09/04/24 18:00 09/06/24 06:38 Insulin Aspart (*Bkc) 100 Units/Ml SUB-Q 4 units Q6H ASAD Administration Protocol Insulin Glargine 16 units 09/02/24 10:00 09/06/24 09:57 Insulin Glargine (*Bkc) 100 Units/Ml SUB-Q 16 units QAM ASAD Administration Loperamide HCl 2 mg 09/02/24 09:43 Loperamide Hcl 2 Mg Capsule PO Q6H PRN Diarrhea Loratadine 10 mg 09/02/24 10:00 09/06/24 09:52 Loratadine 10 Mg Tablet PO 10 mg DAILY ASAD Administration Lorazepam 0.5 mg 09/02/24 10:00 09/06/24 09:53 Lorazepam (*Crx) 0.5 Mg Tablet PO 0.5 mg BID ASAD Administration Magnesium Citrate 296 ml 09/02/24 09:43 Magnesium Citrate 300 Ml Btl PO DAILY PRN Constipation Magnesium Hydroxide 30 ml 09/02/24 09:43 Magnesium Hydroxide Susp 30 Ml Udc PO HS PRN Constipation Melatonin 5 mg 09/02/24 21:00 09/05/24 20:36 Melatonin 5 Mg Tablet PO 5 mg HS ASAD Administration Metoprolol Tartrate 50 mg 09/04/24 09:00 09/06/24 09:52 Metoprolol Tartrate 50 Mg Tab PO 50 mg Q12HR ASAD Administration Multivitamins/Minerals 1 tab 09/02/24 10:00 09/06/24 09:53 Multivitamins /C Lutein (Centrum Silver) Tablet *Bkc PO 1 tab DAILY ASAD Administration Nitroglycerin 0.4 mg 09/02/24 09:43 Nitroglycerin Sl 0.4 Mg Tablet SUBLINGUAL Q5MIN PRN Chest Pain Ondansetron HCl 8 mg 09/02/24 18:21 Ondansetron Hcl Odt 4 Mg Tablet PO 10/02/24 09:59 Q8H PRN Nausea And Vomiting Oxycodone HCl 5 mg 09/02/24 09:43 Oxycodone Hcl (*Crx) 5 Mg Tab Ir PO Q6H PRN Pain (Scale Score 4-6) Potassium Chloride 20 meq 09/02/24 10:00 09/06/24 09:53 Potassium Chloride 20 Meq Er Tablet PO 20 meq DAILY ASAD Administration Trazodone HCl 50 mg 09/02/24 21:00 09/05/24 20:35 Trazodone Hcl 50 Mg Tablet PO 50 mg HS ASAD Administration Radiology Results: ITS Impressions Pulmonary Perfusion Imaging 09/01/24 15:26 IMPRESSION: 1. Normal study. Very low probability for pulmonary embolism. Head CT 09/04/24 18:43 IMPRESSION: No acute intracranial findings. Chest X-Ray 09/06/24 06:34 Impression: Clear lungs. Labs Labs: Laboratory Results - last 24 hr 09/05/24 09/05/24 09/05/24 11:30 17:01 23:44 WBC RBC Hgb Hct MCV MCH MCHC RDW Plt Count MPV Immature Gran % (Auto) Neut % (Auto) Lymph % (Auto) [place] % (Auto) Eos % (Auto) Baso % (Auto) Lymph # (Auto) [place] # (Auto) Eos # (Auto) Baso # (Auto) Abs Immat Gran (auto) Absolute Neuts (auto) Absolute Nucleated RBC Nucleated RBC % Sodium Potassium Chloride Carbon Dioxide Anion Gap BUN Creatinine Estim Creat Clear Calc Estimated GFR Glucose POC Capillary Glucose 245 H 164 H 171 H Calcium Magnesium Total Bilirubin AST ALT Alkaline Phosphatase Total Protein Albumin Vancomycin Trough 09/06/24 09/06/24 06:19 07:57 WBC 8.8 RBC 3.67 L Hgb 11.7 L Hct 37.4 MCV 101.9 H MCH 31.9 MCHC 31.3 L RDW 14.6 H Plt Count 227 MPV 11.7 H Immature Gran % (Auto) 1.0 H Neut % (Auto) 70.3 Lymph % (Auto) 15.2 L [place] % (Auto) 11.6 H Eos % (Auto) 1.3 Baso % (Auto) 0.6 Lymph # (Auto) 1.34 [place] # (Auto) 1.0 H Eos # (Auto) 0.1 Baso # (Auto) 0.1 Abs Immat Gran (auto) 0.09 H Absolute Neuts (auto) 6.2 Absolute Nucleated RBC 0.000 Nucleated RBC % 0.0 Sodium 139 Potassium 4.1 Chloride 105 Carbon Dioxide 31 H Anion Gap 3 L BUN 20 H Creatinine 0.84 Estim Creat Clear Calc 62 Estimated GFR > 60 Glucose 173 H POC Capillary Glucose 205 H Calcium 8.4 Magnesium 1.9 Total Bilirubin 0.5 AST 23 ALT 15 Alkaline Phosphatase 56 Total Protein 5.5 L Albumin 2.5 L Vancomycin Trough 15.6
[2024-09-06] MEDS: levoFLOXacin 750 MG/D5W 150 ML 750 MG/150 ML BAG 100 MG IVPB (13:49)
--- NOTE | 2024-09-06 14:46 | PM.IMPN ---
Progress Note: A&P Assessment and Plan (1) AMS (altered mental status): Code(s): R41.82 - Altered mental status, unspecified Status: Acute Assessment and Plan: patient is now at baseline mental status, resolved CT head unremarkable UA unremarkable, Na 149 CXR showed possible left lower lobe pneumonia - Patient's brother who is her POA believes she may have been put on a new mental health medication, reviewed outside med rec. No new medications prescribed or dose adjustments, has been on same medications and doses for a minimum of 3 months. EEG no seizures, CT head unremarkable b12 and folate, TSH wnl continue abx and start D5w Neurology following (2) Pneumonia: Qualifiers: Pneumonia type: due to unspecified organism Laterality: left Lung location: lower lobe of lung Qualified Code(s): J18.9 - Pneumonia, unspecified organism Code(s): J18.9 - Pneumonia, unspecified organism Status: Acute Assessment and Plan: - CXR showed possible medial left lower lobe pneumonia - MRSA PCR positive - check Viral PCR and sputum culture (if obtainable) - currently requiring 2L NC, wean as tolerated. Maintain O2 sat greater than 92%. - Day 5 og Levaquin and Vancomycin, x7 days (3) Paroxysmal atrial fibrillation: Code(s): I48.0 - Paroxysmal atrial fibrillation Status: Acute Assessment and Plan: - history of pAfib S/p Cardizem infusion, now on Metoprolol Cardiology will discuss AC with family ECHO normal Biventricular function cardiology pending (4) Type 2 diabetes mellitus with hyperglycemia, with long-term current use of insulin: Code(s): E11.65 - Type 2 diabetes mellitus with hyperglycemia; Z79.4 - shelter (current) use of insulin Status: Chronic Assessment and Plan: - hypoglycemia protocol - POC blood glucose Q6H, currently NPO - hold home SQ medication as the patient is NPO to avoid hypoglycemia. corrective in place. - correct regimen ordered - high dose Q6H - A1C 6.2% in 2023, update (5) Hypertension: Qualifiers: Hypertension type: primary hypertension Qualified Code(s): I10 - Essential (primary) hypertension Code(s): I10 - Essential (primary) hypertension Status: Chronic Assessment and Plan: - chronic, currently 161/83 - hold home medications, unable to tolerate PO due to AMS - hydralazine prn for BP greater than 180/90 - monitor Plan Hypernatremia, resolved Na 136 S/p D5w Diet: NPO until mental status improved DVT Prophylaxis: Lovenox SQ IV fluids: IVF Code Status: full code Discuss goals of care with family Subjective Date/time seen: 09/06/24 14:46 Interval history: COmfortable at bedside Review of Systems Review of Systems: ROS unobtainable: Yes unobtainable due to mental status Exam Narrative: Patient is comfortable, NAD HEENT: eyes are clear and none icteric ABD: Obese Lower extremities: no edema SKIN: nonjaundiced Neuro: grossly intact. Confused Const: General: comfortable and no acute distress Other: , female, chronically ill-appearing, obese body habitus HENMT: Face/Nose/Sinus: Normal nares present Mouth: Yes dry mucous membranes Eyes: General: appearance normal, both eyes and all related structures Sclera: sclerae normal Pupils: Equal, round and reactive pupils present Other: unable to assess for gaze palsy, staring midline Resp: Effort & Inspection: normal respiratory effort Auscultation: clear to auscultation bilaterally Cardio: Rate: tachycardic Other: abnormal rhythm with frequent ectopy, no appreciable murmur. GI: Other: Abdomen soft, nondistended, nontender. Normoactive bowel sounds in all quadrants. Skin: General skin exam: normal color and no rashes or lesions noted Wounds: no wounds Neuro: Cranial nerves: Yes Equal, round and reactive pupils present Other: Very limited neuro exam. PERRLA - 3 mm bilaterally, will try to squeeze eyes shut during exam. Briefly attempted to regard. Unable to assess for gaze palsy, gaze does remain midline. DTR normal in all extremities. does not attempt to follow commands, unable to assess strength. No movement of extremities. Extrem: General: normal to inspection Psych: Other: flat affect Objective Data Vital Signs Vital Signs: Vital Signs - 24 hr 09/05/24 16:00 09/05/24 16:00 09/05/24 16:00 Temperature 98.4 F Pulse Rate 110 H 109 H Respiratory Rate 16 Blood Pressure 145/76 H Pulse Oximetry 98 Oxygen Delivery Room Air 09/05/24 18:00 09/05/24 19:51 09/05/24 20:00 Temperature 97.9 F Pulse Rate 109 H 110 H 110 H Respiratory Rate 14 Blood Pressure 101/45 L Pulse Oximetry 98 Oxygen Delivery 09/05/24 20:35 09/05/24 22:00 09/05/24 23:49 Temperature 98.4 F Pulse Rate 110 H 108 H 107 H Respiratory Rate 18 Blood Pressure 105/47 L Pulse Oximetry 97 Oxygen Delivery 09/06/24 00:00 09/06/24 02:00 09/06/24 04:00 Temperature 98.6 F Pulse Rate 109 H 108 H 108 H Respiratory Rate 16 Blood Pressure 117/61 Pulse Oximetry 98 Oxygen Delivery 09/06/24 04:00 09/06/24 06:00 09/06/24 07:44 Temperature 98.6 F Pulse Rate 108 H 108 H 108 H Respiratory Rate 18 Blood Pressure 144/78 H Pulse Oximetry 99 Oxygen Delivery 09/06/24 08:00 09/06/24 09:52 09/06/24 10:00 Temperature Pulse Rate 108 H 108 H 110 H Respiratory Rate Blood Pressure Pulse Oximetry Oxygen Delivery 09/06/24 11:58 09/06/24 12:00 Temperature 98.6 F Pulse Rate 107 H 105 H Respiratory Rate 18 Blood Pressure 146/86 H Pulse Oximetry 98 Oxygen Delivery Intake/Output Intake/Output: Intake & Output 09/03/24 09/04/24 09/05/24 09/06/24 23:59 23:59 23:59 23:59 Intake Total 2625.0 2092.5 3509.0 1405.0 Output Total 1999 2625 500 400 Balance 625.0 -532.5 3009.0 1005.0 Meds/Results Medications: Active Medications Generic Name Dose Route Start Last Admin Trade Name Freq PRN Reason Stop Dose Admin Albuterol 2 puff 09/02/24 09:43 Albuterol Sulfate (*Sp) Aerosol 1 Puff INHALATION Q4HRT PRN Shortness Of Breath Or Wheezing Allopurinol 300 mg 09/02/24 09:55 09/06/24 09:52 Allopurinol 300 Mg Tablet PO 300 mg DAILY ASAD Administration Allopurinol 50 mg 09/02/24 09:00 09/06/24 09:54 Allopurinol 50 Mg Tablet PO 50 mg Q48HR ASAD Administration Aspirin 81 mg 09/02/24 09:55 09/06/24 09:53 Aspirin 81 Mg Enteric Tablet PO 81 mg DAILY ASAD Administration Bisacodyl 10 mg 09/02/24 09:43 Bisacodyl 10 Mg Suppository RECTAL DAILY PRN Constipation Buspirone HCl 10 mg 09/02/24 09:55 09/06/24 12:02 Buspirone Hcl 10 Mg Tablet PO 10 mg TID ASAD Administration Calcium Carbonate 500 mg 09/02/24 09:55 09/06/24 09:52 Calcium Carbonate (Tums) 500 Mg (200 Mg Elemental) PO 500 mg BID ASAD Administration Colestipol HCl 1 gm 09/02/24 11:00 09/06/24 09:52 Colestipol Hcl 1 Gm Tablet PO 1 gm BID@1000,1800 ASAD Administration Cyanocobalamin 1,000 mcg 09/02/24 09:55 09/06/24 09:53 Cyanocobalamin 1,000 Mcg Tablet PO 1,000 mcg DAILY ASAD Administration Dextrose 12.5 gm 09/02/24 14:58 Dextrose 50% 25 Gm/50 Ml Syringe IV PUSH PRN PRN Hypoglycemia Protocol Divalproex Sodium 500 mg 09/02/24 10:00 09/04/24 17:[address] 250 Mg Tabec PO Not Given BID [facility] Duloxetine HCl 20 mg 09/02/24 10:00 09/06/24 09:52 Duloxetine Hcl 20 Mg Capsule.Dr PO 20 mg Q12HR ASAD Administration Empagliflozin 25 mg 09/02/24 10:00 09/06/24 09:53 Empagliflozin 25 Mg Tablet PO 25 mg DAILY ASAD Administration Enoxaparin Sodium 90 mg 09/02/24 21:00 09/06/24 09:50 Enoxaparin 100 Mg/Ml Syringe SUB-Q 90 mg Q12HR ASAD Administration Ergocalciferol 1,250 mcg 09/05/24 09:00 09/05/24 09:56 Ergocalciferol (Vitamin D2) 1,250 Mcg (50,000 Units) Capsule PO 1,250 mcg Sa@0900 ASAD Administration Famotidine 20 mg 09/02/24 10:00 09/06/24 09:54 Famotidine 20 Mg Tablet PO 20 mg Q12HR ASAD Administration Furosemide 20 mg 09/06/24 09:00 09/06/24 09:54 Furosemide 20 Mg Tablet PO 20 mg DAILY ASAD Administration Glucagon 1 mg 09/02/24 14:58 Glucagon For Inj 1 Mg Vial IM PRN PRN Hypoglycemia Protocol Glucose 15 gm 09/02/24 14:58 Glucose Oral Gel 15 Gm Of Glucse In 37.5 Gm Tube PO PRN PRN Hypoglycemia Protocol Hydralazine HCl 10 mg 09/01/24 17:24 Hydralazine Hcl 20 Mg/Ml Vial IV PUSH Q8H PRN Blood Pressure - >180/90 Levofloxacin/Dextrose 750 mg in 150 mls @ 100 mls/hr 09/01/24 14:00 09/06/24 13:49 Levaquin 750 Mg/D5w 150 Ml IVPB 09/07/24 15:29 100 mls/hr Q24H ASAD Administration Vancomycin HCl 1,500 mg in 500 mls @ 250 mls/hr 09/02/24 15:00 09/06/24 09:54 Vancomycin 1,500 Mg/Ns 500 Ml IVPB 09/07/24 23:59 250 mls/hr Q18H ASAD Administration Dextrose 1,000 mls @ 100 mls/hr 09/02/24 14:58 Dextrose 5% 1,000 Ml IVPB PRN PRN Hypoglycemia Protocol Valproate Sodium 250 mg/ 52.5 mls @ 52.5 mls/hr 09/04/24 18:00 09/06/24 12:01 Dextrose IVPB 52.5 mls/hr Q6HR ASAD Administration Insulin Aspart 4 - 8 units 09/04/24 18:00 09/06/24 11:35 Insulin Aspart (*Bkc) 100 Units/Ml SUB-Q 4 units Q6H ASAD Administration Protocol Insulin Glargine 16 units 09/02/24 10:00 09/06/24 09:57 Insulin Glargine (*Bkc) 100 Units/Ml SUB-Q 16 units QAM ASAD Administration Loperamide HCl 2 mg 09/02/24 09:43 Loperamide Hcl 2 Mg Capsule PO Q6H PRN Diarrhea Loratadine 10 mg 09/02/24 10:00 09/06/24 09:52 Loratadine 10 Mg Tablet PO 10 mg DAILY ASAD Administration Lorazepam 0.5 mg 09/02/24 10:00 09/06/24 09:53 Lorazepam (*Crx) 0.5 Mg Tablet PO 0.5 mg BID ASAD Administration Magnesium Citrate 296 ml 09/02/24 09:43 Magnesium Citrate 300 Ml Btl PO DAILY PRN Constipation Magnesium Hydroxide 30 ml 09/02/24 09:43 Magnesium Hydroxide Susp 30 Ml Udc PO HS PRN Constipation Melatonin 5 mg 09/02/24 21:00 09/05/24 20:36 Melatonin 5 Mg Tablet PO 5 mg HS ASAD Administration Metoprolol Tartrate 50 mg 09/04/24 09:00 09/06/24 09:52 Metoprolol Tartrate 50 Mg Tab PO 50 mg Q12HR ASAD Administration Multivitamins/Minerals 1 tab 09/02/24 10:00 09/06/24 09:53 Multivitamins /C Lutein (Centrum Silver) Tablet *Bkc PO 1 tab DAILY ASAD Administration Nitroglycerin 0.4 mg 09/02/24 09:43 Nitroglycerin Sl 0.4 Mg Tablet SUBLINGUAL Q5MIN PRN Chest Pain Ondansetron HCl 8 mg 09/02/24 18:21 Ondansetron Hcl Odt 4 Mg Tablet PO 10/02/24 09:59 Q8H PRN Nausea And Vomiting Oxycodone HCl 5 mg 09/02/24 09:43 Oxycodone Hcl (*Crx) 5 Mg Tab Ir PO Q6H PRN Pain (Scale Score 4-6) Potassium Chloride 20 meq 09/02/24 10:00 09/06/24 09:53 Potassium Chloride 20 Meq Er Tablet PO 20 meq DAILY ASAD Administration Trazodone HCl 50 mg 09/02/24 21:00 09/05/24 20:35 Trazodone Hcl 50 Mg Tablet PO 50 mg HS ASAD Administration Radiology Results: ITS Impressions Pulmonary Perfusion Imaging 09/01/24 15:26 IMPRESSION: 1. Normal study. Very low probability for pulmonary embolism. Head CT 09/04/24 18:43 IMPRESSION: No acute intracranial findings. Chest X-Ray 09/06/24 06:34 Impression: Clear lungs. Labs Labs: Laboratory Results - last 24 hr 09/05/24 09/05/24 09/06/24 17:01 23:44 06:19 WBC RBC Hgb Hct MCV MCH MCHC RDW Plt Count MPV Immature Gran % (Auto) Neut % (Auto) Lymph % (Auto) [place] % (Auto) Eos % (Auto) Baso % (Auto) Lymph # (Auto) [place] # (Auto) Eos # (Auto) Baso # (Auto) Abs Immat Gran (auto) Absolute Neuts (auto) Absolute Nucleated RBC Nucleated RBC % Sodium Potassium Chloride Carbon Dioxide Anion Gap BUN Creatinine Estim Creat Clear Calc Estimated GFR Glucose POC Capillary Glucose 164 H 171 H 205 H Calcium Magnesium Total Bilirubin AST ALT Alkaline Phosphatase Total Protein Albumin Vancomycin Trough 09/06/24 09/06/24 07:57 11:27 WBC 8.8 RBC 3.67 L Hgb 11.7 L Hct 37.4 MCV 101.9 H MCH 31.9 MCHC 31.3 L RDW 14.6 H Plt Count 227 MPV 11.7 H Immature Gran % (Auto) 1.0 H Neut % (Auto) 70.3 Lymph % (Auto) 15.2 L [place] % (Auto) 11.6 H Eos % (Auto) 1.3 Baso % (Auto) 0.6 Lymph # (Auto) 1.34 [place] # (Auto) 1.0 H Eos # (Auto) 0.1 Baso # (Auto) 0.1 Abs Immat Gran (auto) 0.09 H Absolute Neuts (auto) 6.2 Absolute Nucleated RBC 0.000 Nucleated RBC % 0.0 Sodium 139 Potassium 4.1 Chloride 105 Carbon Dioxide 31 H Anion Gap 3 L BUN 20 H Creatinine 0.84 Estim Creat Clear Calc 62 Estimated GFR > 60 Glucose 173 H POC Capillary Glucose 246 H Calcium 8.4 Magnesium 1.9 Total Bilirubin 0.5 AST 23 ALT 15 Alkaline Phosphatase 56 Total Protein 5.5 L Albumin 2.5 L Vancomycin Trough 15.6 Quality VTE Prophylaxis VTE prophylaxis: pharmacologic ordered
[2024-09-06] MEDS: MELATONIN 5 MG TABLET PO (20:34)
[2024-09-07] MEDS: VANCOMYCIN 1,500 MG/NS 500 ML 1,500 MG/500 ML BAG 250 MG IVPB (03:06)
[2024-09-07] MEDS: VALPROATE SODIUM INJ 250 MG in DEXTROSE 5% IN WATER 50 ML 52.5 MG IVPB ×3 (05:47→18:15)
[2024-09-07 06:38] LABS: Hematocrit 34.9 % (37.0-47.0); Hemoglobin 10.6 g/dL (12.0-15.0); Immature Granulocyte Percent A 1.7 % (0-0.5); Lymphocytes Absolute Auto 1.34 K/mm3 (0.9-3.2); Mean Corpuscular HGB Conc 30.4 g/dl (32-36); Mean Corpuscular Hemoglobin 30.9 pg (26-34); Mean Corpuscular Volume 101.7 fl (80-100); Nucleated Red Blood Cells Absolute Auto 0.000 K/mm3 (0.0-0.012); Nucleated Red Blood Cells Perc 0.0 % (0.0-0.2); Platelet Count Result 187 k/mm3 (150-375); Red Blood Count 3.43 M/mm3 (4.2-5.4); White Blood Count 8.8 K/mm3 (4.5-10.0)
[2024-09-07 06:56] LABS: Alanine Aminotransferase 11 U/L (6-35); Albumin Level 2.4 g/dL (3.5-5.1); Alkaline Phosphatase 57 U/L (38-126); Anion Gap 3 mmol/L (4-12); Aspartate Amino Transferase 20 U/L (14-36); Bilirubin,Total 0.3 mg/dL (0.2-1.3); Blood Urea Nitrogen 15 mg/dL (7-17); Calcium 8.4 mg/dL (8.4-10.2); Carbon Dioxide 28 mmol/L (22-30); Chloride 107 mmol/L (98-107); Estimated CRCL calculation 58 ml/min; Estimated Glomerular Filt Rate > 60; Glucose 138 mg/dL (65-110); Magnesium 2.0 mg/dL (1.6-2.3); Potassium 3.8 mmol/L (3.4-5.0); Sodium 138 mmol/L (137-145); Total Protein 5.4 g/dL (6.3-8.2)
[2024-09-07 08:00] VITALS: BP 133/83; RESP 14; TEMP 36.7; O2SAT 100
[2024-09-07] MEDS: ALBUMIN HUMAN 25% 25 GM/100 ML 100 ML IVPB (08:54)
[2024-09-07] MEDS: CALCIUM CARBONATE (TUMS) 500 MG (200 MG ELEMENTAL) PO ×2 (08:54→16:37)
[2024-09-07] MEDS: ASPIRIN 81 MG ENTERIC TABLET PO (08:54)
[2024-09-07] MEDS: EMPAGLIFLOZIN 25 MG TABLET PO (08:54)
[2024-09-07] MEDS: POTASSIUM CHLORIDE 20 MEQ ER TABLET PO (08:54)
[2024-09-07 08:56] VITALS: PULSE 110
[2024-09-07] MEDS: METOPROLOL TARTRATE 50 MG TAB PO (08:56)
[2024-09-07] MEDS: LORazepam (*CRX) 0.5 MG TABLET PO ×2 (08:56→16:37)
[2024-09-07] MEDS: MULTIVITAMINS /C LUTEIN (CENTRUM SILVER) TABLET *BKC 1 TAB PO (08:56)
[2024-09-07 08:59] VITALS: PULSE 110
[2024-09-07] MEDS: LORATADINE 10 MG TABLET PO (08:59)
[2024-09-07] MEDS: FAMOTIDINE 20 MG TABLET PO (08:59)
[2024-09-07] MEDS: INSULIN GLARGINE (*BKC) 100 UNITS/ML 16 UNITS SUB-Q (09:03)
[2024-09-07] MEDS: ENOXAPARIN 80 MG/0.8 ML SYRINGE 74 MG SUB-Q (09:05)
[2024-09-07] MEDS: FUROSEMIDE 20 MG TABLET PO (09:06)
[2024-09-07] MEDS: CYANOCOBALAMIN 1,000 MCG TABLET 1000 MCG PO (09:06)
--- NOTE | 2024-09-07 10:42 | PCNFU ---
Nutrition Follow-Up Complete: Inadequate oral intake related to altered mental status as evidenced by previous NPO Adequate PO intake at least 75% - Goal is not being met. Continue with progress to goal Goal: Pt current nutrition is Diabetic consistent carb , L7 easy to chew, Glucerna BID (220 kcal, 10 g protein each). Nutrition recommendation: No new nutrition recommendations. Continue current nutrition care plan and orders. Agree with orders Last recorded weight is 73.7 kg. Bowel Motility: No BMs are recorded Labs Reviewed: Hgb 10.6, Hct 34.9, Alb 2.4, Glu 138 Meds Noted: Vit B12, Vit D, Kcl, insulin, lasix Skin: No pressure Additional Notes: AMS has resolved but intakes remain poor, 0-20% last 48 hours. Continue current care plan and orders. Monitoring for additional needs. Monitoring intakes, weights, labs, supplement tolerance, plan of care Follow up in 5 days
[2024-09-07] MEDS: COLESTIPOL HCL 1 GM TABLET PO ×2 (11:00→18:51)
[2024-09-07] MEDS: INSULIN ASPART (*BKC) 100 UNITS/ML SUB-Q (11:57)
[2024-09-07] MEDS: levoFLOXacin 750 MG/D5W 150 ML 750 MG/150 ML BAG 100 MG IVPB (13:19)
--- NOTE | 2024-09-07 15:00 | PM.DS ---
DS: Admitting Diagnosis Discharge Date 09/07/24 Admitting Diagnosis Altered Mental Status DS: Discharge Diagnosis Discharge Diagnosis (1) Pneumonia: Qualifiers: Laterality: left Lung location: lower lobe of lung Pneumonia type: due to unspecified organism Qualified Code(s): J18.9 - Pneumonia, unspecified organism Code(s): J18.9 - Pneumonia, unspecified organism Status: Acute (2) Atrial fibrillation with RVR: Code(s): I48.91 - Unspecified atrial fibrillation Status: Acute DS: Summary Hospital Course Hospital Course: 69 y/o F with PMH of coronary artery disease, NSTEMI, CHF, DVT, hyperlipidemia, hypertension, moderate pulmonary hypertension, MARITA intolerant of CPAP, paroxysmal AFib, and pulmonary embolism presents here with altered mental status. Initial VS at presentation: 97.8? F, HR 96, RR 20, 151/95, and 95% on RA. ED workup showed: WBC 11.6, no anemia, coags within normal limits, D-dimer elevated, creatinine 1.02 and GFR 54, glucose 189, UA was cloudy with 2+ protein / 3+ glucose /1+ ketones / 3-5 RBC otherwise unremarkable. UDS negative. Head CT showed no intracranial hemorrhage, mass, or acute infarct and atrophy/chronic white matter changes. CXR showed possible medial left lower lobe pneumonia. Patinet was managed for AMS, EEG adn MRI unremarkable, TSH< B12/folate wnl, notably Na was 150, she was started on D5w and na improved to 136. mental status improved along side with resolution of hypernatremia. Neurology was consulted Also managed for possible MRSA pneumonia and completed 7 days of Levaquin adn Vancomycin. cardiology was consulted for Afib RVR and patient was on Cardizem infusion, and tranitioned sucessfully to Metoptolol. I made efforts to discuss technician terminal and repeater anticoagulation with IZABELLA, Moi Med[place]in, however i called both his cell and office phones with no success. Thus,patient was discharged and will discuss anticoagulation further with her PCP/cardiology Patient is eating with a feeder whcih is her baseline. F/u with PCP in 3-5 days F/u with cardiology and neurology as instructed Time Spent with Patient Time attestation: Total time spent providing and/or coordinating discharge services: DS: Data Data Completed and Pending Labs on day of discharge: Labs from last 24 hours 09/07/24 09/07/24 09/07/24 11:53 05:24 02:03 WBC 8.8 RBC 3.43 L Hgb 10.6 L Hct 34.9 L MCV 101.7 H MCH 30.9 MCHC 30.4 L RDW 14.6 H Plt Count 187 MPV 12.7 H Immature Gran % (Auto) 1.7 H Neut % (Auto) 69.0 Lymph % (Auto) 15.2 L [place] % (Auto) 12.2 H Eos % (Auto) 1.2 Baso % (Auto) 0.7 Lymph # (Auto) 1.34 [place] # (Auto) 1.1 H Eos # (Auto) 0.1 Baso # (Auto) 0.1 Abs Immat Gran (auto) 0.15 H Absolute Neuts (auto) 6.1 Absolute Nucleated RBC 0.000 Nucleated RBC % 0.0 Sodium 138 Potassium 3.8 Chloride 107 Carbon Dioxide 28 Anion Gap 3 L BUN 15 D Creatinine 0.79 Estim Creat Clear Calc 58 Estimated GFR > 60 Glucose 138 H POC Capillary Glucose 230 H 132 H Calcium 8.4 Magnesium 2.0 Total Bilirubin 0.3 AST 20 ALT 11 Alkaline Phosphatase 57 Total Protein 5.4 L Albumin 2.4 L 09/07/24 09/06/24 01:09 17:19 WBC RBC Hgb Hct MCV MCH MCHC RDW Plt Count MPV Immature Gran % (Auto) Neut % (Auto) Lymph % (Auto) [place] % (Auto) Eos % (Auto) Baso % (Auto) Lymph # (Auto) [place] # (Auto) Eos # (Auto) Baso # (Auto) Abs Immat Gran (auto) Absolute Neuts (auto) Absolute Nucleated RBC Nucleated RBC % Sodium Potassium Chloride Carbon Dioxide Anion Gap BUN Creatinine Estim Creat Clear Calc Estimated GFR Glucose POC Capillary Glucose 142 H 159 H Calcium Magnesium Total Bilirubin AST ALT Alkaline Phosphatase Total Protein Albumin Preliminary micro results at discharge 09/04/24 12:48 Adenovirus Culture - Preliminary Nasopharynx Influenza Type A Virus Culture - Preliminary Influenza Type B Virus Culture - Preliminary Parainfluenza Type 1 Virus Culture - Preliminary Parainfluenza Type 2 Virus Culture - Preliminary Parainfluenza Type 3 Virus Culture - Preliminary Respiratory Syncytial Virus Culture - Preliminary 09/01/24 13:55 Blood Culture - Preliminary Blood 09/01/24 14:20 Blood Culture - Preliminary Blood Discharge Plan Discharge Attending physician on discharge: Racheal Huang Consulting providers: Fernando Mays; Betty Schwartz Discharging Clinician: Racheal Huang Anticipated Discharge Date/Time: 09/07/24 14:50 Patient Disposition: SNF Activity: as tolerated Diet: as tolerated and diabetic Patient Language: Mongolian Stand Alone Forms: General Discharge Information Follow-up/Referrals: Fernando Mays MD [Physician] - (F/u with Neurology as instructed ) Lai Dexter MD [Primary Care Provider] - (F/u with PCP in 3-5 days ) Betty Schwartz MD [Physician] - (F/u with Cardiology as instructed ) Discharge Medications: Continued metformin 500 mg tablet 1,000 mg PO BID loperamide 2 mg Capsule 2 mg PO Q6H PRN (Reason: Diarrhea) Rx Instructions: after each loose stool. famotidine 20 mg Tablet 20 mg PO BID magnesium hydroxide [Milk of Magnesia] 400 mg/5 mL Suspension 30 ml PO HS PRN (Reason: Constipation) Rx Instructions: if no BM in 3 days bisacodyl 10 mg Suppository 10 mg RECTAL DAILY PRN (Reason: Constipation) Rx Instructions: if no results from MOM calcium carbonate 200 mg calcium (500 mg) Tablet,Chewable 500 mg PO BID Fleet Enema 19-7 gram/118 mL Enema 118 ml RECTAL DAILY PRN (Reason: Constipation) Rx Instructions: If no results 1 day after suppository. magnesium citrate Solution 296 ml PO DAILY PRN (Reason: Constipation) Rx Instructions: if no results after enema allopurinol 300 mg tablet 300 mg PO DAILY albuterol sulfate 90 mcg/actuation HFA aerosol inhaler 2 puff INHALATION Q4H PRN (Reason: Shortness Of Breath Or Wheezing) loratadine 10 mg Tablet 10 mg PO DAILY melatonin 5 mg Tablet 5 mg PO HS cyanocobalamin (vitamin B-12) [Vitamin B-12] 1,000 mcg Tablet 1,000 mcg PO DAILY nitroglycerin [Nitrostat] 0.4 mg Tablet, Sublingual 0.4 mg sublingual Q5MIN PRN (Reason: Chest Pain) 30 Days Qty: 15 0RF [id number] acid 18-400 mg-mcg Tablet 1 tablet PO DAILY Jardiance 25 mg tablet 25 mg PO DAILY divalproex 500 mg tablet,delayed release (DR/EC) 500 mg PO BID buspirone 10 mg tablet 10 mg PO TID duloxetine 20 mg capsule,delayed release(DR/EC) 20 mg PO BID lorazepam 0.5 mg tablet 0.5 mg PO BID trazodone 50 mg tablet 50 mg PO HS ergocalciferol (vitamin D2) [Vitamin D2] 1,250 mcg (50,000 unit) capsule 50,000 unit PO WEEKLY Rx Instructions: Every Saturday colestipol [Colestid] 1 gram Tablet 1 g PO BID Glucagon Emergency Kit (human) 1 mg Recon Soln 1 mg subcut PRN PRN (Reason: Hypoglycemia) albuterol sulfate [Ventolin HFA] 90 mcg/actuation Hfa Aerosol Inhaler 2 puff INHALATION HS metoprolol tartrate 25 mg tablet 12.5 mg PO Q12HR Rx Instructions: hold if SBP <120 allopurinol 100 mg tablet 50 mg PO EVERY OTHER DAY ondansetron HCl 8 mg tablet 8 mg PO Q8H PRN (Reason: nausea and vomiting) oxycodone 5 mg Tablet 5 mg PO Q6H PRN (Reason: Pain (Scale Score 4-6)) aspirin 81 mg tablet,delayed release (DR/EC) 81 mg PO DAILY furosemide 20 mg tablet 80 mg PO DAILY insulin glargine [Lantus Solostar U-100 Insulin] 100 unit/mL (3 mL) insulin pen 16 unit SUBCUT QAM potassium chloride 20 mEq tablet extended release 20 meq PO DAILY Date of admission: 09/01/24 18:13 Primary Care Provider: Lai Dexter Admitting Provider: Angel Soares Attending physician on admission: Angel Soares Condition: Serious
[2024-09-07] MEDS: BISACODYL 10 MG SUPPOSITORY RECTAL (16:37)
--- NOTE | 2024-09-07 19:40 | PC.NURSE ---
1600- pt to discharge to [facility]- report given to Puja RN- ambulance service called for transfer
== END 2024-09-07 07:30 | DRG 178 ==
LOC: ANHED 09:13 → ANHIMU 17:19
PROVIDERS: Emergency Medicine; Family Medicine; Student in an Organized Health Care Education/Training Program; Admitting Provider Internal Medicine; Emergency Provider Physician Assistant; PCP Family Medicine; Visit Provider Internal Medicine
DX: J15.212 Pneumonia due to Methicillin resistant Staphylococcus aureus (principal); E87.0 Hyperosmolality and hypernatremia; E78.5 Hyperlipidemia, unspecified; E11.42 Type 2 diabetes mellitus with diabetic polyneuropathy; E11.65 Type 2 diabetes mellitus with hyperglycemia; G47.33 Obstructive sleep apnea (adult) (pediatric); I27.20 Pulmonary hypertension, unspecified; I25.2 Old myocardial infarction; I25.10 Atherosclerotic heart disease of native coronary artery without angina pectoris; I48.0 Paroxysmal atrial fibrillation; I11.0 Hypertensive heart disease with heart failure; I50.9 Heart failure, unspecified; K21.9 Gastro-esophageal reflux disease without esophagitis; R41.82 Altered mental status, unspecified; Z90.49 Acquired absence of other specified parts of digestive tract; Z86.718 Personal history of other venous thrombosis and embolism; Z86.711 Personal history of pulmonary embolism; Z79.4 Long term (current) use of insulin; Z79.82 Long term (current) use of aspirin; Z79.84 Long term (current) use of oral hypoglycemic drugs; Z95.5 Presence of coronary angioplasty implant and graft; Z20.822 Contact with and (suspected) exposure to COVID-19
CPT/HCPCS: 36415; 70450; 71045; 78582; 80048; 80053; 80202; 80307; 81001; 82607; 82746; 82948; 83036; 83605; 83735; 84100; 84443; 85025; 85027; 85380; 85610; 85730; 87040; 87254; 87637; 87641; 93005; 95816; 96361; 96365; 96366; 96368; 96375; 96376; 99285; A9270; A9540; A9558; C8929; G0378; J0616; J1163; J1650; J1815; J1956; J2060; J3373; J7040; J7042; J7070; P9047; Q9957

== ENCOUNTER 2024-09-12 13:23 | Emergency (ER) | payer MEDICARE, MEDICAID, SELFPAY ==
[2024-09-12] VITALS (11 sets, daily range): BP systolic 103–145; BP diastolic 69–89; PULSE 113–123; RESP 16–21; TEMP 37.2; O2SAT 95–97
--- NOTE | 2024-09-12 13:55 | ED.GENADULT ---
HPI - General Adult General Chief complaint: Altered Mental Status Stated complaint: AMS Time Seen by Provider: 09/12/24 13:46 History of Present Illness HPI narrative: This is a 69-year-old female presenting for altered mental status. Patient was recently discharged from our hospital after being admitted for altered mental status found to have pneumonia and UTI. On discharge her mental status had not really improved and she is now A&O x1. She is bed-bound. She cannot provide any information to get a workup. I reached out to her brother who is the power of hospital security officer to discuss goals of care. He does not want invasive workup and he would like information on hospice. Related Data Home Medications ?Medication ?Instructions ?Recorded ?Confirmed ?Last Taken ?Type albuterol sulfate 90 mcg/actuation 2 puff inhalation Q4H PRN 01/20/21 09/01/24 Unknown History aerosol inhaler Shortness Of Breath Or Wheezing allopurinol 300 mg tablet 300 mg PO DAILY 01/20/21 09/01/24 01/19/21 21:00 History bisacodyl 10 mg rectal suppository 10 mg RECTAL DAILY PRN Constipation 01/20/21 09/01/24 Unknown History calcium carbonate 500 mg PO BID 01/20/21 09/01/24 01/20/21 09:00 History cyanocobalamin (vitamin B-12) 1,000 mcg PO DAILY 01/20/21 09/01/24 01/20/21 09:00 History 1,000 mcg tablet (Vitamin B-12) famotidine 20 mg tablet 20 mg PO BID 01/20/21 09/01/24 01/20/21 09:00 History loperamide 2 mg capsule 2 mg PO Q6H PRN Diarrhea 01/20/21 09/01/24 Unknown History loratadine 10 mg tablet 10 mg PO DAILY 01/20/21 09/01/24 Unknown History magnesium citrate 296 ml PO DAILY PRN Constipation 01/20/21 09/01/24 Unknown History magnesium hydroxide 400 mg/5 mL 30 ml PO HS PRN Constipation 01/20/21 09/01/24 Unknown History oral suspension (Milk of Magnesia) melatonin 5 mg tablet 5 mg PO HS 01/20/21 09/01/24 01/19/21 21:00 History metformin 500 mg tablet 1,000 mg PO BID 01/20/21 09/01/24 01/20/21 09:00 History sodium phosphates 19 gram-7 118 ml RECTAL DAILY PRN 01/20/21 09/01/24 Unknown History gram/118 mL enema (Fleet Enema) Constipation multivitamin-ferrous 1 tablet PO DAILY 05/13/21 09/01/24 Unknown History fumarate-folic acid 18 mg-400 mcg tablet divalproex 500 mg tablet,delayed 500 mg PO BID 09/20/21 09/01/24 Unknown History release empagliflozin 25 mg tablet 25 mg PO DAILY 09/20/21 09/01/24 Unknown History (Jardiance) colestipol 1 gram tablet (Colestid) 1 g PO BID 04/27/22 09/01/24 Unknown History albuterol sulfate 90 mcg/actuation 2 puff inhalation HS 04/13/23 09/01/24 Unknown History aerosol inhaler (Ventolin HFA) glucagon 1 mg solution for 1 mg subcut PRN PRN Hypoglycemia 04/13/23 09/01/24 Unknown History injection (Glucagon Emergency Kit) metoprolol tartrate 25 mg tablet 12.5 mg PO Q12HR 04/13/23 09/01/24 Unknown History allopurinol 100 mg tablet 50 mg PO EVERY OTHER DAY 10/19/23 09/01/24 Unknown History aspirin 81 mg tablet,delayed 81 mg PO DAILY 10/19/23 09/01/24 Unknown History release furosemide 20 mg tablet 80 mg PO DAILY 10/19/23 09/01/24 Unknown History insulin glargine 100 unit/mL (3 16 unit subcut QAM 10/19/23 09/01/24 Unknown History mL) subcutaneous pen (Lantus Solostar U-100 Insulin) ondansetron HCl 8 mg tablet 8 mg PO Q8H PRN nausea and vomiting 10/19/23 09/02/24 Unknown History oxycodone 5 mg tablet 5 mg PO Q6H PRN Pain (Scale Score 10/19/23 09/01/24 Unknown History 4-6) potassium chloride 20 mEq 20 meq PO DAILY 10/19/23 09/01/24 Unknown History tablet,extended release buspirone 10 mg tablet 10 mg PO TID 09/01/24 09/01/24 Unknown History duloxetine 20 mg capsule,delayed 20 mg PO BID 09/01/24 09/01/24 Unknown History release ergocalciferol (vitamin D2) 1,250 50,000 unit PO WEEKLY 09/01/24 09/01/24 Unknown History mcg (50,000 unit) capsule (Vitamin D2) lorazepam 0.5 mg tablet 0.5 mg PO BID 09/01/24 09/01/24 Unknown History trazodone 50 mg tablet 50 mg PO HS 09/01/24 09/01/24 Unknown History Allergies Allergy/AdvReac Type Severity Reaction Status Date / Time amoxicillin Allergy Severe Anaphylaxis Verified 09/12/24 14:01 bee venom protein (honey Allergy Severe Anaphylaxis Verified 09/12/24 14:01 bee) (bees) Penicillins Allergy Severe Anaphylaxis Verified 09/12/24 14:01 Sulfa (Sulfonamide Allergy Severe Anaphylaxis Verified 09/12/24 14:01 Antibiotics) blue dye Allergy Unknown Verified 09/12/24 14:01 fish derived Allergy Unknown Verified 09/12/24 14:01 iodine Allergy Rash Verified 09/12/24 14:01 metaproterenol Allergy Unknown Verified 09/12/24 14:01 methocarbamol Allergy Unknown Verified 09/12/24 14:01 oxytetracycline Allergy Unknown Verified 09/12/24 14:01 pentazocine Allergy Unknown Verified 09/12/24 14:01 procaine Allergy Unknown Verified 09/12/24 14:01 aspirin AdvReac Mild Nausea and Verified 09/12/24 14:01 Vomiting fluoxetine AdvReac Mild Nausea and Verified 09/12/24 14:01 Vomiting chlorpheniramine AdvReac Nausea and Verified 09/12/24 14:01 Vomiting erythromycin base AdvReac Nausea and Verified 09/12/24 14:01 Vomiting fenofibrate AdvReac Nausea and Verified 09/12/24 14:01 Vomiting hydrocodone AdvReac Nausea and Verified 09/12/24 14:01 Vomiting hydroxyzine AdvReac Nausea and Verified 09/12/24 14:01 Vomiting propoxyphene AdvReac Nausea and Verified 09/12/24 14:01 Vomiting sertraline AdvReac Nausea and Verified 09/12/24 14:01 Vomiting terbutaline AdvReac Nausea and Verified 09/12/24 14:01 Vomiting yellow dye AdvReac Nausea and Verified 09/12/24 14:01 Vomiting hmg-coa-R Inhibitors Allergy Unknown Uncoded 09/12/24 14:01 [facility] Past Medical History Medical History Moderate pulmonary hypertension CAD (coronary artery disease) Non STEMI 12/2020 Morbid obesity with BMI of 50.0-59.9, adult NSTEMI (non-ST elevated myocardial infarction) Gastroesophageal reflux disease Diabetic peripheral neuropathy Anxiety Depression Obstructive sleep apnea Intolerant to CPAP. Paroxysmal atrial fibrillation Pulmonary embolism Deep venous thrombosis Mixed stress and urge incontinence Hyperlipidemia Hypertension Frequent urinary tract infections Congestive heart failure Echocardiogram 04/2021: EF 65-70%, mildly increased left ventricular wall thickness, abnormal diastolic function, moderate left atrial enlargement, mild aortic valve stenosis peak velocity of 205 mean gradient 11 and valve area 2.39 cm, mild aortic valve regurgitation, mild mitral valve stenosis, mild mitral valve regurgitation, severely calcified mitral valve annulus, mild tricuspid valve regurgitation, moderate pulmonary hypertension RVSP of 59 Asthma Surgical History Surgical History History of cardiac catheterization Most recent cardiac catheterization 12/2020: 70% eccentric stenosis proximal left circumflex status post angioplasty and stent placement 3 x 12 mm Medtronic resolute becca zotarolimus stent, 30 40% stenosis mid LAD, 50 60% diffuse stenosis proximal segment of D2 and D3, 30-40% stenosis proximal segment of RCA preserved EF 70% left ventricular end-diastolic pressure 12 History of cystoscopy History of colonoscopy History of cholecystectomy History of tonsillectomy and adenoidectomy Family History Family History Mother No problems noted. Father No problems noted. Other Adopted Chest pain Social History Social History Social History: Surrogate decision maker: Moi Medellin, brother. Code status: Full code. Smoking status: Unknown if ever smoked Second hand tobacco smoke exposure: No Alcohol intake: never Substance use: never Substance use type: does not use Additional living arrangements comments: Patient is a resident at [facility]. She has no children. 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 Spiritual care concerns: No Exam Narrative: APPEARANCE: Response to pain chronically unwell appearing Head: atraumatic. EYES: EOMI, NOSE: Atraumatic NECK: Trachea midline RESPIRATORY: No increased rate of breathing CTAB CARDIOVASCULAR: Tachycardic ABDOMINAL: Non-distended soft nontender MUSCULOSKELETAl: No obvious deformities NEURO: Alert. Moving 4/4 extremities SKIN:: Warm, dry. Normal color PSYCHIATRIC: Normal affect Course Vital Signs Vital signs: Vital Signs Temperature 98.9 F 09/12/24 13:25 Pulse Rate 118 H 09/12/24 13:25 Respiratory Rate 18 09/12/24 13:25 Blood Pressure 145/79 H 09/12/24 13:25 Pulse Oximetry 95 09/12/24 13:25 Oxygen Delivery Room Air 09/12/24 13:25 Temperature 98.9 F 09/12/24 13:25 Pulse Rate 120 H 09/12/24 15:16 Respiratory Rate 19 09/12/24 15:16 Blood Pressure 125/73 09/12/24 15:16 Pulse Oximetry 96 09/12/24 15:16 Oxygen Delivery Room Air 09/12/24 13:35 Medical Decision Making MDM Narrative Medical decision making narrative: -Course: 69-year-old female presenting for altered mental status. I spoke with her brother who is the power of hospital security officer. Due to her mental decline and poor quality of life he does not want to seek aggressive care and like information on hospice. Care coordination was consulted. Patient has been put in touch with hosp[facility]. Patient will be discharged back to [facility] for Hospice care. Vital Signs Vital Signs: Vital Signs Temperature 98.9 F 09/12/24 13:25 Pulse Rate 118 H 09/12/24 13:25 Respiratory Rate 18 09/12/24 13:25 Blood Pressure 145/79 H 09/12/24 13:25 Pulse Oximetry 95 09/12/24 13:25 Oxygen Delivery Room Air 09/12/24 13:25 Temperature 98.9 F 09/12/24 13:25 Pulse Rate 120 H 09/12/24 15:16 Respiratory Rate 19 09/12/24 15:16 Blood Pressure 125/73 09/12/24 15:16 Pulse Oximetry 96 09/12/24 15:16 Oxygen Delivery Room Air 09/12/24 13:35 Discharge Plan Discharge Clinical Impression: Altered mental status Qualifiers: Altered mental status type: unspecified Qualified Code(s): R41.82 - Altered mental status, unspecified Patient Disposition: Hospice - Home Condition: Terminal Additional Instructions: Nazanin was seen in the ER for altered mental status. She is now comfort measures only and will be treated by [facility]. Please speak with them for further management. Patient Language: Tajik Prescriptions: No Action metformin 500 mg tablet 1,000 mg PO BID loperamide 2 mg Capsule 2 mg PO Q6H PRN (Reason: Diarrhea) Rx Instructions: after each loose stool. famotidine 20 mg Tablet 20 mg PO BID magnesium hydroxide [Milk of Magnesia] 400 mg/5 mL Suspension 30 ml PO HS PRN (Reason: Constipation) Rx Instructions: if no BM in 3 days bisacodyl 10 mg Suppository 10 mg RECTAL DAILY PRN (Reason: Constipation) Rx Instructions: if no results from MOM calcium carbonate 200 mg calcium (500 mg) Tablet,Chewable 500 mg PO BID Fleet Enema 19-7 gram/118 mL Enema 118 ml RECTAL DAILY PRN (Reason: Constipation) Rx Instructions: If no results 1 day after suppository. magnesium citrate Solution 296 ml PO DAILY PRN (Reason: Constipation) Rx Instructions: if no results after enema allopurinol 300 mg tablet 300 mg PO DAILY albuterol sulfate 90 mcg/actuation HFA aerosol inhaler 2 puff INHALATION Q4H PRN (Reason: Shortness Of Breath Or Wheezing) loratadine 10 mg Tablet 10 mg PO DAILY melatonin 5 mg Tablet 5 mg PO HS cyanocobalamin (vitamin B-12) [Vitamin B-12] 1,000 mcg Tablet 1,000 mcg PO DAILY nitroglycerin [Nitrostat] 0.4 mg Tablet, Sublingual 0.4 mg sublingual Q5MIN PRN (Reason: Chest Pain) 30 Days Qty: 15 0RF ztvprjtjrzsu-zzra-smcvb acid 18-400 mg-mcg Tablet 1 tablet PO DAILY Jardiance 25 mg tablet 25 mg PO DAILY divalproex 500 mg tablet,delayed release (DR/EC) 500 mg PO BID buspirone 10 mg tablet 10 mg PO TID duloxetine 20 mg capsule,delayed release(DR/EC) 20 mg PO BID lorazepam 0.5 mg tablet 0.5 mg PO BID trazodone 50 mg tablet 50 mg PO HS ergocalciferol (vitamin D2) [Vitamin D2] 1,250 mcg (50,000 unit) capsule 50,000 unit PO WEEKLY Rx Instructions: Every Saturday colestipol [Colestid] 1 gram Tablet 1 g PO BID Glucagon Emergency Kit (human) 1 mg Recon Soln 1 mg subcut PRN PRN (Reason: Hypoglycemia) albuterol sulfate [Ventolin HFA] 90 mcg/actuation Hfa Aerosol Inhaler 2 puff INHALATION HS metoprolol tartrate 25 mg tablet 12.5 mg PO Q12HR Rx Instructions: hold if SBP <120 allopurinol 100 mg tablet 50 mg PO EVERY OTHER DAY ondansetron HCl 8 mg tablet 8 mg PO Q8H PRN (Reason: nausea and vomiting) oxycodone 5 mg Tablet 5 mg PO Q6H PRN (Reason: Pain (Scale Score 4-6)) aspirin 81 mg tablet,delayed release (DR/EC) 81 mg PO DAILY furosemide 20 mg tablet 80 mg PO DAILY insulin glargine [Lantus Solostar U-100 Insulin] 100 unit/mL (3 mL) insulin pen 16 unit SUBCUT QAM potassium chloride 20 mEq tablet extended release 20 meq PO DAILY Follow-up/Referrals: Jamar Head MD [Primary Care Provider] -
--- OUTSIDE RECORDS SUMMARY | 2024-09-12 13:56 | XMS_ITS | Patient Health Record ---
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 Gear Name Role Phone VielkaSIDRA fine Unavailable [phone] Antionette Lucero Unavailable Unavailable Reason For Referral No Information Medications Medication SIG (Take, Route, Frequency, Duration) Notes Start Date End Date Status furosemide 20 MG Oral Tablet [Lasix] ORAL furosemide 20 MG Oral Tablet [Lasix]Original Medicationfurosemide 20 MG Oral Tablet [Lasix] *Reorder from [facility] for eRx and Interaction Alerts* 2 Active calcium carbonate 1500 MG / cholecalciferol 200 UNT Oral Tablet ORAL calcium carbonate 1500 MG / cholecalciferol 200 UNT Oral TabletOriginal Medicationcalcium carbonate 1500 MG / cholecalciferol 200 UNT Oral Tablet *Reorder from [employer] for eRx and Interaction Alerts* 2 Active rabeprazole sodium 20 MG Delayed Release Oral Tablet [Aciphex] ORAL rabeprazole sodium 20 MG Delayed Release Oral Tablet [Aciphex]Original Medicationrabeprazole sodium 20 MG Delayed Release Oral Tablet [Aciphex] *Reorder from [facility] for eRx and Interaction Alerts* 2 Active insulin detemir 100 UNT/ML Injectable Solution [Levemir] insulin detemir 100 UNT/ML Injectable Solution [Levemir]Original Medicationinsulin detemir 100 UNT/ML Injectable Solution [Levemir] *Reorder from [facility] for eRx and Interaction Alerts* 2 Active Cephalexin 500 MG Oral Capsule ORAL cephalexin 500 MG Oral CapsuleOriginal Medicationcephalexin 500 MG Oral Capsule *Reorder from [facility] for eRx and Interaction Alerts* 7 Active 24 HR carvedilol phosphate 10 MG Extended Release Oral Capsule [Coreg] ORAL 24 HR carvedilol phosphate 10 MG Extended Release Oral Capsule [Coreg]Original [id number] HR carvedilol phosphate 10 MG Extended Release Oral Capsule [Coreg] *Reorder from [facility] for eRx and Interaction Caro 2 Active amlodipine 10 MG / olmesartan medoxomil 20 MG Oral Tablet [Jessica] ORAL amlodipine 10 MG / olmesartan medoxomil 20 MG Oral Tablet [Jessica]Original Medicationamlodipine 10 MG / olmesartan medoxomil 20 MG Oral Tablet [Jessica] *[facility] eRx and Interaction Alerts* 2 Active 24 HR metformin hydrochloride 750 MG Extended Release Oral Tablet ORAL 24 HR metformin hydrochloride 750 MG Extended Release Oral TabletOriginal [id number] HR metformin hydrochloride 750 MG Extended Release Oral Tablet *Reorder from [facility] for eRx and Interaction Alerts* 2 Active Plan Of Treatment No Information Insurance Providers Payer Name Payer Address Payer Phone Subscriber Number Group Number Insured Name Patient Relationship to Insured Coverage Start Date Coverage End Date [employer]. [address] [place] [id number] SHARRI VILLAGOMEZ Self - patient is the insured
--- OUTSIDE RECORDS SUMMARY | 2024-09-12 13:56 | XMS_ITS | Patient Health Record ---
Author Organization [facility] Address [address] [facility] [address] [place] [address] Care Team Providers Care Manufacturing Support Engineer Name Role Phone Joana Patel Unavailable [phone] Reason For Referral No Information Medications Medication SIG (Take, Route, Frequency, Duration) Notes Start Date End Date Status Divalproex Sodium ER 250 MG Oral 09/11/2019 Active Isosorbide Mononitrate ER 30 MG Oral 09/11/2019 Active amLODIPine Besylate 10 MG Oral 09/11/2019 Active Gemfibrozil 600 MG Oral 09/11/2019 Active Venlafaxine HCl ER 75 MG Oral 09/11/2019 Active busPIRone HCl 5 MG Oral 09/11/2019 Active Fluticasone Propionate Diskus 50 MCG/ACT Inhalation *Reorder from [facility] for eRx and Interaction Alerts* 09/11/2019 Active Divalproex Sodium 125 MG Oral 09/11/2019 Active Lantus SoloStar 100 UNIT/ML Subcutaneous 09/11/2019 Active glipiZIDE 5 MG Oral 09/11/2019 Acti ve Oseltamivir Phosphate 75 MG Oral 09/11/2019 Active Potassium Chloride ER 10 MEQ Oral 09/11/2019 Active Famotidine 20 MG Oral 09/11/2019 Ac tive Clopidogrel Bisulfate 75 MG Oral 09/11/2019 Active INSULIN ASPART U-100 100 UNIT/ML SUBCUTANEOUS SOLUTION *Reorder from [facility] [facility] for eRx and Interaction Alerts* 09/11/2019 Active Ipratropium-Albuterol 0.5-2.5 (3) MG/3ML Inhalation 09/11/2019 Active HumuLIN R 100 UNIT/ML Injection 09/11/2019 Active Gabapentin 100 MG Oral 09/11/2019 A ctive Ondansetron HCl 4 MG Oral 09/11/2019 Active Spironolactone 25 MG Oral 09/11/2019 Active Melatonin 3 MG Oral 09/11/2019 Acti ve Potassium Chloride Jeimy ER 10 MEQ Oral 09/11/2019 Active Lantus 100 UNIT/ML Subcutaneous 09/11/2019 Active Furosemide 20 MG Oral 09/11/2019 Ac tive Venlafaxine HCl ER 150 MG Oral 09/11/2019 Active Immunizations Vaccine Route Administration Date Status Comme nts Pneumococcal polysaccharide PPV23 Unknown 02/03/2017 Ad ministered Influenza, unspecified formulation Unknown 11/27/2017 A dministered Plan Of Treatment No Information Insurance Providers Payer Name Payer Address Payer Phone Subscriber Number Group Number Insured Name Patient Relationship to Insured Coverage Start Date Coverage End Date [place] [address] [place] [phone] [id number] SHARRI VILLAGOMEZ Self - patient is the insured [facility] [address] [place] [phone] [id number] SHARRI VILLAGOMEZ Self - patient is the insured
--- OUTSIDE RECORDS SUMMARY | 2024-09-12 13:56 | XMS_ITS | Clinical Summary ---
Author Organization [facility] Address [address] [place] [address] Care Team Providers Care Global Ceo Name Role Phone Lai Dexter MD Primary Care Provider [phone] Source Comments [facility],non-owned Affiliates and Associated Physician Practices is amultiple site organization consisting of ambulatory clinics and hospital sitesin [place], [place], [place] and [place]. This disclosure is being madepursuant to the Care Everywhere program and may not contain all information available regarding this patient. 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 Interventions: Medical Devices Implanted Type Area Broomcorn Thresher Device Identifier Shelf Expiration Date Model / Serial / Lot Screw 3.5mm 6mm 150mm 2.5mm Ft Slf-Tap Implanted:Qty: 1 on 12/13/2019 by Koko Gaines MD at [facility] Left: Leg Zollo Usa [id number] / / Gw Orth 400mm 3.2mm Tib Thrd Nonster Implanted:Qty: 1 on 12/13/2019 by Koko Gaines MD at [facility] Left: Leg Synthes Usa [id number] / / 12mm Ti Michaela Tibial Nail-Ex W/Prox Bend 315mm Implanted:Qty: 1 on 12/13/2019 by Koko Gaines MD at [facility] Left: Leg Synthes Usa 12/26/2020 [id number] / / [id number] Screw 5mm 4.3mm 32mm T25 Ft Slf-Tap Lck Implanted:Qty: 2 on 12/13/2019 by Koko Gaines MD at [facility] Left: Leg Synthes Usa [id number] / / Screw 5mm 4.3mm 42mm T25 Ft Tib Lck Implanted:Qty: 2 on 12/13/2019 by Koko Gaines MD at [facility] Left: Leg Synthes Usa [id number] / / Screw 5mm 4.3mm 28mm T25 Ft Tib Lck Implanted:Qty: 1 on 12/13/2019 by Koko Gaines MD at [facility] Left: Leg Synthes Usa [id number] / / Explanted Type Area Broomcorn Thresher Device Identifier Shelf Expiration Date Model / Serial / Lot Wire K 2mm 150mm Troc Tip Ss Fx Nonster Explanted:Qty: 1 on 12/13/2019 at [facility] Left: Leg Synthes Usa [id number] / [...] - 26 mg/dL 12/19/2019 5:32 AM CDT [facility] Creatinine 1.0 0.6 - 1.2 mg/dL 12/19/2019 5:32 AM CDT [facility] Sodium 140 136 - 145 mmol/L 12/19/2019 5:32 AM CDT [facility] Potassium 3.7 3.5 - 4.5 mmol/L 12/19/2019 5:32 AM CDT [facility] Chloride 98 98 - 107 mmol/L 12/19/2019 5:32 AM [facility] CO2 30(H) 22 - 29 mmol/L 12/19/2019 5:32 AM [facility] Glucose 131(H) 70 - 115 mg/dL 12/19/2019 5:32 AM [facility] Calcium 9.0 8.4 - 10.2 mg/dL 12/19/2019 5:32 AM [facility] Anion Gap 16 8 - 18 12/19/2019 5:32 AM [facility] BUN/Creatinine Ratio 17 7 - 23 12/19/2019 5:32 AM [facility] Osmolality Calculated 293 270 - 300 mOsm/kg 12/19/2019 5:32 AM [facility] eGFR 56(L) >60 mL/min/1.7 3 m2 12/19/2019 5:32 AM [facility] Blood BLOOD SPECIMEN / Unknown Venipuncture / Unknown 12/19/2019 4:50 AM CDT 12/19/2019 5:05 AM CDT Rosetta Flores DO LAB - CHEMISTRY ORDERABLES Final Result [facility] [address] [place] [id number], [facility] [phone] * HEMOGLOBIN A1C (12/15/2019 7:01 AM CDT) Hemoglobin A1c 5.6 4.4 - 6.3 % 12/15/2019 12:45 PM [facility] Estimated Average Glucose 114 mg/dL 12/15/2019 12:45 PM [facility] Comment: HbA1c Interpretation: Treatment target values recommended by ADA and other clinical organizations should be used to evaluate metabolic control in patients. Treatment Target Values: Normal : < 5.7% Pre-diabetes: 5.7-6.4% Diabetes: Equal to or greater than 6.5% Reference: [place] Diabetes Association Standards of Care in Diabetes -2014 In patients 70 years and older consider HbA1c target range of 7.0-7.5% Reference: Diabetes Mellitus in Older People: Position Statement on behalf of the International Association of Gerontology and Geriatrics (IAGG), the Diabetes Working Green Party for Older People (EDWPOP), and the International Task Force of Experts in Diabetes. Nemesio Garcia, et al. J [place] [employer] Association. 2012 Test results diagnostic of diabetes should be repeated for confirmation. The Sebia Capillary 2 assay for the measurement of HbA1c is a National Glycohemoglobin Standardization Program (NGSP)certified method. Blood BLOOD SPECIMEN / Unknown Lab Venipuncture / Unknown 12/15/2019 7:01 AM CDT 12/15/2019 7:26 AM CDT us Kenji Pitts MD LAB - CHEMISTRY ORDERABLES F inal Result [id number] [place] [address], [facility] [phone] from Last 3 Months or Most Recently Relevant to Health Maintenance Insurance [employer] MEDICAID MEDICARE MEDICARE Advance Directives * Full Code (Latest Code Status on File) Date Activated Date Inactivated Comments 12/12/2019 2:12 PM 12/23/2019 4:59 PM Care Teams Global Ceo Relationship Specialty Start Date End Date Lai Dexter MD [address] [place] [address] PCP - General 06/13/20
--- NOTE | 2024-09-12 14:02 | ECG_ITS ---
Test Date: 2024-09-12 13:35:44 Measurements Intervals [place] Rate: 111 P: 0 NV: 0 QRS: -26 QRSD: 109 T: 62 QT: 322 QTc: 439 Interpretive Statements ATRIAL FLUTTER/TACHYCARDIA WITH RAPID VENTRICULAR RESPONSE POSSIBLE PREVIOUS INFERIOR INFARCTION POOR R-WAVE PROGRESSION ABNORMAL ELECTROCARDIOGRAM Compared to ECG 09/01/2024 08:58:21 NO SIGNIFICANT CHANGE Electronically Signed On 09-13-2024 08:05:17 CDT by Jonathan Nevarez M.D.
== END 2024-09-12 17:40 | disposition hospice, home (50) ==
PROVIDERS: Emergency Provider Emergency Medicine; PCP Family Medicine
DX: R41.82 Altered mental status, unspecified (principal); I25.10 Atherosclerotic heart disease of native coronary artery without angina pectoris; I27.20 Pulmonary hypertension, unspecified; I25.2 Old myocardial infarction; I50.9 Heart failure, unspecified; I11.0 Hypertensive heart disease with heart failure; E11.42 Type 2 diabetes mellitus with diabetic polyneuropathy; E78.5 Hyperlipidemia, unspecified; G47.33 Obstructive sleep apnea (adult) (pediatric); I48.0 Paroxysmal atrial fibrillation; J45.909 Unspecified asthma, uncomplicated; N39.46 Mixed incontinence; K21.9 Gastro-esophageal reflux disease without esophagitis; F41.9 Anxiety disorder, unspecified; F32.A Depression, unspecified; Z86.718 Personal history of other venous thrombosis and embolism; Z86.711 Personal history of pulmonary embolism; Z90.49 Acquired absence of other specified parts of digestive tract; Z79.84 Long term (current) use of oral hypoglycemic drugs; Z79.899 Other long term (current) drug therapy; Z79.82 Long term (current) use of aspirin; Z79.4 Long term (current) use of insulin; I48.92 Unspecified atrial flutter; R94.31 Abnormal electrocardiogram [ECG] [EKG]; R00.0 Tachycardia, unspecified
CPT/HCPCS: 93005; 99284